=== PATIENT | male | born 1970 | race Caucasian/White ===

== ENCOUNTER 2021-12-13 00:32 | Emergency (ER) | payer OTHER, SELFPAY ==
--- NOTE | ~2021-12-13 | CT_ITS ---
EXAMINATION: CT ANGIOGRAM LEFT LOWER EXTREMITY CLINICAL INFORMATION: Fall extremity COMPARISON: None TECHNIQUE: CT angiography of the left lower extremity was performed after the administration of 100 mL Omnipaque 350 intravenous contrast. Coronal and sagittal reformats are reviewed. Maximal intensity projection images were created on an independent workstation, and reviewed. This CT examination was performed using dose optimization techniques as appropriate, variously including the following: *Automated exposure control *Adjustment of mA and/or kV according to patient size (this includes techniques or standardized protocols for targeted exams where dose is matched to indication/reason for exam; i.e. extremities or head) *Use of iterative reconstruction technique DLP: 410 mGy-cm FINDINGS: VASCULAR: Bilateral external and internal iliac arteries widely patent. Minimal calcific atherosclerotic disease of the left common femoral artery without stenosis. Superficial and profunda femoral arteries are patent without stenosis. Popliteal artery and tibioperoneal trunk are widely patent. Anterior tibial artery is patent proximally, however distally shows a relatively abrupt cut off in opacification. Posterior vertebral artery is patent proximally showing normal opacification to the level of the tibial metaphysis. There is no contrast opacification beyond the ankle. Peroneal artery is patent to the level of the distal third of the calf. IMAGED VISCERA: Diverticulosis. Bladder unremarkable. Prostate and seminal vesicles unremarkable. No lymphadenopathy. No pelvic free fluid. MUSCULOSKELETAL: Unremarkable. CT/CT angio LE LT IMPRESSION: Normal arterial blood flow through the level of the left knee. At most, single vessel runoff to the left foot. The anterior tibial artery is unopacified past the distal third of the tibia. Posterior tibial artery is unopacified past the distal tibial metaphysis. Peroneal artery is only seen as far as the distal third of the calf, however lack of visualization distally may reflect its diminutive nature.
[2021-12-13 00:43] VITALS: BP 169/103; PULSE 81; RESP 18; TEMP 37; O2SAT 99; BMI 28.7
--- NOTE | 2021-12-13 00:57 | ED_ITS ---
HPI - Extremity Problem General Chief complaint: Extremity Problem Stated complaint: L foot red&no circulation after shower for months Time Seen by Provider: 12/13/21 00:42 Source: patient Mode of arrival: ambulatory Limitations: no limitations History of Present Illness HPI Narrative: Patient comes to the emergency room complaining of pain and numbness in his left foot and distal left lower extremity. Patient states that he was in the shower approximately 22:00, when he walked out of the shower he noticed that his left lower extremity was read. However, patient states that since approximately 19:00 he noticed that his toes and foot on the left lower extremity were getting numb and tingly and painful. Patient states that this is the 2nd time it happens. Patient was seen at [facility] in September of 2021. Patient states that there was no diagnosis made. Tonight, patient called his PCP, he was instructed to come to the emergency room. Related Data Home Medications Medication Instructions Recorded Confirmed lisinopril 10 mg tablet 1 tab PO DAILY 12/13/21 12/13/21 lorazepam 1 mg tablet 1 tab PO DAILY PRN 12/13/21 12/13/21 metoprolol tartrate 25 mg tablet 1 tab PO BID 12/13/21 12/13/21 Previous Rx's Medication Instructions Recorded tramadol 50 mg tablet 50 mg PO BID PRN #7 tab 12/13/21 Allergies Allergy/AdvReac Type Severity Reaction Status Date / Time No Known Allergies Allergy Verified 12/13/21 00:51 Review of Systems Review of Systems: Constitutional : No Weight loss, No Fever, No Chills, No Night Sweats, No Fatigue, No Malaise ENT/Mouth : No Hearing loss, No Ear Pain, No Nasal Congestion, No Sinus Pain, No Hoarseness, No sore throat, No Rhinorrhea, No Swallowing Difficulty Eyes: No Eye Pain, No Swelling, No Redness, No Foreign Body, No Discharge, No Vision Changes Cardiovascular : No Chest Pain, No SOB, No Dyspnea on Exertion, No Orthopnea, No Edema, No Palpitations Respiratory : No Cough, No Sputum, No Wheezing, No Smoke Exposure, No Dyspnea Gastrointestinal : No Nausea, No Vomiting, No Diarrhea, No Constipation, No abdominal Pain, No Hematochezia, No Melena Genitourinary : no irregular bleeding, No Dysuria, No Urinary Frequency, No Hematuria, No Urinary Incontinence, No Urgency, No Flank Pain, No Urinary Flow Changes, No Hesitancy Musculoskeletal : Complaining of cold foot, pain, numbness and tingling. Complaining of back spasms and pain radiating from his lower back down his left leg (chronic) Skin : No Skin Lesions, No rash Neuro : No Weakness, No Numbness, No Paresthesias, No Loss of Consciousness, No Dizziness, No Headache Psych : No Anxiety/Panic, No Depression, No SI/HI/AH/VH, No Social Issues, Heme/Lymph: No Bruising, No Bleeding,No Lymphadenopathy Endocrine : No Polyuria, No Polydipsia, No Temperature Intolerance [facility] Past Medical History Medical History (Updated 12/13/21 @ 03:26 by Thalia Kilgore MD) Hypertension Surgical History (Updated 12/13/21 @ 01:02 by Thalia Kilgore MD) History of lumbar laminectomy Social History Social History Alcohol intake: unknown Patient Tobacco Use Status: Never used Tobacco Use of substances other than those prescribed or required for medical reasons: No Advance Directives: No Physical Exam Vital Signs: Vital Signs: Last Vital Signs Temp 98.5 F 12/13/21 03:04 Pulse 89 12/13/21 03:04 Resp 20 12/13/21 03:04 BP 115/70 12/13/21 03:04 Pulse Ox 97 12/13/21 03:04 BMI result Body Mass Index 28.7 Const: Other: Appearance: Alert. Oriented X3. No acute distress. Eyes: Pupils equal, round and reactive to light. ENT: Pharynx normal. Neck: Normal inspection. Neck supple. No lymph nodes noted. No crepitus CVS: Normal heart rate and rhythm. Pulses normal. Normal S1 and S2 Respiratory: No respiratory distress. Breath sounds normal. No Wheezing. No rales Abdomen: Soft and nontender. No rigidity. No distention. good BS x4 Skin: Skin warm and dry. See extremity below Extremities: Chronic left footdrop, Mild bilateral chronic venous stasis, 1 pitting edema bilaterally. No pain to touch on the left calf, left foot is colder than the right foot, difficult to palpate pulses. Patient states he has no sensation in his left foot Neuro: Oriented X 3. No motor deficit. No sensory deficit. Moving all extermities. No slurred speech. Course Course Course Narrative: Discussed with our radiology technicians with an ultrasound or a CTA/run of would be faster at this time of night. We agree that we will proceed with a CTA/runoff. At this time, it is unlikely that patient may have an arterial thrombus. Examination, patient is not significantly tender, the erythema is not any different than the redness on his right extremity. Labs and imaging pending at this time. Medical records from [facility] have been requested. 01:33 we received records from [facility]. Patient was actually seen/discharged from [facility] on 08/21/2021: Patient presented to the hospital complaining of acute on chronic left foot drop, bilateral lower extremity paresthesias and bilateral hand paresthesias. Patient was admitted for observation. Patient had a MRI of the lumbar spine and from [facility]. C- spine MRI was normal, lumbar spine MRI showed degenerative and postsurgical changes of the lower lumbar spine, no high-grade central stenosis, neural foraminal narrowing is greatest at L4-L5. Patient was seen by Neurology on the day of discharge and did not recommend any further workup and patient was discharged with home physical therapy I discussed the CT scan with the patient, it seems that he does not have an acute arterial thrombus. Patient instructed to follow-up with his primary care physician. Patient complaining of pain, but patient describes is that the worst pain that he is feeling if his chronic pain that radiates from his back all the way down to his leg, shock-like sensations. I discussed with the patient he would benefit also from a consult with vascular surgery. MDM - Extremity (Nontraumatic) Lab Data Result diagrams: 12/13/21 01:09 12/13/21 01:09 Labs: Lab Results 12/13/21 12/13/21 12/13/21 Range/Units 01:09 01:09 01:09 WBC 10.9 H (4.8-10.8) X10*3/uL RBC 5.55 (4.60-5.80) X10*6/uL Hgb 16.3 (14.0-18.0) g/dl Hct 49.5 (42.0-52.0) % MCV 89.2 (80.0-98.0) fL MCH 29.4 (27.0-33.0) pg MCHC 32.9 (31.0-36.0) g/dl RDW 12.7 (11.0-16.0) % Plt Count 177 (160-400) X10*3/uL MPV 9.4 (9.4-12.4) fL Immature Gran % (Auto) 0.3 (0.0-0.4) % Neut % (Auto) 49.2 (45-73) % Lymph % (Auto) 41.4 H (20-40) % Park % (Auto) 7.0 (2-11) % Eos % (Auto) 1.2 (0-4) % Baso % (Auto) 0.9 (0-2) % Lymph # (Auto) 4.5 (1.2-4.9) X10*3/uL [place] # (Auto) 0.8 (0.1-1.2) X10*3/uL Eos # (Auto) 0.1 (0.0-0.4) X10*3/uL Baso # (Auto) 0.1 (0.0-0.2) X10*3/uL Abs Immat Gran (auto) 0.03 (0.00-0.03) X10*3/uL Absolute Neuts (auto) 5.4 (2.0-8.3) x10*3/uL Absolute Nucleated RBC 0.000 (0.0-0.012) X10*3/uL Nucleated RBC % (auto) 0.0 (0.0-0.2) /100WBC ESR (0-15) MM/HR PT 11.8 (9.9-13.0) SEC INR 1.0 (0.9-1.1) Sodium 135 (135-145) mmol/L Potassium 4.7 (3.3-5.1) mmol/L Chloride 99 (96-108) mmol/L Carbon Dioxide 23 (22-29) mmol/L Anion Gap 18 (12-20) BUN 10 (9-16) mg/dL Creatinine 0.76 (0.5-1.4) mg/dL Estim Creat Clear Calc 150.3 Estimated GFR > 60 Random Glucose 97 (60-115) mg/dL Lactic Acid (0.5-2.0) mmol/L Uric Acid 7.9 H (3.4-7.0) mg/dL Calcium 9.0 (8.4-10.2) mg/dL Total Bilirubin 0.4 (0.0-1.0) mg/dL Direct Bilirubin 0.2 (0.0-0.5) mg/dL AST 49 H (5-37) U/L ALT 73 H (0-40) U/L Alkaline Phosphatase 68 (39-117) U/L Total Protein 8.2 H (6.5-8.0) g/dL Albumin 4.6 (3.5-5.0) g/dL 12/13/21 12/13/21 Range/Units 01:09 01:09 WBC (4.8-10.8) X10*3/uL RBC (4.60-5.80) X10*6/uL Hgb (14.0-18.0) g/dl Hct (42.0-52.0) % MCV (80.0-98.0) fL MCH (27.0-33.0) pg MCHC (31.0-36.0) g/dl RDW (11.0-16.0) % Plt Count (160-400) X10*3/uL MPV (9.4-12.4) fL Immature Gran % (Auto) (0.0-0.4) % Neut % (Auto) (45-73) % Lymph % (Auto) (20-40) % Park % (Auto) (2-11) % Eos % (Auto) (0-4) % Baso % (Auto) (0-2) % Lymph # (Auto) (1.2-4.9) X10*3/uL [place] # (Auto) (0.1-1.2) X10*3/uL Eos # (Auto) (0.0-0.4) X10*3/uL Baso # (Auto) (0.0-0.2) X10*3/uL Abs Immat Gran (auto) (0.00-0.03) X10*3/uL Absolute Neuts (auto) (2.0-8.3) x10*3/uL Absolute Nucleated RBC (0.0-0.012) X10*3/uL Nucleated RBC % (auto) (0.0-0.2) /100WBC ESR 2 (0-15) MM/HR PT (9.9-13.0) SEC INR (0.9-1.1) Sodium (135-145) mmol/L Potassium (3.3-5.1) mmol/L Chloride (96-108) mmol/L Carbon Dioxide (22-29) mmol/L Anion Gap (12-20) BUN (9-16) mg/dL Creatinine (0.5-1.4) mg/dL Estim Creat Clear Calc Estimated GFR Random Glucose (60-115) mg/dL Lactic Acid 2.3 H* (0.5-2.0) mmol/L Uric Acid (3.4-7.0) mg/dL Calcium (8.4-10.2) mg/dL Total Bilirubin (0.0-1.0) mg/dL Direct Bilirubin (0.0-0.5) mg/dL AST (5-37) U/L ALT (0-40) U/L Alkaline Phosphatase (39-117) U/L Total Protein (6.5-8.0) g/dL Albumin (3.5-5.0) g/dL Imaging Data Lower extremity CTA: Radiologist's impression: FINDINGS: VASCULAR: Bilateral external and internal iliac arteries widely patent. Minimal calcific atherosclerotic disease of the left common femoral artery without stenosis. Superficial and profunda femoral arteries are patent without stenosis. Popliteal artery and tibioperoneal trunk are widely patent. Anterior tibial artery is patent proximally, however distally shows a relatively abrupt cut off in opacification. Posterior vertebral artery is patent proximally showing normal opacification to the level of the tibial metaphysis. There is no contrast opacification beyond the ankle. Peroneal artery is patent to the level of the distal third of the calf. IMAGED VISCERA: Diverticulosis. Bladder unremarkable. Prostate and seminal vesicles unremarkable. No lymphadenopathy. No pelvic free fluid. MUSCULOSKELETAL: Unremarkable. CT/CT angio LE LT IMPRESSION: Normal arterial blood flow through the level of the left knee. At most, single vessel runoff to the left foot. The anterior tibial artery is unopacified past the distal third of the tibia. Posterior tibial artery is unopacified past the distal tibial metaphysis. Peroneal artery is only seen as far as the distal third of the calf, however lack of visualization distally may reflect its diminutive nature. Discharge Plan Discharge Clinical Impression: Chronic leg pain Patient Disposition: Home, Self-Care Instructions: Lumbar Radiculopathy (ED), Chronic Back Pain (DC) Additional Instructions: Please follow-up with your primary care physician tomorrow. If you have any worsening or new symptoms, please return to the emergency room or call 911 Prescriptions: New tramadol 50 mg tablet 50 mg PO BID PRN (Reason: pain) Qty: 7 0RF No Action lisinopril 10 mg tablet 1 tab PO DAILY 0RF lorazepam 1 mg tablet 1 tab PO DAILY PRN (Reason: Anxiety) 0RF metoprolol tartrate 25 mg tablet 1 tab PO BID 0RF Referrals: Eusebio Wilkes MD [Physician] - 2 days
[2021-12-13 01:14] LABS: Basophils Absolute Auto 0.1 X10*3/uL (0.0-0.2); Basophils Percent Auto 0.9 % (0-2); Eosinophils Absolute Auto 0.1 X10*3/uL (0.0-0.4); Eosinophils Percent Auto 1.2 % (0-4); Hematocrit 49.5 % (42.0-52.0); Hemoglobin 16.3 g/dl (14.0-18.0); Imm Gran Abs Auto 0.03 X10*3/uL (0.00-0.03); Imm Gran Pct Auto 0.3 % (0.0-0.4); Lymphocytes Absolute Auto 4.5 X10*3/uL (1.2-4.9); Lymphocytes Percent Auto 41.4 % (20-40); MANUAL DIFF FLAG NO; Mean Corpuscular HGB Conc 32.9 g/dl (31.0-36.0); Mean Corpuscular Hemoglobin 29.4 pg (27.0-33.0); Mean Corpuscular Volume 89.2 fL (80.0-98.0); Mean Platelet Volume 9.4 fL (9.4-12.4); Monocytes Absolute Auto 0.8 X10*3/uL (0.1-1.2); Neutrophils Absolute Auto 5.4 x10*3/uL (2.0-8.3); Neutrophils Percent Auto 49.2 % (45-73); Platelet Count 177 X10*3/uL (160-400); Red Blood Count 5.55 X10*6/uL (4.60-5.80); Red Cell Distribution Width 12.7 % (11.0-16.0); White Blood Count 10.9 X10*3/uL (4.8-10.8)
[2021-12-13] MEDS: LORazepam 1 MG TABLET PO (01:16)
[2021-12-13 01:19] LABS: Prothrombin Time 11.8 SEC (9.9-13.0)
[2021-12-13 01:30] LABS: Lactic Acid 2.3 mmol/L (0.5-2.0)
[2021-12-13 01:38] LABS: Alanine Aminotransferase 73 U/L (0-40); Albumin Level 4.6 g/dL (3.5-5.0); Alkaline Phosphatase 68 U/L (39-117); Anion Gap 18 (12-20); Aspartate Amino Transferase 49 U/L (5-37); Bilirubin Direct 0.2 mg/dL (0.0-0.5); Bilirubin Total 0.4 mg/dL (0.0-1.0); Blood Urea Nitrogen 10 mg/dL (9-16); Carbon Dioxide 23 mmol/L (22-29); Chloride 99 mmol/L (96-108); Creatinine Clr Calc Pharmacy 150.3; Estimated Glomerular Filt Rate > 60; Glucose Random 97 mg/dL (60-115); Potassium 4.7 mmol/L (3.3-5.1); Sodium 135 mmol/L (135-145); Total Protein 8.2 g/dL (6.5-8.0); Uric Acid 7.9 mg/dL (3.4-7.0)
[2021-12-13 02:40] LABS: Erythrocyte Sedimentation Rate 2 MM/HR (0-15)
[2021-12-13] MEDS: iohexoL 350 MG/ML 100 ML INFUS..BTL IV (02:47)
[2021-12-13 03:04] VITALS: BP 115/70; PULSE 89; RESP 20; TEMP 36.9; O2SAT 97
[2021-12-13 03:12] LABS: Reflex Lactate? Lactic Acid Added
[2021-12-13] MEDS: Morphine Sulfate 2 MG/ML CARTRIDGE 1 MG IVPUSH (03:32)
== END 2021-12-13 03:43 | disposition home or self-care (01) ==
PROVIDERS: Emergency Provider Emergency Medicine; PCP Internal Medicine
DX: G89.29 Other chronic pain (principal); M79.605 Pain in left leg; R60.0 Localized edema; I10 Essential (primary) hypertension; M21.372 Foot drop, left foot; I87.8 Other specified disorders of veins
CPT/HCPCS: 36415; 73706; 80048; 80076; 83605; 84550; 85025; 85610; 85652; 96374; 99284; J2270; Q9967

== ENCOUNTER 2022-07-01 13:09 | Emergency (ER) | payer OTHER, SELFPAY ==
--- NOTE | ~2022-07-01 | XR_ITS ---
EXAMINATION: XR ANKLE, RIGHT CLINICAL INFORMATION: Right ankle pain status post fall. COMPARISON: None TECHNIQUE: AP, lateral, and mortise views of the right ankle. FINDINGS: The ankle joint and mortise are intact. There is no acute fracture or dislocation. The tarsal bones are normally aligned. Mild soft tissue swelling. XR/XR ankle RT 2V IMPRESSION: Mild soft tissue swelling without definitive acute underlying osseous abnormality.
--- NOTE | ~2022-07-01 | XR_ITS ---
EXAMINATION: XR KNEE, RIGHT CLINICAL INFORMATION: Fall. Pain. COMPARISON: None TECHNIQUE: Four views of the right knee. FINDINGS: Bone alignment is normal. No fracture or dislocation is seen. Joint spaces are normal. There is a small effusion. XR/XR knee RT 2V IMPRESSION: Unremarkable exam.
--- NOTE | ~2022-07-01 | CT_ITS ---
EXAMINATION: CT SCAN OF THE RIGHT LEG WITHOUT CONTRAST CLINICAL INFORMATION: Pain to right tibia-fibula COMPARISON: X-rays of the right ankle and right knee TECHNIQUE: CT scan of the right lower leg is performed with reconstruction imaging performed at the acquisition workstation. FINDINGS: Subcutaneous soft tissues: Minimal scattered stranding in the subcutaneous soft tissues compatible edema. Muscles and tendons: Normal. Bone and visualized joints: There are small well-corticated areas of ossification adjacent anterolateral talus. I do not see a fracture line. CT/CT lower leg RT wo IV con IMPRESSION: Normal CT scan of the right tibia-fibula. I do not see an acute fracture. Small areas of ossification adjacent to the talus in the region of the expected insertion of the anterior talofibular ligament. This may reflect areas of old ununited fracture fragments or represent ossicles or reflect heterotopic/dystrophic ossification related to prior ligamentous injury.
--- NOTE | ~2022-07-01 | US_ITS ---
EXAMINATION: US VENOUS ULTRASOUND WITH DOPPLER LOWER EXTREMITY, RIGHT CLINICAL INFORMATION: Pain in the right calf. COMPARISON: None TECHNIQUE: Ultrasound of the deep veins is performed from the hip to the calf with compression sonography and color and pulse Doppler assessment. Spectral analysis with color-flow imaging is performed. FINDINGS: There is normal venous compression and respiratory variation and augmented flow. The visualized common femoral vein, superficial femoral vein, profunda femoral vein, popliteal vein, and the trifurcation region shows no evidence of deep venous thrombosis. There is no significant popliteal fossa cyst. If the patient's symptoms persist, followup ultrasound in 5 days 7 days might be of value to exclude proximal propagation from a non-visualized calf vein. US/US venous duplex LE RT IMPRESSION: No DVT demonstrated in the right lower extremity.
[2022-07-01 15:09] VITALS: BP 141/83; PULSE 74; RESP 20; TEMP 36.4; O2SAT 98; BMI 28.1
--- NOTE | 2022-07-01 18:39 | ED_ITS ---
HPI - Extremity Injury (Lower) General Chief Complaint: Extremity Injury, Lower Stated Complaint: R leg broken? Time Seen by Provider: 07/01/22 17:42 Source: patient Mode of arrival: ambulatory Limitations: no limitations History of Present Illness HPI Narrative: 51-year-old male presenting with right lower extremity pain x2 days, patient tells me that yesterday he was in a trailer, he stepped on the forced hot air event, and it fell through, therefore he rolled his ankle falling back, since then he has not been able to bear weight has pain starting below the right knee and ending right above the right ankle, he tells me the pain is excruciating, he is unable to bear weight he rates that a 10/06, he tells me he has had to get carried throughout the day and has not been able to ambulate. He tells me he is entire right foot is numb. When he fell he did not hit his head, no loss of consciousness. Patient is not on blood thinners. Related Data Home Medications Medication Instructions Recorded Confirmed lisinopril 10 mg tablet 1 tab PO DAILY 12/13/21 12/13/21 lorazepam 1 mg tablet 1 tab PO DAILY PRN Anxiety 12/13/21 12/13/21 metoprolol tartrate 25 mg tablet 1 tab PO BID 12/13/21 12/13/21 Previous Rx's Medication Instructions Recorded tramadol 50 mg tablet 50 mg PO BID PRN pain #7 tabs 12/13/21 ketorolac 10 mg tablet 10 mg PO TID PRN pain 5 days #15 07/01/22 tabs Allergies Allergy/AdvReac Type Severity Reaction Status Date / Time No Known Allergies Allergy Verified 12/13/21 00:51 Review of Systems Review of Systems: Constitutional : No Weight loss, No Fever, No Chills, No Fatigue, No Malaise ENT/Mouth : No sore throat, No Rhinorrhea Eyes: No Eye Pain, No Swelling, No Redness Cardiovascular : No Chest Pain, No SOB, No Dyspnea on Exertion, No Orthopnea, No Edema, No Palpitations Respiratory : No Cough, No Sputum, No Wheezing Gastrointestinal : No Nausea, No Vomiting, No Diarrhea, No Constipation, No abdominal Pain, No Hematochezia, No Melena Genitourinary : No Dysuria, No Urinary Frequency, No Hematuria, Musculoskeletal : + joint pain, No Myalgias, + Joint Swelling Skin : No Skin Lesions, No rash Neuro : No Weakness, No Numbness, No Dizziness, No Headache Psych : No Anxiety/Panic, No Depression All other systems reviewed and are negative Yes all other systems are reviewed and are negative [facility] Past Medical History Attestation statement: The following information was validated with the patient. Source: old records reviewed and nursing notes reviewed Medical History Hypertension Surgical History History of lumbar laminectomy Social History Social History Alcohol intake: unknown Patient Tobacco Use Status: Never used Tobacco Advance Directives: No Advance Directives Information Provided: No Physical Exam Vital Signs: Vital Signs: Last Vital Signs Temp 98.4 F 07/01/22 18:51 Pulse 79 07/01/22 18:51 Resp 18 07/01/22 18:51 BP 158/89 H 07/01/22 18:51 Pulse Ox 98 07/01/22 18:51 O2 Del Method 07/01/22 18:51 BMI result Body Mass Index 28.1 vss Appearance: Alert.? Oriented X3.? No acute distress.? Head: Normocephalic, atraumatic, no step-offs or deformities Eyes: Pupils equal, round and reactive to light.? ENT: Pharynx normal.? Neck: Normal inspection.? Neck supple.? CVS: Normal heart rate and rhythm.? Pulses normal.? Respiratory: No respiratory distress.? Breath sounds normal.? Abdomen: Soft and nontender.? Skin: Skin warm and dry.? Normal skin color.? Normal skin turgor.? Extremities: No lower extremity edema.? No calf ttp. 5/5 strength to bilateral upper and Left lower extremity. 4/5 strength right lower extremity, exam limited due to pain. 2+ dorsalis pedis, posterior tibialis and anterior tibialis pulses equal bilateral. Normal capillary refill to bilateral lower extremities. Patient with pain to palpation throughout entire right lower extremity particularly lateral aspect from the knee down just above the ankle. No distracting injuries. Patient unable to ambulate. Normal straight leg raise b/l. Normal soft compartments b/l. Back: No midline tenderness, no C-spine tenderness, full range of motion, no CVA tenderness bilaterally Neuro: Oriented X 3.? No motor deficit.? Decreased sensation from the knee down the right lower extremity. Normal sensation on the left. Proprioception intact to bilateral lower extremity digits.CN 2-12 intact Course Reevaluation(s) Reevaluation #1: Ankle x-ray of right ankle with mild soft tissue swelling without acute underlying process, normal x-ray of the right knee. At this time is CT of the right lower extremity will be obtained to rule out fractures, dislocations, t here is concern for tibial plateau fracture. Time: 19:12 Reevaluation #2: CT of the right lower extremity with no acute findings, no acute fracture, there are small areas of ossification adjacent to the talus in the region of the expected insertion of the anterior talofibular ligament, which could reflect an old ununited fracture or represent ossicles or reflect hypertrophic / dystrophic ossification related to prior ligamentous injury. Patient continues to report pain despite p.o. morphine, unable to bear weight, [place] texted Hardik-subhash from Ortho. Time: 20:47 Reevaluation #3: Ortho unsure of what is causing numbness, no fx noted. Tajaci notes patient has had back issues in past, however patient w/o back pain, no saddle paresthesias, no weakness, no urinary/bowel incontinence/ retention, History and physical examination not consistent with cauda equina or epidural abscess. Will obtain US to ro dvt. Time: 20:54 Additional Reevaluation(s): Patient will be discharged with crutches, advised to rest, ice, compress and elevate extremity. Patient could have a hematoma to area. I do not suspect compartment syndrome. Will give patient crutches and an Arjun wrap. Will give him a short supply of toradol, advised to return with new or worsening symptoms. Will give him follow-up with ortho. Advised him to be nonweightbearing to right lower extremity until patient is followed by orthopedics and/or PCP. MDM - Extremity Injury (Lower) MDM Narrative Medical decision making narrative: 1900 51-year-old male presents w/ RLE pain from right knee down to above right ankle /, severe and constant, unable to bare weight. PE patient's significant pain, particularly of palpation of right lower extremity from the knee down just above the ankle, no overlying skin changes, no step-offs or deformities or distracting injuries, no footdrop bilaterally, nor mal pulses to bilateral lower extremities, full range of motion to ankle the knees. Capillary refill intact. Patient unable to ambulate secondary to pain. Will rule out fx/ dislocation. Concerns for ligament or tendon injury. Unlikely compartment syndrome. Unlikely quad tear. Likely hematoma . History and physical examination not consistent with DVT or arterial occlusion. Plan at this time x-ray right ankle knee. Medical Records Attestation: I reviewed the patient's medical records. Lab Data Attestation: I reviewed the patient's lab results. Result diagrams: 07/01/22 21:27 07/01/22 21:27 Labs: Lab Results 07/01/22 07/01/22 Range/Units 21:27 21:27 WBC 9.3 (4.8-10.8) X10*3/uL RBC 5.51 (4.60-5.80) X10*6/uL Hgb 16.1 (14.0-18.0) g/dl Hct 50.1 (42.0-52.0) % MCV 90.9 (80.0-98.0) fL MCH 29.2 (27.0-33.0) pg MCHC 32.1 (31.0-36.0) g/dl RDW 14.2 (11.0-16.0) % Plt Count 161 (160-400) X10*3/uL MPV 9.5 (9.4-12.4) fL Immature Gran % (Auto) 0.5 H (0.0-0.4) % Neut % (Auto) 60.6 (45-73) % Lymph % (Auto) 27.4 (20-40) % [place] % (Auto) 9.4 (2-11) % Eos % (Auto) 1.3 (0-4) % Baso % (Auto) 0.8 (0-2) % Lymph # (Auto) 2.5 (1.2-4.9) X10*3/uL [place] # (Auto) 0.9 (0.1-1.2) X10*3/uL Eos # (Auto) 0.1 (0.0-0.4) X10*3/uL Baso # (Auto) 0.1 (0.0-0.2) X10*3/uL Abs Immat Gran (auto) 0.05 H (0.00-0.03) X10*3/uL Absolute Neuts (auto) 5.6 (2.0-8.3) x10*3/uL Absolute Nucleated RBC 0.000 (0.0-0.012) X10*3/uL Nucleated RBC % (auto) 0.0 (0.0-0.2) /100WBC Sodium 139 (135-145) mmol/L Potassium 4.1 (3.3-5.1) mmol/L Chloride 101 (96-108) mmol/L Carbon Dioxide 23 (22-29) mmol/L Anion Gap 19 (12-20) BUN 11 (9-16) mg/dL Creatinine 0.82 (0.5-1.4) mg/dL Estim Creat Clear Calc 137.9 Estimated GFR > 60 Random Glucose 96 (60-115) mg/dL Calcium 8.6 (8.4-10.2) mg/dL Total Bilirubin 0.9 (0.0-1.0) mg/dL AST 52 H (5-37) U/L ALT 78 H (0-40) U/L Alkaline Phosphatase 80 (39-117) U/L Total Creatine Kinase 139 (38-174) U/L Total Protein 7.6 (6.5-8.0) g/dL Albumin 4.3 (3.5-5.0) g/dL Critical Care Time Critical Care Time Critical Care Time: Yes Total Critical Care Time: 35 Attestation: I attest to this time spent taking care of the patient, obtaining history, physical, reviewing labs, imaging, speaking to my attending, speaking to specialist. Discharge Plan Discharge Clinical Impression: Acute right ankle pain, Acute pain of right lower extremity, Hematoma Patient Disposition: Home, Self-Care Additional Instructions: Take your medications as prescribed. If you were prescribed antibiotics today, it is important that you take your medication to their entirety, do not skip any doses, do not finish them early. Follow-up with your primary care provider this week. follow-up with orthopedics in a week or 2 if symptoms persist. Return to the emergency department with new or worsening symptoms. Such as fevers, chills, chest pain, shortness of breath, nausea, vomiting, dizziness, headache, vision changes, lethargy In case of emergency call 911 Use crutches as instructed Toradol has been sent to your pharmacy, please to not take any ibuprofen with this. Please do not bear weight to right lower extremity. CT/CT lower leg RT wo IV con IMPRESSION: Normal CT scan of the right tibia-fibula. I do not see an acute fracture. ? Small areas of ossification adjacent to the talus in the region of the expected insertion of the anterior talofibular ligament. ? This may reflect areas of old ununited fracture fragments or represent ossicles or reflect heterotopic/dystrophic ossification related to prior ligamentous injury. Prescriptions: New ketorolac 10 mg tablet 10 mg PO TID PRN (Reason: pain) 5 Days Qty: 15 0RF Rx Instructions: Patient tolerated IM Toradol in the emergency department. No Action lisinopril 10 mg tablet 1 tab PO DAILY lorazepam 1 mg tablet 1 tab PO DAILY PRN (Reason: Anxiety) metoprolol tartrate 25 mg tablet 1 tab PO BID tramadol 50 mg tablet 50 mg PO BID PRN (Reason: pain) Qty: 7 0RF Referrals: [facility] [Provider Group] - 2 weeks Rigoberto Vieyra MD [Primary Care Provider] - 2 days Stand Alone Forms: Work/School Release
[2022-07-01 18:51] VITALS: BP 158/89; PULSE 79; RESP 18; TEMP 36.9; O2SAT 98
[2022-07-01] MEDS: Morphine Sulfate Immed Release 15 MG TABLET PO (19:25)
[2022-07-01 21:31] LABS: MANUAL DIFF FLAG NO
[2022-07-01 21:32] LABS: Basophils Absolute Auto 0.1 X10*3/uL (0.0-0.2); Basophils Percent Auto 0.8 % (0-2); Eosinophils Absolute Auto 0.1 X10*3/uL (0.0-0.4); Eosinophils Percent Auto 1.3 % (0-4); Hematocrit 50.1 % (42.0-52.0); Hemoglobin 16.1 g/dl (14.0-18.0); Imm Gran Abs Auto 0.05 X10*3/uL (0.00-0.03); Imm Gran Pct Auto 0.5 % (0.0-0.4); Lymphocytes Absolute Auto 2.5 X10*3/uL (1.2-4.9); Lymphocytes Percent Auto 27.4 % (20-40); Mean Corpuscular HGB Conc 32.1 g/dl (31.0-36.0); Mean Corpuscular Hemoglobin 29.2 pg (27.0-33.0); Mean Corpuscular Volume 90.9 fL (80.0-98.0); Mean Platelet Volume 9.5 fL (9.4-12.4); Monocytes Absolute Auto 0.9 X10*3/uL (0.1-1.2); Monocytes Percent Auto 9.4 % (2-11); Neutrophils Absolute Auto 5.6 x10*3/uL (2.0-8.3); Neutrophils Percent Auto 60.6 % (45-73); Platelet Count 161 X10*3/uL (160-400); Red Blood Count 5.51 X10*6/uL (4.60-5.80); Red Cell Distribution Width 14.2 % (11.0-16.0); White Blood Count 9.3 X10*3/uL (4.8-10.8)
[2022-07-01 21:48] LABS: Alanine Aminotransferase 78 U/L (0-40); Albumin Level 4.3 g/dL (3.5-5.0); Alkaline Phosphatase 80 U/L (39-117); Anion Gap 19 (12-20); Aspartate Amino Transferase 52 U/L (5-37); Bilirubin Total 0.9 mg/dL (0.0-1.0); Blood Urea Nitrogen 11 mg/dL (9-16); Calcium 8.6 mg/dL (8.4-10.2); Carbon Dioxide 23 mmol/L (22-29); Chloride 101 mmol/L (96-108); Creatinine Clr Calc Pharmacy 137.9; Estimated Glomerular Filt Rate > 60; Glucose Random 96 mg/dL (60-115); Potassium 4.1 mmol/L (3.3-5.1); Sodium 139 mmol/L (135-145); Total Protein 7.6 g/dL (6.5-8.0)
[2022-07-01] MEDS: Ketorolac Tromethamine 30 MG/ML VIAL IM (22:28)
--- NOTE | 2022-07-01 22:46 | PC.NURSE ---
Pt refusing d/c secondary to inadequate pain management. Per pt: I want to reiterate to you, The only thing that works for me is 4mg Dilaudid for pain. I learned with my rib fx. Provider to bedside. to educate regarding pain management. Pt continues to request to be sent out for Dilaudid. This is ridiculous, I don't want to go home without pain management. Provider to provide d/c education. No questions.
== END 2022-07-01 23:02 | disposition home or self-care (01) ==
PROVIDERS: Physician Assistant; Emergency Provider Internal Medicine; PCP Internal Medicine
DX: S90.01XA Contusion of right ankle, initial encounter (principal); M25.571 Pain in right ankle and joints of right foot; R60.0 Localized edema; M25.561 Pain in right knee; X50.1XXA Overexertion from prolonged static or awkward postures, initial encounter; Y93.9 Activity, unspecified; Y92.9 Unspecified place or not applicable; Y99.9 Unspecified external cause status; Z79.899 Other long term (current) drug therapy
CPT/HCPCS: 36415; 73560; 73600; 73700; 80053; 82550; 85025; 93971; 96372; 96374; 99284; J1885

== ENCOUNTER 2022-09-05 09:11 | Day surgery (SDC) | payer OTHER, SELFPAY ==
[2022-09-04 09:30] VITALS: BMI 27.3
--- NOTE | 2022-09-04 10:54 | P.CONAN_ITS ---
Documented by User: Brandy Bal NP 09/04/22 10:54 HPI - Anesthesia Eval Consult details Narrative: 51yo M for Colonoscopy [facility] Past Medical History Medical History Ankle pain, right Anxiety Back pain Hypertension Surgical History Surgical History History of ankle surgery History of excision of pilonidal cyst History of lumbar laminectomy Hx of tympanostomy tubes Social History Social History Alcohol intake: unknown Patient Tobacco Use Status: Current everyday Tobacco user Tobacco use type: Cigarette Cigarettes Per Day: 8 Use of substances other than those prescribed or required for medical reasons: No Are you DNR?: No Advance Directives: No Advance Directives Information Provided: Yes Meds Allergies Allergy/AdvReac Type Severity Reaction Status Date / Time No Known Allergies Allergy Verified 09/05/22 10:05 Home Medications Medication Instructions Recorded Confirmed Last Taken Type lisinopril 10 mg tablet 1 tab PO DAILY 12/13/21 09/05/22 Unknown History lorazepam 1 mg tablet 1 tab PO DAILY PRN Anxiety 12/13/21 09/05/22 Unknown History hydrocodone 5 mg-acetaminophen 325 1 tab PO TID PRN Pain 09/05/22 09/05/22 Unknown History mg tablet Exam Exam Date and Time: September 04, 2022 1054 Height,Weight and Vital Signs: Height 6 ft 3 in Weight 99.337 kg Pertinent Lab Results Pertinent Lab Results: Laboratory Tests 07/01/22 07/01/22 21:27 21:27 WBC 9.3 Hgb 16.1 Hct 50.1 Plt Count 161 Sodium 139 Potassium 4.1 Chloride 101 Carbon Dioxide 23 BUN 11 Creatinine 0.82 Assessment and Plan Assessment Anesthesia Assessment: Chart Reviewed Documented by User: Deejay Beard MD 09/05/22 10:50 [facility] Past Medical History Medical History Ankle pain, right Anxiety Back pain Hypertension Family History Family history of problems with anesthesia: No Surgical History Surgical History History of ankle surgery History of excision of pilonidal cyst History of lumbar laminectomy Hx of tympanostomy tubes History of Problems with Anesthesia: No Social History Social History Alcohol intake: unknown Patient Tobacco Use Status: Current everyday Tobacco user Tobacco use type: Cigarette Cigarettes Per Day: 8 Use of substances other than those prescribed or required for medical reasons: No Are you DNR?: No Advance Directives: No Advance Directives Information Provided: Yes Meds Allergies Allergy/AdvReac Type Severity Reaction Status Date / Time No Known Allergies Allergy Verified 09/05/22 10:05 Home Medications Medication Instructions Recorded Confirmed Last Taken Type lisinopril 10 mg tablet 1 tab PO DAILY 12/13/21 09/05/22 Unknown History lorazepam 1 mg tablet 1 tab PO DAILY PRN Anxiety 12/13/21 09/05/22 Unknown History hydrocodone 5 mg-acetaminophen 325 1 tab PO TID PRN Pain 09/05/22 09/05/22 Unknown History mg tablet Exam Airway Mallampati Class: II TM Dist: >3cm Neck ROM: Full Loose/Missing/Broken Teeth: No Heart: rrr +s1s2 Lungs: cta b/l Assessment and Plan Assessment Anesthesia Assessment: Anesthesia Plan Discussed Final Anesthetic Review Family History of Problems with Anesthesia: No History of Problems with Anesthesia: No NPO: Yes ASA Class: II Final Preanesthetic Review: No Changes in Pt Med Stat, Meds/Allgs Chart Reviewed, Consent Obtained/Reviewed and Anes Risks/Benef Reviewed Patient Risk: Intermediate Procedure Risk: Intermediate Assessment/Block/Sedation in SS: Assess/Block/Sedation-SS Anesthetic Plan Anesthetic Plan: MAC: and Agree w/ Assess. and Plan Disposition: Standard PACU
[2022-09-05 09:48] VITALS: BP 157/103; PULSE 72; RESP 16; TEMP 37.1; O2SAT 97
[2022-09-05] MEDS: Lactated Ringers 1,000 ML 100 ML IVCONT (10:02)
[2022-09-05 11:55] VITALS: BP 122/83; PULSE 93; RESP 18; TEMP 37.2; O2SAT 98
--- NOTE | 2022-09-05 11:59 | PM.OP ---
Brief Operative Note Date of Service: 09/05/22 Pre-op diagnosis: Screening Post-op diagnosis: other (Polyps) Procedure: Colonoscopy to the cecum and TI with bx/removal of polyps, and hot snare polypectomy x 2 Surgeon: Josue Phan Anesthesia: MAC Was an Financial Services Professional used for this Procedure?: No Estimated blood loss (mL): 2.0 Pathology: other (A. Ascending colon polyps B. Transverse colon polyp C. Polyp at 40cm) Condition: stable Disposition: PACU
[2022-09-05 12:10] VITALS: BP 150/95; PULSE 73; RESP 16; TEMP 36.6; O2SAT 98
--- NOTE | 2022-09-06 00:04 | OP_ITS ---
SURGEON: Josue Phan MD INDICATIONS: The patient presents for evaluation of colorectal cancer screening. Full consent has been obtained from him for this, including risks of bleeding and perforation. PREOPERATIVE DIAGNOSIS: Colorectal cancer screening. POSTOPERATIVE DIAGNOSIS: Colorectal cancer screening, colon polyps, diverticulosis, and internal hemorrhoids. PROCEDURE PERFORMED: Colonoscopy to the cecum and terminal ileum with biopsy and removal of polyps, and hot snare polypectomy x2. ESTIMATED BLOOD LOSS: COMPLICATIONS: ANESTHESIA: Monitored anesthesia care. ASSISTANTS: SPECIMENS: DESCRIPTION OF PROCEDURE: The patient was placed in the left lateral decubitus position. The digital rectal exam revealed no abnormalities. The Olympus video pediatric colonoscope was entered into the rectum and advanced easily to the cecum. Once in the cecum I did identify a normal-appearing cecal pouch with appendiceal orifice and a normal-appearing ileocecal valve. The terminal ileum was cannulated and appeared normal. The scope was withdrawn back in the colon. The entire cecum and ileocecal valve appeared normal. The scope was then slowly withdrawn assessing all mucosal surfaces carefully. Preparation was excellent. In the very proximal ascending colon were 2 less than 5 mm polyps, which were each biopsied and completely removed with a cold biopsy forceps. In the transverse colon was an approximately 10 mm grossly adenomatous polyp, which was removed by hot snare polypectomy and recovered by suction. The polypectomy site appeared clean, without any sign of residual polyp nor bleeding. At 40 cm was an approximately 6 to 8 mm grossly adenomatous polyp, which was removed by hot snare polypectomy and recovered by suction. The polypectomy site appeared clean, without any sign of residual polyp nor bleeding. I did not visualize any other polyps, colitis, or angiodysplasia. There was a mild amount of sigmoid diverticulosis. In the rectum, scope was retroflexed visualizing internal hemorrhoids but no other pathology. The rectal mucosa appeared normal. The scope was straightened and withdrawn from the patient. He tolerated the procedure well and was returned to the recovery area in stable condition. IMPRESSION: 1. Colon polyps. 2. Diverticulosis. 3. Internal hemorrhoids. PLAN: The results of the pathology will be checked. I would recommend a repeat colonoscopy in 5 years for further surveillance. He was advised not to use any aspirin and NSAIDs for 1 week. MD RICHMOND Keith/KENL / [id number]
== END 2022-09-05 13:19 | disposition home or self-care (01) ==
PROVIDERS: PCP Internal Medicine; Visit Provider Internal Medicine
PROC: 0DJD8ZZ Inspection of Lower Intestinal Tract, Via Natural or Artificial Opening Endoscopic (ICD-10-PCS; CPT 45378; principal; 2022-09-05 10:40)
DX: Z12.11 Encounter for screening for malignant neoplasm of colon (principal); D12.2 Benign neoplasm of ascending colon; D12.3 Benign neoplasm of transverse colon; D12.5 Benign neoplasm of sigmoid colon; K57.30 Diverticulosis of large intestine without perforation or abscess without bleeding; K64.8 Other hemorrhoids; I10 Essential (primary) hypertension; Z79.899 Other long term (current) drug therapy; F17.210 Nicotine dependence, cigarettes, uncomplicated
CPT/HCPCS: 45385; 45380; 88305

== ENCOUNTER → 2023-04-24 13:06 | Outpatient (BNVA) | payer OTHER, SELFPAY | PROVIDERS: PCP Internal Medicine; Referring Provider Internal Medicine; Visit Provider Surgery ==

== ENCOUNTER 2023-05-14 07:54 | Day surgery (SDC) | payer OTHER, SELFPAY ==
[2023-05-10 13:19] VITALS: BMI 26.5
--- NOTE | 2023-05-13 09:00 | MHC.SHP ---
Pre-Procedural Eval Section A Date of Service: 05/13/23 The patient is an INPATIENT: No Changes since office visit: No Cold of Flu in the past 2 weeks, No New Medical Problems, No Changes in Medication and No Patient answered all questions The History & Physical has been completed within 30 days and I have reviewed it.: Yes Section B Chief Complaint: Umbilical hernia without obstruction or gangrene Allergies: Allergies Allergy/AdvReac Type Severity Reaction Status Date / Time No Known Allergies Allergy Verified 04/24/23 13:14 Plan I have reviewed the history and physical and performed a pertinent physical examination on my patient. No changes have occurred unless specified. Time Spent With Patient Time: Total time managing care of this patient today ____ minutes.
--- NOTE | 2023-05-13 11:05 | P.CONAN_ITS ---
Documented by User: Brandy Bal NP 05/13/23 11:10 HPI - Anesthesia Eval Consult details Narrative: 52yo M for Hernia Repair Umbilical w/mesh, Left Hernia Repair Inguinal w/mesh Multiple rib fractures a few weeks ago d/t fall per surgical H&P PMFSH Active Problems Active Problems: All Active Problems (Updated 05/10/23 @ 12:59 by Rocio Chu RN) Umbilical hernia (Acute) Inguinal hernia (Acute) Past Medical History Medical History Ankle pain, right Anxiety Back pain Hypertension Family History Family history of problems with anesthesia: No Surgical History Surgical History H/O colonoscopy History of ankle surgery History of excision of pilonidal cyst History of lumbar laminectomy Hx of tympanostomy tubes History of Problems with Anesthesia: No Social History Social History (Updated 05/14/23 @ 09:52 by Olga Curry MD) Alcohol intake: unknown Patient Tobacco Use Status: Current everyday Tobacco user Tobacco use type: Cigarette Cigarettes Per Day: 5.0 Smoked in Last 30 Days: Yes Use of substances other than those prescribed or required for medical reasons: No Are you DNR?: No Advance Directives: No Advance Directives Information Provided: Yes Advance Directives on File: No Meds Allergies Allergy/AdvReac Type Severity Reaction Status Date / Time No Known Allergies Allergy Verified 04/24/23 13:14 Home Medications Medication Instructions Recorded Confirmed Last Taken Type lorazepam 1 mg tablet 1 tab PO DAILY PRN Anxiety 12/13/21 05/10/23 Unknown History hydrocodone 5 mg-acetaminophen 325 1 tab PO TID PRN Pain 09/05/22 05/10/23 Unknown History mg tablet lisinopril 20 mg tablet 20 mg PO DAILY 04/24/23 05/10/23 05/14/23 History Exam Exam Date and Time: May 13, 2023 1105 Height,Weight and Vital Signs: Height 6 ft 3 in Weight 96.162 kg Assessment and Plan Assessment Anesthesia Assessment: Chart Reviewed Final Anesthetic Review Family History of Problems with Anesthesia: No History of Problems with Anesthesia: No Documented by User: Olga Curry MD 05/14/23 11:33 HPI - Anesthesia Eval Consult details Narrative: 52yo M for Umbilical and Left Inguinal Hernia Repair with mesh Multiple rib fractures a few weeks ago d/t fall per surgical H&P PMFSH Active Problems Active Problems: All Active Problems (Updated 05/14/23 @ 09:35 by Olga Curry MD) Umbilical hernia (Acute) Inguinal hernia (Acute) Rib fractures secondary to fall a few weeks ago. Still with some pain. Pr escribed inhaler which he has used about 3 times. Able to deep breathe. Sats ((% in room air Smoker. Last cigarette this am Past Medical History Medical History Ankle pain, right Anxiety Back pain Hypertension Surgical History Surgical History H/O colonoscopy History of ankle surgery History of excision of pilonidal cyst History of lumbar laminectomy Hx of tympanostomy tubes Social History Social History (Updated 05/14/23 @ 09:52 by Olga Curry MD) Alcohol intake: unknown Patient Tobacco Use Status: Current everyday Tobacco user Tobacco use type: Cigarette Cigarettes Per Day: 5.0 Smoked in Last 30 Days: Yes Use of substances other than those prescribed or required for medical reasons: No Are you DNR?: No Advance Directives: No Advance Directives Information Provided: Yes Advance Directives on File: No Meds Allergies Allergy/AdvReac Type Severity Reaction Status Date / Time No Known Allergies Allergy Verified 04/24/23 13:14 Home Medications Medication Instructions Recorded Confirmed Last Taken Type lorazepam 1 mg tablet 1 tab PO DAILY PRN Anxiety 12/13/21 05/10/23 Unknown History hydrocodone 5 mg-acetaminophen 325 1 tab PO TID PRN Pain 09/05/22 05/10/23 Unknown History mg tablet lisinopril 20 mg tablet 20 mg PO DAILY 04/24/23 05/10/23 05/14/23 History Exam Height,Weight and Vital Signs: Height 6 ft 3 in Weight 96.162 kg Vital Signs Temp Pulse Resp BP Pulse Ox O2 Del Method 05/14/23 10:02 98.0 F 63 16 127/89 99 Room Air Airway Mallampati Class: II TM Dist: >3cm Neck ROM: Full Loose/Missing/Broken Teeth: Yes (Missing tooth bottom right back) Heart: RRR Lungs: CTAB Assessment and Plan Assessment Anesthesia Assessment: Anesthesia Plan Discussed Final Anesthetic Review NPO: Yes ASA Class: II Final Preanesthetic Review: No Changes in Pt Med Stat, Meds/Allgs Chart Reviewed, Consent Obtained/Reviewed and Anes Risks/Benef Reviewed Patient Risk: Intermediate Procedure Risk: Low Assessment/Block/Sedation in SS: Assess/Block/Sedation-SS Anesthetic Plan Anesthetic Plan: GA Disposition: Standard PACU
[2023-05-14] VITALS (12 sets, daily range): BP systolic 127–166; BP diastolic 89–107; PULSE 63–85; RESP 16; TEMP 36.4–36.7; O2SAT 97–99
[2023-05-14] MEDS: Lactated Ringers 1,000 ML 100 ML IVCONT (10:04)
[2023-05-14] MEDS: oxyCODONE HCl Immed Release 5 MG TABLET PO ×2 (12:46→13:14)
[2023-05-14] MEDS: Acetaminophen 325 MG TABLET 650 MG PO (12:46)
[2023-05-14] MEDS: fentaNYL citrate/PF 100 MCG/2 ML VIAL 25 MCG IVPUSH ×5 (12:46→13:39)
--- NOTE | 2023-05-14 12:47 | P.OP_ITS ---
Operative Note Operative Note Date of Service: 05/14/23 Narrative: Preoperative diagnosis: [] 1. Left inguinal hernia 2. A incarcerated umbilical hernia Postop diagnosis: [] Same Procedure [] repair left inguinal hernia, repair incarcerated umbilical hernia Surgeon: [] Kalyan Hospitality Director: [] STEVE Caro Type of Anesthesia: [] General Indication for surgery: [] Approximately 2 cm incarcerated umbilical hernia with omental contents. Direct left inguinal hernia of moderate size. Findings: [] Patient brought to the operating room, placed on the operating table in the supine position, after adequate level of general anesthesia was induced, the left groin and abdomen were prepped and draped in usual sterile fashion. Commencing with the left groin, a small left quinn inguinal incision was made and carried down through skin, subcutaneous tissue, Froylan's fascia. External oblique fibers were opened direction with care to isolate and preserve the ilioinguinal nerve throughout the procedure. Spermatic cord was identified and retracted from the field. Exploration of the cord demonstrated no indirect hernia. Aim moderately sized direct hernia was identified, circumferentially dissected out, and reduced. A Bard plug was placed in this effect, and sutured inferiorly to the inguinal ligament, and superiorly to the transversalis fascia using interrupted 0 Ethibond suture. A completion the procedure, mesh was in good position with no gaps and internal ring and middle 1 fingertip. Wound was irrigated, secured hemostasis, and closed in the following manner; external oblique fascia was closed using running 2-0 Vicryl suture. Froylan's fascia was reapproximated using interrupted 3-0 Vicryl sutures. Interrupted inverted deep dermal 3-0 Vicryl sutures followed by running subcuticular 4-0 Vicryl sutures were placed. Steri-Strips and sterile dressings were applied. Wound was infiltrated with 0.5% Marcaine at completion. EBL minimum. Next umbilical hernia was approached using a supraumbilical curvilinear incision carried down through skin, subcutaneous tissue were hernia sac was identified and dissected from the posterior aspect of the umbilicus. Dissection was carried down to the fascia where the sac was opened and incarcerated omental contents and sac were amputated using Bovie. Specimen sent to pathology. Defect size was as noted above. Fascia margins were circumferentially cleared. A Bard mesh was placed in this defect and the superiorly of the mesh was circumferentially sutured to the surrounding fascia using interrupted 0 Ethibond suture. A completion the procedure, mesh was very good position with no tension, no gaps. Wound was irrigated, secured hemostasis, and closed in the following manner; posterior aspect of the umbilicus was tacked to the wound floor using interrupted did 3-0 Vicryl suture. Skin was closed using interrupted inverted dermal 3-0 Vicryl sutures followed by Steri-Strips and sterile dressings. Wound was infiltrated 0.5% Marcaine at completion. Sponge, needle, and instrument counts reported correct. Patient tolerated the procedure well and emerged from anesthesia stable condition. Ipsilateral testicle was intrascrotal at completion of the procedure. EBL minimal
== END 2023-05-14 14:30 | disposition home or self-care (01) ==
PROVIDERS: PCP Internal Medicine; Visit Provider Surgery
PROC: (CPT 49592; principal; 2023-05-14 10:20)
PROC: (CPT 49592; 2023-05-14 10:20)
DX: K42.0 Umbilical hernia with obstruction, without gangrene (principal); K40.90 Unilateral inguinal hernia, without obstruction or gangrene, not specified as recurrent; I10 Essential (primary) hypertension
CPT/HCPCS: 49592; 49505; 88304; C1781; J0690; J2250; J2795; J3010

== ENCOUNTER → 2023-05-14 07:54 | Outpatient (BNV) | payer OTHER, SELFPAY | PROVIDERS: PCP Internal Medicine; Visit Provider Surgery | DX: K40.20 Bilateral inguinal hernia, without obstruction or gangrene, not specified as recurrent (principal); K42.9 Umbilical hernia without obstruction or gangrene | CPT/HCPCS: 49505; 49592 ==

== ENCOUNTER 2023-05-24 10:57 | Outpatient (AMB) | payer OTHER, SELFPAY ==
[2023-05-24 11:04] VITALS: BP 127/66; PULSE 61
--- NOTE | 2023-05-24 11:04 | MHC.OFFVIS ---
Intake Vital Signs 05/24/23 11:04 Weight 211 lb BP 127/66 Blood Pressure Location Rt brachial Position Sitting Pulse 61 Intake Visit Reasons: S/P LIH & umbilical hernia w/mesh Intake Note: Patient here s/p LIH and umbilical hernia w/mesh. Patient reports tenderness. Denies bleeding or oozing. Still taking rx pain meds as needed. Foiling Machine Adjuster Required: No Accompanied by: Self / Same As Patient Allergies No Known Allergies Allergy (Verified 05/24/23 11:05) HPI HPI Comments History of Present Illness Details Patient presents postop status post umbilical and left inguinal hernia repair. Aside from mild incisional discomfort is doing well. He has time diet base having normal bowel habits. He is increasing his activity level. PFSH Medical History Ankle pain, right Anxiety Back pain Hypertension Surgical History H/O colonoscopy History of ankle surgery History of excision of pilonidal cyst History of lumbar laminectomy Hx of tympanostomy tubes Social History Alcohol intake: unknown Patient Tobacco Use Status: Current everyday Tobacco user Tobacco use type: Cigarette Cigarettes Per Day: 5.0 Physical Exam Vital Signs: Last Vital Signs Pulse 61 05/24/23 11:04 BP 127/66 05/24/23 11:04 GI Other: Abdomen soft. Both wounds clean dry and intact healing uneventfully. Assessment & Plan Assessment & Plan (1) Umbilical hernia: Code(s): K42.9 - Umbilical hernia without obstruction or gangrene (2) Inguinal hernia: Code(s): K40.90 - Unilateral inguinal hernia, without obstruction or gangrene, not specified as recurrent Plan Patient has been given local instructions, and will follow-up p.r.n. Coding Level of Care Code Global (35453) Diagnoses Umbilical hernia K42.9 Inguinal hernia K40.90
== END 2023-05-24 11:20 | disposition home or self-care (01) ==
PROVIDERS: PCP Internal Medicine; Visit Provider Surgery
DX: K42.9 Umbilical hernia without obstruction or gangrene (principal); K40.90 Unilateral inguinal hernia, without obstruction or gangrene, not specified as recurrent
CPT/HCPCS: 99024

== ENCOUNTER → 2023-05-24 10:57 | Outpatient (BNVA) | payer OTHER, SELFPAY | PROVIDERS: PCP Internal Medicine; Visit Provider Surgery ==

== ENCOUNTER 2025-05-20 19:14 | Inpatient (IN) | payer OTHER, SELFPAY ==
--- NOTE | ~2025-05-20 | CT_ITS ---
CLINICAL HISTORY: fall CT head without contrast Comparison: None provided Findings: No intra-axial mass, midline shift, hydrocephalus, or acute hemorrhage. Volume loss is mild. The visualized paranasal sinuses and mastoid air cells are normal. The orbits are within normal limits. There is no acute fracture. IMPRESSION: 1. No acute intracranial findings. This document has been electronically signed by: Sanjiv Beltran MD, PHD on 05/21/2025 00:29:07
--- NOTE | ~2025-05-20 | US_ITS ---
CLINICAL HISTORY: CIRRHOSIS, ? METS, EVALUATE LIVER ONLY --- Additional Notes or Special Instructions: lIVER LESION SEEN ON US FOR ? US LIVER BX. LET PATRICIA KNOW US abdomen limited Comparison: US/SR - US GUIDED PARACENTESIS - 05/21/25 14:[address] - CT ABDOMEN PELVIS W IV CON - 05/20/25 22:57 EDT Findings: Targeted images of the liver submitted for review. Suboptimal visualization of the liver. There is subtle hepatic nodular contours which can be seen with cirrhosis. Liver measures 14.5 cm. No obvious mass lesions identified. Surrounding small perihepatic ascites. Main portal vein is not well visualized. IMPRESSION: Cirrhosis with ascites. If concern persists for hepatic lesions recommend follow-up dynamic liver MRI protocol. This document has been electronically signed by: Elia Kennedy MD on 05/25/2025 18:32:50
--- NOTE | ~2025-05-20 | CT_ITS ---
CLINICAL HISTORY: fall CT cervical spine without contrast Comparison: None provided Findings: There is straightening of the normal cervical lordosis. Degenerative changes are mild. No acute fractures or dislocations. Visualized intracranial contents are unremarkable. Soft tissues of the neck are normal. Lung apices are out of the field of view. IMPRESSION: No acute findings. This document has been electronically signed by: Sanjiv Beltran MD, PHD on 05/21/2025 00:36:59
--- NOTE | ~2025-05-20 | XR_ITS ---
CLINICAL HISTORY: dyspnea 1 view chest x-ray Comparison: None provided Findings: Portions of the exam are obscured by overlying material. There are bilateral pleural effusions with underlying consolidation. Differential considerations would include atelectasis or pneumonia. Normal size heart. No acute fracture. IMPRESSION: 1. Bilateral pleural effusions with underlying consolidation, differential considerations noted This document has been electronically signed by: Nelson Bell MD on 05/20/2025 20:40:58
--- NOTE | ~2025-05-20 | MR_ITS ---
CLINICAL HISTORY: abnormal ct, and us. Dynamic study. See US report MR ABDOMEN WITH AND WITHOUT GADOLINIUM Comparison: CT/SR - CT ABDOMEN PELVIS W IV CON - 05/20/25 22:51 EDT Findings: Motion artifact limits evaluation. Surface nodularity in the liver suggests cirrhotic morphology. There is diffusely heterogeneous signal alteration in the liver. No evidence for arterial lesion. No enhancing lesion on venous phase imaging. A 9 mm T2 hyperintense nonenhancing lesion in the right hepatic lobe suggests a cyst or hemangioma. The spleen is enlarged measuring 13.9 cm. Amorphous signal in the gallbladder lumen with no discrete filling defect. Pancreas, adrenal glands and kidneys are unremarkable. No AAA. Large volume ascites particularly in the right side of the abdomen. Probable intraosseous hemangioma in T8. IMPRESSION: 1. Image degradation secondary to significant motion artifact. 2. Diffusely heterogeneous signal in the liver with no arterial or venous phase lesion identified. An infiltrative process is not excluded. 3. Cirrhotic liver morphology, splenomegaly and large volume abdominal ascites. 4. Probable gallbladder sludge. This document has been electronically signed by: Jessika Gore DO on 05/26/2025 18:27:13
--- NOTE | ~2025-05-20 | CT_ITS ---
CLINICAL HISTORY: Abdominal distention portal htn CT abdomen and pelvis with contrast Comparison: None provided Findings: Small pleural effusions are present with dependent subsegmental atelectasis or infiltrate, [id number]-left. Liver is heterogeneous with multiple hypodense masslike regions and lobulated liver contour. Radiodense stones or sludge layer dependently in the fundus of the gallbladder. Pancreas and spleen are within normal limits. Adrenal glands are unremarkable. Kidneys enhance symmetrically and are non hydronephrotic. No bowel obstruction, pneumoperitoneum, or pneumatosis. Sigmoid diverticula are present without definite evidence of diverticulitis. Visualized appendix is normal. Moderate intra-abdominal free fluid or ascites is present. Urinary bladder and pelvic structures are grossly within normal limits. The bones are intact. IMPRESSION: 1. Lobulated liver with large hypodense ill-defined hypodensities or masses concerning for possible hepatic metastatic disease. 2. Moderate ascites. 3. Small pleural effusions with basilar subsegmental atelectasis or infiltrates. This document has been electronically signed by: Sanjiv Beltran MD, PHD on 05/21/2025 00:50:19
--- NOTE | ~2025-05-20 | CT_ITS ---
CLINICAL HISTORY: dyspnea ?liver mets --- Additional Notes or Special Instructions: pt was injected 05 20 25 @ 2300. spoke to dr cole told him our 24 injection policy and he said ok CT chest with contrast Comparison: 05/21/2025 10:39 PM EDT: CT: CT CHEST W IV CON (09:39 PM CDT) CT/SR - CT CERVICAL SPINE WO IV CON - 05/20/25 22:51 EDT Findings: Respiratory motion artifact degrades the images limiting interpretation. The heart size is normal. The visualized thyroid and mediastinum are unremarkable. Small pleural effusions are present bilaterally. Basilar areas of consolidation or infiltrate with air bronchograms are present, [id number]-left. Patchy ground-glass infiltrates are present within both lungs. There is asymmetric elevation of the right hemidiaphragm. Limited evaluation of the abdominal contents demonstrates hepatomegaly with extremely heterogeneous liver with ill-defined masslike hypodensities and mild ascites. The bones are intact. IMPRESSION: 1. Patchy bilateral nonspecific ground-glass opacities, possibly infectious in etiology. Bilateral lower lobe consolidations with air bronchograms are present, subsegmental atelectasis versus infiltrates. 2. Small bilateral pleural effusions. 3. Hepatomegaly with extremely heterogeneous liver and ill-defined hepatic hypodensities. This document has been electronically signed by: Sanjiv Beltran MD, PHD on 05/22/2025 00:02:05
--- NOTE | ~2025-05-20 | US_ITS ---
EXAMINATION: US GUIDED PARACENTESIS CLINICAL INFORMATION: Ascites. COMPARISON: Ultrasound abdomen 05/25/2025. TECHNIQUE: Following explaining ultrasound-guided paracentesis procedure, benefits and risk, a written consent was obtained. Patient was placed supine on fluoroscopy table and preliminary ultrasound imaging was obtained . An optimal site was selected in right lower quadrant and the site was marked on the skin. The marked site was cleaned and draped in usual sterile manner. 1% lidocaine was administered puncture site. Through a small skin incision a 4 [place] Yueh catheter was advanced into the peritoneal space. After observing fluid return, stylet was withdrawn and catheter connected to vacuum bottle via connecting cannula. After all fluid and observing no more fluid return, catheter was withdrawn and complete hemostasis achieved at puncture site. Simple Band-Aid applied postprocedure. Patient tolerated procedure extremely well. FINDINGS: On preliminary ultrasound imaging there is moderate fluid. Approximately 3 L of margaret color fluid was removed. Then of this fluid was sent to lab. US/US paracentesis abd w/image IMPRESSION: Successful ultrasound-guided therapeutic paracentesis performed. Electronically signed by: Federico Matt MD 05/31/2025 03:58 PM EDT
--- NOTE | ~2025-05-20 | US_ITS ---
EXAMINATION: US GUIDED PARACENTESIS CLINICAL INFORMATION: Ascites, liver failure. COMPARISON: None available. TECHNIQUE: Following explaining ultrasound-guided paracentesis procedure, benefits and risk, a written consent was obtained. Patient was placed supine on ultrasound stretcher and preliminary ultrasound imaging was obtained through 4 quadrants of the abdomen. An optimal site was selected along the right lower quadrant and marked. The marked site was cleaned and draped in usual sterile manner. 1% lidocaine was injected puncture site. Through a small skin incision a 5 [place] 7 cm short Yueh catheter was inserted through the skin incision into the peritoneum. After observing fluid return, stylet was withdrawn and catheter connected to vacuum bottle. After obtaining all fluid and observing no more fluid return, catheter was withdrawn and complete hemostasis achieved at puncture site. Simple dressing applied at puncture site. Patient tolerated procedure extremely well FINDINGS: On preliminary ultrasound imaging there is moderate fluid seen. Approximately 3.8 L of fluid was drained from right lower quadrant. This fluid was sent to lab as per referring physician's orders. US/US paracentesis abd w/image IMPRESSION: Successful diagnostic and therapeutic paracentesis performed. Electronically signed by: Federico Matt MD 05/21/2025 04:43 PM EDT
[2025-05-20 19:12] VITALS: BP 108/40; PULSE 90; O2SAT 91
[2025-05-20 19:21] VITALS: BP 107/68; RESP 17; O2SAT 91; BMI 31.3
[2025-05-20 19:30] VITALS: BP 107/68; PULSE 91; RESP 18; TEMP 37.2; O2SAT 93
--- NOTE | 2025-05-20 19:49 | ECG_ITS ---
Test Reason : FALL Blood Pressure : */* mmHG Vent. Rate : 91 BPM Atrial Rate : 91 BPM P-R Int : 126 ms QRS Dur : 98 ms QT Int : 430 ms P-R-T Axes : 8 11 38 degrees QTcB Int : 528 ms Sinus rhythm with Premature atrial complexes with Aberrant conduction Otherwise normal ECG When compared with ECG of 06-Apr-2013 01:25, No significant changes seen Referred By: Generic ED Physician Electronically Signed By: Wally Urbano
--- NOTE | 2025-05-20 20:23 | ED.WEAKNESS ---
HPI - Weakness General Chief complaint: Weakness Stated complaint: weakness Time Seen by Provider: 05/20/25 20:04 Source: patient Mode of arrival: ambulatory Limitations: no limitations History of Present Illness ED Provider: HPI Narrative: Patient's history of chronic low back pain in the left foot drop apparently had a good day today was going to his house [place] ,fell backward because of left foot drop unable to keep balance and fell backwards dazed for few sec comes here with headache neck pain and small puncture wound on the lower lip , patient alcoholic denies any significant liver problems but patient obviously jaundiced with a ascites Related Data Home Medications ?Medication ?Instructions ?Recorded ?Confirmed hydrocodone 5 mg-acetaminophen 325 1 tab PO TID PRN Pain 09/05/22 05/10/23 mg tablet Previous Rx's ?Medication ?Instructions ?Recorded hydrocodone 5 mg-acetaminophen 325 1 tab PO Q4-6H PRN pain #30 tabs 05/14/23 mg tablet oxycodone 10 mg tablet 10 mg PO Q6H PRN pain #30 tabs 05/21/23 lisinopril 20 mg tablet 20 mg PO DAILY #90 tabs 01/27/25 lorazepam 1 mg tablet See Rx Instructions .Route 04/23/25 .COMPLEX PRN Anxiety #60 tabs Allergies Allergy/AdvReac Type Severity Reaction Status Date / Time No Known Allergies Allergy Verified 05/20/25 19:22 Review of Systems Review of Systems: Yes all other systems are reviewed and are negative PMFSH Past Medical History Medical History Anxiety Ankle pain, right Back pain Hypertension Surgical History H/O colonoscopy Hx of tympanostomy tubes History of ankle surgery History of excision of pilonidal cyst History of lumbar laminectomy Social History Social History Alcohol intake: current Alcohol intake frequency: 3 or more drinks per day Alcohol type: beer and other Patient Tobacco Use Status: Current everyday Tobacco user Tobacco use type: Cigarette Cigarettes Per Day: 5.0 Smoked in Last 30 Days: Yes Use of substances other than those prescribed or required for medical reasons: No Advance Directives: Yes Advance Directives Information Provided: No Advance Directives on File: No Physical Exam Vital Signs: Vital Signs: Last Vital Signs Temp 99.0 F 05/20/25 19:30 Pulse 84 05/20/25 22:20 Resp 17 05/20/25 22:21 BP 147/74 H 05/20/25 22:20 Pulse Ox 95 05/20/25 22:20 O2 Del Method Nasal Cannula 05/20/25 22:20 O2 Flow Rate 2 05/20/25 22:20 BMI result Body Mass Index 31.3 Appearance: Alert. Oriented X3. No acute distress. Eyes: PERRLA, No Nystagmus icteric++ ENT: Pharynx normal. Oral Mucosa moist small puncture wound in the lower lip teeth are intact Neck: Normal inspection. Neck supple. Diffuse midline neck tenderness CVS: Normal heart rate and rhythm. Pulses normal. Respiratory: No respiratory distress. Equal air entry bilateral, no wheezing/rales/rhonchi Abdomen: Soft and nontender. Bowel sounds are present, no mass palpable, no CVA tenderness ascites++ Skin: Skin warm and dry. Normal skin color. Normal skin turgor. Extremities: 4+ lower extremity edema. No calf tenderness Neuro: Oriented X 3. No motor deficit. No sensory deficit.No cerebellar signs , cranial nerves II-XII intact Medications Administered Discontinued Medications Generic Name Dose Route Start Last Admin Trade Name Osmanyq PRN Reason Stop Dose Admin Iohexol 100 ml 05/20/25 23:36 05/20/25 23:36 Iohexol 350 Mg/Ml 100 Ml Infus..Btl IV 05/20/25 23:37 85 ml ONCE ONE Administration Morphine Sulfate 4 mg 05/20/25 22:02 05/20/25 22:21 Morphine Sulfate 4 Mg/Ml Cartridge IVPUSH 05/20/25 22:03 4 mg ONCE ONE Administration Protocol Ondansetron HCl 4 mg 05/20/25 22:02 05/20/25 22:21 Ondansetron Hcl 4 Mg/2 Ml Vial IVPUSH 05/20/25 22:03 4 mg ONCE ONE Administration Medical Decision Making Medical Decision Making [facility] Narrative: On further evaluation was noticed that patient has been alcoholic workup showed hepatic cirrhosis with ascites with possible metastatic lesions in the liver will admit patient for impending hepatic failure second-degree use alcohol cirrhosis Differential Diagnosis Differential Diagnoses: The differential diagnosis associated with the presentation includes Admission/Observation Consideration of admission/observation: Escalation of care including admission/observation considered Consult Healthcare Provider Management of the patient was discussed with: Hospitalist Lab Data MDM Lab Attestation statement: I reviewed the patient's lab results. 05/20/25 20:14 05/20/25 20:14 Labs: Lab Results 05/20/25 05/20/25 Range/Units 20:14 22:19 WBC 15.5 H (4.8-10.8) X10*3/uL RBC 3.05 L D (4.60-5.80) X10*6/uL Hgb 10.7 L D (14.0-18.0) g/dl Hct 31.9 L D (42.0-52.0) % MCV 104.6 H (80.0-98.0) fL MCH 35.1 H (27.0-33.0) pg MCHC 33.5 (31.0-36.0) g/dl RDW 15.9 (11.0-16.0) % Plt Count 116 L D (160-400) X10*3/uL MPV 9.2 L (9.4-12.4) fL Immature Gran % (Auto) 1.1 H (0.0-0.4) % Neut % (Auto) 77.3 H (45-73) % Lymph % (Auto) 10.3 L (20-40) % [place] % (Auto) 10.7 (2-11) % Eos % (Auto) 0.1 (0-4) % Baso % (Auto) 0.5 (0-2) % Lymph # (Auto) 1.6 (1.2-4.9) X10*3/uL [place] # (Auto) 1.7 H (0.1-1.2) X10*3/uL Eos # (Auto) 0.0 (0.0-0.4) X10*3/uL Baso # (Auto) 0.1 (0.0-0.2) X10*3/uL Abs Immat Gran (auto) 0.17 H (0.00-0.03) X10*3/uL Absolute Neuts (auto) 12.0 H (2.0-8.3) x10*3/uL Absolute Nucleated RBC 0.000 (0.0-0.012) X10*3/uL Nucleated RBC % (auto) 0.0 (0.0-0.2) /100WBC Smear Tech's Comments VERIFIED PT 32.2 H (10.9-12.4) SEC INR 2.8 H (0.9-1.1) Sodium 132 L (135-145) mmol/L Potassium 3.3 (3.3-5.1) mmol/L Chloride 94 L (96-108) mmol/L Carbon Dioxide 32 H (22-29) mmol/L Anion Gap 9 L (12-20) BUN 7 L (9-16) mg/dL Creatinine 0.73 (0.5-1.4) mg/dL Estim Creat Clear Calc 161.5 Estimated GFR > 60 Random Glucose 131 H (60-115) mg/dL Calcium 7.8 L D (8.4-10.2) mg/dL Total Bilirubin 16.2 H (0.0-1.0) mg/dL AST 73 H (5-37) U/L ALT 23 (0-40) U/L Alkaline Phosphatase 92 (39-117) U/L Ammonia 56 H (13-55) umol/L Troponin I High Sens 3.4 (<3.5-35.0) ng/L B-Natriuretic Peptide 92 (<100) pg/mL Total Protein 7.1 (6.5-8.0) g/dL Albumin 2.2 L (3.5-5.0) g/dL Lipase 99 H (8-78) U/L Ethyl Alcohol < 10 mg/dL Independent Interpretation I performed an independent interpretation of an: EKG and CT Scan Interpretation: Sinus rhythm ventricular rate 91 beats per minute PACs no acute ST-T changes no acute ischemia Radiology Impression Discussion of test interpretation with radiology: I have reviewed the radiologist's reading. Radiologist Impression: MPRESSION: 1. Lobulated liver with large hypodense ill-defined hypodensities or masses concerning for possible hepatic metastatic disease. 2. Moderate ascites. 3. Small pleural effusions with basilar subsegmental atelectasis or infiltrates. This document has been electronically signed by: Sanjiv Beltran MD, PHD on 05/21/2025 00:50:1 Critical Care Time Critical Care Time Critical Care Time: Yes Total Critical Care Time: 40 Attestation: Time is exclusive of separately billable procedures. Time includes: direct patient care, patient reassessment, coordination of patient care, interpretation of data (laboratory data, pulse oximetry, arterial blood gases and chest xrays), review of patient's medical records, medical consultation and documentation of patient care. Procedures excluded from critical care time: central intravenous line placement and electrocardiography. Discharge Plan Discharge Clinical Impression: Fall, Alcoholic cirrhosis of liver with ascites Patient Disposition: Admitted As Inpatient Print Language: Guatemalan
[2025-05-20 20:24] LABS: Hematocrit 31.9 % (42.0-52.0); Hemoglobin 10.7 g/dl (14.0-18.0); Imm Gran Abs Auto 0.17 X10*3/uL (0.00-0.03); Imm Gran Pct Auto 1.1 % (0.0-0.4); Lymphocytes Absolute Auto 1.6 X10*3/uL (1.2-4.9); MANUAL DIFF FLAG SCAN; Mean Corpuscular HGB Conc 33.5 g/dl (31.0-36.0); Mean Corpuscular Hemoglobin 35.1 pg (27.0-33.0); Mean Corpuscular Volume 104.6 fL (80.0-98.0); NRBC Abs Auto 0.000 X10*3/uL (0.0-0.012); NRBC Pct Auto 0.0 /100WBC (0.0-0.2); Platelet Count 116 X10*3/uL (160-400); Red Blood Count 3.05 X10*6/uL (4.60-5.80); SCAN SMEAR FLAG 1; White Blood Count 15.5 X10*3/uL (4.8-10.8)
[2025-05-20 20:26] LABS: INTERNATIONAL NORM RATIO 2.8 (0.9-1.1); Prothrombin Time 32.2 SEC (10.9-12.4)
[2025-05-20 20:38] LABS: Alanine Aminotransferase 23 U/L (0-40); Albumin Level 2.2 g/dL (3.5-5.0); Alkaline Phosphatase 92 U/L (39-117); Anion Gap 9 (12-20); Aspartate Amino Transferase 73 U/L (5-37); Blood Urea Nitrogen 7 mg/dL (9-16); Calcium 7.8 mg/dL (8.4-10.2); Carbon Dioxide 32 mmol/L (22-29); Chloride 94 mmol/L (96-108); Creatinine Clr Calc Pharmacy 161.5; Estimated Glomerular Filt Rate > 60; Lipase 99 U/L (8-78); Potassium 3.3 mmol/L (3.3-5.1); Sodium 132 mmol/L (135-145); Total Protein 7.1 g/dL (6.5-8.0)
[2025-05-20 20:41] LABS: B Type Natriuretic Peptide 92 pg/mL (<100)
[2025-05-20 20:42] LABS: Troponin-I High Sensitivity 3.4 ng/L (<3.5-35.0)
[2025-05-20 22:20] VITALS: BP 147/74; PULSE 84; RESP 19; O2SAT 95
[2025-05-20 22:21] VITALS: RESP 17
[2025-05-20 22:28] LABS: Ammonia 56 umol/L (13-55)
[2025-05-20] MEDS: iohexoL 350 MG/ML 100 ML INFUS..BTL IV (23:36)
[2025-05-21] VITALS (8 sets, daily range): BP systolic 96–122; BP diastolic 59–87; PULSE 81–84; RESP 12–18; TEMP 36.4–37.2; O2SAT 93–97; BMI 31.1
[2025-05-21 01:40] LABS: PLT CLUMP 1
[2025-05-21 01:42] LABS: Reticulocytes Absolute 0.188 X10*6/uL (0.026-0.095)
[2025-05-21 01:47] LABS: B Type Natriuretic Peptide 76 pg/mL (<100)
[2025-05-21 04:32] LABS: Appearance Urine Cloudy; Glucose Urine UA Negative (Negative); PH 5.5 (5.0-9.0); Specific Gravity - Urine >= 1.030 (1.005-1.025); UMIC TRIGGER UACC YES
--- NOTE | 2025-05-21 04:41 | P.HPHOSP_ITS ---
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 Patient stated he has had increased weakness over the last 7-10 days with a loss of appetite and a noted increase in distention of his belly with edema in the lower extremities. Patient states when he fell he fell backwards and may have had a loss of consciousness. In addition patient injured both elbows and both have contusions bilaterally. Patient is not currently on blood thinners. In the emergency department patient noted to be jaundiced from head to toe with 4+ pitting bilateral lower extremity edema. Patient had significant ascites. Abdominal CT noted a lobulated liver with large hypodense ill-defined hypodensities concerning for possible hepatic metastatic disease. Moderate ascites also appreciated. AST 73, TBILI 16.2, DBili 7.9, no evidence of hemolysis as LDH and Haptoglobin arei WNL Pt does not require emeergent transfer. Patient also has small pleural effusions with some segmental atelectasis or infiltrates. Patient does have a leukocytosis, is afebrile blood pressure has been borderline. Patient's ammonia level 56 and patient's cognition notes poor recall. Patient has been using a cane more often for ambulation. CT of the head and CTA of the neck was negative for any acute findings s/p fall. Neuro exam reassurring. Patient states he has been drinking alcohol since he got out of the [place] in his 20s. Patient states his last drink was on Saturday and he had to twisted teas. Patient also smokes cigarettes 4-5 cigarettes a day but due to feeling unwell patient has not smoked in 2-3 days. Patient has received inpatient care for his alcoholism and the last inpatient visit was 7 years prior. Patient is has 1 grown child and list his healthcare proxy as is with [place]. Review of Systems 2 Review of Systems: Patient reports back pain related to his history of surgery, abdominal distention but no nausea or vomiting or constipation or diarrhea. Patient denies any chest pain, shortness of breath at rest or with exertion. Patient states he does not use oxygen at home. Patient states his last drink was this past Saturday where he drank 2 twisted teas.. Patient denies seizures with withdrawal Yes all other systems are reviewed and are negative [facility] Medical History (Updated 05/21/25 @ 05:38 by NIKKI Brownlee) Cirrhosis of transplanted liver Alcohol use disorder Anxiety Ankle pain, right Back pain Hypertension Cognitive capacity: Alert and orientated x3, poor recall Functional capacity: uses cane/walker Pertinent family history: Mother age 69 from breast cancer Father age 70s from [place] Surgical History (Updated 05/21/25 @ 05:38 by NIKKI Brownlee) H/O inguinal hernia repair H/O colonoscopy Hx of tympanostomy tubes History of ankle surgery History of excision of pilonidal cyst History of lumbar laminectomy Social History Alcohol intake: current Alcohol intake frequency: 3 or more drinks per day Alcohol type: beer and other Patient Tobacco Use Status: Current everyday Tobacco user Tobacco use type: Cigarette Cigarettes Per Day: 5.0 Smoked in Last 30 Days: Yes Use of substances other than those prescribed or required for medical reasons: No Advance Directives: Yes Advance Directives Information Provided: No Advance Directives on File: No Nutrition Risks: No Nutritional Risk Ebola Risk: Travel/Contact With Anyone From Affected Area/s: No Has Patient Experienced Ebola Symptoms: No Meds Allergies Allergy/AdvReac Type Severity Reaction Status Date / Time No Known Allergies Allergy Verified 05/20/25 19:22 Active Medications: Current Medications Acetaminophen (Acetaminophen 325 Mg Tablet) 650 mg PO Q6H PRN PRN Reason: Pain, Mild 1-3,fever,headache Albuterol/Ipratropium (Albuterol/Iprat 2.5/0.5mg 3 Ml Ampul.Neb) 3 ml INHALE Q4H PRN PRN Reason: Shortness of Breath/Wheezing Calcium Carbonate (Calcium Carbonate 750 Mg Tab.Chew) 750 mg PO Q4H PRN PRN Reason: Heartburn Lactulose (Lactulose 20 Gm/30 Ml Solution) 30 gm PO BID PRN PRN Reason: Constipation Lorazepam (Lorazepam 1 Mg Tablet) 1 mg PO Q4H PRN PRN Reason: Breakthrough alcohol withdrawa Stop: 05/25/25 04:32 Lorazepam (Lorazepam 1 Mg Tablet) 0 mg PO Q4H CASANDRA; Taper Stop: 05/25/25 06:44 Magnesium Hydroxide (Milk Of Magnesia 30 Ml Oral.Susp) 30 ml PO DAILY PRN PRN Reason: Constipation Melatonin (Melatonin 3 Mg Tablet) 6 mg PO BEDTIME PRN PRN Reason: Insomnia Ondansetron HCl (Ondansetron Hcl 4 Mg/2 Ml Vial) 4 mg IVPUSH Q8H PRN PRN Reason: Nausea and Vomiting Senna (Sennosides 8.6 Mg Tablet) 17.2 mg PO BEDTIME CASANDRA Sodium Chloride (0.9 % Sodium Chloride Flush 3 Ml Syringe) 3 ml IVFLUSH QSHIFT CASANDRA Home Medications ?Medication ?Instructions ?Recorded ?Confirmed ?Last Taken ?Type hydrocodone 5 mg-acetaminophen 325 1 tab PO TID PRN Pa in 09/05/22 05/10/23 Unknown History mg tablet Physical Exam 2 Vital Signs and Narrative: Vital Signs: Last Vital Signs Temp 99.0 F 05/20/25 19:30 Pulse 84 05/21/25 02:18 Resp 16 05/21/25 02:18 BP 102/63 05/21/25 02:18 Pulse Ox 95 05/21/25 02:18 O2 Del Method Nasal Cannula 05/21/25 02:18 O2 Flow Rate 2 05/21/25 02:18 BMI result Body Mass Index 31.3 Alert and orientated X3, recall is poor Neuro: CN II-X11 intact, no deficits, visual acuity intact, no asterixis on exam EYES: PERRLA, EOM int, sclerae icteric ENT: hearing intact, no issues with swallowing, uvula midline, lips moist, nares patent no epistaxis Cardiac: S1 S2 RRR, no murmur, moderate JVD, +3 pitting edema in Lower ext Pulmonary: lungs diminished bilaterally Abdominal: BS hypoactive, abdomen grossly distended, firm, tender with palpation, hepatomegaly MSK: strength 3/5 upper and lower extremities : no CVA tenderness no bladder distension Extremities: +3 pitting edema in lower extremities, PT and DP pulses palpable +2 Psych: mood mildly anxious, judgement and insight poor Skin: Jaundiced upper body mostly, no obvious open wounds, scar left inguinal area, scar lumbar back area Results Labs 05/20/25 20:14 05/20/25 20:14 Labs: Laboratory Results - last 24 hr 05/20/25 05/20/25 05/21/25 20:14 22:19 01:17 MCV 104.6 H MCH 35.1 H MCHC 33.5 RDW 15.9 Plt Count 116 L D MPV 9.2 L Immature Gran % (Auto) 1.1 H Neut % (Auto) 77.3 H Lymph % (Auto) 10.3 L [place] % (Auto) 10.7 Eos % (Auto) 0.1 Baso % (Auto) 0.5 Lymph # (Auto) 1.6 [place] # (Auto) 1.7 H Eos # (Auto) 0.0 Baso # (Auto) 0.1 Abs Immat Gran (auto) 0.17 H Absolute Neuts (auto) 12.0 H Absolute Nucleated RBC 0.000 Nucleated RBC % (auto) 0.0 Smear Tech's Comments VERIFIED Absolute Retic 0.188 H Percent Retic 6.3 H Immature Retic Fraction 27.9 H Retic Hgb Equivalent 36.3 H PT 32.2 H INR 2.8 H Anion Gap 9 L Estim Creat Clear Calc 161.5 Estimated GFR > 60 Random Glucose 131 H Haptoglobin 45 Calcium 7.8 L D Total Bilirubin 16.2 H Direct Bilirubin 7.9 H AST 73 H ALT 23 Alkaline Phosphatase 92 Ammonia 56 H Lactate Dehydrogenase 169 B-Natriuretic Peptide 92 76 Total Protein 7.1 Albumin 2.2 L Lipase 99 H Urine Color Urine Appearance Urine pH Ur Specific [place] Urine Protein Urine Glucose (UA) Urine Ketones Urine Blood Urine Nitrite Ur Leukocyte Esterase Ethyl Alcohol < 10 05/21/25 04:15 MCV MCH MCHC RDW Plt Count MPV Immature Gran % (Auto) Neut % (Auto) Lymph % (Auto) [place] % (Auto) Eos % (Auto) Baso % (Auto) Lymph # (Auto) [place] # (Auto) Eos # (Auto) Baso # (Auto) Abs Immat Gran (auto) Absolute Neuts (auto) Absolute Nucleated RBC Nucleated RBC % (auto) Smear Tech's Comments Absolute Retic Percent Retic Immature Retic Fraction Retic Hgb Equivalent PT INR Anion Gap Estim Creat Clear Calc Estimated GFR Random Glucose Haptoglobin Calcium Total Bilirubin Direct Bilirubin AST ALT Alkaline Phosphatase Ammonia Lactate Dehydrogenase B-Natriuretic Peptide Total Protein Albumin Lipase Urine Color Dark Yellow Urine Appearance Cloudy Urine pH 5.5 Ur Specific [place] >= 1.030 H Urine Protein Trace Urine Glucose (UA) Negative Urine Ketones Negative Urine Blood Moderate (2+) H Urine Nitrite Positive H Ur Leukocyte Esterase Small (1+) H Ethyl Alcohol ECG Attestation: I personally reviewed and interpreted this ECG as follows: (Sinus rhythm with Premature atrial complexes with Aberrant conduction) Prior ECG tracings: available for review Imaging Radiologist's Impressions: CT ABD IMPRESSION: 1. Lobulated liver with large hypodense ill-defined hypodensities or masses concerning for possible hepatic metastatic disease. 2. Moderate ascites. 3. Small pleural effusions with basilar subsegmental atelectasis or infiltrates. CT of the head CTA of the head/neck Both negative for acute findings Assessment and Plan (1) Alcoholic cirrhosis of liver with ascites: Status: Acute Plan t is a 54 yo male with PMH alcohol use disorder (does not have seizure hx with withdrawal), tobacco dependence, left inguinal hernia repair 2023, umbilical hernia repair 2023, L4-L5 back surgery with chronic left footdrop, chronic pain syndrome, hypertension, anxiety was brought in by ambulance to the emergency department status post a fall. Patient presented with head-to-toe jaundice and icteric sclera with grossly distended abdomen/ascites. Patient is being admitted for the following medical problems: Possible hepatic metastatic disease of liver with ascites (no indication for cirrhosis on CT scan) GI consulted Hepatitis B and C panel pending Ultrasound for paracentesis ordered along with labs and pathology NPO except for meds Insight poor regarding diagnosis and prognosis Case management consulted Alcohol use disorder CIWA scale in place Ativan p.o. p.r.n. No indication phenobarbital as patient denies seizure history Last drink was this past Saturday Thiamine and folic acid ordered Addictions consulted Hyponatremia Sodium 132 Urine studies ordered Trend sodium Hyperammonemia Lactulose 30 gms BID Repeat ammonia level 05/22/2025 UTI UA positive for nitrites, leukocyte esterase but no bacteria Patient does have a leukocytosis but no fever or chills Leukocytosis may be reactive noting acute liver disease Reviewed with the attending, Dr. Do, no indication for empiric treatment at this time with antibiotics Thrombocytopenia Currently 116K No spontaneous bleeding or bruising noted Trend CBC Chronic low back pain/ chronic Left foot drop Dilaudid 0.5 IV Q3PRN PT eval as needed DVT prophylaxis: Lovenox held in preperation for Paracentesis Med rec pending Full code status Quality Stroke Does the patient have a stroke diagnosis?: No Reason for No Anti-thrombotic by Day Two: N/A - Med Ordered VTE Prior VTE?: No VTE Risk Level:: Medical - moderate - high VTE Device Contraindication: N/A - Device Ordered VTE Drug Contraindication: Treatment Not Indicated
[2025-05-21 04:42] LABS: Cannabinoid Screen Urine Not Detected (Not Detect)
[2025-05-21 04:57] LABS: UACC Culture Trigger YES
[2025-05-21 05:04] LABS: Magnesium 1.7 mg/dL (1.6-2.6)
[2025-05-21 05:47] LABS: Venous Blood Gas Refer to POC result
[2025-05-21 05:49] LABS: VBG HCO3 36 mmol/L (22-26); VBG O2 % Saturation 63.0 %
[2025-05-21 05:57] LABS: Hematocrit 30.6 % (42.0-52.0); Hemoglobin 10.4 g/dl (14.0-18.0); Imm Gran Abs Auto 0.17 X10*3/uL (0.00-0.03); Imm Gran Pct Auto 1.1 % (0.0-0.4); Lymphocytes Absolute Auto 2.7 X10*3/uL (1.2-4.9); MANUAL DIFF FLAG SCAN; Mean Corpuscular HGB Conc 34.0 g/dl (31.0-36.0); Mean Corpuscular Hemoglobin 35.4 pg (27.0-33.0); Mean Corpuscular Volume 104.1 fL (80.0-98.0); NRBC Abs Auto 0.000 X10*3/uL (0.0-0.012); NRBC Pct Auto 0.0 /100WBC (0.0-0.2); Platelet Count 121 X10*3/uL (160-400); Red Blood Count 2.94 X10*6/uL (4.60-5.80); SCAN SMEAR FLAG 1; White Blood Count 15.1 X10*3/uL (4.8-10.8)
[2025-05-21 06:16] LABS: Alanine Aminotransferase 20 U/L (0-40); Albumin Level 2.2 g/dL (3.5-5.0); Alkaline Phosphatase 90 U/L (39-117); Anion Gap 11 (12-20); Aspartate Amino Transferase 71 U/L (5-37); Blood Urea Nitrogen 7 mg/dL (9-16); Calcium 8.0 mg/dL (8.4-10.2); Carbon Dioxide 30 mmol/L (22-29); Chloride 94 mmol/L (96-108); Creatinine Clr Calc Pharmacy 187.1; Estimated Glomerular Filt Rate > 60; Potassium 3.0 mmol/L (3.3-5.1); Sodium 132 mmol/L (135-145); Total Protein 7.1 g/dL (6.5-8.0)
[2025-05-21 06:33] LABS: HBS Num1 31.10 mIU/mL (0-7.99); HBc Num1 0.15 S/CO (0.00-0.79); HBsAGNum1 0.39 S/CO (0.00-0.99); Hepatitis A Antibody IgM 0.15 Index (0-0.79); Hepatitis B Surface Antigen Negative (Negative); ~HepC Num1 0.19 S/CO (0.00-0.79); ~Hepatitis A Antibody IgM Nonreactive (Nonreactive); ~Hepatitis B Surface Antibody REACTIVE (Nonreactive); ~Hepatitis C Antibody Nonreactive (Nonreactive)
[2025-05-21] MEDS: 0.9 % Sodium Chloride Flush 3 ML SYRINGE IVFLUSH ×3 (07:25→20:43)
--- NOTE | 2025-05-21 09:01 | P.PNIM_ITS ---
Subjective Subjective Date of Service: 05/21/25 Interval History: f/u on liver disease, ascietes and concern for liver met Physical Exam 2 Vital Signs: Vital Signs: Last Vital Signs Temp 98.8 F 05/21/25 07:29 Pulse 84 05/21/25 07:29 Resp 18 05/21/25 07:29 BP 100/59 L 05/21/25 07:29 Pulse Ox 97 05/21/25 07:29 O2 Del Method Room Air 05/21/25 07:29 O2 Flow Rate 2 05/21/25 02:18 BMI result Body Mass Index 31.3 Const: Other: General: AO X 3, no acute distress Resp: CTA bilateral CVS: S1,S2,RRR GI: +BS, +T, + distention Skin: No rash Neuro: motor grossly intact Psych: appropriate affect Objective Data Active Medications Acetaminophen (Acetaminophen 325 Mg Tablet) 650 mg PO Q6H PRN PRN Reason: Pain, Mild 1-3,fever,headache Albuterol/Ipratropium (Albuterol/Iprat 2.5/0.5mg 3 Ml Ampul.Neb) 3 ml INHALE Q4H PRN PRN Reason: Shortness of Breath/Wheezing Calcium Carbonate (Calcium Carbonate 750 Mg Tab.Chew) 750 mg PO Q4H PRN PRN Reason: Heartburn Folic Acid (Folic Acid 1 Mg Tablet) 1 mg PO DAILY [facility] Last Admin: 05/21/25 07:27 Dose: 1 mg Documented By: SAMMY Hydromorphone HCl (Hydromorphone Hcl 0.5 Mg/0.5 Ml Syringe) 0.5 mg IVPUSH Q3H PRN; Protocol PRN Reason: Pain, Severe (Pain Scale 7-10) Last Admin: 05/21/25 05:39 Dose: 0.5 mg Documented By: MATTHEW Lactulose (Lactulose 20 Gm/30 Ml Solution) 30 gm PO BID CASANDRA Last Admin: 05/21/25 05:30 Dose: Not Given Documented By: MATTHEW Non-Admin Reason: Previously Administered Lorazepam (Lorazepam 1 Mg Tablet) 1 mg PO Q4H PRN PRN Reason: Breakthrough alcohol withdrawa Stop: 05/25/25 04:32 Lorazepam (Lorazepam 1 Mg Tablet) 1 mg PO Q4H CASANDRA; Taper Stop: 05/25/25 06:59 Last Admin: 05/21/25 07:27 Dose: 1 mg Documented By: SAMMY Magnesium Hydroxide (Milk Of Magnesia 30 Ml Oral.Susp) 30 ml PO DAILY PRN PRN Reason: Constipation Melatonin (Melatonin 3 Mg Tablet) 6 mg PO BEDTIME PRN PRN Reason: Insomnia Ondansetron HCl (Ondansetron Hcl 4 Mg/2 Ml Vial) 4 mg IVPUSH Q8H PRN PRN Reason: Nausea and Vomiting Senna (Sennosides 8.6 Mg Tablet) 17.2 mg PO BEDTIME [facility] Sodium Chloride (0.9 % Sodium Chloride Flush 3 Ml Syringe) 3 ml IVFLUSH QSHIFT [facility] Last Admin: 05/21/25 07:25 Dose: 3 ml Documented By: SAMMY Thiamine HCl (Thiamine Hcl 100 Mg Tablet) 100 mg PO DAILY [facility] Last Admin: 05/21/25 07:27 Dose: 100 mg Documented By: SAMMY Labs 05/21/25 05:42 05/21/25 05:42 Labs: Laboratory Results - last 24 hr 05/20/25 05/20/25 05/21/25 20:14 22:19 01:17 MCV 104.6 H MCH 35.1 H MCHC 33.5 RDW 15.9 Plt Count 116 L D MPV 9.2 L Immature Gran % (Auto) 1.1 H Neut % (Auto) 77.3 H Lymph % (Auto) 10.3 L [place] % (Auto) 10.7 Eos % (Auto) 0.1 Baso % (Auto) 0.5 Lymph # (Auto) 1.6 [place] # (Auto) 1.7 H Eos # (Auto) 0.0 Baso # (Auto) 0.1 Abs Immat Gran (auto) 0.17 H Absolute Neuts (auto) 12.0 H Absolute Nucleated RBC 0.000 Nucleated RBC % (auto) 0.0 Smear Tech's Comments VERIFIED Absolute Retic 0.188 H Percent Retic 6.3 H Immature Retic Fraction 27.9 H Retic Hgb Equivalent 36.3 H PT 32.2 H INR 2.8 H VBG pH VBG pCO2 VBG pO2 VBG HCO3 VBG O2 Saturation VBG Base Excess Anion Gap 9 L Estim Creat Clear Calc 161.5 Estimated GFR > 60 Random Glucose 131 H Haptoglobin 45 Calcium 7.8 L D Magnesium 1.7 Total Bilirubin 16.2 H Direct Bilirubin 7.9 H AST 73 H ALT 23 Alkaline Phosphatase 92 Ammonia 56 H Lactate Dehydrogenase 169 B-Natriuretic Peptide 92 76 Total Protein 7.1 Albumin 2.2 L Lipase 99 H Urine Color Urine Appearance Urine pH Ur Specific [place] Urine Protein Urine Glucose (UA) Urine Ketones Urine Blood Urine Nitrite Ur Leukocyte Esterase Urine RBC Urine WBC Ur Squamous Epith Cells Urine Bacteria Hyaline Casts Urine Opiates Screen Ur Buprenorphine Scrn Ur Oxycodone Screen Urine Methadone Screen Urine Fentanyl Screen Ur Barbiturates Screen Ur Phencyclidine Scrn Ur Amphetamines Screen U Benzodiazepines Scrn Urine Cocaine Screen U Marijuana (THC) Screen Ethyl Alcohol < 10 Hepatitis A IgM Ab Hep Bs Antigen Hep Bs Antibody Hep B Core Total Ab Hepatitis C Ab (EIA) 05/21/25 05/21/25 05/21/25 04:15 05:41 05:42 MCV 104.1 H MCH 35.4 H MCHC 34.0 RDW 15.9 Plt Count 121 L MPV 9.5 Immature Gran % (Auto) 1.1 H Neut % (Auto) 69.3 Lymph % (Auto) 17.5 L [place] % (Auto) 10.8 Eos % (Auto) 0.7 Baso % (Auto) 0.6 Lymph # (Auto) 2.7 [place] # (Auto) 1.6 H Eos # (Auto) 0.1 Baso # (Auto) 0.1 Abs Immat Gran (auto) 0.17 H Absolute Neuts (auto) 10.5 H Absolute Nucleated RBC 0.000 Nucleated RBC % (auto) 0.0 Smear Tech's Comments VERIFIED Absolute Retic Percent Retic Immature Retic Fraction Retic Hgb Equivalent PT INR VBG pH VBG pCO2 VBG pO2 VBG HCO3 VBG O2 Saturation VBG Base Excess Anion Gap 11 L Estim Creat Clear Calc 187.1 Estimated GFR > 60 Random Glucose 113 Haptoglobin Calcium 8.0 L Magnesium Total Bilirubin 15.1 H Direct Bilirubin AST 71 H ALT 20 Alkaline Phosphatase 90 Ammonia Lactate Dehydrogenase B-Natriuretic Peptide Total Protein 7.1 Albumin 2.2 L Lipase Urine Color Dark Yellow Urine Appearance Cloudy Urine pH 5.5 Ur Specific [place] >= 1.030 H Urine Protein Trace Urine Glucose (UA) Negative Urine Ketones Negative Urine Blood Moderate (2+) H Urine Nitrite Positive H Ur Leukocyte Esterase Small (1+) H Urine RBC 6-10 H Urine WBC 0-5 Ur Squamous Epith Cells >20 Urine Bacteria None Seen Hyaline Casts >20 Urine Opiates Screen POSITIVE H Ur Buprenorphine Scrn Not Detected Ur Oxycodone Screen Positive H Urine Methadone Screen Not Detected Urine Fentanyl Screen Not Detected Ur Barbiturates Screen Not Detected Ur Phencyclidine Scrn Not Detected Ur Amphetamines Screen Not Detected U Benzodiazepines Scrn Not Detected Urine Cocaine Screen Not Detected U Marijuana (THC) Screen Not Detected Ethyl Alcohol Hepatitis A IgM Ab Nonreactive Hep Bs Antigen Negative Hep Bs Antibody REACTIVE Hep B Core Total Ab Nonreactive Hepatitis C Ab (EIA) Nonreactive 05/21/25 05:46 MCV MCH MCHC RDW Plt Count MPV Immature Gran % (Auto) Neut % (Auto) Lymph % (Auto) [place] % (Auto) Eos % (Auto) Baso % (Auto) Lymph # (Auto) [place] # (Auto) Eos # (Auto) Baso # (Auto) Abs Immat Gran (auto) Absolute Neuts (auto) Absolute Nucleated RBC Nucleated RBC % (auto) Smear Tech's Comments Absolute Retic Percent Retic Immature Retic Fraction Retic Hgb Equivalent PT INR VBG pH 7.47 H VBG pCO2 49 VBG pO2 37 VBG HCO3 36 H VBG O2 Saturation 63.0 VBG Base Excess 11.6 Anion Gap Estim Creat Clear Calc Estimated GFR Random Glucose Haptoglobin Calcium Magnesium Total Bilirubin Direct Bilirubin AST ALT Alkaline Phosphatase Ammonia Lactate Dehydrogenase B-Natriuretic Peptide Total Protein Albumin Lipase Urine Color Urine Appearance Urine pH Ur Specific [place] Urine Protein Urine Glucose (UA) Urine Ketones Urine Blood Urine Nitrite Ur Leukocyte Esterase Urine RBC Urine WBC Ur Squamous Epith Cells Urine Bacteria Hyaline Casts Urine Opiates Screen Ur Buprenorphine Scrn Ur Oxycodone Screen Urine Methadone Screen Urine Fentanyl Screen Ur Barbiturates Screen Ur Phencyclidine Scrn Ur Amphetamines Screen U Benzodiazepines Scrn Urine Cocaine Screen U Marijuana (THC) Screen Ethyl Alcohol Hepatitis A IgM Ab Hep Bs Antigen Hep Bs Antibody Hep B Core Total Ab Hepatitis C Ab (EIA) Assessment and Plan (1) Alcoholic cirrhosis of liver with ascites: Status: Acute Plan 54 yo male with PMH alcohol use disorder (does not have seizure hx with withdrawal), tobacco dependence, left inguinal hernia repair 2023, umbilical hernia repair 2023, L4-L5 back surgery with chronic left footdrop, chronic pain syndrome, hypertension, anxiety was brought in by ambulance to the emergency department status post a fall. Patient presented with head-to-toe jaundice and icteric sclera with grossly distended abdomen/ascites. Patient is being admitted for the following medical problems: Possible hepatic metastatic disease of liver with ascites Paracentesis today, sent for cytology GI consult Hepatitis B and C panel pending NPO except for meds Alcohol use disorder, no active withdrawa CIWA, PRN ativan FA and thiamine Hyponatremia d/t hypervolemia from liver diseae, 132 monitor Hyperammonemia Lactulose 30 gms BID +UA, ? UTI, leukocytosis Ceftriaxone. 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
--- NOTE | 2025-05-21 09:14 | MHC.CM.ED ---
Attempted to meet with patient in regards to discharge planning. Patient currently sleeping. No family present. Will attempt to meet again.
--- NOTE | 2025-05-21 09:36 | PHA.MEDREC ---
Addendum entered by Juliet Pack RPh 05/21/25 10:07: reviewed Original Note: Pharmacy Consult ? Medication Reconciliation Pharmacy has completed the medication reconciliation. Utilized list from [place] to confirm med list.
--- NOTE | 2025-05-21 12:24 | PC.NURSE ---
patient reports being incontinent of stool, ambulated to the bathroom with walker and one assist. cleaned and repositioned in the room. oxygen to 87% on room air after ambulation, denies shortness of breath. placed on 2L nasal cannula, 97% at this time. continues w/ NPO. awaiting procedure
--- NOTE | 2025-05-21 13:09 | MHC.RECOVRN ---
TW attempted to meet with pt in room 384-1 per consult to [facility] for alcohol use disorder w/ liver failure. Intention was to discuss alcohol use and provide recovery options and support. On approach pt was sleeping in bed and not easily woken when name is called. Pt did not appear to be in any acute distress, respirations are even and unlabored. TW will attempt to reassess pt later this afternoon and available for any questions or concerns if needed.
[2025-05-21] MEDS: Lidocaine HCl 1 % MPF 5 ML VIAL SUBCUT (16:21)
[2025-05-21] MEDS: Albumin Human 25 % 100 ML IV (16:44)
[2025-05-21 16:48] LABS: MN% 63.7 %; PMN% 36.3 %; WBC Peritoneal Fluid 0.407 X10*3/uL
[2025-05-21 18:24] LABS: Lymphocyte Peritoneal Fl 20 %; Neutrophils Peritoneal Fluid 6 %
[2025-05-21 18:25] LABS: BF Shift QC OK YES; Monocytes Peritoneal Fl 32 %; Other Peritioneal Fl 42 %
[2025-05-21] MEDS: iohexoL 350 MG/ML 100 ML INFUS..BTL 75 ML IV (22:58)
[2025-05-22] VITALS (12 sets, daily range): BP systolic 101–113; BP diastolic 56–73; PULSE 61–88; RESP 16–20; TEMP 36.6–36.9; O2SAT 86–95
--- NOTE | 2025-05-22 00:10 | CONS_ITS ---
DATE OF SERVICE: 05/21/2025 REFERRING PHYSICIAN: Lola Garcia NP REASON FOR CONSULTATION: Cirrhosis with ascites. HISTORY OF PRESENT ILLNESS: The patient is a pleasant 54-year-old man seen today in consultation. He has been previously followed by Dr. Phan and underwent screening colonoscopy on September 05, 2002, which showed colon polyps, diverticulosis, and hemorrhoids. Pathology on the polyps showed multiple tubular adenomas. He was admitted to the hospital after presenting to the emergency department yesterday with complaints of weakness for 7 to 10 days prior to admission with anorexia and abdominal distention as well as lower edema. He was evaluated with laboratory studies and CT scanning with findings consistent with a lobulated liver with multiple hypodense mass-like lesions concerning for possible metastatic disease. He has been admitted to the hospital and is scheduled to have a paracentesis with cytology. The patient denies prior history of cirrhosis. He does use alcohol on a regular basis and had elevated liver function tests on admission with a total bilirubin of 16.2, AST of 73, and ALT of 23. PAST MEDICAL HISTORY: 1. Colonoscopy with colon polyps as above. 2. Repair of umbilical and left inguinal hernias. 3. Back surgery. 4. Back pain. 5. Hypertension. 6. Anxiety. CURRENT MEDICATIONS: List is reviewed in the chart. ALLERGIES: THERE ARE NONE REPORTED. FAMILY HISTORY: This is reviewed with the patient and is noncontributory. SOCIAL HISTORY: There is no current narcotic abuse. He does use alcohol on a regular basis and does smoke. REVIEW OF SYSTEMS: SKIN: No pruritus. HEENT: Negative. CARDIOPULMONARY: No shortness of breath or chest pain. GASTROINTESTINAL: As above. GENITOURINARY: Negative. NEUROPSYCHIATRIC: Negative. PHYSICAL EXAMINATION: GENERAL: Shows a pleasant male, lying on a stretcher, complaining of having to urinate. VITAL SIGNS: Reviewed in electronic medical record and are stable. SKIN: Icteric. HEENT: Shows scleral icterus. NECK: Without lymphadenopathy or thyromegaly. LUNGS: Clear. HEART: Shows a regular rate and rhythm. S1, S2. No murmur. ABDOMEN: Soft without focal masses. There is abdominal distention consistent with ascites. Bowel sounds are present. No organomegaly is noted. EXTREMITIES: Show edema. LABORATORY DATA AND IMAGING STUDIES: Reviewed as above. IMPRESSION: Ascites with abnormal CT scan suggestive of metastatic liver disease. I agree with treating him with paracentesis and await cytology results. If these are nondiagnostic, he may ultimately require interventional radiology and liver biopsy. Thanks for asking me to see him. I will follow him in the hospital with you. MD LEDY Barbosa/XENA / [phone]
[2025-05-22 06:41] LABS: Ammonia 48 umol/L (13-55)
[2025-05-22] MEDS: Phytonadione (Vit K1) Oral 10 MG/ML AMPUL 5 MG PO (08:46)
[2025-05-22] MEDS: 0.9 % Sodium Chloride Flush 3 ML SYRINGE IVFLUSH ×3 (08:50→19:54)
--- NOTE | 2025-05-22 09:42 | MHC.CM.PN ---
CM ATTEMPTED TO MEET WITH PT WHO WAS SLEEPING CM WILL REVISIT
--- NOTE | 2025-05-22 10:01 | P.PNIM_ITS ---
Subjective Subjective Date of Service: 05/22/25 Interval History: Paracentesis done yesterday, no sings of alcohol withdrawa' Physical Exam 2 Vital Signs: Vital Signs: Last Vital Signs Temp 98.1 F 05/22/25 08:00 Pulse 78 05/22/25 08:00 Resp 20 05/22/25 08:48 BP 112/73 05/22/25 08:00 Pulse Ox 92 05/22/25 08:00 O2 Del Method Nasal Cannula 05/22/25 08:00 O2 Flow Rate 3 05/22/25 08:00 BMI result Body Mass Index 31.1 Const: Other: General: AO X 3, no acute distress HEENT: sclear icteris Resp: CTA bilateral CVS: S1,S2,RRR, 2+ leg edema GI: +BS, +mild T, + distention Skin: No rash Neuro: motor grossly intact Psych: appropriate affect Objective Data Active Medications Acetaminophen (Acetaminophen 325 Mg Tablet) 650 mg PO Q6H PRN PRN Reason: Pain, Mild 1-3,fever,headache Albuterol/Ipratropium (Albuterol/Iprat 2.5/0.5mg 3 Ml Ampul.Neb) 3 ml INHALE Q4H PRN PRN Reason: Shortness of Breath/Wheezing Calcium Carbonate (Calcium Carbonate 750 Mg Tab.Chew) 750 mg PO Q4H PRN PRN Reason: Heartburn Folic Acid (Folic Acid 1 Mg Tablet) 1 mg PO DAILY [facility] Last Admin: 05/22/25 08:40 Dose: 1 mg Documented By: ZAYRA Hydromorphone HCl (Hydromorphone Hcl 0.5 Mg/0.5 Ml Syringe) 0.5 mg IVPUSH Q4H PRN; Protocol PRN Reason: Pain, Severe (Pain Scale 7-10) Last Admin: 05/22/25 08:48 Dose: 0.5 mg Documented By: ZAYRA Lactulose (Lactulose 20 Gm/30 Ml Solution) 30 gm PO BID [facility] Last Admin: 05/22/25 08:43 Dose: 30 gm Documented By: ZAYRA Lorazepam (Lorazepam 1 Mg Tablet) 1 mg PO Q4H PRN PRN Reason: CIWA > 8 Stop: 05/25/25 04:32 Lorazepam (Lorazepam 1 Mg Tablet) 1 mg PO Q6H [facility]; Taper Stop: 05/25/25 06:59 Last Admin: 05/22/25 08:40 Dose: 1 mg Documented By: ZAYRA Magnesium Hydroxide (Milk Of Magnesia 30 Ml Oral.Susp) 30 ml PO DAILY PRN PRN Reason: Constipation Melatonin (Melatonin 3 Mg Tablet) 6 mg PO BEDTIME PRN PRN Reason: Insomnia Ondansetron HCl (Ondansetron Hcl 4 Mg/2 Ml Vial) 4 mg IVPUSH Q8H PRN PRN Reason: Nausea and Vomiting Phytonadione (Phytonadione (Vit K1) Oral 10 Mg/Ml Ampul) 5 mg PO DAILY [facility] Stop: 05/24/25 09:01 Last Admin: 05/22/25 08:46 Dose: 5 mg Documented By: ZAYRA Senna (Sennosides 8.6 Mg Tablet) 17.2 mg PO BEDTIME [facility] Last Admin: 05/21/25 20:42 Dose: 17.2 mg Documented By: CASTILLeyla Sodium Chloride (0.9 % Sodium Chloride Flush 3 Ml Syringe) 3 ml IVFLUSH QSHIFT [facility] Last Admin: 05/22/25 08:50 Dose: 3 ml Documented By: ZAYRA Thiamine HCl (Thiamine Hcl 100 Mg Tablet) 100 mg PO DAILY [facility] Last Admin: 05/22/25 08:40 Dose: 100 mg Documented By: ZAYRA Labs 05/21/25 05:42 05/21/25 05:42 Labs: Laboratory Results - last 24 hr 05/21/25 05/22/25 15:50 06:03 Ammonia 48 Peritoneal WBC 0.407 Peritoneal RBC 0.004 Periton Neutrophils 6 Periton Lymphocytes 20 Peritoneal Monocytes 32 Peritoneal Other Cells 42 Microbiology Microbiology Results: Microbiology 05/21/25 15:50 Gram Stain - Final Ascites Fluid Anaerobic Culture - Preliminary No growth to date. Body Fluid Culture - Preliminary No growth to date. Assessment and Plan (1) Alcoholic cirrhosis of liver with ascites: Status: Acute Plan 54 yo male with PMH alcohol use disorder (does not have seizure hx with withdrawal), tobacco dependence, left inguinal hernia repair 2023, umbilical hernia repair 2023, L4-L5 back surgery with chronic left footdrop, chronic pain syndrome, hypertension, anxiety was brought in by ambulance to the emergency department status post a fall. Patient presented with head-to-toe jaundice and icteric sclera with grossly distended abdomen/ascites. Patient is being admitted for the following medical problems: Possible hepatic metastatic disease of liver with ascites Paracentesis today, sent for cytology GI consult noted, await cytlogy if not diagnostic then Bx Hepatitis B and C panel pending Alcohol use disorder, no active withdrawal CIWA, PRN ativan FA and thiamine Hyponatremia d/t hypervolemia from liver diseae, 132 monitor Hyperammonemia Lactulose 30 gms BID +UA, ? UTI, leukocytosis Ceftriaxone. 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
[2025-05-22] MEDS: oxyCODONE HCl Immed Release 5 MG TABLET PO ×2 (11:32→19:51)
--- NOTE | 2025-05-22 12:01 | P.PNGI_ITS ---
Subjective Subjective Date of Service: 05/22/25 Interval History: wants to eat Critical Care Time (minutes): 0 Physical Exam 2 Vital Signs: Vital Signs: Last Vital Signs Temp 97.8 F 05/22/25 11:22 Pulse 74 05/22/25 11:22 Resp 16 05/22/25 11:22 BP 102/59 L 05/22/25 11:22 Pulse Ox 92 05/22/25 11:22 O2 Del Method Nasal Cannula 05/22/25 11:22 O2 Flow Rate 3 05/22/25 11:22 BMI result Body Mass Index 31.1 GI: Other: abdomen is protuberant some rlq tenderness Objective Data Labs 05/21/25 05:42 05/21/25 05:42 Labs: Laboratory Results - last 24 hr 05/21/25 05/22/25 15:50 06:03 Ammonia 48 Peritoneal WBC 0.407 Peritoneal RBC 0.004 Periton Neutrophils 6 Periton Lymphocytes 20 Peritoneal Monocytes 32 Peritoneal Other Cells 42 Microbiology Microbiology Results: Microbiology 05/21/25 05:41 Urine clean catch - Clean Catch Midstream Urine Culture - Final No growth. 05/21/25 15:50 Ascites Fluid Gram Stain - Final 05/21/25 15:50 Ascites Fluid Anaerobic Culture - Preliminary No growth to date. 05/21/25 15:50 Ascites Fluid Body Fluid Culture - Preliminary No growth to date. Procedures Date of Service Date of Service: 05/22/25 Progress Note: A&P Assessment and plan (1) Alcoholic cirrhosis of liver with ascites: Status: Acute Assessment and Plan: see below Plan labs and xrays reviewed ascites fluid results still pending continue present rx start diuretics Time Spent With Patient Time: Total time managing care of this patient today ____ minutes. Quality Stroke Does the patient have a stroke diagnosis?: No Reason for No Anti-thrombotic by Day Two: N/A - Med Ordered VTE Prior VTE?: No VTE Risk Level:: Medical - moderate - high VTE Device Contraindication: N/A - Device Ordered VTE Drug Contraindication: Treatment Not Indicated
[2025-05-22 12:05] LABS: Hematocrit 30.6 % (42.0-52.0); Hemoglobin 10.1 g/dl (14.0-18.0); Mean Corpuscular HGB Conc 33.0 g/dl (31.0-36.0); Mean Corpuscular Hemoglobin 35.3 pg (27.0-33.0); Mean Corpuscular Volume 107.0 fL (80.0-98.0); NRBC Abs Auto 0.000 X10*3/uL (0.0-0.012); NRBC Pct Auto 0.0 /100WBC (0.0-0.2); Platelet Count 106 X10*3/uL (160-400); Red Blood Count 2.86 X10*6/uL (4.60-5.80); White Blood Count 15.5 X10*3/uL (4.8-10.8)
[2025-05-22 12:26] LABS: Anion Gap 10 (12-20); Blood Urea Nitrogen 9 mg/dL (9-16); Calcium 7.8 mg/dL (8.4-10.2); Carbon Dioxide 29 mmol/L (22-29); Chloride 98 mmol/L (96-108); Creatinine Clr Calc Pharmacy 221.9; Estimated Glomerular Filt Rate > 60; Potassium 3.0 mmol/L (3.3-5.1); Sodium 134 mmol/L (135-145)
[2025-05-22] MEDS: Potassium Chloride Packet 20 MEQ PACKET 40 MEQ PO (14:47)
[2025-05-23] VITALS (10 sets, daily range): BP systolic 89–110; BP diastolic 53–64; PULSE 75–85; RESP 16–20; TEMP 36.5–37.3; O2SAT 93–97
[2025-05-23] MEDS: Phytonadione (Vit K1) Oral 10 MG/ML AMPUL 5 MG PO (07:47)
[2025-05-23] MEDS: 0.9 % Sodium Chloride Flush 3 ML SYRINGE IVFLUSH ×2 (07:53→15:17)
[2025-05-23 09:20] LABS: Hematocrit 29.9 % (42.0-52.0); Hemoglobin 10.1 g/dl (14.0-18.0); Mean Corpuscular HGB Conc 33.8 g/dl (31.0-36.0); Mean Corpuscular Hemoglobin 35.9 pg (27.0-33.0); Mean Corpuscular Volume 106.4 fL (80.0-98.0); NRBC Abs Auto 0.000 X10*3/uL (0.0-0.012); NRBC Pct Auto 0.0 /100WBC (0.0-0.2); Red Blood Count 2.81 X10*6/uL (4.60-5.80); White Blood Count 13.8 X10*3/uL (4.8-10.8)
[2025-05-23 09:31] LABS: Anion Gap 10 (12-20); Blood Urea Nitrogen 9 mg/dL (9-16); Calcium 7.7 mg/dL (8.4-10.2); Carbon Dioxide 31 mmol/L (22-29); Chloride 97 mmol/L (96-108); Creatinine Clr Calc Pharmacy 213.8; Estimated Glomerular Filt Rate > 60; Magnesium 2.0 mg/dL (1.6-2.6); Potassium 3.1 mmol/L (3.3-5.1); Sodium 135 mmol/L (135-145)
[2025-05-23 09:34] LABS: Platelet Count 96 X10*3/uL (160-400)
--- NOTE | 2025-05-23 09:39 | HO.PM.IMPN ---
Subjective Subjective Date of Service: 05/23/25 Interval History: Paracentesis done yesterday, no sings of alcohol withdrawal has some abdominal pain Physical Exam Vital Signs: Vital Signs: Last Vital Signs Temp 98.4 F 05/23/25 08:00 Pulse 84 05/23/25 08:00 Resp 18 05/23/25 08:00 BP 109/60 05/23/25 08:00 Pulse Ox 94 05/23/25 08:00 O2 Del Method Nasal Cannula 05/23/25 08:00 O2 Flow Rate 3 05/23/25 08:00 BMI result Body Mass Index 31.1 Const: Other: General: AO X 3, no acute distress HEENT: sclear icteris Resp: CTA bilateral CVS: S1,S2,RRR, 2+ leg edema GI: +BS, +mild T, + distention Skin: No rash Neuro: motor grossly intact Psych: appropriate affect Objective Data Active Medications Acetaminophen (Acetaminophen 325 Mg Tablet) 650 mg PO Q6H PRN PRN Reason: Pain, Mild 1-3,fever,headache Albuterol/Ipratropium (Albuterol/Iprat 2.5/0.5mg 3 Ml Ampul.Neb) 3 ml INHALE Q4H PRN PRN Reason: Shortness of Breath/Wheezing Calcium Carbonate (Calcium Carbonate 750 Mg Tab.Chew) 750 mg PO Q4H PRN PRN Reason: Heartburn Ceftriaxone Sodium (Ceftriaxone Sodium 1 Gm Vial) 1 gm IVPUSH Q24H [facility] Last Admin: 05/22/25 11:34 Dose: 1 gm Documented By: ZAYRA Fenofibrate (Fenofibrate 54 Mg Tablet) 54 mg PO DAILY [facility] Last Admin: 05/23/25 07:45 Dose: 54 mg Documented By: ZAYRA Folic Acid (Folic Acid 1 Mg Tablet) 1 mg PO DAILY [facility] Last Admin: 05/23/25 07:44 Dose: 1 mg Documented By: ZAYRA Furosemide (Furosemide 40 Mg Tablet) 40 mg PO DAILY [facility]; Protocol Last Admin: 05/23/25 07:45 Dose: 40 mg Documented By: ZARYA Hydromorphone HCl (Hydromorphone Hcl 0.5 Mg/0.5 Ml Syringe) 0.5 mg IVPUSH Q4H PRN; Protocol PRN Reason: Pain, Severe (Pain Scale 7-10) Last Admin: 05/23/25 07:50 Dose: 0.5 mg Documented By: ZAYRA Lactulose (Lactulose 20 Gm/30 Ml Solution) 30 gm PO BID [facility] Last Admin: 05/23/25 08:29 Dose: Not Given Documented By: ZAYRA Non-Admin Reason: multiple diarrhea Lisinopril (Lisinopril 10 Mg Tablet) 10 mg PO DAILY [facility]; Protocol Last Admin: 05/23/25 07:44 Dose: 10 mg Documented By: ZAYRA Lorazepam (Lorazepam 1 Mg Tablet) 1 mg PO Q6H PRN PRN Reason: Anxiety Magnesium Hydroxide (Milk Of Magnesia 30 Ml Oral.Susp) 30 ml PO DAILY PRN PRN Reason: Constipation Melatonin (Melatonin 3 Mg Tablet) 6 mg PO BEDTIME PRN PRN Reason: Insomnia Ondansetron HCl (Ondansetron Hcl 4 Mg/2 Ml Vial) 4 mg IVPUSH Q8H PRN PRN Reason: Nausea and Vomiting Oxycodone HCl (Oxycodone Hcl Immed Release 5 Mg Tablet) 5 mg PO Q6H PRN PRN Reason: Pain, Moderate(Pain Scale 4-6) Last Admin: 05/22/25 19:51 Dose: 5 mg Documented By: SYMONE Phytonadione (Phytonadione (Vit K1) Oral 10 Mg/Ml Ampul) 5 mg PO DAILY [facility] Stop: 05/24/25 09:01 Last Admin: 05/23/25 07:47 Dose: 5 mg Documented By: ZAYRA Prazosin HCl (Prazosin Hcl 1 Mg Capsule) 2 mg PO BEDTIME [facility]; Protocol Last Admin: 05/22/25 19:54 Dose: 2 mg Documented By: SYMONE Senna (Sennosides 8.6 Mg Tablet) 17.2 mg PO BEDTIME [facility] Last Admin: 05/22/25 19:52 Dose: 17.2 mg Documented By: SYMONE Sodium Chloride (0.9 % Sodium Chloride Flush 3 Ml Syringe) [facility] Last Admin: 05/23/25 07:53 Dose: 3 ml Documented By: ZAYRA Spironolactone (Spironolactone 25 Mg Tablet) 100 mg PO DAILY [facility]; Protocol Last Admin: 05/23/25 07:44 Dose: 100 mg Documented By: ZAYRA Thiamine HCl (Thiamine Hcl 100 Mg Tablet) 100 mg PO DAILY [facility] Last Admin: 05/23/25 07:45 Dose: 100 mg Documented By: ZAYRA Labs 05/23/25 08:51 05/23/25 08:51 Labs: Laboratory Results - last 24 hr 05/22/25 05/22/25 05/23/25 11:43 17:50 08:51 MCV 107.0 H 106.4 H MCH 35.3 H 35.9 H MCHC 33.0 33.8 RDW 16.4 H 16.3 H Plt Count 106 L 96 L MPV 9.1 L 9.2 L Absolute Nucleated RBC 0.000 0.000 Nucleated RBC % (auto) 0.0 0.0 Anion Gap 10 L 10 L Estim Creat Clear Calc 221.9 213.8 Estimated GFR > 60 > 60 Random Glucose 89 124 H Calcium 7.8 L 7.7 L Magnesium 2.0 Urine Osmolality 480 Ur Random Sodium < 20.0 Microbiology Microbiology Results: Microbiology 05/21/25 15:50 Gram Stain - Final Ascites Fluid Anaerobic Culture - Preliminary No growth to date. Body Fluid Culture - Preliminary No growth to date. 05/21/25 05:41 Urine Culture - Final Urine clean catch - Clean Catch Midstream No growth. Assessment and Plan (1) Alcoholic cirrhosis of liver with ascites: Status: Acute Plan 54 yo male with PMH alcohol use disorder (does not have seizure hx with withdrawal), tobacco dependence, left inguinal hernia repair 2023, umbilical hernia repair 2023, L4-L5 back surgery with chronic left footdrop, chronic pain syndrome, hypertension, anxiety was brought in by ambulance to the emergency department status post a fall. Patient presented with head-to-toe jaundice and icteric sclera with grossly distended abdomen/ascites. Patient is being admitted for the following medical problems: Possible hepatic metastatic disease of liver with ascites Paracentesis 05/21, sent for cytology GI consult noted, await cytlogy if not diagnostic then Bx Hepatitis B and C panel pending Dilaudid and oxy for pain Lasix and Aldactone for ascietes Alcohol use disorder, no active withdrawal CIWA, PRN ativan FA and thiamine Hyponatremia d/t hypervolemia from liver diseae, 135 monitor Hypokalemia, oral replacement and recheck, mag 2 Hyperammonemia Lactulose 30 gms BID +UA, ? UTI, leukocytosis Ceftriaxone. 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
[2025-05-23] MEDS: Potassium Chloride ER 20 MEQ TAB.ER.PRT 40 MEQ PO ×2 (10:24→20:37)
--- NOTE | 2025-05-23 10:49 | P.PNGI_ITS ---
Subjective Subjective Date of Service: 05/23/25 Interval History: pain somewhat better out of bed to chair Critical Care Time (minutes): 0 Physical Exam 2 Vital Signs: Vital Signs: Last Vital Signs Temp 98.4 F 05/23/25 08:00 Pulse 84 05/23/25 08:00 Resp 18 05/23/25 08:00 BP 109/60 05/23/25 08:00 Pulse Ox 94 05/23/25 08:00 O2 Del Method Nasal Cannula 05/23/25 08:00 O2 Flow Rate 3 05/23/25 08:00 BMI result Body Mass Index 31.1 GI: Other: abdomen without focal tenderness extremities show edema Objective Data Labs 05/23/25 08:51 05/23/25 08:51 Labs: Laboratory Results - last 24 hr 05/22/25 05/22/25 05/23/25 11:43 17:50 08:51 WBC 15.5 H 13.8 H RBC 2.86 L 2.81 L Hgb 10.1 L 10.1 L Hct 30.6 L 29.9 L MCV 107.0 H 106.4 H MCH 35.3 H 35.9 H MCHC 33.0 33.8 RDW 16.4 H 16.3 H Plt Count 106 L 96 L MPV 9.1 L 9.2 L Absolute Nucleated RBC 0.000 0.000 Nucleated RBC % (auto) 0.0 0.0 Sodium 134 L 135 Potassium 3.0 L 3.1 L Chloride 98 97 Carbon Dioxide 29 31 H Anion Gap 10 L 10 L BUN 9 9 Creatinine 0.53 0.55 Estim Creat Clear Calc 221.9 213.8 Estimated GFR > 60 > 60 Random Glucose 89 124 H Calcium 7.8 L 7.7 L Magnesium 2.0 Urine Osmolality 480 Ur Random Sodium < 20.0 Microbiology Microbiology Results: Microbiology 05/21/25 15:50 Ascites Fluid Gram Stain - Final 05/21/25 15:50 Ascites Fluid Anaerobic Culture - Preliminary No growth to date. 05/21/25 15:50 Ascites Fluid Body Fluid Culture - Preliminary No growth to date. 05/21/25 05:41 Urine clean catch - Clean Catch Midstream Urine Culture - Final No growth. Procedures Date of Service Date of Service: 05/23/25 Progress Note: A&P Assessment and plan (1) Alcoholic cirrhosis of liver with ascites: Status: Acute Assessment and Plan: continue diuretics await cytology may need liver bx. Time Spent With Patient Time: Total time managing care of this patient today ____ minutes. Quality Stroke Does the patient have a stroke diagnosis?: No Reason for No Anti-thrombotic by Day Two: N/A - Med Ordered VTE Prior VTE?: No VTE Risk Level:: Medical - moderate - high VTE Device Contraindication: N/A - Device Ordered VTE Drug Contraindication: Treatment Not Indicated
[2025-05-23] MEDS: oxyCODONE HCl Immed Release 5 MG TABLET PO ×2 (12:25→20:29)
--- NOTE | 2025-05-23 15:17 | MHC.CM.PN ---
PT REPORTS HE LIVES ALONE AND IS INDEPENDENT WITH CARE HE HAS NO DME AND NO SERVICES COPY OF HCP REQUESTED PCP: OBED AYERS DCP: HOME ? [facility] PT WILL ARRANGE TRANSPORT
--- NOTE | 2025-05-23 20:30 | PC.NURSE ---
Pt's BP 93/64, 10/10 pain to neck & back. Pt's previous BPs were on the soft side 94/53 & 90/54, see VS workist. MD Zhang was notified of the pt's BP and 10/10 pain. Per MD to hold off on CASANDRA prazosin for the low BP and to administered oxycodone for pain instead of IV Dilaudid d/t low BP. Will continue to monitor pt's BP & pain.
[2025-05-24] VITALS (9 sets, daily range): BP systolic 99–112; BP diastolic 54–66; PULSE 77–84; RESP 15–19; TEMP 36.2–37.4; O2SAT 95–98
[2025-05-24] MEDS: guaiFENesin 200 MG/10 ML 10 ML LIQUID PO (00:08)
[2025-05-24] MEDS: 0.9 % Sodium Chloride Flush 3 ML SYRINGE IVFLUSH ×3 (00:11→15:54)
[2025-05-24 07:27] LABS: pH Peritoneal Fluid 7.59
[2025-05-24 07:28] LABS: Albumin Peritoneal Fluid 0.8
[2025-05-24] MEDS: oxyCODONE HCl Immed Release 5 MG TABLET PO ×3 (07:44→20:17)
[2025-05-24] MEDS: Phytonadione (Vit K1) Oral 10 MG/ML AMPUL 5 MG PO (09:32)
--- NOTE | 2025-05-24 10:28 | HO.PM.IMPN ---
Subjective Subjective Date of Service: 05/24/25 Interval History: Has some abd pain, waiting on paracentessis result, BP on low side Physical Exam Vital Signs: Vital Signs: Last Vital Signs Temp 98 F 05/24/25 06:58 Pulse 79 05/24/25 09:08 Resp 17 05/24/25 06:58 BP 108/57 L 05/24/25 09:33 Pulse Ox 97 05/24/25 06:58 O2 Del Method Nasal Cannula 05/24/25 06:58 O2 Flow Rate 3 05/24/25 06:58 BMI result Body Mass Index 31.1 Const: Other: General: AO X 3, no acute distress HEENT: sclear icteris Resp: CTA bilateral CVS: S1,S2,RRR, 2+ leg edema GI: +BS, +mild T, + distention Skin: No rash Neuro: motor grossly intact Psych: appropriate affect Objective Data Active Medications Acetaminophen (Acetaminophen 325 Mg Tablet) 650 mg PO Q6H PRN PRN Reason: Pain, Mild 1-3,fever,headache Albuterol/Ipratropium (Albuterol/Iprat 2.5/0.5mg 3 Ml Ampul.Neb) 3 ml INHALE Q4H PRN PRN Reason: Shortness of Breath/Wheezing Calcium Carbonate (Calcium Carbonate 750 Mg Tab.Chew) 750 mg PO Q4H PRN PRN Reason: Heartburn Ceftriaxone Sodium (Ceftriaxone Sodium 1 Gm Vial) 1 gm IVPUSH Q24H [facility] Last Admin: 05/23/25 10:25 Dose: 1 gm Documented By: ZAYRA Fenofibrate (Fenofibrate 54 Mg Tablet) 54 mg PO DAILY [facility] Last Admin: 05/24/25 07:44 Dose: 54 mg Documented By: RODRIGUEZ Folic Acid (Folic Acid 1 Mg Tablet) 1 mg PO DAILY [facility] Last Admin: 05/24/25 07:43 Dose: 1 mg Documented By: RODRIGUEZ Furosemide (Furosemide 40 Mg Tablet) 40 mg PO DAILY [facility]; Protocol Last Admin: 05/24/25 09:33 Dose: 40 mg Documented By: AMAURI Guaifenesin (Guaifenesin 200 Mg/10 Ml 10 Ml Liquid) 10 ml PO Q6H PRN PRN Reason: Cough Last Admin: 05/24/25 00:08 Dose: 10 ml Documented By: AURA Hydromorphone HCl (Hydromorphone Hcl 0.5 Mg/0.5 Ml Syringe) 0.5 mg IVPUSH Q4H PRN; Protocol PRN Reason: Pain, Severe (Pain Scale 7-10) Last Admin: 05/24/25 04:54 Dose: 0.5 mg Documented By: AURA Lactulose (Lactulose 20 Gm/30 Ml Solution) 30 gm PO BID [facility] Last Admin: 05/24/25 07:44 Dose: Not Given Documented By: RODRIGUEZ Non-Admin Reason: Patient Refused Lisinopril (Lisinopril 10 Mg Tablet) 10 mg PO DAILY [facility]; Protocol Last Admin: 05/24/25 09:31 Dose: Not Given Documented By: AMAURI Non-Admin Reason: held for low BP Lorazepam (Lorazepam 1 Mg Tablet) 1 mg PO Q6H PRN PRN Reason: Anxiety Last Admin: 05/23/25 10:24 Dose: 1 mg Documented By: ZAYRA Magnesium Hydroxide (Milk Of Magnesia 30 Ml Oral.Susp) 30 ml PO DAILY PRN PRN Reason: Constipation Melatonin (Melatonin 3 Mg Tablet) 6 mg PO BEDTIME PRN PRN Reason: Insomnia Ondansetron HCl (Ondansetron Hcl 4 Mg/2 Ml Vial) 4 mg IVPUSH Q8H PRN PRN Reason: Nausea and Vomiting Oxycodone HCl (Oxycodone Hcl Immed Release 5 Mg Tablet) 5 mg PO Q6H PRN PRN Reason: Pain, Moderate(Pain Scale 4-6) Last Admin: 05/24/25 07:44 Dose: 5 mg Documented By: RODRIGUEZ Prazosin HCl (Prazosin Hcl 1 Mg Capsule) 2 mg PO BEDTIME [facility]; Protocol Last Admin: 05/23/25 20:38 Dose: Not Given Documented By: AURA Non-Admin Reason: Decreased Blood Pressure Comments: MD Zhang made aware, hold medication Senna (Sennosides 8.6 Mg Tablet) 17.2 mg PO BEDTIME [facility] Last Admin: 05/23/25 20:29 Dose: 17.2 mg Documented By: AURA Sodium Chloride (0.9 % Sodium Chloride Flush 3 Ml Syringe) 3 ml IVFLUSH [facility] Last Admin: 05/24/25 07:43 Dose: 3 ml Documented By: RODRIGUEZ Spironolactone (Spironolactone 25 Mg Tablet) 100 mg PO DAILY [facility]; Protocol Last Admin: 05/24/25 09:33 Dose: 100 mg Documented By: AMAURI Thiamine HCl (Thiamine Hcl 100 Mg Tablet) 100 mg PO DAILY [facility] Last Admin: 05/24/25 07:44 Dose: 100 mg Documented By: RODRIGUEZ Labs 05/23/25 08:51 05/23/25 08:51 Labs: Laboratory Results - last 24 hr 05/21/25 15:50 Peritoneal pH 7.59 Peritoneal Tot Protein 1.9 Peritoneal Albumin 0.8 Peritoneal LDH 67 Peritoneal Glucose 110 Peritoneal Amylase 17 Microbiology Microbiology Results: Microbiology 05/21/25 15:50 Gram Stain - Final Ascites Fluid Anaerobic Culture - Preliminary No growth to date. Body Fluid Culture - Final No growth after 2 days Assessment and Plan (1) Alcoholic cirrhosis of liver with ascites: Status: Acute Plan 54 yo male with PMH alcohol use disorder (does not have seizure hx with withdrawal), tobacco dependence, left inguinal hernia repair 2023, umbilical hernia repair 2023, L4-L5 back surgery with chronic left footdrop, chronic pain syndrome, hypertension, anxiety was brought in by ambulance to the emergency department status post a fall. Patient presented with head-to-toe jaundice and icteric sclera with grossly distended abdomen/ascites. Patient is being admitted for the following medical problems: Possible hepatic metastatic disease of liver with ascites Paracentesis 05/21, sent for cytology GI consult noted, await cytlogy if not diagnostic then Bx Hepatitis B and C panel pending Dilaudid and oxy for pain Lasix and Aldactone for ascietes, hold lisinopril d/t low BP Alcohol use disorder, no active withdrawal CIWA, PRN ativan FA and thiamine Hyponatremia d/t hypervolemia from liver diseae, 135 monitor Hypokalemia, oral replacement and recheck, mag 2 Hyperammonemia Lactulose 30 gms BID +UA, ? UTI, leukocytosis Ceftriaxone. 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
[2025-05-24 11:48] LABS: Hematocrit 29.2 % (42.0-52.0); Hemoglobin 9.9 g/dl (14.0-18.0); Mean Corpuscular HGB Conc 33.9 g/dl (31.0-36.0); Mean Corpuscular Hemoglobin 36.8 pg (27.0-33.0); Mean Corpuscular Volume 108.6 fL (80.0-98.0); NRBC Abs Auto 0.000 X10*3/uL (0.0-0.012); NRBC Pct Auto 0.0 /100WBC (0.0-0.2); Platelet Count 96 X10*3/uL (160-400); Red Blood Count 2.69 X10*6/uL (4.60-5.80); White Blood Count 13.0 X10*3/uL (4.8-10.8)
--- NOTE | 2025-05-24 11:50 | MHC.CM.PN ---
Patient not medically cleared for dc. CM will continue to follow.
[2025-05-24 12:37] LABS: Anion Gap 10 (12-20); Blood Urea Nitrogen 9 mg/dL (9-16); Calcium 7.5 mg/dL (8.4-10.2); Carbon Dioxide 30 mmol/L (22-29); Chloride 99 mmol/L (96-108); Creatinine Clr Calc Pharmacy 186.7; Estimated Glomerular Filt Rate > 60; Potassium 3.6 mmol/L (3.3-5.1); Sodium 135 mmol/L (135-145)
[2025-05-25] VITALS (9 sets, daily range): BP systolic 101–117; BP diastolic 55–69; PULSE 69–78; RESP 12–18; TEMP 36.6–37; O2SAT 93–95
[2025-05-25 06:14] LABS: Hematocrit 29.9 % (42.0-52.0); Hemoglobin 10.1 g/dl (14.0-18.0); Mean Corpuscular HGB Conc 33.8 g/dl (31.0-36.0); Mean Corpuscular Hemoglobin 35.7 pg (27.0-33.0); Mean Corpuscular Volume 105.7 fL (80.0-98.0); NRBC Abs Auto 0.000 X10*3/uL (0.0-0.012); NRBC Pct Auto 0.0 /100WBC (0.0-0.2); Platelet Count 102 X10*3/uL (160-400); Red Blood Count 2.83 X10*6/uL (4.60-5.80); White Blood Count 11.7 X10*3/uL (4.8-10.8)
[2025-05-25 06:32] LABS: Anion Gap 11 (12-20); Blood Urea Nitrogen 8 mg/dL (9-16); Calcium 7.7 mg/dL (8.4-10.2); Carbon Dioxide 29 mmol/L (22-29); Chloride 98 mmol/L (96-108); Creatinine Clr Calc Pharmacy 175.5; Estimated Glomerular Filt Rate > 60; Potassium 3.6 mmol/L (3.3-5.1); Sodium 134 mmol/L (135-145)
--- NOTE | 2025-05-25 09:09 | P.PNIM_ITS ---
Subjective Subjective Date of Service: 05/25/25 Interval History: Reports more abdominal pain and wants med adjustment Cytology report not available. Physical Exam 2 Vital Signs: Vital Signs: Last Vital Signs Temp 98 F 05/25/25 06:45 Pulse 77 05/25/25 09:06 Resp 16 05/25/25 06:45 BP 113/58 L 05/25/25 09:06 Pulse Ox 95 05/25/25 06:45 O2 Del Method Nasal Cannula 05/25/25 06:45 O2 Flow Rate 3 05/25/25 06:45 BMI result Body Mass Index 31.1 Const: Other: General: AO X 3, no acute distress HEENT: sclear icteris Resp: CTA bilateral CVS: S1,S2,RRR, 2+ leg edema GI: +BS, +mild T, + distention Skin: No rash Neuro: motor grossly intact Psych: appropriate affect Objective Data Active Medications Acetaminophen (Acetaminophen 325 Mg Tablet) 650 mg PO Q6H PRN PRN Reason: Pain, Mild 1-3,fever,headache Albuterol/Ipratropium (Albuterol/Iprat 2.5/0.5mg 3 Ml Ampul.Neb) 3 ml INHALE Q4H PRN PRN Reason: Shortness of Breath/Wheezing Calcium Carbonate (Calcium Carbonate 750 Mg Tab.Chew) 750 mg PO Q4H PRN PRN Reason: Heartburn Ceftriaxone Sodium (Ceftriaxone Sodium 1 Gm Vial) 1 gm IVPUSH Q24H [facility] Last Admin: 05/24/25 10:38 Dose: 1 gm Documented By: AMAURI Fenofibrate (Fenofibrate 54 Mg Tablet) 54 mg PO DAILY [facility] Last Admin: 05/24/25 07:44 Dose: 54 mg Documented By: RODRIGUEZ Folic Acid (Folic Acid 1 Mg Tablet) 1 mg PO DAILY [facility] Last Admin: 05/24/25 07:43 Dose: 1 mg Documented By: RODRIGUEZ Furosemide (Furosemide 40 Mg Tablet) 40 mg PO DAILY [facility]; Protocol Last Admin: 05/24/25 09:33 Dose: 40 mg Documented By: AMAURI Guaifenesin (Guaifenesin 200 Mg/10 Ml 10 Ml Liquid) 10 ml PO Q6H PRN PRN Reason: Cough Last Admin: 05/24/25 00:08 Dose: 10 ml Documented By: AURA Hydromorphone HCl (Hydromorphone Hcl 0.5 Mg/0.5 Ml Syringe) 0.5 mg IVPUSH Q4H PRN; Protocol PRN Reason: Pain, Severe (Pain Scale 7-10) Last Admin: 05/25/25 05:01 Dose: 0.5 mg Documented By: AURA Lactulose (Lactulose 20 Gm/30 Ml Solution) 30 gm PO BID [facility] Last Admin: 05/24/25 20:20 Dose: 30 gm Documented By: AURA Lisinopril (Lisinopril 10 Mg Tablet) 10 mg PO DAILY [facility]; Protocol Last Admin: 05/24/25 09:31 Dose: Not Given Documented By: AMAURI Non-Admin Reason: MD held for low BP Lorazepam (Lorazepam 1 Mg Tablet) 1 mg PO Q6H PRN PRN Reason: Anxiety Last Admin: 05/23/25 10:24 Dose: 1 mg Documented By: ZAYRA Magnesium Hydroxide (Milk Of Magnesia 30 Ml Oral.Susp) 30 ml PO DAILY PRN PRN Reason: Constipation Melatonin (Melatonin 3 Mg Tablet) 6 mg PO BEDTIME PRN PRN Reason: Insomnia Ondansetron HCl (Ondansetron Hcl 4 Mg/2 Ml Vial) 4 mg IVPUSH Q8H PRN PRN Reason: Nausea and Vomiting Oxycodone HCl (Oxycodone Hcl Immed Release 5 Mg Tablet) 5 mg PO Q6H PRN PRN Reason: Pain, Moderate(Pain Scale 4-6) Last Admin: 05/24/25 20:17 Dose: 5 mg Documented By: AURA Comments: per pt request Prazosin HCl (Prazosin Hcl 1 Mg Capsule) 2 mg PO BEDTIME [facility]; Protocol Last Admin: 05/24/25 20:19 Dose: Not Given Documented By: AURA Non-Admin Reason: Decreased Blood Pressure Senna (Sennosides 8.6 Mg Tablet) 17.2 mg PO BEDTIME [facility] Last Admin: 05/24/25 20:18 Dose: 17.2 mg Documented By: AURA Sodium Chloride (0.9 % Sodium Chloride Flush 3 Ml Syringe) 3 ml IVFLUSH QSHIFT [facility] Last Admin: 05/25/25 00:25 Dose: Not Given Documented By: HO.NATALSA Non-Admin Reason: Previously Administered Spironolactone (Spironolactone 25 Mg Tablet) 100 mg PO DAILY [facility]; Protocol Last Admin: 05/24/25 09:33 Dose: 100 mg Documented By: AMAURI Thiamine HCl (Thiamine Hcl 100 Mg Tablet) 100 mg PO DAILY [facility] Last Admin: 05/24/25 07:44 Dose: 100 mg Documented By: RODRIGUEZ Labs 05/25/25 05:40 05/25/25 05:40 Labs: Laboratory Results - last 24 hr 05/24/25 05/25/25 10:49 05:40 MCV 108.6 H 105.7 H MCH 36.8 H 35.7 H MCHC 33.9 33.8 RDW 16.4 H 16.1 H Plt Count 96 L 102 L MPV 9.4 9.1 L Absolute Nucleated RBC 0.000 0.000 Nucleated RBC % (auto) 0.0 0.0 Anion Gap 10 L 11 L Estim Creat Clear Calc 186.7 175.5 Estimated GFR > 60 > 60 Random Glucose 102 95 Calcium 7.5 L 7.7 L Microbiology Microbiology Results: Microbiology 05/21/25 15:50 Gram Stain - Final Ascites Fluid Anaerobic Culture - Preliminary No growth to date. Body Fluid Culture - Final No growth after 2 days 05/21/25 15:50 Fungal Identification - Preliminary Ascites Fluid No growth to date. Assessment and Plan (1) Alcoholic cirrhosis of liver with ascites: Status: Acute Plan 54 yo male with PMH alcohol use disorder (does not have seizure hx with withdrawal), tobacco dependence, left inguinal hernia repair 2023, umbilical hernia repair 2023, L4-L5 back surgery with chronic left footdrop, chronic pain syndrome, hypertension, anxiety was brought in by ambulance to the emergency department status post a fall. Patient presented with head-to-toe jaundice and icteric sclera with grossly distended abdomen/ascites. Patient is being admitted for the following medical problems: Possible hepatic metastatic disease of liver with ascites Paracentesis 05/21, sent for cytology GI consult noted, await cytlogy if not diagnostic then Bx Hepatitis B and C panel pending Dilaudid and oxy for pain Lasix and Aldactone for ascietes, hold lisinopril d/t low BP Alcohol use disorder, no active withdrawal CIWA, PRN ativan FA and thiamine Hyponatremia d/t hypervolemia from liver diseae, 135 monitor Hypokalemia, oral replacement, K is normal Hyperammonemia, no HE Lactulose 30 gms BID +UA, ? 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
[2025-05-25] MEDS: 0.9 % Sodium Chloride Flush 3 ML SYRINGE IVFLUSH ×3 (09:23→20:58)
[2025-05-25 09:36] LABS: INTERNATIONAL NORM RATIO 2.8 (0.9-1.1); Prothrombin Time 31.7 SEC (10.9-12.4)
--- NOTE | 2025-05-25 17:05 | PM.EVENT ---
Event Note Date of Service: 05/25/25 Event Note: GI Cytology results negative for malignancy on ascites fluid. IR consulted for liver biopsy as discussed with patient previously. Time Spent With Patient Time: Total time managing care of this patient today ____ minutes.
[2025-05-26] VITALS (11 sets, daily range): BP systolic 100–118; BP diastolic 52–76; PULSE 69–82; RESP 14–20; TEMP 36.6–37.1; O2SAT 93–96
[2025-05-26] MEDS: oxyCODONE HCl Immed Release 5 MG TABLET PO (04:53)
[2025-05-26 06:42] LABS: INTERNATIONAL NORM RATIO 2.6 (0.9-1.1); Prothrombin Time 30.2 SEC (10.9-12.4)
[2025-05-26 06:43] LABS: Anion Gap 13 (12-20); Blood Urea Nitrogen 9 mg/dL (9-16); Calcium 7.8 mg/dL (8.4-10.2); Carbon Dioxide 28 mmol/L (22-29); Chloride 95 mmol/L (96-108); Creatinine Clr Calc Pharmacy 183.7; Estimated Glomerular Filt Rate > 60; Potassium 3.4 mmol/L (3.3-5.1); Sodium 133 mmol/L (135-145)
[2025-05-26] MEDS: 0.9 % Sodium Chloride Flush 3 ML SYRINGE IVFLUSH ×2 (07:51→21:54)
--- NOTE | 2025-05-26 09:25 | P.PNIM_ITS ---
Subjective Subjective Date of Service: 05/26/25 Interval History: pain is controlled US yesterday show no clear evidence of mass Physical Exam 2 Vital Signs: Vital Signs: Last Vital Signs Temp 98 F 05/26/25 06:56 Pulse 81 05/26/25 07:40 Resp 16 05/26/25 06:56 BP 117/60 05/26/25 07:40 Pulse Ox 94 05/26/25 07:40 O2 Del Method Room Air 05/26/25 07:40 O2 Flow Rate 3 05/25/25 19:39 BMI result Body Mass Index 31.1 Const: Other: General: AO X 3, no acute distress HEENT: sclear icteris Resp: CTA bilateral CVS: S1,S2,RRR, 2+ leg edema GI: +BS, +mild T, + distention Skin: No rash Neuro: motor grossly intact Psych: appropriate affect Objective Data Active Medications Acetaminophen (Acetaminophen 325 Mg Tablet) 650 mg PO Q6H PRN PRN Reason: Pain, Mild 1-3,fever,headache Albuterol/Ipratropium (Albuterol/Iprat 2.5/0.5mg 3 Ml Ampul.Neb) 3 ml INHALE Q4H PRN PRN Reason: Shortness of Breath/Wheezing Calcium Carbonate (Calcium Carbonate 750 Mg Tab.Chew) 750 mg PO Q4H PRN PRN Reason: Heartburn Ceftriaxone Sodium (Ceftriaxone Sodium 1 Gm Vial) 1 gm IVPUSH Q24H [facility] 234 BEDS AT [facility] Last Admin: 05/25/25 10:49 Dose: 1 gm Documented By: AMAURI Fenofibrate (Fenofibrate 54 Mg Tablet) 54 mg PO DAILY [facility] 234 BEDS AT [facility] Last Admin: 05/26/25 07:51 Dose: 54 mg Documented By: OBED Folic Acid (Folic Acid 1 Mg Tablet) 1 mg PO DAILY [facility] 234 BEDS AT [facility] Last Admin: 05/26/25 07:51 Dose: 1 mg Documented By: OBED Furosemide (Furosemide 40 Mg Tablet) 40 mg PO DAILY [facility] 234 BEDS AT [facility]; Protocol Last Admin: 05/26/25 07:50 Dose: 40 mg Documented By: OBED Guaifenesin (Guaifenesin 200 Mg/10 Ml 10 Ml Liquid) 10 ml PO Q6H PRN PRN Reason: Cough Last Admin: 05/24/25 00:08 Dose: 10 ml Documented By: AURA Hydromorphone HCl (Hydromorphone Hcl 0.5 Mg/0.5 Ml Syringe) 1 mg IVPUSH Q4H PRN; Protocol PRN Reason: Pain, Severe (Pain Scale 7-10) Last Admin: 05/26/25 07:45 Dose: 1 mg Documented By: OBED Lactulose (Lactulose 20 Gm/30 Ml Solution) 30 gm PO BID [facility] Last Admin: 05/26/25 07:51 Dose: 30 gm Documented By: OBED Lisinopril (Lisinopril 10 Mg Tablet) 10 mg PO DAILY [facility]; Protocol Last Admin: 05/26/25 07:51 Dose: 10 mg Documented By: OBED Lorazepam (Lorazepam 1 Mg Tablet) 1 mg PO Q6H PRN PRN Reason: Anxiety Last Admin: 05/23/25 10:24 Dose: 1 mg Documented By: ZAYRA Magnesium Hydroxide (Milk Of Magnesia 30 Ml Oral.Susp) 30 ml PO DAILY PRN PRN Reason: Constipation Melatonin (Melatonin 3 Mg Tablet) 6 mg PO BEDTIME PRN PRN Reason: Insomnia Ondansetron HCl (Ondansetron Hcl 4 Mg/2 Ml Vial) 4 mg IVPUSH Q8H PRN PRN Reason: Nausea and Vomiting Oxycodone HCl (Oxycodone Hcl Immed Release 5 Mg Tablet) 5 mg PO Q6H PRN PRN Reason: Pain, Moderate(Pain Scale 4-6) Last Admin: 05/26/25 04:53 Dose: 5 mg Documented By: VANESSA Prazosin HCl (Prazosin Hcl 1 Mg Capsule) 2 mg PO BEDTIME [facility]; Protocol Last Admin: 05/25/25 20:56 Dose: Not Given Documented By: HAROON Non-Admin Reason: SBP 102 Senna (Sennosides 8.6 Mg Tablet) 17.2 mg PO BEDTIME [facility] Last Admin: 05/25/25 20:56 Dose: 17.2 mg Documented By: HAROON Sodium Chloride (0.9 % Sodium Chloride Flush 3 Ml Syringe) 3 ml IVFLUSH QSHIFT [facility]S INCLUDE 234 BEDS AT THE [facility] Last Admin: 05/26/25 07:51 Dose: 3 ml Documented By: OBED Spironolactone (Spironolactone 25 Mg Tablet) 100 mg PO DAILY [facility]; Protocol Last Admin: 05/26/25 07:50 Dose: 100 mg Documented By: OBED Thiamine HCl (Thiamine Hcl 100 Mg Tablet) 100 mg PO DAILY [facility] 234 BEDS AT [facility] Last Admin: 05/26/25 07:51 Dose: 100 mg Documented By: OBED Labs 05/25/25 05:40 05/26/25 05:57 Labs: Laboratory Results - last 24 hr 05/25/25 05/26/25 09:20 05:57 PT 31.7 H 30.2 H INR 2.8 H 2.6 H Anion Gap 13 Estim Creat Clear Calc 183.7 Estimated GFR > 60 Random Glucose 99 Calcium 7.8 L Microbiology Microbiology Results: Microbiology 05/21/25 15:50 Gram Stain - Final Ascites Fluid Anaerobic Culture - Final NO GROWTH AFTER 5 DAYS Body Fluid Culture - Final No growth after 2 days 05/21/25 15:50 Direct Acid Fast Bacilli Smear - Final Ascites Fluid Assessment and Plan (1) Alcoholic cirrhosis of liver with ascites: Status: Acute Plan 54 yo male with PMH alcohol use disorder (does not have seizure hx with withdrawal), tobacco dependence, left inguinal hernia repair 2023, umbilical hernia repair 2023, L4-L5 back surgery with chronic left footdrop, chronic pain syndrome, hypertension, anxiety was brought in by ambulance to the emergency department status post a fall. Patient presented with head-to-toe jaundice and icteric sclera with grossly distended abdomen/ascites. Patient is being admitted for the following medical problems: Possible hepatic metastatic disease of liver with ascites Paracentesis 05/21, sent for cytology no malignancy GI consult noted, await cytlogy if not diagnostic then Bx US 05/25 no evidence of massl, will discuss with GI about possible MRI Hepatitis B and C negative Dilaudid and oxy for pain Lasix and Aldactone for ascietes, hold lisinopril d/t low BP Paracentesiis, therapeutic today Alcohol use disorder, no active withdrawal CIWA, PRN ativan FA and thiamine Hyponatremia d/t hypervolemia from liver diseae, 135 monitor Hypokalemia, oral replacement, K is normal Hyperammonemia, no HE Lactulose 30 gms BID +UA, ? 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
--- NOTE | 2025-05-26 11:15 | P.PNGI_ITS ---
Subjective Subjective Date of Service: 05/26/25 Interval History: pain is stable Critical Care Time (minutes): 0 Physical Exam 2 Vital Signs: Vital Signs: Last Vital Signs Temp 98 F 05/26/25 06:56 Pulse 81 05/26/25 10:52 Resp 16 05/26/25 06:56 BP 117/60 05/26/25 10:52 Pulse Ox 94 05/26/25 10:52 O2 Del Method Room Air 05/26/25 07:40 O2 Flow Rate 3 05/25/25 19:39 BMI result Body Mass Index 31.1 GI: Other: abdomen is distended Objective Data Labs 05/25/25 05:40 05/26/25 05:57 Labs: Laboratory Results - last 24 hr 05/26/25 05:57 PT 30.2 H INR 2.6 H Sodium 133 L Potassium 3.4 Chloride 95 L Carbon Dioxide 28 Anion Gap 13 BUN 9 Creatinine 0.64 Estim Creat Clear Calc 183.7 Estimated GFR > 60 Random Glucose 99 Calcium 7.8 L Microbiology Microbiology Results: Microbiology 05/21/25 15:50 Ascites Fluid Gram Stain - Final 05/21/25 15:50 Ascites Fluid Anaerobic Culture - Final NO GROWTH AFTER 5 DAYS 05/21/25 15:50 Ascites Fluid Body Fluid Culture - Final No growth after 2 days 05/21/25 15:50 Ascites Fluid Direct Acid Fast Bacilli Smear - Final 05/21/25 15:50 Ascites Fluid Fungal Identification - Preliminary No growth to date. 05/21/25 05:41 Urine clean catch - Clean Catch Midstream Urine Culture - Final No growth. Procedures Date of Service Date of Service: 05/26/25 Progress Note: A&P Assessment and plan (1) Alcoholic cirrhosis of liver with ascites: Status: Acute Assessment and Plan: us results reviewed mri odered agree with paracentesis Time Spent With Patient Time: Total time managing care of this patient today ____ minutes. Quality Stroke Does the patient have a stroke diagnosis?: No Reason for No Anti-thrombotic by Day Two: N/A - Med Ordered VTE Prior VTE?: No VTE Risk Level:: Medical - moderate - high VTE Device Contraindication: N/A - Device Ordered VTE Drug Contraindication: Treatment Not Indicated
--- NOTE | 2025-05-26 12:06 | MHC.CM.PN ---
PT REC HOME W/ SERVICES. [facility] ALREADY FOLLOWING. NOT MEDICALLY CLEARED FOR DC. CM WILL CONTINUE TO FOLLOW.
[2025-05-26] MEDS: guaiFENesin 200 MG/10 ML 10 ML LIQUID PO (21:54)
--- NOTE | 2025-05-26 22:15 | PC.NURSE ---
Assumed care of patient at 1915. Patient A&Ox4. VSS stable- BP soft. Dr. Moore notified. Patient complained of loose stools. Scheduled nighttime medications held with MD approval. Patient NPO after midnight for procedure in morning. Diet education reinforced and patient given pre-op teaching, verbalized understanding. No signs or symptoms of distress observed. Patient resting in bed. Call bravo within reach. Bed in low position with alarm on. Care transferred to oncoming RN Angelique Alvarez, see safe-start shift assessment for details.
--- NOTE | 2025-05-26 23:30 | PC.NURSE ---
pt took off tele monitor, previous nurse informed this RN that it was supposedly discontinued, but there is still and order in place, Dr. Moore made aware, no new orders placed.
[2025-05-27 03:24] VITALS: BP 117/71; PULSE 78; RESP 16; TEMP 37.2; O2SAT 95
[2025-05-27 06:35] LABS: INTERNATIONAL NORM RATIO 2.7 (0.9-1.1); Prothrombin Time 30.8 SEC (10.9-12.4)
[2025-05-27 06:36] LABS: Alanine Aminotransferase 22 U/L (0-40); Albumin Level 2.0 g/dL (3.5-5.0); Alkaline Phosphatase 82 U/L (39-117); Anion Gap 11 (12-20); Aspartate Amino Transferase 67 U/L (5-37); Blood Urea Nitrogen 10 mg/dL (9-16); Calcium 7.8 mg/dL (8.4-10.2); Carbon Dioxide 31 mmol/L (22-29); Chloride 97 mmol/L (96-108); Creatinine Clr Calc Pharmacy 189.7; Estimated Glomerular Filt Rate > 60; Potassium 3.8 mmol/L (3.3-5.1); Sodium 135 mmol/L (135-145); Total Protein 6.6 g/dL (6.5-8.0)
[2025-05-27 07:31] VITALS: BP 108/59; PULSE 74; RESP 16; TEMP 36; O2SAT 93
[2025-05-27] MEDS: 0.9 % Sodium Chloride Flush 3 ML SYRINGE IVFLUSH ×3 (09:12→21:04)
--- NOTE | 2025-05-27 09:52 | P.PNIM_ITS ---
Subjective Subjective Date of Service: 05/27/25 Interval History: Increase abd pain after PT today, planned for Bx today Physical Exam 2 Vital Signs: Vital Signs: Last Vital Signs Temp 96.8 F 05/27/25 07:31 Pulse 74 05/27/25 07:31 Resp 16 05/27/25 07:31 BP 108/59 L 05/27/25 07:31 Pulse Ox 93 05/27/25 07:31 O2 Del Method Room Air 05/27/25 07:31 O2 Flow Rate 3 05/25/25 19:39 BMI result Body Mass Index 31.1 Const: Other: General: AO X 3, no acute distress HEENT: sclear icteris Resp: CTA bilateral CVS: S1,S2,RRR, 2+ leg edema GI: +BS, +mild T, + distention Skin: No rash Neuro: motor grossly intact Psych: appropriate affect Objective Data Active Medications Acetaminophen (Acetaminophen 325 Mg Tablet) 650 mg PO Q6H PRN PRN Reason: Pain, Mild 1-3,fever,headache Albuterol/Ipratropium (Albuterol/Iprat 2.5/0.5mg 3 Ml Ampul.Neb) 3 ml INHALE Q4H PRN PRN Reason: Shortness of Breath/Wheezing Calcium Carbonate (Calcium Carbonate 750 Mg Tab.Chew) 750 mg PO Q4H PRN PRN Reason: Heartburn Ceftriaxone Sodium (Ceftriaxone Sodium 1 Gm Vial) 1 gm IVPUSH Q24H [facility] Last Admin: 05/26/25 11:15 Dose: 1 gm Documented By: OBED Fenofibrate (Fenofibrate 54 Mg Tablet) 54 mg PO DAILY [facility] Last Admin: 05/26/25 07:51 Dose: 54 mg Documented By: OBED Folic Acid (Folic Acid 1 Mg Tablet) 1 mg PO DAILY [facility] Last Admin: 05/26/25 07:51 Dose: 1 mg Documented By: OBED Furosemide (Furosemide 40 Mg Tablet) 40 mg PO DAILY [facility]; Protocol Last Admin: 05/26/25 07:50 Dose: 40 mg Documented By: OBED Guaifenesin (Guaifenesin 200 Mg/10 Ml 10 Ml Liquid) 10 ml PO Q6H PRN PRN Reason: Cough Last Admin: 05/26/25 21:54 Dose: 10 ml Documented By: ACE Hydromorphone HCl (Hydromorphone Hcl 0.5 Mg/0.5 Ml Syringe) 1 mg IVPUSH Q4H PRN; Protocol PRN Reason: Pain, Severe (Pain Scale 7-10) Last Admin: 05/27/25 06:25 Dose: 1 mg Documented By: SUMMER Lactulose (Lactulose 20 Gm/30 Ml Solution) 30 gm PO BID [facility] Last Admin: 05/26/25 21:25 Dose: Not Given Documented By: SINA Non-Admin Reason: Loose Stools. approved. Lisinopril (Lisinopril 10 Mg Tablet) 10 mg PO DAILY [facility]; Protocol Last Admin: 05/26/25 07:51 Dose: 10 mg Documented By: COLANTWAN Lorazepam (Lorazepam 1 Mg Tablet) 1 mg PO Q6H PRN PRN Reason: Anxiety Last Admin: 05/23/25 10:24 Dose: 1 mg Documented By: ZAYRA Magnesium Hydroxide (Milk Of Magnesia 30 Ml Oral.Susp) 30 ml PO DAILY PRN PRN Reason: Constipation Melatonin (Melatonin 3 Mg Tablet) 6 mg PO BEDTIME PRN PRN Reason: Insomnia Ondansetron HCl (Ondansetron Hcl 4 Mg/2 Ml Vial) 4 mg IVPUSH Q8H PRN PRN Reason: Nausea and Vomiting Oxycodone HCl (Oxycodone Hcl Immed Release 5 Mg Tablet) 5 mg PO Q6H PRN PRN Reason: Pain, Moderate(Pain Scale 4-6) Last Admin: 05/26/25 04:53 Dose: 5 mg Documented By: VANESSA Prazosin HCl (Prazosin Hcl 1 Mg Capsule) 2 mg PO BEDTIME [facility]; Protocol Last Admin: 05/26/25 21:26 Dose: Not Given Documented By: SINA Non-Admin Reason: Soft BP- approved. Senna (Sennosides 8.6 Mg Tablet) 17.2 mg PO BEDTIME [facility] Last Admin: 05/26/25 21:26 Dose: Not Given Documented By: SINA Non-Admin Reason: Loose stools. approved. Sodium Chloride (0.9 % Sodium Chloride Flush 3 Ml Syringe) [facility] Last Admin: 05/27/25 09:12 Dose: 3 ml Documented By: VIJAY Spironolactone (Spironolactone 25 Mg Tablet) 100 mg PO DAILY [facility]; Protocol Last Admin: 05/26/25 07:50 Dose: 100 mg Documented By: OBED Thiamine HCl (Thiamine Hcl 100 Mg Tablet) 100 mg PO DAILY [facility] Last Admin: 05/26/25 07:51 Dose: 100 mg Documented By: OBED Labs 05/25/25 05:40 05/27/25 05:56 Labs: Laboratory Results - last 24 hr 05/27/25 05:56 Hold Purple Top SEE NOTE PT 30.8 H INR 2.7 H Anion Gap 11 L Estim Creat Clear Calc 189.7 Estimated GFR > 60 Random Glucose 90 Calcium 7.8 L Total Bilirubin 12.6 H Direct Bilirubin 6.9 H AST 67 H ALT 22 Alkaline Phosphatase 82 Total Protein 6.6 Albumin 2.0 L Microbiology Microbiology Results: Microbiology 05/21/25 15:50 Gram Stain - Final Ascites Fluid Anaerobic Culture - Final NO GROWTH AFTER 5 DAYS Body Fluid Culture - Final No growth after 2 days Assessment and Plan (1) Alcoholic cirrhosis of liver with ascites: Status: Acute Plan 54 yo male with PMH alcohol use disorder (does not have seizure hx with withdrawal), tobacco dependence, left inguinal hernia repair 2023, umbilical hernia repair 2023, L4-L5 back surgery with chronic left footdrop, chronic pain syndrome, hypertension, anxiety was brought in by ambulance to the emergency department status post a fall. Patient presented with head-to-toe jaundice and icteric sclera with grossly distended abdomen/ascites. Patient is being admitted for the following medical problems: Possible hepatic metastatic disease of liver with ascites Paracentesis 05/21, sent for cytology no malignancy GI consult noted, await cytlogy if not diagnostic then Bx US 05/25 no evidence of massl, will discuss with GI about possible MRI Hepatitis B and C negative Dilaudid and oxy for pain Lasix and Aldactone for ascietes, hold lisinopril d/t low BP Paracentesis, therapeutic today IR will attempt biopsy INR is 2.7, FFP and Vit K before procedure Alcohol use disorder, no active withdrawal CIWA, PRN ativan FA and thiamine Hyponatremia d/t hypervolemia from liver diseae, 135 monitor Hypokalemia, oral replacement, K is normal Hyperammonemia, no HE Lactulose 30 gms BID +UA, ? 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
[2025-05-27] MEDS: Phytonadione (Vit K1) Oral 10 MG/ML AMPUL 5 MG PO (10:50)
[2025-05-27 11:24] VITALS: BP 107/56; PULSE 78; RESP 14; TEMP 37.3; O2SAT 92
--- NOTE | 2025-05-27 13:28 | P.PNGI_ITS ---
Subjective Subjective Date of Service: 05/27/25 Interval History: c/o abd distension Critical Care Time (minutes): 0 Physical Exam 2 Vital Signs: Vital Signs: Last Vital Signs Temp 99.1 F 05/27/25 11:24 Pulse 78 05/27/25 11:24 Resp 14 05/27/25 11:24 BP 107/56 L 05/27/25 11:24 Pulse Ox 92 05/27/25 11:24 O2 Del Method Room Air 05/27/25 11:24 O2 Flow Rate 3 05/25/25 19:39 BMI result Body Mass Index 31.1 GI: Other: abd shows ascites Objective Data Labs 05/25/25 05:40 05/27/25 05:56 Labs: Laboratory Results - last 24 hr 05/27/25 05/27/25 05:56 09:00 Hold Purple Top SEE NOTE PT 30.8 H INR 2.7 H Sodium 135 Potassium 3.8 Chloride 97 Carbon Dioxide 31 H Anion Gap 11 L BUN 10 Creatinine 0.62 Estim Creat Clear Calc 189.7 Estimated GFR > 60 Random Glucose 90 Calcium 7.8 L Total Bilirubin 12.6 H Direct Bilirubin 6.9 H AST 67 H ALT 22 Alkaline Phosphatase 82 Total Protein 6.6 Albumin 2.0 L Blood Type B Positive Antibody Screen NEGATIVE Microbiology Microbiology Results: Microbiology 05/21/25 15:50 Ascites Fluid Gram Stain - Final 05/21/25 15:50 Ascites Fluid Anaerobic Culture - Final NO GROWTH AFTER 5 DAYS 05/21/25 15:50 Ascites Fluid Body Fluid Culture - Final No growth after 2 days 05/21/25 15:50 Ascites Fluid Direct Acid Fast Bacilli Smear - Final 05/21/25 15:50 Ascites Fluid Fungal Identification - Preliminary No growth to date. 05/21/25 05:41 Urine clean catch - Clean Catch Midstream Urine Culture - Final No growth. Procedures Date of Service Date of Service: 05/27/25 Progress Note: A&P Assessment and plan (1) Alcoholic cirrhosis of liver with ascites: Status: Acute Assessment and Plan: liver biopsy on hold today due to elevated INR discussed with IR and Dr Parnell Hematology/oncology consult requested re: elevated inr and abnl ct of liver, Time Spent With Patient Time: Total time managing care of this patient today ____ minutes. Quality Stroke Does the patient have a stroke diagnosis?: No Reason for No Anti-thrombotic by Day Two: N/A - Med Ordered VTE Prior VTE?: No VTE Risk Level:: Medical - moderate - high VTE Device Contraindication: N/A - Device Ordered VTE Drug Contraindication: Treatment Not Indicated
[2025-05-27 15:44] VITALS: BP 102/52; PULSE 76; RESP 14; TEMP 36.9; O2SAT 93
--- NOTE | 2025-05-27 17:54 | PM.HEMONCCN ---
Subjective - Subjective Chief complaint: Consult for: Pancytopenia. Elevated INR. Patient: new to practice Consult date: 05/27/25 Requesting Physician: Albert. Primary Care Provider: Isabel Singleton MD Family Provider: Isabel Singleton MD Medical Summary: DIAGNOSIS: 1. PANCYTOPENIA. 2. ELEVATED INR. 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 Elevated INR. 2. Pancytopenia. Narrative: Yash Cortse is a 54 year old gentleman, with H alcohol use disorder, tobacco dependence, left inguinal hernia repair 2023, umbilical hernia repair 2023, L4-L5 back surgery with chronic left footdrop, chronic pain syndrome, hypertension and anxiety. 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 He stated he has had increased weakness over the last 7-10 days with a loss of appetite and a noted increase in distention of his belly with edema in the lower extremities. When he fell, he fell backwards and may have had a loss of consciousness. In addition he injured both elbows and both have contusions bilaterally. He is not currently on blood thinners. In the ED, he was noted to be jaundiced, with 4+ pitting bilateral lower extremity edema. He was afebrile, blood pressure was borderline. He had significant ascites. Neuro exam reassuring. Abdominal CT: A lobulated liver with large hypodense ill-defined hypodensities concerning for possible hepatic metastatic disease. Moderate ascites also appreciated. AST 73, TBILI 16.2, DBili 7.9. Patient does have a leukocytosis. No evidence of hemolysis as LDH and Haptoglobin are:WNL Pt also has small pleural effusions with some segmental atelectasis or infiltrates. Patient's ammonia level 56 and patient's cognition notes poor recall. Pt has been using a cane more often for ambulation. CT of the head and CTA of the neck was negative for any acute findings s/p fall. Patient has received inpatient care for his alcoholism. The last inpatient visit was 7 years prior. Medical History:) Cirrhosis of transplanted liver Alcohol use disorder Anxiety Ankle pain, right Back pain Hypertension Cognitive capacity: Alert and orientated x3, poor recall Functional capacity: uses cane/walker Pertinent family history: Mother age 69 from breast cancer Father age 70s from [place]. Social history: Patient is has 1 grown child and list his healthcare proxy is [place]. Patient states he has been drinking alcohol since he got out of the [place] in his 20s. Patient states his last drink was on Saturday and he had to twisted teas. Patient also smokes cigarettes 4-5 cigarettes a day but due to feeling unwell patient has not smoked in 2-3 days. Review of Systems: Review of Systems: He does admit to feeling fatigued. No fever nor chills. Appetite is not that great. He has lost weight. Patient denies any chest pain, shortness of breath at rest or with exertion. Patient states he does not use oxygen at home. Patient reports back pain related to his history of surgery, Abdominal distention but no nausea or vomiting or constipation or diarrhea. Patient denies seizures with withdrawal Patient states his last drink was this past Saturday where he drank 2 twisted teas.. Yes all other systems are reviewed and are negative Review of Systems - Constitutional Reports system reviewed and no additional complaints, except as documented, Reports fatigue, Reports frequent falls, Reports lack of energy, Reports malaise, Reports poor appetite, Reports weight loss - Eyes Reports system reviewed and no additional complaints, except as documented - ENT Reports system reviewed and no additional complaints, except as documented - Cardiovascular Reports system reviewed and no additional complaints, except as documented - Respiratory Reports no additional respiratory complaints - Gastrointestinal Reports system reviewed and no additional complaints, except as documented - Genitourinary Genitourinary: Reports no additional male genitourinary complaints - Musculoskeletal Reports system reviewed and no additional complaints, except as documented - Integumentary/Breasts Skin/Breast: Reports no additional skin complaints - Neurologic Reports system reviewed and no additional complaints, except as documented - Psychiatric Reports system reviewed and no additional complaints, except as documented - Endocrine Reports no additional endocrine complaints - Hematologic/Lymphatic Reports system reviewed and no additional complaints, except as documented - Allergic/Immunologic Reports system reviewed and no additional complaints, except as documented Oncology Screenings - ECOG Performance Status ECOG Performance Status: 2 [facility] Medical History: Medical History (Last Updated 05/21/25 @ 05:38 by CORAZON Brownlee) Alcohol use disorder Ankle pain, right Anxiety Back pain Cirrhosis of transplanted liver Hypertension Functional capacity: uses cane/walker Surgical History: Surgical History (Last Updated 05/21/25 @ 05:38 by NIKKI Brownlee) H/O colonoscopy H/O inguinal hernia repair History of ankle surgery History of excision of pilonidal cyst History of lumbar laminectomy Hx of tympanostomy tubes Social History: Social History (Last Reviewed 05/21/25 @ 05:37 by NIKKI Brownlee) Living Situation History: Household Members: None Housing: Apartment Do you presently have visiting nurse or other home services: No Tobacco History: Patient Tobacco Use Status: Former Tobacco user Tobacco use type: Cigarette Cigarette Packs Per Day: 0.25 Years Smoked: 25 Second Hand Smoke Exposure: No 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 - Travel History Ebola Risk: Travel/Contact With Anyone From Affected Area/s: No Has Patient Experienced Ebola Symptoms: No Home Medications and Allergies Current Medications: Current Medications Acetaminophen (Acetaminophen 325 Mg Tablet) 650 mg PO Q6H PRN PRN Reason: Pain, Mild 1-3,fever,headache Albuterol/Ipratropium (Albuterol/Iprat 2.5/0.5mg 3 Ml Ampul.Neb) 3 ml INHALE Q4H PRN PRN Reason: Shortness of Breath/Wheezing Calcium Carbonate (Calcium Carbonate 750 Mg Tab.Chew) 750 mg PO Q4H PRN PRN Reason: Heartburn Ceftriaxone Sodium (Ceftriaxone Sodium 1 Gm Vial) 1 gm IVPUSH Q24H [facility] Last Admin: 05/27/25 10:48 Dose: 1 gm Fenofibrate (Fenofibrate 54 Mg Tablet) 54 mg PO DAILY [facility] Last Admin: 05/27/25 10:51 Dose: 54 mg Folic Acid (Folic Acid 1 Mg Tablet) 1 mg PO DAILY [facility] Last Admin: 05/27/25 10:51 Dose: 1 mg Furosemide (Furosemide 40 Mg Tablet) 40 mg PO DAILY [facility]; Protocol Last Admin: 05/27/25 10:51 Dose: 40 mg Guaifenesin (Guaifenesin 200 Mg/10 Ml 10 Ml Liquid) 10 ml PO Q6H PRN PRN Reason: Cough Last Admin: 05/26/25 21:54 Dose: 10 ml Hydromorphone HCl (Hydromorphone Hcl 0.5 Mg/0.5 Ml Syringe) 1 mg IVPUSH Q4H PRN; Protocol PRN Reason: Pain, Severe (Pain Scale 7-10) Last Admin: 05/27/25 16:00 Dose: 1 mg Lactulose (Lactulose 20 Gm/30 Ml Solution) 30 gm PO BID [facility] Last Admin: 05/27/25 10:50 Dose: 30 gm Lisinopril (Lisinopril 10 Mg Tablet) 10 mg PO DAILY [facility]; Protocol Last Admin: 05/27/25 10:52 Dose: Not Given Magnesium Hydroxide (Milk Of Magnesia 30 Ml Oral.Susp) 30 ml PO DAILY PRN PRN Reason: Constipation Melatonin (Melatonin 3 Mg Tablet) 6 mg PO BEDTIME PRN PRN Reason: Insomnia Ondansetron HCl (Ondansetron Hcl 4 Mg/2 Ml Vial) 4 mg IVPUSH Q8H PRN PRN Reason: Nausea and Vomiting Prazosin HCl (Prazosin Hcl 1 Mg Capsule) 2 mg PO BEDTIME [facility]; Protocol Last Admin: 05/26/25 21:26 Dose: Not Given Senna (Sennosides 8.6 Mg Tablet) 17.2 mg PO BEDTIME [facility] Last Admin: 05/26/25 21:26 Dose: Not Given Sodium Chloride (0.9 % Sodium Chloride Flush 3 Ml Syringe) [facility] Last Admin: 05/27/25 16:01 Dose: 3 ml Spironolactone (Spironolactone 25 Mg Tablet) 100 mg PO DAILY [facility]; Protocol Last Admin: 05/27/25 10:51 Dose: 100 mg Thiamine HCl (Thiamine Hcl 100 Mg Tablet) 100 mg PO DAILY [facility] Last Admin: 05/27/25 10:51 Dose: 100 mg Home Medications ?Medication ?Instructions ?Recorded ?Confirmed ?Type fenofibrate nanocrystallized 48 mg 48 mg PO DAILY 05/21/25 05/21/25 History tablet lorazepam 0.5 mg tablet 0.5 mg PO TID PRN Anxiety 05/21/25 05/21/25 History oxycodone 5 mg tablet 5 mg PO TID PRN Pain 05/21/25 05/21/25 History prazosin 1 mg capsule 2 mg PO BEDTIME 05/21/25 05/21/25 History Allergies Allergy/AdvReac Type Severity Reaction Status Date / Time No Known Allergies Allergy Verified 05/20/25 19:22 Physical Exam Vital signs: Vital Signs Temp 98.5 F 05/27/25 15:44 Pulse 76 05/27/25 15:44 Resp 14 05/27/25 15:44 BP 102/52 L 05/27/25 15:44 Pulse Ox 93 05/27/25 15:44 O2 Del Method Room Air 05/27/25 15:44 O2 Flow Rate 3 05/25/25 19:39 Intake & Output 05/26/25 05/27/25 05/27/25 18:59 06:59 18:59 Intake Total 380 / 620 240 / 620 480 / 480 Balance 380 / 620 240 / 620 480 / 480 Intake: Intake, Oral Amount 380 / 620 240 / 620 480 / 480 Other: NPO Yes Breakfast % Eaten 0% 75% Lunch % Eaten 25% 100% Number of Unmeasured Voids 1 3 Urine Bathroom Bathroom Bathroom Urine Color Tea Yellow [place] Last Bowel Movement 05/24/25 05/26/25 05/27/25 Stool Bathroom Bathroom Bathroom Stool Amount Moderate Moderate Stool Color Moody Brown Brown Stool Consistency Soft Loose Loose Weight 116 kg - Constitutional Present: moderate distress - Routine HEENT Exam Head: Present: normal inspection, normocephalic ENT: Present: mucous membranes moist - Routine Neck Exam Present: supple - Routine Respiratory Exam Present: CTAB - Routine Cardiovascular Exam Cardiovascular: Present: S1, S2 - Routine Abdominal Exam Present: soft, tenderness - Routine Extremities Exam Present: nontender - Routine Skin Exam Present: intact, normal turgor - Routine Neurological Exam Present: alert, oriented X3 Hem/Onc Consult Result - Labs CBC & Chem 7: 05/30/25 10:07 05/30/25 10:07 Labs: BMP 05/27/25 05:56 Sodium 135 Potassium 3.8 Chloride 97 Carbon Dioxide 31 H BUN 10 Creatinine 0.62 Calcium 7.8 L Liver Function 05/27/25 Range/Units 05:56 Total Bilirubin 12.6 H (0.0-1.0) mg/dL Direct Bilirubin 6.9 H (0.0-0.5) mg/dL AST 67 H (5-37) U/L ALT 22 (0-40) U/L Alkaline Phosphatase 82 (39-117) U/L Albumin 2.0 L (3.5-5.0) g/dL Assessment and Plan Patient Active problem list reviewed?: Yes (1) Pancytopenia Status: Acute Assessment and plan: This is a 54 yo male with PMH alcohol use disorder, tobacco dependence, left inguinal hernia repair 2023, umbilical hernia repair 2023, L4-L5 back surgery with chronic left footdrop, chronic pain syndrome, hypertension, anxiety was brought in by ambulance to the emergency department status post a fall. Patient presented with jaundice and icteric sclera with grossly distended abdomen/ascites. CAT scan of the abdomen pelvis from 05/21 revealed: 1. Lobulated liver with large hypodense ill-defined hypodensities or masses concerning for possible hepatic metastatic disease. 2. Moderate ascites. 3. Small pleural effusions with basilar subsegmental atelectasis or infiltrates. Abdominal ultrasound from 05/25 revealed; Cirrhosis with ascites. If concern persists for hepatic lesions recommend follow-up dynamic liver MRI protocol. MRI of the abdomen from 05/26/2025: 1. Image degradation secondary to significant motion artifact. 2. Diffusely heterogeneous signal in the liver with no arterial or venous phase lesion identified. An infiltrative process is not excluded. 3. Cirrhotic liver morphology, splenomegaly and large volume abdominal ascites. 4. Probable gallbladder sludge. IMPRESSION: Possible hepatic metastatic disease of liver with ascites (no indication for cirrhosis on CT scan) Hepatitis B and C panel: Negative. PT 30. INR 2.7. Unfortunately patient has Insight poor regarding diagnosis and prognosis. PLAN: Ultrasound for paracentesis ordered along with labs. Can give trial of vitamin K. Arrange for 2 units of FFP prior to the paracentesis. NPO except for meds. Will wait for cytology results. If negative, he will need IR guided liver biopsy. Check AFP and see CEA levels: 18.8. Consult case management. Thank you for the consult, Will follow along with you, CC: Dr. Isabel javed. - Time Spent With Patient Time Spent with Patient (in minutes): 30
[2025-05-27] MEDS: oxyCODONE HCl Immed Release 5 MG TABLET PO (18:24)
[2025-05-27] MEDS: guaiFENesin 200 MG/10 ML 10 ML LIQUID PO (18:24)
[2025-05-27 19:02] LABS: Carcinoembryonic Antigen 18.80 ng/mL
[2025-05-27 20:00] VITALS: BP 103/59; PULSE 79; RESP 18; TEMP 37; O2SAT 95
[2025-05-27 23:46] VITALS: BP 103/59; PULSE 91; RESP 18; TEMP 36.4; O2SAT 91
[2025-05-28] VITALS (11 sets, daily range): BP systolic 96–123; BP diastolic 51–68; PULSE 79–87; RESP 14–18; TEMP 36–36.7; O2SAT 92–94
--- NOTE | 2025-05-28 01:36 | PC.NURSE ---
iv site out dated rom 05/21/25.... new iv insertion attempted with pt refusing new iv at this time. pt educated multiple times on risk of infection, with pt cont to refuse new iv insertion. dr meehan notified. will cont to monitor
[2025-05-28 06:35] LABS: INTERNATIONAL NORM RATIO 2.5 (0.9-1.1); Prothrombin Time 28.8 SEC (10.9-12.4)
[2025-05-28] MEDS: 0.9 % Sodium Chloride Flush 3 ML SYRINGE IVFLUSH ×3 (08:18→23:58)
[2025-05-28] MEDS: oxyCODONE HCl Immed Release 5 MG TABLET PO ×3 (08:24→22:30)
--- NOTE | 2025-05-28 11:48 | HO.PM.IMPN ---
Subjective Subjective Date of Service: 05/28/25 Interval History: Increase abd pain after PT today, planned for Bx today, the biopsy was postponed yesterday because of high INR of 2.8. Today it is 2.5 and a plan on doing it. Physical Exam Vital Signs: Vital Signs: Last Vital Signs Temp 97.0 F 05/28/25 11:24 Pulse 83 05/28/25 11:24 Resp 17 05/28/25 11:24 BP 96/51 L 05/28/25 11:24 Pulse Ox 94 05/28/25 11:24 O2 Del Method Room Air 05/28/25 11:24 O2 Flow Rate 3 05/25/25 19:39 BMI result Body Mass Index 31.1 Const: Other: General: AO X 3, no acute distress HEENT: sclear icteris Resp: CTA bilateral CVS: S1,S2,RRR, 2+ leg edema GI: +BS, +mild T, + distention Skin: No rash Neuro: motor grossly intact Psych: appropriate affect Objective Data Active Medications Acetaminophen (Acetaminophen 325 Mg Tablet) 650 mg PO Q6H PRN PRN Reason: Pain, Mild 1-3,fever,headache Calcium Carbonate (Calcium Carbonate 750 Mg Tab.Chew) 750 mg PO Q4H PRN PRN Reason: Heartburn Ceftriaxone Sodium (Ceftriaxone Sodium 1 Gm Vial) 1 gm IVPUSH Q24H [facility] Last Admin: 05/28/25 11:02 Dose: 1 gm Documented By: OBED Fenofibrate (Fenofibrate 54 Mg Tablet) 54 mg PO DAILY [facility] Last Admin: 05/28/25 08:18 Dose: 54 mg Documented By: OBED Folic Acid (Folic Acid 1 Mg Tablet) 1 mg PO DAILY [facility] Last Admin: 05/28/25 08:18 Dose: 1 mg Documented By: OBED Furosemide (Furosemide 40 Mg Tablet) 40 mg PO DAILY [facility]; Protocol Last Admin: 05/28/25 08:17 Dose: 40 mg Documented By: OBED Hydromorphone HCl (Hydromorphone Hcl 0.5 Mg/0.5 Ml Syringe) 1 mg IVPUSH Q4H PRN; Protocol PRN Reason: Pain, Severe (Pain Scale 7-10) Last Admin: 05/28/25 11:05 Dose: 1 mg Documented By: OBED Lactulose (Lactulose 20 Gm/30 Ml Solution) 30 gm PO BID [facility] Last Admin: 05/28/25 08:18 Dose: 30 gm Documented By: OBED Lisinopril (Lisinopril 10 Mg Tablet) 10 mg PO DAILY [facility]; Protocol Last Admin: 05/28/25 08:18 Dose: 10 mg Documented By: OBED Magnesium Hydroxide (Milk Of Magnesia 30 Ml Oral.Susp) 30 ml PO DAILY PRN PRN Reason: Constipation Melatonin (Melatonin 3 Mg Tablet) 6 mg PO BEDTIME PRN PRN Reason: Insomnia Ondansetron HCl (Ondansetron Hcl 4 Mg/2 Ml Vial) 4 mg IVPUSH Q8H PRN PRN Reason: Nausea and Vomiting Oxycodone HCl (Oxycodone Hcl Immed Release 5 Mg Tablet) 5 mg PO Q6H PRN PRN Reason: Pain, Moderate(Pain Scale 4-6) Last Admin: 05/28/25 08:24 Dose: 5 mg Documented By: OBED Prazosin HCl (Prazosin Hcl 1 Mg Capsule) 2 mg PO BEDTIME [facility]; Protocol Last Admin: 05/27/25 21:02 Dose: 2 mg Documented By: DAVIS Senna (Sennosides 8.6 Mg Tablet) 17.2 mg PO BEDTIME [facility] Last Admin: 05/27/25 21:02 Dose: 17.2 mg Documented By: DAVIS Sodium Chloride (0.9 % Sodium Chloride Flush 3 Ml Syringe) 3 ml [facility] [place] Last Admin: 05/28/25 08:18 Dose: 3 ml Documented By: OBED Spironolactone (Spironolactone 25 Mg Tablet) 100 mg PO DAILY [facility]; Protocol Last Admin: 05/28/25 08:17 Dose: 100 mg Documented By: OBED Thiamine HCl (Thiamine Hcl 100 Mg Tablet) 100 mg PO DAILY [facility] Last Admin: 05/28/25 08:18 Dose: 100 mg Documented By: OBED Labs 05/25/25 05:40 05/27/25 05:56 Labs: Laboratory Results - last 24 hr 05/27/25 05/28/25 05:56 06:07 PT 28.8 H INR 2.5 H Carcinoembryonic Ag 18.80 Assessment and Plan (1) Alcoholic cirrhosis of liver with ascites: Status: Acute Plan 54 yo male with PMH alcohol use disorder (does not have seizure hx with withdrawal), tobacco dependence, left inguinal hernia repair 2023, umbilical hernia repair 2023, L4-L5 back surgery with chronic left footdrop, chronic pain syndrome, hypertension, anxiety was brought in by ambulance to the emergency department status post a fall. Patient presented with head-to-toe jaundice and icteric sclera with grossly distended abdomen/ascites. Patient is being admitted for the following medical problems: Possible hepatic metastatic disease of liver with ascites Paracentesis 05/21, sent for cytology no malignancy GI consult noted, await cytlogy if not diagnostic then Bx US 05/25 no evidence of massl, will discuss with GI about possible MRI Hepatitis B and C negative Dilaudid and oxy for pain Lasix and Aldactone for ascietes, hold lisinopril d/t low BP Paracentesis as needed for increase ascietes IR will attempt biopsy today INR is 2.5, FFP and Vit K before procedure Alcohol use disorder, no active withdrawal CIWA, PRN ativan FA and thiamine Hyponatremia d/t hypervolemia from liver diseae, 135 monitor Hypokalemia, oral replacement, K is normal Hyperammonemia, no HE Lactulose 30 gms BID +UA, ? 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
--- NOTE | 2025-05-28 15:15 | MHC.CM.PN ---
Patient is scheduled for a biopsy today. DP Home with new [facility]. Patient will arrange for private transportation home.
[2025-05-29 03:50] VITALS: BP 108/57; PULSE 80; RESP 17; O2SAT 94
[2025-05-29 03:52] VITALS: RESP 17
[2025-05-29] MEDS: oxyCODONE HCl Immed Release 5 MG TABLET PO ×3 (05:03→19:31)
[2025-05-29 07:40] VITALS: BP 103/55; PULSE 83; RESP 16; TEMP 36.2; O2SAT 95
[2025-05-29] MEDS: 0.9 % Sodium Chloride Flush 3 ML SYRINGE IVFLUSH ×3 (08:07→20:40)
--- NOTE | 2025-05-29 10:46 | HO.PM.IMPN ---
Subjective Subjective Date of Service: 05/29/25 Interval History: c/o 7 to 8 with current pain meds Physical Exam Vital Signs: Vital Signs: Last Vital Signs Temp 97.2 F 05/29/25 07:40 Pulse 83 05/29/25 07:40 Resp 16 05/29/25 07:40 BP 103/55 L 05/29/25 07:40 Pulse Ox 95 05/29/25 07:40 O2 Del Method Room Air 05/29/25 07:40 O2 Flow Rate 3 05/25/25 19:39 BMI result Body Mass Index 31.1 Const: Other: General: AO X 3, no acute distress HEENT: sclear icteris Resp: CTA bilateral CVS: S1,S2,RRR, 2+ leg edema GI: +BS, +mild T, + distention Skin: No rash Neuro: motor grossly intact Psych: appropriate affect Objective Data Active Medications Acetaminophen (Acetaminophen 325 Mg Tablet) 650 mg PO Q6H PRN PRN Reason: Pain, Mild 1-3,fever,headache Calcium Carbonate (Calcium Carbonate 750 Mg Tab.Chew) 750 mg PO Q4H PRN PRN Reason: Heartburn Ceftriaxone Sodium (Ceftriaxone Sodium 1 Gm Vial) 1 gm IVPUSH Q24H [facility] Last Admin: 05/28/25 11:02 Dose: 1 gm Documented By: OBED Fenofibrate (Fenofibrate 54 Mg Tablet) 54 mg PO DAILY [facility] Last Admin: 05/29/25 08:06 Dose: 54 mg Documented By: RONNIE Folic Acid (Folic Acid 1 Mg Tablet) 1 mg PO DAILY [facility] Last Admin: 05/29/25 08:06 Dose: 1 mg Documented By: RONNIE Furosemide (Furosemide 40 Mg Tablet) 40 mg PO DAILY [facility]; Protocol Last Admin: 05/29/25 08:06 Dose: 40 mg Documented By: RONNIE Hydromorphone HCl (Hydromorphone Hcl 0.5 Mg/0.5 Ml Syringe) 1 mg IVPUSH Q4H PRN; Protocol PRN Reason: Pain, Severe (Pain Scale 7-10) Last Admin: 05/29/25 08:10 Dose: 1 mg Documented By: RONNIE Lactulose (Lactulose 20 Gm/30 Ml Solution) 30 gm PO BID [facility] Last Admin: 05/29/25 08:07 Dose: 30 gm Documented By: RONNIE Lisinopril (Lisinopril 10 Mg Tablet) 10 mg PO DAILY [facility]; Protocol Last Admin: 05/29/25 08:05 Dose: 10 mg Documented By: RONNIE Magnesium Hydroxide (Milk Of Magnesia 30 Ml Oral.Susp) 30 ml PO DAILY PRN PRN Reason: Constipation Melatonin (Melatonin 3 Mg Tablet) 6 mg PO BEDTIME PRN PRN Reason: Insomnia Ondansetron HCl (Ondansetron Hcl 4 Mg/2 Ml Vial) 4 mg IVPUSH Q8H PRN PRN Reason: Nausea and Vomiting Oxycodone HCl (Oxycodone Hcl Immed Release 5 Mg Tablet) 5 mg PO Q6H PRN PRN Reason: Pain, Moderate(Pain Scale 4-6) Last Admin: 05/29/25 05:03 Dose: 5 mg Documented By: VANESSA Prazosin HCl (Prazosin Hcl 1 Mg Capsule) 2 mg PO BEDTIME [facility]; Protocol Last Admin: 05/28/25 21:06 Dose: 2 mg Documented By: VANESSA Senna (Sennosides 8.6 Mg Tablet) 17.2 mg PO BEDTIME [facility] Last Admin: 05/28/25 21:06 Dose: 17.2 mg Documented By: VANESSA Sodium Chloride (0.9 % Sodium Chloride Flush 3 Ml Syringe) [facility] Last Admin: 05/29/25 08:07 Dose: 3 ml Documented By: RONNIE Spironolactone (Spironolactone 25 Mg Tablet) 100 mg PO DAILY [facility]; Protocol Last Admin: 05/29/25 08:06 Dose: 100 mg Documented By: RONNIE Thiamine HCl (Thiamine Hcl 100 Mg Tablet) 100 mg PO DAILY [facility] Last Admin: 05/29/25 08:06 Dose: 100 mg Documented By: RONNIE Labs 05/25/25 05:40 05/27/25 05:56 Labs: Laboratory Results - last 24 hr 05/27/25 05/28/25 05:56 06:07 PT 28.8 H INR 2.5 H Carcinoembryonic Ag 18.80 Assessment and Plan (1) Alcoholic cirrhosis of liver with ascites: Status: Acute Plan 54 yo male with PMH alcohol use disorder (does not have seizure hx with withdrawal), tobacco dependence, left inguinal hernia repair 2023, umbilical hernia repair 2023, L4-L5 back surgery with chronic left footdrop, chronic pain syndrome, hypertension, anxiety was brought in by ambulance to the emergency department status post a fall. Patient presented with head-to-toe jaundice and icteric sclera with grossly distended abdomen/ascites. Patient is being admitted for the following medical problems: Possible hepatic metastatic disease of liver with ascites Paracentesis 05/21, sent for cytology no malignancy GI consult noted, await cytlogy if not diagnostic then Bx US 05/25 no evidence of massl, will discuss with GI about possible MRI Hepatitis B and C negative Dilaudid and oxy for pain Lasix and Aldactone for ascietes, hold lisinopril d/t low BP Paracentesis as needed for increase ascietes Biopsy could not be done on inpatient basis so will be done on outpatient basis Paracentesis saturday Alcohol use disorder, no active withdrawal CIWA, PRN ativan FA and thiamine Hyponatremia d/t hypervolemia from liver diseae, 135 monitor Hypokalemia, oral replacement, K is normal Hyperammonemia, no HE Lactulose 30 gms BID +UA, ? 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
[2025-05-29 15:13] VITALS: BP 99/52; PULSE 81; RESP 17; TEMP 36.2; O2SAT 94
[2025-05-29 20:27] VITALS: BP 107/56; PULSE 79; RESP 16; TEMP 36.6; O2SAT 96
[2025-05-29 23:46] VITALS: BP 96/55; PULSE 87; RESP 16; TEMP 36.1; O2SAT 95
[2025-05-30 07:50] VITALS: BP 97/53; PULSE 101; RESP 19; TEMP 36.9; O2SAT 92
[2025-05-30] MEDS: 0.9 % Sodium Chloride Flush 3 ML SYRINGE IVFLUSH ×3 (07:58→21:03)
[2025-05-30 08:02] VITALS: BP 90/50
[2025-05-30 09:01] VITALS: BP 99/56; PULSE 86
--- NOTE | 2025-05-30 09:36 | HO.PM.IMPN ---
Subjective Subjective Date of Service: 05/30/25 Interval History: Still with some abd pain, BP on low side this morning, LFTs have been trending up Physical Exam Vital Signs: Vital Signs: Last Vital Signs Temp 98.5 F 05/30/25 07:50 Pulse 86 05/30/25 09:01 Resp 19 05/30/25 07:50 BP 99/56 L 05/30/25 09:01 Pulse Ox 92 05/30/25 07:50 O2 Del Method Room Air 05/30/25 07:50 O2 Flow Rate 3 05/25/25 19:39 BMI result Body Mass Index 31.1 Const: Other: General: AO X 3, no acute distress HEENT: sclear icteris Resp: CTA bilateral CVS: S1,S2,RRR, 2+ leg edema GI: +BS, +mild T, + distention Skin: No rash Neuro: motor grossly intact Psych: appropriate affect Objective Data Active Medications Acetaminophen (Acetaminophen 325 Mg Tablet) 650 mg PO Q6H PRN PRN Reason: Pain, Mild 1-3,fever,headache Calcium Carbonate (Calcium Carbonate 750 Mg Tab.Chew) 750 mg PO Q4H PRN PRN Reason: Heartburn Ceftriaxone Sodium (Ceftriaxone Sodium 1 Gm Vial) 1 gm IVPUSH Q24H [facility] Last Admin: 05/29/25 11:05 Dose: 1 gm Documented By: RONNIE Fenofibrate (Fenofibrate 54 Mg Tablet) 54 mg PO DAILY [facility] Last Admin: 05/30/25 07:57 Dose: 54 mg Documented By: RONNIE Folic Acid (Folic Acid 1 Mg Tablet) 1 mg PO DAILY [facility] Last Admin: 05/30/25 07:57 Dose: 1 mg Documented By: RONNIE Furosemide (Furosemide 40 Mg Tablet) 40 mg PO DAILY [facility]; Protocol Last Admin: 05/30/25 08:02 Dose: Not Given Documented By: RONNIE Non-Admin Reason: Physician Held Med Hydromorphone HCl (Hydromorphone Hcl 1 Mg/Ml Syringe) 1 mg IVPUSH Q3H PRN; Protocol PRN Reason: Pain, Severe (Pain Scale 7-10) Last Admin: 05/30/25 07:56 Dose: 1 mg Documented By: RONNIE Lactulose (Lactulose 20 Gm/30 Ml Solution) 30 gm PO BID [facility] Last Admin: 05/30/25 08:02 Dose: Not Given Documented By: RONNIE Non-Admin Reason: Patient Refused Lisinopril (Lisinopril 10 Mg Tablet) 10 mg PO DAILY [facility]; Protocol Last Admin: 05/30/25 06:52 Dose: Not Given Documented By: RONNIE Non-Admin Reason: Physician Held Med Magnesium Hydroxide (Milk Of Magnesia 30 Ml Oral.Susp) 30 ml PO DAILY PRN PRN Reason: Constipation Melatonin (Melatonin 3 Mg Tablet) 6 mg PO BEDTIME PRN PRN Reason: Insomnia Ondansetron HCl (Ondansetron Hcl 4 Mg/2 Ml Vial) 4 mg IVPUSH Q8H PRN PRN Reason: Nausea and Vomiting Oxycodone HCl (Oxycodone Hcl Immed Release 5 Mg Tablet) 5 mg PO Q6H PRN PRN Reason: Pain, Moderate(Pain Scale 4-6) Last Admin: 05/29/25 19:31 Dose: 5 mg Documented By: SHAHIDA Prazosin HCl (Prazosin Hcl 1 Mg Capsule) 2 mg PO BEDTIME [facility]; Protocol Last Admin: 05/29/25 20:39 Dose: 2 mg Documented By: SHAHIDA Senna (Sennosides 8.6 Mg Tablet) 17.2 mg PO BEDTIME [facility] Last Admin: 05/29/25 20:39 Dose: 17.2 mg Documented By: SHAHIDA Sodium Chloride (0.9 % Sodium Chloride Flush 3 Ml Syringe) 3 ml [facility] Last Admin: 05/30/25 07:58 Dose: 3 ml Documented By: RONNIE Spironolactone (Spironolactone 25 Mg Tablet) 100 mg PO DAILY [facility]; Protocol Last Admin: 05/30/25 08:02 Dose: Not Given Documented By: RONNIE Non-Admin Reason: Physician Held Med Thiamine HCl (Thiamine Hcl 100 Mg Tablet) 100 mg PO DAILY [facility] Last Admin: 05/30/25 07:57 Dose: 100 mg Documented By: RONNIE Labs 05/25/25 05:40 05/27/25 05:56 Labs: Laboratory Results - last 24 hr 05/27/25 05/28/25 05:56 06:07 PT 28.8 H INR 2.5 H Carcinoembryonic Ag 18.80 Assessment and Plan (1) Alcoholic cirrhosis of liver with ascites: Status: Acute Plan 54 yo male with PMH alcohol use disorder (does not have seizure hx with withdrawal), tobacco dependence, left inguinal hernia repair 2023, umbilical hernia repair 2023, L4-L5 back surgery with chronic left footdrop, chronic pain syndrome, hypertension, anxiety was brought in by ambulance to the emergency department status post a fall. Patient presented with head-to-toe jaundice and icteric sclera with grossly distended abdomen/ascites. Patient is being admitted for the following medical problems: Possible hepatic metastatic disease of liver with ascites Paracentesis 05/21, sent for cytology no malignancy GI consult noted, await cytlogy if not diagnostic then Bx US 05/25 no evidence of massl, will discuss with GI about possible MRI Hepatitis B and C negative Dilaudid and oxy for pain Lasix and Aldactone for ascietes, hold lisinopril d/t low BP Paracentesis as needed for increase ascietes Biopsy could not be done on inpatient basis so will be done on outpatient basis Paracentesis saturday Alcohol use disorder, no active withdrawal CIWA, PRN ativan FA and thiamine HypOnatremia d/t hypervolemia from liver diseae, 135 monitor Hypokalemia, oral replacement, K is normal Hyperammonemia, no HE Lactulose 30 gms BID +UA, ? 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
[2025-05-30 10:47] LABS: Hematocrit 28.9 % (42.0-52.0); Hemoglobin 9.9 g/dl (14.0-18.0); Mean Corpuscular HGB Conc 34.3 g/dl (31.0-36.0); Mean Corpuscular Hemoglobin 35.4 pg (27.0-33.0); Mean Corpuscular Volume 103.2 fL (80.0-98.0); NRBC Abs Auto 0.000 X10*3/uL (0.0-0.012); NRBC Pct Auto 0.0 /100WBC (0.0-0.2); Platelet Count 116 X10*3/uL (160-400); Red Blood Count 2.80 X10*6/uL (4.60-5.80); White Blood Count 15.7 X10*3/uL (4.8-10.8)
[2025-05-30 10:52] LABS: INTERNATIONAL NORM RATIO 2.4 (0.9-1.1); Prothrombin Time 27.2 SEC (10.9-12.4)
[2025-05-30 11:05] LABS: Anion Gap 13 (12-20); Blood Urea Nitrogen 16 mg/dL (9-16); Calcium 8.3 mg/dL (8.4-10.2); Carbon Dioxide 27 mmol/L (22-29); Chloride 92 mmol/L (96-108); Creatinine Clr Calc Pharmacy 90.4; Estimated Glomerular Filt Rate 58; Potassium 3.7 mmol/L (3.3-5.1); Sodium 128 mmol/L (135-145)
[2025-05-30 15:36] VITALS: BP 122/58; PULSE 84; RESP 18; TEMP 36.9; O2SAT 94
[2025-05-30] MEDS: oxyCODONE HCl Immed Release 5 MG TABLET PO (19:00)
[2025-05-30 23:14] VITALS: BP 116/57; PULSE 82; RESP 18; TEMP 36.9; O2SAT 94
[2025-05-31] VITALS (8 sets, daily range): BP systolic 106–117; BP diastolic 54–59; PULSE 83–92; RESP 14–18; TEMP 36.1–37.1; O2SAT 92–96
[2025-05-31] MEDS: oxyCODONE HCl Immed Release 5 MG TABLET PO ×4 (00:54→18:36)
[2025-05-31 07:34] LABS: Anion Gap 9 (12-20); Blood Urea Nitrogen 13 mg/dL (9-16); Calcium 8.2 mg/dL (8.4-10.2); Carbon Dioxide 29 mmol/L (22-29); Chloride 94 mmol/L (96-108); Creatinine Clr Calc Pharmacy 150.8; Estimated Glomerular Filt Rate > 60; Potassium 3.6 mmol/L (3.3-5.1); Sodium 128 mmol/L (135-145)
[2025-05-31] MEDS: 0.9 % Sodium Chloride Flush 3 ML SYRINGE IVFLUSH ×3 (07:34→20:06)
[2025-05-31 08:17] LABS: Alanine Aminotransferase 23 U/L (0-40); Albumin Level 2.1 g/dL (3.5-5.0); Alkaline Phosphatase 75 U/L (39-117); Aspartate Amino Transferase 71 U/L (5-37); Total Protein 7.1 g/dL (6.5-8.0)
--- NOTE | 2025-05-31 09:01 | P.PNIM_ITS ---
Subjective Subjective Date of Service: 05/31/25 Interval History: Essentially no new issues, again no Bx planned WBC slightly high no fever LFTs stable, Bili has trended down to 11 Physical Exam 2 Vital Signs: Vital Signs: Last Vital Signs Temp 98.8 F 05/31/25 07:49 Pulse 86 05/31/25 07:49 Resp 17 05/31/25 07:49 BP 109/57 L 05/31/25 07:49 Pulse Ox 92 05/31/25 07:49 O2 Del Method Room Air 05/31/25 07:49 O2 Flow Rate 3 05/25/25 19:39 BMI result Body Mass Index 31.1 Const: Other: General: AO X 3, no acute distress HEENT: sclear icteris Resp: CTA bilateral CVS: S1,S2,RRR, 2+ leg edema GI: +BS, +mild T, + distention Skin: No rash Neuro: motor grossly intact Psych: appropriate affect Objective Data Active Medications Acetaminophen (Acetaminophen 325 Mg Tablet) 650 mg PO Q6H PRN PRN Reason: Pain, Mild 1-3,fever,headache Calcium Carbonate (Calcium Carbonate 750 Mg Tab.Chew) 750 mg PO Q4H PRN PRN Reason: Heartburn Ceftriaxone Sodium (Ceftriaxone Sodium 1 Gm Vial) 1 gm IVPUSH Q24H [facility] Last Admin: 05/30/25 10:53 Dose: 1 gm Documented By: RONNIE Fenofibrate (Fenofibrate 54 Mg Tablet) 54 mg PO DAILY [facility] Last Admin: 05/31/25 07:33 Dose: 54 mg Documented By: OBED Folic Acid (Folic Acid 1 Mg Tablet) 1 mg PO DAILY [facility] Last Admin: 05/31/25 07:33 Dose: 1 mg Documented By: OBED Furosemide (Furosemide 40 Mg Tablet) 40 mg PO DAILY [facility]; Protocol Last Admin: 05/31/25 07:33 Dose: 40 mg Documented By: OBED Hydromorphone HCl (Hydromorphone Hcl 1 Mg/Ml Syringe) 1 mg IVPUSH Q3H PRN; Protocol PRN Reason: Pain, Severe (Pain Scale 7-10) Last Admin: 05/31/25 07:34 Dose: 1 mg Documented By: OBED Lactulose (Lactulose 20 Gm/30 Ml Solution) 30 gm PO BID [facility] Last Admin: 05/31/25 07:35 Dose: Not Given Documented By: OBED Non-Admin Reason: Patient Refused Magnesium Hydroxide (Milk Of Magnesia 30 Ml Oral.Susp) 30 ml PO DAILY PRN PRN Reason: Constipation Melatonin (Melatonin 3 Mg Tablet) 6 mg PO BEDTIME PRN PRN Reason: Insomnia Ondansetron HCl (Ondansetron Hcl 4 Mg/2 Ml Vial) 4 mg IVPUSH Q8H PRN PRN Reason: Nausea and Vomiting Oxycodone HCl (Oxycodone Hcl Immed Release 5 Mg Tablet) 5 mg PO Q6H PRN PRN Reason: Pain, Moderate(Pain Scale 4-6) Last Admin: 05/31/25 06:36 Dose: 5 mg Documented By: RODRIGUEZ Prazosin HCl (Prazosin Hcl 1 Mg Capsule) 2 mg PO BEDTIME [facility]; Protocol Last Admin: 05/30/25 19:01 Dose: 2 mg Documented By: RODRIGUEZ Senna (Sennosides 8.6 Mg Tablet) 17.2 mg PO BEDTIME [facility] Last Admin: 05/30/25 19:01 Dose: Not Given Documented By: RODRIGUEZ Non-Admin Reason: Patient Refused Sodium Chloride (0.9 % Sodium Chloride Flush 3 Ml Syringe) 3 ml IVFLUSH QSHIFT [facility] Last Admin: 05/31/25 07:34 Dose: 3 ml Documented By: OBED Spironolactone (Spironolactone 25 Mg Tablet) 50 mg PO DAILY [facility]; Protocol Last Admin: 05/31/25 07:33 Dose: 50 mg Documented By: OBED Thiamine HCl (Thiamine Hcl 100 Mg Tablet) 100 mg PO DAILY [facility] Last Admin: 05/31/25 07:33 Dose: 100 mg Documented By: OBED Labs 05/30/25 10:07 05/31/25 06:36 Labs: Laboratory Results - last 24 hr 05/30/25 05/31/25 10:07 06:36 MCV 103.2 H MCH 35.4 H MCHC 34.3 RDW 15.1 Plt Count 116 L MPV 9.2 L Absolute Nucleated RBC 0.000 Nucleated RBC % (auto) 0.0 PT 27.2 H INR 2.4 H Anion Gap 13 9 L Estim Creat Clear Calc 90.4 150.8 Estimated GFR 58 > 60 Random Glucose 105 97 Calcium 8.3 L D 8.2 L Total Bilirubin 11.2 H Direct Bilirubin 6.1 H AST 71 H ALT 23 Alkaline Phosphatase 75 Total Protein 7.1 Albumin 2.1 L Microbiology Microbiology Results: Microbiology 05/21/25 15:50 Fungal Identification - Preliminary Ascites Fluid No growth after 1 week. Assessment and Plan (1) Alcoholic cirrhosis of liver with ascites: Status: Acute Plan 54 yo male with PMH alcohol use disorder (does not have seizure hx with withdrawal), tobacco dependence, left inguinal hernia repair 2023, umbilical hernia repair 2023, L4-L5 back surgery with chronic left footdrop, chronic pain syndrome, hypertension, anxiety was brought in by ambulance to the emergency department status post a fall. Patient presented with head-to-toe jaundice and icteric sclera with grossly distended abdomen/ascites. Patient is being admitted for the following medical problems: Possible hepatic metastatic disease of liver with ascites Paracentesis 05/21, sent for cytology no malignancy GI following US 05/25 no evidence of massl, will discuss Hepatitis B and C negative Dilaudid and oxy for pain Lasix and Aldactone for ascietes, hold lisinopril for low BP Paracentesis as needed for increase ascietes, planned for today Biopsy could not be done on inpatient basis so will be done on outpatient basis Paracentesis Alcohol use disorder, no active withdrawal CIWA, PRN ativan FA and thiamine HypOnatremia d/t hypervolemia from liver diseae, 135 monitor Hypokalemia, oral replacement, K is normal Hyperammonemia, no HE Lactulose 30 gms BID +UA, ? 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
--- NOTE | 2025-05-31 10:47 | PC.NURSE ---
10:00 - Patient called for nurse, reported he felt like his blood sugar was elevated and asked nursing to check it. Patient did not receive insulin this morning. Blood sugar checked, MD Price notified of blood sugar level. Insulin order placed, refer to MAR.
--- NOTE | 2025-05-31 12:40 | MHC.CM.PN ---
PER MD ROUNDS, PT WILL HAVE A THORACENTESIS TODAY POSSIBLE DC TOMORROW WITH OUTPATIENT FOLLOW UP PT WILL ARRANGE TRANSPORT
[2025-05-31] MEDS: Lidocaine HCl 1 % MPF 5 ML VIAL SUBCUT (15:10)
--- NOTE | 2025-05-31 18:30 | HO.SKINPHOTO ---
Location: Right Foot Cleaned with iodine swab, non-adherent gauze, gauze wrap.
[2025-06-01] MEDS: oxyCODONE HCl Immed Release 5 MG TABLET PO ×3 (05:13→20:03)
[2025-06-01 07:21] VITALS: BP 104/55; PULSE 84; RESP 16; TEMP 36.7; O2SAT 96
[2025-06-01 07:43] VITALS: BP 107/56; PULSE 54; RESP 16; TEMP 36.3; O2SAT 98
[2025-06-01] MEDS: 0.9 % Sodium Chloride Flush 3 ML SYRINGE IVFLUSH ×3 (07:46→20:06)
--- NOTE | 2025-06-01 08:38 | P.PNIM_ITS ---
Subjective Subjective Date of Service: 06/01/25 Interval History: Essentially no new issues, again no Bx planned WBC slightly high no fever LFTs stable, Bili has trended down to 11 Physical Exam 2 Vital Signs: Vital Signs: Last Vital Signs Temp 97.3 F 06/01/25 07:43 Pulse 54 06/01/25 07:43 Resp 16 06/01/25 07:43 BP 107/56 L 06/01/25 07:43 Pulse Ox 98 06/01/25 07:43 O2 Del Method Room Air 06/01/25 07:43 O2 Flow Rate 3 05/25/25 19:39 BMI result Body Mass Index 31.1 Const: Other: General: AO X 3, no acute distress HEENT: sclear icteris Resp: CTA bilateral CVS: S1,S2,RRR, 2+ leg edema GI: +BS, +mild T, + distention Skin: No rash Neuro: motor grossly intact Psych: appropriate affect Objective Data Active Medications Acetaminophen (Acetaminophen 325 Mg Tablet) 650 mg PO Q6H PRN PRN Reason: Pain, Mild 1-3,fever,headache Calcium Carbonate (Calcium Carbonate 750 Mg Tab.Chew) 750 mg PO Q4H PRN PRN Reason: Heartburn Ceftriaxone Sodium (Ceftriaxone Sodium 1 Gm Vial) 1 gm IVPUSH Q24H [facility] Last Admin: 05/31/25 10:35 Dose: 1 gm Documented By: OBED Fenofibrate (Fenofibrate 54 Mg Tablet) 54 mg PO DAILY [facility] Last Admin: 06/01/25 07:52 Dose: 54 mg Documented By: RUTHY Folic Acid (Folic Acid 1 Mg Tablet) 1 mg PO DAILY [facility] Last Admin: 06/01/25 07:51 Dose: 1 mg Documented By: RUTHY Furosemide (Furosemide 40 Mg Tablet) 40 mg PO DAILY [facility]; Protocol Last Admin: 06/01/25 07:47 Dose: 40 mg Documented By: RUTHY Hydromorphone HCl (Hydromorphone Hcl 1 Mg/Ml Syringe) 1 mg IVPUSH Q3H PRN; Protocol PRN Reason: Pain, Severe (Pain Scale 7-10) Last Admin: 06/01/25 07:45 Dose: 1 mg Documented By: RUTHY Lactulose (Lactulose 20 Gm/30 Ml Solution) 30 gm PO BID [facility] Last Admin: 06/01/25 07:52 Dose: 30 gm Documented By: RUTHY Magnesium Hydroxide (Milk Of Magnesia 30 Ml Oral.Susp) 30 ml PO DAILY PRN PRN Reason: Constipation Melatonin (Melatonin 3 Mg Tablet) 6 mg PO BEDTIME PRN PRN Reason: Insomnia Ondansetron HCl (Ondansetron Hcl 4 Mg/2 Ml Vial) 4 mg IVPUSH Q8H PRN PRN Reason: Nausea and Vomiting Oxycodone HCl (Oxycodone Hcl Immed Release 5 Mg Tablet) 5 mg PO Q6H PRN PRN Reason: Pain, Moderate(Pain Scale 4-6) Last Admin: 06/01/25 05:13 Dose: 5 mg Documented By: WANDA Prazosin HCl (Prazosin Hcl 1 Mg Capsule) 2 mg PO BEDTIME [facility]; Protocol Last Admin: 05/31/25 20:05 Dose: 2 mg Documented By: WANDA Senna (Sennosides 8.6 Mg Tablet) 17.2 mg PO BEDTIME [facility] Last Admin: 05/31/25 20:05 Dose: 17.2 mg Documented By: WANDA Sodium Chloride (0.9 % Sodium Chloride Flush 3 Ml Syringe) 3 ml IVFLUSH QSHIFT [facility] Last Admin: 06/01/25 07:46 Dose: 3 ml Documented By: RUTHY Spironolactone (Spironolactone 25 Mg Tablet) 50 mg PO DAILY [facility]; Protocol Last Admin: 06/01/25 07:47 Dose: 50 mg Documented By: RUTHY Thiamine HCl (Thiamine Hcl 100 Mg Tablet) 100 mg PO DAILY [facility] Last Admin: 06/01/25 07:51 Dose: 100 mg Documented By: RUTHY Labs 05/30/25 10:07 05/31/25 06:36 Labs: Laboratory Results - last 24 hr 05/30/25 05/31/25 10:07 06:36 MCV 103.2 H MCH 35.4 H MCHC 34.3 RDW 15.1 Plt Count 116 L MPV 9.2 L Absolute Nucleated RBC 0.000 Nucleated RBC % (auto) 0.0 PT 27.2 H INR 2.4 H Anion Gap 13 9 L Estim Creat Clear Calc 90.4 150.8 Estimated GFR 58 > 60 Random Glucose 105 97 Calcium 8.3 L D 8.2 L Total Bilirubin 11.2 H Direct Bilirubin 6.1 H AST 71 H ALT 23 Alkaline Phosphatase 75 Total Protein 7.1 Albumin 2.1 L Microbiology Microbiology Results: Microbiology 05/21/25 15:50 Fungal Identification - Preliminary Ascites Fluid No growth after 1 week. Assessment and Plan (1) Alcoholic cirrhosis of liver with ascites: Status: Acute Plan 54 yo male with PMH alcohol use disorder (does not have seizure hx with withdrawal), tobacco dependence, left inguinal hernia repair 2023, umbilical hernia repair 2023, L4-L5 back surgery with chronic left footdrop, chronic pain syndrome, hypertension, anxiety was brought in by ambulance to the emergency department status post a fall. Patient presented with head-to-toe jaundice and icteric sclera with grossly distended abdomen/ascites. Patient is being admitted for the following medical problems: Possible hepatic metastatic disease of liver with ascites Paracentesis 05/21, sent for cytology no malignancy GI following US 05/25 no evidence of massl Hepatitis B and C negative Dilaudid and oxy for pain Lasix and Aldactone for ascietes, hold lisinopril for low BP Paracentesis as needed for increase ascietes, last one 05/31 with 3 L removed Biopsy could not be done on inpatient basis so will be done on outpatient basis Alcohol use disorder, no active withdrawal CIWA, PRN ativan FA and thiamine HypOnatremia d/t hypervolemia from liver diseae, 135 monitor Hypokalemia, oral replacement, K is normal Hyperammonemia, no HE Lactulose 30 gms BID +UA, ? 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
[2025-06-01 10:11] LABS: Alanine Aminotransferase 27 U/L (0-40); Albumin Level 2.2 g/dL (3.5-5.0); Alkaline Phosphatase 80 U/L (39-117); Anion Gap 10 (12-20); Aspartate Amino Transferase 77 U/L (5-37); Blood Urea Nitrogen 8 mg/dL (9-16); Calcium 7.8 mg/dL (8.4-10.2); Carbon Dioxide 30 mmol/L (22-29); Chloride 95 mmol/L (96-108); Creatinine Clr Calc Pharmacy 172.9; Estimated Glomerular Filt Rate > 60; Potassium 3.5 mmol/L (3.3-5.1); Sodium 131 mmol/L (135-145); Total Protein 7.4 g/dL (6.5-8.0)
[2025-06-01 10:43] VITALS: BP 115/56; PULSE 88
--- NOTE | 2025-06-01 12:58 | MHC.CM.PN ---
Per MD rounds, patient not medically cleared for dc, likely tomorrow. CM discussed dc plan with patient. Will receive SN/PT through [facility]. His son lives in [place], but will come to [place] tomorrow to transport home and assist in getting patient settled at home- will grocery shop and get patient a walker. Patient reports he also has a friend that lives nearby that can assist PRN. Patient feels comfortable w/ plan. Has questions re pain management and the need for paracentesis after dc, would like to discuss w/ MD АЛЕКСАНДР aware.
[2025-06-01 15:37] VITALS: BP 121/58; PULSE 89; RESP 18; TEMP 36.8; O2SAT 97
[2025-06-01 20:03] VITALS: BP 107/57
[2025-06-01 23:25] VITALS: BP 112/62; PULSE 88; RESP 16; TEMP 36; O2SAT 95
[2025-06-02] MEDS: oxyCODONE HCl Immed Release 5 MG TABLET PO ×4 (03:16→21:31)
[2025-06-02 07:34] VITALS: BP 108/62; PULSE 81; RESP 16; TEMP 36.9; O2SAT 96
[2025-06-02] MEDS: 0.9 % Sodium Chloride Flush 3 ML SYRINGE IVFLUSH ×3 (08:20→20:51)
--- NOTE | 2025-06-02 13:17 | MHC.CM.PN ---
Patient not medically cleared for dc. CM will continue to follow. [facility] updated.
[2025-06-02 16:00] VITALS: BP 114/58; PULSE 84; RESP 18; TEMP 36.2; O2SAT 95
--- NOTE | 2025-06-02 16:56 | HO.PM.IMPN ---
Subjective Subjective Date of Service: 06/02/25 Interval History: Patient is very pleasant today. Reporting some right sided flank pain - precipitated by light touch. No deeper pain, negative ROS otherwise. No other complaints. Eating and drinking well. Stooling appropriately and urinating well. Review of Systems Review of Systems: Yes all other systems are reviewed and are negative Physical Exam Exam: Exam: General: A&O x3, oriented to time place person and siutaion, comfortable, no pain Cardiac: S1, S2 auscultated with no S3/4, no MRG. Well perfused. Respiratory: Normal breath sounds auscultated throughout all lung zones, without wheezing, rales. Normal rate. GI/ : No abdominal pain on palpation, no masses or distentions. MSK: Normal ambulation without pain at bony prominences or musculature Neurological: Normal neurological examination on overview, without obvious CN II-XII abnormalities. - Some asterixis noted bilaterally without nystagmus. Vital Signs: Vital Signs: Last Vital Signs Temp 97.2 F 06/02/25 16:00 Pulse 84 06/02/25 16:00 Resp 18 06/02/25 16:00 BP 114/58 L 06/02/25 16:00 Pulse Ox 95 06/02/25 16:00 O2 Del Method Room Air 06/02/25 16:00 O2 Flow Rate 3 05/25/25 19:39 BMI result Body Mass Index 31.1 Objective Data Active Medications Acetaminophen (Acetaminophen 325 Mg Tablet) 650 mg PO Q6H PRN PRN Reason: Pain, Mild 1-3,fever,headache Calcium Carbonate (Calcium Carbonate 750 Mg Tab.Chew) 750 mg PO Q4H PRN PRN Reason: Heartburn Fenofibrate (Fenofibrate 54 Mg Tablet) 54 mg PO DAILY [facility] Last Admin: 06/02/25 08:19 Dose: 54 mg Documented By: RUTHY Folic Acid (Folic Acid 1 Mg Tablet) 1 mg PO DAILY [facility] Last Admin: 06/02/25 08:19 Dose: 1 mg Documented By: RUTHY Furosemide (Furosemide 40 Mg Tablet) 40 mg PO DAILY [facility]; Protocol Last Admin: 06/02/25 08:19 Dose: 40 mg Documented By: RUTHY Hydromorphone HCl (Hydromorphone Hcl 1 Mg/Ml Syringe) 1 mg IVPUSH Q3H PRN; Protocol PRN Reason: Pain, Severe (Pain Scale 7-10) Last Admin: 06/02/25 14:36 Dose: 1 mg Documented By: RODRIGUEZ Lactulose (Lactulose 20 Gm/30 Ml Solution) 30 gm PO BID [facility] Last Admin: 06/02/25 08:21 Dose: 30 gm Documented By: RUTHY Magnesium Hydroxide (Milk Of Magnesia 30 Ml Oral.Susp) 30 ml PO DAILY PRN PRN Reason: Constipation Melatonin (Melatonin 3 Mg Tablet) 6 mg PO BEDTIME PRN PRN Reason: Insomnia Ondansetron HCl (Ondansetron Hcl 4 Mg/2 Ml Vial) 4 mg IVPUSH Q8H PRN PRN Reason: Nausea and Vomiting Oxycodone HCl (Oxycodone Hcl Immed Release 5 Mg Tablet) 5 mg PO Q6H PRN PRN Reason: Pain, Severe (Pain Scale 7-10) Last Admin: 06/02/25 15:26 Dose: 5 mg Documented By: RUTHY Prazosin HCl (Prazosin Hcl 1 Mg Capsule) 2 mg PO BEDTIME [facility]; Protocol Last Admin: 06/01/25 20:03 Dose: 2 mg Documented By: WANDA Senna (Sennosides 8.6 Mg Tablet) 17.2 mg PO BEDTIME [facility] Last Admin: 06/01/25 20:03 Dose: 17.2 mg Documented By: WANDA Sodium Chloride (0.9 % Sodium Chloride Flush 3 Ml Syringe) [facility] Last Admin: 06/02/25 15:26 Dose: 3 ml Documented By: RUTHY Spironolactone (Spironolactone 25 Mg Tablet) 50 mg PO DAILY [facility]; Protocol Last Admin: 06/02/25 08:20 Dose: 50 mg Documented By: RUTHY Thiamine HCl (Thiamine Hcl 100 Mg Tablet) 100 mg PO DAILY [facility] Last Admin: 06/02/25 08:19 Dose: 100 mg Documented By: RUTHY Labs 05/30/25 10:07 06/01/25 09:07 Assessment and Plan (1) Decompensated hepatic cirrhosis: Status: Acute Assessment and Plan: Presents with hyperammonemia, transamnits, jaundice, scleral icterus and hepatic endephalopathy - resolved. Possible hepatic metastatic disease of liver with ascites noted on imaging Paracentesis 05/21, sent for cytology no malignancy GI following US 05/25 no evidence of mass Hepatitis B and C negative Dilaudid and oxy for pain Lasix and Aldactone for ascietes, hold lisinopril for low BP Paracentesis as needed for increase ascietes, last one 05/31 with 3 L removed Biopsy could not be done on inpatient basis so will be done on outpatient basis PLAN - Continue follow up hepatology outpatient - Outpatient biopsy of lesion - Continue lactulose - Continue furosemide and spironolactone (2) Liver lesion: Status: Acute Assessment and Plan: Presents with hyperammonemia, transamnits, jaundice, scleral icterus and hepatic endephalopathy - resolved. Possible hepatic metastatic disease of liver with ascites noted on imaging Paracentesis 05/21, sent for cytology no malignancy GI following US 05/25 no evidence of mass Hepatitis B and C negative Dilaudid and oxy for pain Lasix and Aldactone for ascietes, hold lisinopril for low BP Paracentesis as needed for increase ascietes, last one 05/31 with 3 L removed Biopsy could not be done on inpatient basis so will be done on outpatient basis PLAN - Continue follow up hepatology outpatient - Outpatient biopsy of lesion - Continue lactulose - Continue furosemide and spironolactone (3) Alcoholic cirrhosis of liver with ascites: Status: Acute Assessment and Plan: Presents with hyperammonemia, transamnits, jaundice, scleral icterus and hepatic endephalopathy - resolved. Paracentesis 05/21, sent for cytology no malignancy GI following Lasix and Aldactone for ascietes, hold lisinopril for low BP Paracentesis as needed for increase ascietes, last one 05/31 with 3 L removed PLAN - Continue follow up hepatology outpatient - Outpatient biopsy of lesion - Continue lactulose - Continue furosemide and spironolactone (4) Alcohol use disorder: Status: Acute Assessment and Plan: Alcohol use disorder, no active withdrawal CIWA, PRN ativan FA and thiamine (5) Hyponatremia: Status: Acute Assessment and Plan: Hyponatremia d/t hypervolemia from hepatic decompensation/ cirrhosis Stable now. Monitor (6) Hypervolemia: Status: Acute Assessment and Plan: Hyponatremia d/t hypervolemia from hepatic decompensation/ cirrhosis Stable now. Monitor (7) Hepatic encephalopathy: Status: Acute Assessment and Plan: Hyperammonemia, grade I HE Lactulose 30 gms BID (8) Hypersplenia: Status: Acute Assessment and Plan: Thrombocytopenia d/t hypesplenism from liver disease, plt 102 Monitor (9) Thrombocytopenia: Status: Acute Assessment and Plan: Thrombocytopenia d/t hypesplenism from liver disease, plt 102 Monitor (10) Chronic low back pain: Status: Acute Assessment and Plan: Chronic low back pain/ chronic Left foot drop Dilaudid 01 IV Q3PRN PT eval as needed Plan 54 yo male with PMH alcohol use disorder (does not have seizure hx with withdrawal), tobacco dependence, left inguinal hernia repair 2023, umbilical hernia repair 2023, L4-L5 back surgery with chronic left footdrop, chronic pain syndrome, hypertension, anxiety was brought in by ambulance to the emergency department status post a fall. Patient presented with jaundice and scleral icterus with grossly distended abdomen/ascites. Total time managing care of this patient today: 45 minutes. Quality Stroke Does the patient have a stroke diagnosis?: No Reason for No Anti-thrombotic by Day Two: N/A - Med Ordered VTE Prior VTE?: No VTE Risk Level:: Medical - moderate - high VTE Device Contraindication: N/A - Device Ordered VTE Drug Contraindication: Treatment Not Indicated
[2025-06-02 20:46] VITALS: BP 123/66
[2025-06-02 23:42] VITALS: BP 97/54; PULSE 97; RESP 16; TEMP 36.1; O2SAT 94
[2025-06-03] MEDS: oxyCODONE HCl Immed Release 5 MG TABLET PO ×3 (07:01→19:10)
[2025-06-03 07:11] LABS: MANUAL DIFF FLAG NO
[2025-06-03 07:18] LABS: Hematocrit 27.9 % (42.0-52.0); Hemoglobin 9.4 g/dl (14.0-18.0); Imm Gran Abs Auto 0.11 X10*3/uL (0.00-0.03); Imm Gran Pct Auto 1.0 % (0.0-0.4); Lymphocytes Absolute Auto 1.9 X10*3/uL (1.2-4.9); Mean Corpuscular HGB Conc 33.7 g/dl (31.0-36.0); Mean Corpuscular Hemoglobin 35.2 pg (27.0-33.0); Mean Corpuscular Volume 104.5 fL (80.0-98.0); NRBC Abs Auto 0.000 X10*3/uL (0.0-0.012); NRBC Pct Auto 0.0 /100WBC (0.0-0.2); Platelet Count 107 X10*3/uL (160-400); Red Blood Count 2.67 X10*6/uL (4.60-5.80); White Blood Count 10.5 X10*3/uL (4.8-10.8)
[2025-06-03 07:27] VITALS: BP 104/55; PULSE 82; RESP 15; TEMP 36.8; O2SAT 96
[2025-06-03 07:37] LABS: B Type Natriuretic Peptide 68 pg/mL (<100)
[2025-06-03 07:38] LABS: Alanine Aminotransferase 35 U/L (0-40); Albumin Level 2.2 g/dL (3.5-5.0); Alkaline Phosphatase 78 U/L (39-117); Anion Gap 14 (12-20); Aspartate Amino Transferase 83 U/L (5-37); Blood Urea Nitrogen 5 mg/dL (9-16); Calcium 8.1 mg/dL (8.4-10.2); Carbon Dioxide 28 mmol/L (22-29); Chloride 94 mmol/L (96-108); Creatinine Clr Calc Pharmacy 192.8; Estimated Glomerular Filt Rate > 60; Magnesium 1.9 mg/dL (1.6-2.6); Potassium 3.5 mmol/L (3.3-5.1); Sodium 132 mmol/L (135-145); Total Protein 7.5 g/dL (6.5-8.0)
[2025-06-03 08:33] VITALS: BP 116/60; PULSE 80; RESP 16; O2SAT 96
[2025-06-03] MEDS: 0.9 % Sodium Chloride Flush 3 ML SYRINGE IVFLUSH ×2 (15:29→20:32)
--- NOTE | 2025-06-03 15:31 | HO.PM.IMPN ---
Subjective Subjective Date of Service: 06/03/25 Interval History: Patient is very pleasant today. Reporting some right sided flank pain - precipitated by light touch. No deeper pain, negative ROS otherwise. No other complaints. Eating and drinking well. Stooling appropriately and urinating well. Patient's analgesia is working well. Planning discharge on Saturday - patient agreeable. Discussed transition to PO medications soon. Physical Exam Vital Signs: Vital Signs: Last Vital Signs Temp 98.2 F 06/03/25 07:27 Pulse 80 06/03/25 08:33 Resp 16 06/03/25 08:33 BP 116/60 06/03/25 08:33 Pulse Ox 96 06/03/25 08:33 O2 Del Method Room Air 06/03/25 08:33 O2 Flow Rate 3 05/25/25 19:39 BMI result Body Mass Index 31.1 Const: Other: General: AO X 3, no acute distress HEENT: sclear icteris Resp: CTA bilateral CVS: S1,S2,RRR, 2+ leg edema GI: +BS, +mild T, + distention Skin: No rash Neuro: motor grossly intact Psych: appropriate affect Objective Data Active Medications Acetaminophen (Acetaminophen 325 Mg Tablet) 650 mg PO Q6H PRN PRN Reason: Pain, Mild 1-3,fever,headache Calcium Carbonate (Calcium Carbonate 750 Mg Tab.Chew) 750 mg PO Q4H PRN PRN Reason: Heartburn Fenofibrate (Fenofibrate 54 Mg Tablet) 54 mg PO DAILY [facility] Last Admin: 06/03/25 08:36 Dose: 54 mg Documented By: SINA Folic Acid (Folic Acid 1 Mg Tablet) 1 mg PO DAILY [facility] Last Admin: 06/03/25 08:36 Dose: 1 mg Documented By: SINA Furosemide (Furosemide 40 Mg Tablet) 40 mg PO DAILY [facility]; Protocol Last Admin: 06/03/25 08:36 Dose: 40 mg Documented By: SINA Hydromorphone HCl (Hydromorphone Hcl 1 Mg/Ml Syringe) 1 mg IVPUSH Q3H PRN; Protocol PRN Reason: Pain, Severe (Pain Scale 7-10) Last Admin: 06/03/25 15:24 Dose: 1 mg Documented By: SINA Lactulose (Lactulose 20 Gm/30 Ml Solution) 30 gm PO BID [facility] Last Admin: 06/03/25 08:35 Dose: 30 gm Documented By: SINA Magnesium Hydroxide (Milk Of Magnesia 30 Ml Oral.Susp) 30 ml PO DAILY PRN PRN Reason: Constipation Melatonin (Melatonin 3 Mg Tablet) 6 mg PO BEDTIME PRN PRN Reason: Insomnia Ondansetron HCl (Ondansetron Hcl 4 Mg/2 Ml Vial) 4 mg IVPUSH Q8H PRN PRN Reason: Nausea and Vomiting Oxycodone HCl (Oxycodone Hcl Immed Release 5 Mg Tablet) 5 mg PO Q6H PRN PRN Reason: Pain, Severe (Pain Scale 7-10) Last Admin: 06/03/25 13:01 Dose: 5 mg Documented By: SINA Prazosin HCl (Prazosin Hcl 1 Mg Capsule) 2 mg PO BEDTIME [facility]; Protocol Last Admin: 06/02/25 20:46 Dose: 2 mg Documented By: SHAHIDA Senna (Sennosides 8.6 Mg Tablet) 17.2 mg PO BEDTIME [facility] Last Admin: 06/02/25 20:48 Dose: 17.2 mg Documented By: SHAHIDA Sodium Chloride (0.9 % Sodium Chloride Flush 3 Ml Syringe) [facility] Last Admin: 06/03/25 15:29 Dose: 3 ml Documented By: SINA Spironolactone (Spironolactone 25 Mg Tablet) 50 mg PO DAILY [facility]; Protocol Last Admin: 06/03/25 08:36 Dose: 50 mg Documented By: SINA Thiamine HCl (Thiamine Hcl 100 Mg Tablet) 100 mg PO DAILY [facility] Last Admin: 06/03/25 08:36 Dose: 100 mg Documented By: SINA Labs 06/03/25 06:53 06/03/25 06:53 Labs: Laboratory Results - last 24 hr 06/03/25 06:53 MCV 104.5 H MCH 35.2 H MCHC 33.7 RDW 14.5 Plt Count 107 L MPV 9.1 L Immature Gran % (Auto) 1.0 H Neut % (Auto) 69.4 Lymph % (Auto) 17.6 L [place] % (Auto) 10.0 Eos % (Auto) 1.4 Baso % (Auto) 0.6 Lymph # (Auto) 1.9 [place] # (Auto) 1.1 Eos # (Auto) 0.2 Baso # (Auto) 0.1 Abs Immat Gran (auto) 0.11 H Absolute Neuts (auto) 7.3 Absolute Nucleated RBC 0.000 Nucleated RBC % (auto) 0.0 Anion Gap 14 Estim Creat Clear Calc 192.8 Estimated GFR > 60 Random Glucose 120 H Calcium 8.1 L Magnesium 1.9 Total Bilirubin 8.9 H AST 83 H ALT 35 Alkaline Phosphatase 78 B-Natriuretic Peptide 68 Total Protein 7.5 Albumin 2.2 L Assessment and Plan (1) Decompensated hepatic cirrhosis: Status: Acute Assessment and Plan: Presents with hyperammonemia, transamnits, jaundice, scleral icterus and hepatic endephalopathy - resolved. Possible hepatic metastatic disease of liver with ascites noted on imaging Paracentesis 05/21, sent for cytology no malignancy GI following US 05/25 no evidence of mass Hepatitis B and C negative Dilaudid and oxy for pain Lasix and Aldactone for ascietes, hold lisinopril for low BP Paracentesis as needed for increase ascietes, last one 05/31 with 3 L removed Biopsy could not be done on inpatient basis so will be done on outpatient basis PLAN - Continue follow up hepatology outpatient - Outpatient biopsy of lesion - Continue lactulose - Continue furosemide and spironolactone (2) Liver lesion: Status: Acute Assessment and Plan: Presents with hyperammonemia, transamnits, jaundice, scleral icterus and hepatic endephalopathy - resolved. Possible hepatic metastatic disease of liver with ascites noted on imaging Paracentesis 05/21, sent for cytology no malignancy GI following US 05/25 no evidence of mass Hepatitis B and C negative Dilaudid and oxy for pain Lasix and Aldactone for ascietes, hold lisinopril for low BP Paracentesis as needed for increase ascietes, last one 05/31 with 3 L removed Biopsy could not be done on inpatient basis so will be done on outpatient basis PLAN - Continue follow up hepatology outpatient - Outpatient biopsy of lesion - Continue lactulose - Continue furosemide and spironolactone (3) Alcoholic cirrhosis of liver with ascites: Status: Acute Assessment and Plan: Presents with hyperammonemia, transamnits, jaundice, scleral icterus and hepatic endephalopathy - resolved. Paracentesis 05/21, sent for cytology no malignancy GI following Lasix and Aldactone for ascietes, hold lisinopril for low BP Paracentesis as needed for increase ascietes, last one 05/31 with 3 L removed PLAN - Continue follow up hepatology outpatient - Outpatient biopsy of lesion - Continue lactulose - Continue furosemide and spironolactone (4) Alcohol use disorder: Status: Acute Assessment and Plan: Alcohol use disorder, no active withdrawal CIWA, PRN ativan FA and thiamine (5) Hyponatremia: Status: Acute Assessment and Plan: Hyponatremia d/t hypervolemia from hepatic decompensation/ cirrhosis Stable now. Monitor (6) Hypervolemia: Status: Acute Assessment and Plan: Hyponatremia d/t hypervolemia from hepatic decompensation/ cirrhosis Stable now. Monitor (7) Hepatic encephalopathy: Status: Acute Assessment and Plan: Hyperammonemia, grade I HE Lactulose 30 gms BID (8) Hypersplenia: Status: Acute Assessment and Plan: Thrombocytopenia d/t hypesplenism from liver disease, plt 102 Monitor (9) Thrombocytopenia: Status: Acute Assessment and Plan: Thrombocytopenia d/t hypesplenism from liver disease, plt 102 Monitor (10) Chronic low back pain: Status: Acute Assessment and Plan: Chronic low back pain/ chronic Left foot drop Dilaudid 01 IV Q3PRN PT eval as needed Plan 54 yo male with PMH alcohol use disorder (does not have seizure hx with withdrawal), tobacco dependence, left inguinal hernia repair 2023, umbilical hernia repair 2023, L4-L5 back surgery with chronic left footdrop, chronic pain syndrome, hypertension, anxiety was brought in by ambulance to the emergency department status post a fall. Patient presented with jaundice and scleral icterus with grossly distended abdomen/ascites. Quality Stroke Does the patient have a stroke diagnosis?: No Reason for No Anti-thrombotic by Day Two: N/A - Med Ordered VTE Prior VTE?: No VTE Risk Level:: Medical - moderate - high VTE Device Contraindication: N/A - Device Ordered VTE Drug Contraindication: Treatment Not Indicated
[2025-06-03 15:48] VITALS: BP 110/61; PULSE 79; RESP 18; TEMP 36.6; O2SAT 97
[2025-06-03 20:29] VITALS: BP 118/63
[2025-06-03 23:30] VITALS: BP 111/70; PULSE 67; RESP 18; TEMP 36.3; O2SAT 93
[2025-06-04] MEDS: oxyCODONE HCl Immed Release 5 MG TABLET PO ×5 (04:50→23:06)
[2025-06-04 07:48] VITALS: BP 113/58; PULSE 80; RESP 16; TEMP 36.5; O2SAT 99
--- NOTE | 2025-06-04 11:19 | MHC.CM.PN ---
Per MD rounds patient not medically cleared for dc. Transition to PO pain meds. Anticipate dc home tomorrow w/ [facility]. [facility] updated.
--- NOTE | 2025-06-04 12:50 | HO.PM.IMPN ---
Subjective Subjective Date of Service: 06/04/25 Interval History: Expresses frustration with analgesia regimen. The patient requests IV medications; however currently approaching discharge. Discussed transition to PO analgesics with optimization of dose & frequency. The patient is in agreement. Transition to PO oxycodone with increased frequency to be trialed first (oxy 5mg from q6hrly to q4hrly for abdominal pain and discomfort). The patient has no other issues to discuss or report. Review of Systems Review of Systems: Yes all other systems are reviewed and are negative Physical Exam Vital Signs: Vital Signs: Last Vital Signs Temp 97.7 F 06/04/25 07:48 Pulse 80 06/04/25 07:48 Resp 16 06/04/25 07:48 BP 113/58 L 06/04/25 07:48 Pulse Ox 99 06/04/25 07:48 O2 Del Method Room Air 06/04/25 07:48 O2 Flow Rate 3 05/25/25 19:39 BMI result Body Mass Index 31.1 Const: Other: General: AO X 3, no acute distress HEENT: sclear icteris Resp: CTA bilateral CVS: S1,S2,RRR, 2+ leg edema GI: +BS, +mild T, + distention Skin: No rash Neuro: motor grossly intact Psych: appropriate affect Objective Data Active Medications Acetaminophen (Acetaminophen 325 Mg Tablet) 650 mg PO Q6H PRN PRN Reason: Pain, Mild 1-3,fever,headache Calcium Carbonate (Calcium Carbonate 750 Mg Tab.Chew) 750 mg PO Q4H PRN PRN Reason: Heartburn Fenofibrate (Fenofibrate 54 Mg Tablet) 54 mg PO DAILY [facility] [place] Last Admin: 06/04/25 08:26 Dose: 54 mg Documented By: SINA Folic Acid (Folic Acid 1 Mg Tablet) 1 mg PO DAILY [facility] [place] Last Admin: 06/04/25 08:26 Dose: 1 mg Documented By: SINA Furosemide (Furosemide 40 Mg Tablet) 40 mg PO DAILY [facility] [place]; Protocol Last Admin: 06/04/25 08:26 Dose: 40 mg Documented By: SINA Hydromorphone HCl (Hydromorphone Hcl 1 Mg/Ml Syringe) 1 mg IVPUSH Q3H PRN; Protocol PRN Reason: Pain, Severe (Pain Scale 7-10) Last Admin: 06/04/25 12:15 Dose: 1 mg Documented By: SINA Lactulose (Lactulose 20 Gm/30 Ml Solution) 30 gm PO BID [facility] [place] Last Admin: 06/04/25 08:26 Dose: 30 gm Documented By: SINA Magnesium Hydroxide (Milk Of Magnesia 30 Ml Oral.Susp) 30 ml PO DAILY PRN PRN Reason: Constipation Melatonin (Melatonin 3 Mg Tablet) 6 mg PO BEDTIME PRN PRN Reason: Insomnia Ondansetron HCl (Ondansetron Hcl 4 Mg/2 Ml Vial) 4 mg IVPUSH Q8H PRN PRN Reason: Nausea and Vomiting Oxycodone HCl (Oxycodone Hcl Immed Release 5 Mg Tablet) 5 mg PO Q4H PRN PRN Reason: Pain, Severe (Pain Scale 7-10) Prazosin HCl (Prazosin Hcl 1 Mg Capsule) 2 mg PO BEDTIME [facility] [place]; Protocol Last Admin: 06/03/25 20:29 Dose: 2 mg Documented By: SHAHIDA Senna (Sennosides 8.6 Mg Tablet) 17.2 mg PO BEDTIME [facility] [place] Last Admin: 06/03/25 20:29 Dose: 17.2 mg Documented By: SHAHIDA Simethicone (Simethicone 80 Mg Tab.Chew) 80 mg PO TID PRN PRN Reason: Gas Last Admin: 06/04/25 11:05 Dose: 80 mg Documented By: SINA Sodium Chloride (0.9 % Sodium Chloride Flush 3 Ml Syringe) 3 ml IVFLUSH QSHIFT [facility] [place] Last Admin: 06/04/25 08:19 Dose: Not Given Documented By: SINA Non-Admin Reason: Previously Administered Spironolactone (Spironolactone 25 Mg Tablet) 50 mg PO DAILY [facility] [place]; Protocol Last Admin: 06/04/25 08:26 Dose: 50 mg Documented By: SINA Thiamine HCl (Thiamine Hcl 100 Mg Tablet) 100 mg PO DAILY [facility] [place] Last Admin: 06/04/25 08:26 Dose: 100 mg Documented By: SINA Labs 06/03/25 06:53 06/03/25 06:53 Assessment and Plan (1) Decompensated hepatic cirrhosis: Status: Acute Assessment and Plan: Presents with hyperammonemia, transamnits, jaundice, scleral icterus and hepatic endephalopathy - resolved. Possible hepatic metastatic disease of liver with ascites noted on imaging Paracentesis 05/21, sent for cytology no malignancy GI following US 05/25 no evidence of mass Hepatitis B and C negative Dilaudid and oxy for pain Lasix and Aldactone for ascietes, hold lisinopril for low BP Paracentesis as needed for increase ascietes, last one 8 with 3 L removed Biopsy could not be done on inpatient basis so will be done on outpatient basis PLAN - Continue follow up hepatology outpatient - Outpatient biopsy of lesion - Continue lactulose - Continue furosemide and spironolactone (2) Liver lesion: Status: Acute Assessment and Plan: Presents with hyperammonemia, transamnits, jaundice, scleral icterus and hepatic endephalopathy - resolved. Possible hepatic metastatic disease of liver with ascites noted on imaging Paracentesis 05/21, sent for cytology no malignancy GI following US 05/25 no evidence of mass Hepatitis B and C negative Dilaudid and oxy for pain Lasix and Aldactone for ascietes, hold lisinopril for low BP Paracentesis as needed for increase ascietes, last one 05/31 with 3 L removed Biopsy could not be done on inpatient basis so will be done on outpatient basis PLAN - Continue follow up hepatology outpatient - Outpatient biopsy of lesion - Continue lactulose - Continue furosemide and spironolactone (3) Alcoholic cirrhosis of liver with ascites: Status: Acute Assessment and Plan: Presents with hyperammonemia, transamnits, jaundice, scleral icterus and hepatic endephalopathy - resolved. Paracentesis 05/21, sent for cytology no malignancy GI following Lasix and Aldactone for ascietes, hold lisinopril for low BP Paracentesis as needed for increase ascietes, last one 05/31 with 3 L removed PLAN - Continue follow up hepatology outpatient - Outpatient biopsy of lesion - Continue lactulose - Continue furosemide and spironolactone (4) Alcohol use disorder: Status: Acute Assessment and Plan: Alcohol use disorder, no active withdrawal CIWA, PRN ativan FA and thiamine (5) Hyponatremia: Status: Acute Assessment and Plan: Hyponatremia d/t hypervolemia from hepatic decompensation/ cirrhosis Stable now. Monitor (6) Hypervolemia: Status: Acute Assessment and Plan: Hyponatremia d/t hypervolemia from hepatic decompensation/ cirrhosis Stable now. Monitor (7) Hepatic encephalopathy: Status: Acute Assessment and Plan: Hyperammonemia, grade I HE Lactulose 30 gms BID (8) Hypersplenia: Status: Acute Assessment and Plan: Thrombocytopenia d/t hypesplenism from liver disease, plt 102 Monitor (9) Thrombocytopenia: Status: Acute Assessment and Plan: Thrombocytopenia d/t hypesplenism from liver disease, plt 102 Monitor (10) Chronic low back pain: Status: Acute Assessment and Plan: Chronic low back pain/ chronic Left foot drop Transitioning from oxycodone PO 5mg q6hrly to q4hrly. Dilaudid 01 IV Q3PRN currently available, and will be discotninuing on optimization of PO regimen. PT eval as needed Plan 54 yo male with PMH alcohol use disorder (does not have seizure hx with withdrawal), tobacco dependence, left inguinal hernia repair 2023, umbilical hernia repair 2023, L4-L5 back surgery with chronic left footdrop, chronic pain syndrome, hypertension, anxiety was brought in by ambulance to the emergency department status post a fall. Patient presented with jaundice and scleral icterus with grossly distended abdomen/ascites. Total time managing care of this patient today: 45 minutes. Quality Stroke Does the patient have a stroke diagnosis?: No Reason for No Anti-thrombotic by Day Two: N/A - Med Ordered VTE Prior VTE?: No VTE Risk Level:: Medical - moderate - high VTE Device Contraindication: N/A - Device Ordered VTE Drug Contraindication: Treatment Not Indicated
[2025-06-04 16:00] VITALS: BP 108/59; PULSE 85; RESP 16; TEMP 36.9; O2SAT 97
[2025-06-04] MEDS: 0.9 % Sodium Chloride Flush 3 ML SYRINGE IVFLUSH (21:45)
[2025-06-04 23:03] VITALS: BP 110/56; PULSE 88; RESP 18; TEMP 36.6; O2SAT 94
[2025-06-05] MEDS: oxyCODONE HCl Immed Release 5 MG TABLET PO ×2 (03:29→07:48)
[2025-06-05 07:30] VITALS: BP 124/66; PULSE 88; RESP 14; TEMP 36.7; O2SAT 95
[2025-06-05] MEDS: 0.9 % Sodium Chloride Flush 3 ML SYRINGE IVFLUSH (07:49)
[2025-06-05 11:18] VITALS: BP 117/62; PULSE 85; RESP 16; TEMP 37.1; O2SAT 95
--- NOTE | 2025-06-05 12:58 | W.MHC.F2F ---
Service Date Service Date: 06/05/25 Encounter Date of encounter: 06/05/25 Reasons for Services Signs and symptoms assessed: 54 yo male with PMH alcohol use disorder (does not have seizure hx with withdrawal), tobacco dependence, left inguinal hernia repair 2023, umbilical hernia repair 2023, L4-L5 back surgery with chronic left footdrop, chronic pain syndrome, hypertension, anxiety was brought in by ambulance to the emergency department status post a fall. Patient presented with jaundice and scleral icterus with grossly distended abdomen/ascites. - Significant abdominal distention due to hepatomegaly and splenomegaly leading to abdominal distention and limited movement. - Chronic back pain - LE edema - Generalized abdominal pain due to hepatosplenomegaly Reason for intermediate: medication management, medication treatment and teach disease management Reason for physical therapy: home safety and mobility, therapeutic exercises, gait/transfer training and energy conservation Reason for occupational therapy: home safety and mobility, therapeutic exercises, gait/transfer training, assess need for DME and energy conservation MD Overseeing Care: Sukumar Mart Homebound: Leaving the home is medically contraindicated at this time without the asist of a device and/or another person due th the listed conditions above and below. Reason homebound: unsteady gait / fall risk, fall risk related to blood pressure changes, leg weakness and pain with ambulation Certification: Based on the above findings, I certify that this patient is confined to the home and needs intermittent intermediate care, physical therapy and/or speech therapy, or continues to need occupational therapy. The patient is under my care, and I have initiated the establishment of the plan of care. The patient will be followed by a physician who will periodically review the plan of care. Time Spent With Patient Time: Total time managing care of this patient today 15 minutes.
--- NOTE | 2025-06-05 13:24 | P.DS_ITS ---
DS: Providers Provider Date of Service: 05/21/25 Date of admission: 05/21/25 01:04 Date of discharge: 06/05/25 Primary care physician: Isabel Singleton MD Consults: 05/21/25 04:32 Consult to Gastroenterology Routine Consulting Provider: Adalberto Fofana Reason for consultation: alcoholic cirrhosis with ascites, ? metastatic liver disease Has provider been notified: No 05/21/25 05:41 Addiction Medicine Provider Routine Consulting Provider: Addiction Covering Reason for consultation: Alcohol use disorder with liver failure possible metastatic disease 05/21/25 05:45 Consult to Case Management Routine Comment: End-stage liver, poor insight, alcoholism, possibl 05/27/25 12:17 Consult to Hematology / Oncology Routine Consulting Provider: [facility]cology/Hematology Reason for consultation: cirrhosis, abnormal ct liver, elevated INR, needs liver biopsy Attending physician on discharge: Sukumar Mart DS: Diagnosis Discharge Diagnosis (1) Decompensated hepatic cirrhosis: Status: Acute (2) Liver lesion: Status: Acute (3) Alcoholic cirrhosis of liver with ascites: Status: Acute (4) Alcohol use disorder: Status: Acute (5) Hyponatremia: Status: Acute (6) Hypervolemia: Status: Acute (7) Hepatic encephalopathy: Status: Acute (8) Hypersplenia: Status: Acute (9) Thrombocytopenia: Status: Acute (10) Chronic low back pain: Status: Acute DS: Summary Hospital Course Hospital Course: 54 yo male with PMH alcohol use disorder (does not have seizure hx with withdrawal), tobacco dependence, left inguinal hernia repair 2023, umbilical hernia repair 2023, L4-L5 back surgery with chronic left footdrop, chronic pain syndrome, hypertension, anxiety was brought in by ambulance to the emergency department status post a fall. Patient presented with jaundice and scleral icterus with grossly distended abdomen/ascites. Presents with hyperammonemia, transamnits, jaundice, scleral icterus and hepatic endephalopathy - resolved. Hyponatremia d/t hypervolemia from hepatic decompensation/ cirrhosis - since resolved. Thrombocytopenia d/t hypesplenism from liver disease, plt 102 - stable Possible hepatic metastatic disease of liver with ascites noted on imaging during admission. Paracentesis 05/21, sent for cytology no malignancy Hepatitis B and C negative Dilaudid and oxy was used for pain; related to abdominal distention precipitated by progressive hepatosplenomegaly. Lasix and Aldactone for ascietes, held lisinopril for low BP - can resume in outpatient setting Paracentesis as needed for increase ascietes, last one 05/31 with 5L removed Biopsy could not be done on inpatient basis by IR so will be done on outpatient basis Status at Discharge Functional status at discharge: uses cane/walker Overall status at discharge: patient is back to baseline Time Attestation Total time managing care of this patient today: 45 mintues. Discharge Coordination Time (in mins): 20 Quality: Safe Use of Opioids Does Pt have an Active Cancer Diagnosis on the Problem List?: No Quality: Stroke Does the patient have a stroke diagnosis?: No Physical Exam Exam: Exam: General: AO X 3, no acute distress HEENT: sclear icteris Resp: CTA bilateral CVS: S1,S2,RRR, 2+ leg edema GI: +BS, +mild T, + distention Skin: No rash Neuro: motor grossly intact Psych: appropriate affect Vital Signs: Vital Signs: Last Vital Signs Temp 98.8 F 06/05/25 11:18 Pulse 85 06/05/25 11:18 Resp 16 06/05/25 11:18 BP 117/62 06/05/25 11:18 Pulse Ox 95 06/05/25 11:18 O2 Del Method Room Air 06/05/25 11:18 O2 Flow Rate 3 05/25/25 19:39 BMI result Body Mass Index 31.1 DS: Data Data Completed and Pending Labs on day of discharge: Preliminary micro results at discharge 05/21/25 15:50 Fungal Identification - Preliminary Ascites Fluid No growth after 1 week. Discharge Plan Discharge Anticipated Discharge Date/Time: 06/05/25 10:52 Patient Disposition: Home Health Service Discharge Diagnosis: 54 yo male with PMH alcohol use disorder (does not have seizure hx with withdrawal), tobacco dependence, left inguinal hernia repair 2023, umbilical hernia repair 2023, L4-L5 back surgery with chronic left footdrop, chronic pain syndrome, hypertension, anxiety was brought in by ambulance to the emergency department status post a fall. Patient presented with jaundice and scleral icterus with grossly distended abdomen/ascites. He was admitted with acute decompensated hepatic cirrhosis with grade 1-2 hepatic encephalopathy, large volume ascites s/p 5L paracentesis, hypervolemia and hyponatremia. Referrals: eligio nobles [Other] - 1 Week Isabel Singleton MD [Primary Care Provider, Endocrinology] - 1 Week Discharge Medications: New furosemide 40 mg Tablet 40 mg PO DAILY 30 Days Qty: 30 0RF Protocol: Hold for SBP< HOLD for SBP < : 90 spironolactone 25 mg Tablet 50 mg PO DAILY Qty: 30 0RF Protocol: Hold for SBP< HOLD for SBP < : 90 folic acid 1 mg Tablet 1 mg PO DAILY 30 Days Qty: 30 0RF lactulose 10 gram/15 mL Solution 30 g PO BID 30 Days Qty: 2700 0RF oxycodone 5 mg Tablet 5 mg PO DAILY PRN (Reason: Pain, Severe (Pain Scale 7-10)) 5 Days Qty: 15 0RF Rx Instructions: Partial Fill upon patient request. thiamine HCl (vitamin B1) 100 mg capsule 100 mg PO DAILY 30 Days Qty: 30 0RF Continued lisinopril 20 mg tablet 20 mg PO DAILY Qty: 90 3RF prazosin 1 mg capsule 2 mg PO BEDTIME lorazepam 0.5 mg Tablet 0.5 mg PO TID PRN (Reason: Anxiety) oxycodone 5 mg Tablet 5 mg PO TID PRN (Reason: Pain) fenofibrate nanocrystallized 48 mg tablet 48 mg PO DAILY Discharge Orders: Discharge Order (Routine); Ordered 06/05/25 Ordered By: Sukumar Mart Diet: Low salt diet Activity on Discharge: As tolerated Stand Alone Forms: Patient Portal Discharge page Print Language: Macedonian Care Plan Goals: - Encourage dietary and fluid restrictions / diet; low sodium diet - Medication compliance encouraged - Follow up with outpatient Hepatology - Follow up with outpatient Interventional Radiology for biopsy of liver lesion - Follow up with PCP within 1 week of discharge Health Concerns: 1. Hepatic lesion pending outpatient biopsy 2. Hyponatremia 3. Hypervolemia 4. Large volume ascites requiring paracentesis (consider establishing outpatient appts for therapeutic paracentesis) Plan of Treatment: - Encourage dietary and fluid restrictions / diet; low sodium diet - Medication compliance encouraged - Follow up with outpatient Hepatology - Follow up with outpatient Interventional Radiology for biopsy of liver lesion - Follow up with PCP within 1 week of discharge Assessment: Overall, patient is back to his clinical baseline. No new concerning features of notel; other than requiring outpatient follow up with Intervcentional Radiolopgy for evaluation of hepatic lesion Discharge Date/Time: 06/05/25 11:51
== END 2025-06-05 11:51 | disposition home health service (06) | DRG 280 ==
LOC: HO.ED 05-21 01:28 → HO.EDOVER 05-21 01:48 → HO.S3 05-21 11:56
PROVIDERS: Internal Medicine; Internal Medicine Gastroenterology; Internal Medicine Medical Oncology; Nurse Practitioner Family; Admitting Provider Student in an Organized Health Care Education/Training Program; Emergency Provider Internal Medicine; PCP Internal Medicine; Visit Provider Hospitalist
DX: K70.31 Alcoholic cirrhosis of liver with ascites (principal); C78.7 Secondary malignant neoplasm of liver and intrahepatic bile duct; E72.20 Disorder of urea cycle metabolism, unspecified; D68.4 Acquired coagulation factor deficiency; D61.818 Other pancytopenia; F10.90 Alcohol use, unspecified, uncomplicated; E87.6 Hypokalemia; N39.0 Urinary tract infection, site not specified; M54.59 Other low back pain; K76.82 Hepatic encephalopathy; D73.1 Hypersplenism; G89.4 Chronic pain syndrome; D69.59 Other secondary thrombocytopenia; M21.372 Foot drop, left foot; E87.1 Hypo-osmolality and hyponatremia; W19.XXXA Unspecified fall, initial encounter; Z87.891 Personal history of nicotine dependence; Z79.899 Other long term (current) drug therapy
CPT/HCPCS: 36415; 49083; 70450; 71045; 71260; 72125; 74177; 74183; 76705; 80048; 80053; 80076; 80307; 81001; 82042; 82140; 82150; 82248; 82378; 82803; 82945; 83010; 83615; 83690; 83735; 83880; 83935; 83986; 84157; 84300; 84484; 85025; 85027; 85045; 85610; 86704; 86706; 86709; 86803; 86850; 86900; 86901; 87070; 87073; 87086; 87102; 87116; 87205; 87206; 87340; 88112; 88305; 89051; 93005; 97116; 97161; 97530; 99285; A9585; J0696; J1171; J2003; J2270; J2405; J3430; P9047; Q9967; S9485

== ENCOUNTER → 2025-05-20 19:15 | Outpatient (BNV) | payer OTHER, SELFPAY | PROVIDERS: Emergency Provider Internal Medicine; PCP Internal Medicine; Visit Provider Specialist | DX: R06.00 Dyspnea, unspecified (principal) | CPT/HCPCS: 71045 ==

== ENCOUNTER → 2025-05-20 19:49 | Outpatient (BNV) | payer OTHER, SELFPAY | PROVIDERS: Admitting Provider Student in an Organized Health Care Education/Training Program; Emergency Provider Internal Medicine; PCP Internal Medicine; Visit Provider Internal Medicine Cardiovascular Disease | DX: I48.91 Unspecified atrial fibrillation (principal) | CPT/HCPCS: 93010 ==

== ENCOUNTER 2025-05-21 01:04 | Outpatient (BNV) | payer OTHER, SELFPAY | END 2025-05-31 14:50 | PROVIDERS: Admitting Provider Student in an Organized Health Care Education/Training Program; Emergency Provider Internal Medicine; PCP Internal Medicine; Visit Provider Radiology Diagnostic Radiology | DX: R18.8 Other ascites (principal) | CPT/HCPCS: 49083 ==

== ENCOUNTER 2025-05-21 01:04 | Outpatient (BNV) | payer OTHER, SELFPAY | END 2025-05-25 16:26 | PROVIDERS: Admitting Provider Student in an Organized Health Care Education/Training Program; Emergency Provider Internal Medicine; PCP Internal Medicine; Visit Provider Radiology Diagnostic Radiology | DX: R53.1 Weakness (principal) | CPT/HCPCS: 76705 ==

== ENCOUNTER 2025-05-21 01:04 | Outpatient (BNV) | payer OTHER, SELFPAY | END 2025-05-21 14:30 | PROVIDERS: Admitting Provider Student in an Organized Health Care Education/Training Program; Emergency Provider Internal Medicine; PCP Internal Medicine; Visit Provider Radiology Diagnostic Radiology | DX: R53.1 Weakness (principal) | CPT/HCPCS: 71260 ==

== ENCOUNTER 2025-05-21 01:04 | Outpatient (BNV) | payer OTHER, SELFPAY | END 2025-05-26 16:28 | PROVIDERS: Admitting Provider Student in an Organized Health Care Education/Training Program; Emergency Provider Internal Medicine; PCP Internal Medicine; Visit Provider Radiology Diagnostic Radiology | DX: K70.31 Alcoholic cirrhosis of liver with ascites (principal) | CPT/HCPCS: 74183 ==

== ENCOUNTER → 2025-05-21 01:04 | Outpatient (BNV) | payer OTHER, SELFPAY | PROVIDERS: Admitting Provider Student in an Organized Health Care Education/Training Program; Emergency Provider Internal Medicine; PCP Internal Medicine; Visit Provider Internal Medicine Medical Oncology | DX: D61.818 Other pancytopenia (principal); R17 Unspecified jaundice | CPT/HCPCS: 99222 ==

== ENCOUNTER → 2025-05-21 01:04 | Outpatient (BNV) | payer OTHER, SELFPAY | PROVIDERS: Admitting Provider Student in an Organized Health Care Education/Training Program; Emergency Provider Internal Medicine; PCP Internal Medicine; Visit Provider Nurse Practitioner Family | DX: K70.31 Alcoholic cirrhosis of liver with ascites (principal) | CPT/HCPCS: 99223; 99232; 99499 ==

== ENCOUNTER 2025-06-29 09:08 | Outpatient (AMB) | payer OTHER, SELFPAY ==
--- OUTSIDE RECORDS SUMMARY | 2024-06-29 18:08 | XMS_ITS | Encounter Summary ---
Author Name [facility] [place] [facility] [place] Address [address] [place] [address] Care Team Providers Care Garnett Fixer Name Role Phone GABRIELA SHANKAR Primary Care Provider Unav ailable Insurance Providers: All historical and current Section Date Range: From patient's date of to the date document was created. This section includes the names of all active insurance providers for the patient. Insurance Provider Type of Coverage Plan Name Start of Policy Coverage End of Policy Coverage Group Number Member ID Insurance Provider's Telephone Number Policy Proctor's Name Patient's Relationship to Policy Proctor CAREMARK PRESCRIPT ION [facility] Apr 27, 2023 [id number] [place] GINO PATIENT [employer] ([id number]) PRESCRIPT ION [facility] February 25, 2023 [id number] [facility] ORGANIZAT ION [facility] Apr 27, 2023 [id number] [facility] February 25, 2023 [id number] [facility] February 25, 2023 [id number] YENY MOSCOSO PATIENT Selected Encounter This section includes the information on record at [place] for the Encounter. Date/Time Encounter Type Encounter Description Reason Pro vider Source Jun 29, 2024 10:08 PM Outpatient Encounter ADMIN PAT ACTIVTIES (MASNONCT) IHE Encounter Template Text not used by [place] Plan of Treatment: Future Appointments (+ 6 months) and Future Tests (+/- 45 days) The Plan of Treatment section includes future care activities for the patient from all [place] treatmentfacilities. This section includes future appointments and future orders which are active, pending or scheduled. Future Appointments This section includes appointments that were scheduled to occur 6 months from the date of the Encounter, up to a maximum of 20 appointments. The data comes from all [place] treatment facilities. Appointment Date/Time Appointment Type Appointme nt Facility Name Jul 16, 2024 10:30 AM [place] [facility] [place] [facility] Jul 16, 2024 11:00 AM [place] [facility] [place] [facility] Aug 28, 2024 08:30 AM [place] [facility] [place] [facility] Nov 10, 2024 02:30 PM AMBULATORY - MEDICINE [facility] [place] [facility] Nov 11, 2024 01:30 PM [place] [facility] [place] [facility] Dec 03, 2024 08:45 AM [place] [facility] [place] [facility] Dec 03, 2024 02:00 PM [place] [facility] [place] [facility] Dec 07, 2024 09:00 AM [place] [facility] [place] [facility] Social History: Smoking Status (Most current) and Tobacco Use (All prior to encounter date) This section includes the most current, and the historical, smoking and tobacco- related health factors from the [place] facility where the Encounter took place. Current Smoking Status This section includes the most current smoking, or tobacco-related health factor, from the [place] facility where the Encounter took place. Date/Time Current Smoking Status Comment Nilesh clark Aug 27, 2023 03:00 PM VA-TOBACCO USER EVERY DAY [facility] Tobacco Use History This section includes a history of the smoking, or tobacco-related health factors, that were collected on or before the date of the Encounter. The data comes from the [facility] where the Encounter took place. Date/Time Smoking Status/Tobac co Use Comment Facility Aug 27, 2023 03:00 PM VA-TOBACCO USE ADVICE [facility] [place] [facility] Aug 27, 2023 03:00 PM VA-TOBACCO USE PATIENT SERVICES REPRESENTATIVE NO [facility] [place] [facility] Aug 27, 2023 03:00 PM VA-TOBACCO USE MED NO [facility] [place] [facility] Aug 27, 2023 03:00 PM VA-TOBACCO USE [place] 30 MIN OF WAKEUP [facility] [place] [facility] Aug 27, 2023 03:00 PM VA-TOBACCO USER EVERY DAY [facility] [place] [facility] Dec 09, 2020 03:30 PM VA-TOBACCO DOESNT USE [place] 30 MIN WAKEUP [facility] [place] [facility] Dec 09, 2020 03:30 PM VA-TOBACCO USE > 15 LESS THAN 30 YEARS [facility] [place] [facility] Dec 09, 2020 03:30 PM VA-TOBACCO USE ADVICE [facility] [place] [facility] Dec 09, 2020 03:30 PM VA-TOBACCO USE PATIENT SERVICES REPRESENTATIVE NO [facility] [place] [facility] Dec 09, 2020 03:30 PM VA-TOBACCO USE MED NOTIFY PROVIDER vet requests lucero: does not like gum not helpful [facility] [place] [facility] Dec 09, 2020 03:30 PM VA-TOBACCO USER SOME DAYS [facility] [place] [facility] Jul 08, 2019 12:33 PM VA-TOBACCO DOESNT USE [place] 30 MIN WAKEUP [facility] [place] [facility] Jul 08, 2019 12:33 PM VA-TOBACCO USE > 15 LESS THAN 30 YEARS [facility] [place] [facility] Jul 08, 2019 12:33 PM VA-TOBACCO USE ADVICE [facility] [place] [facility] Jul 08, 2019 12:33 PM VA-TOBACCO USE PATIENT SERVICES REPRESENTATIVE YES [facility] [place] [facility] Jul 08, 2019 12:33 PM VA-TOBACCO USE MED NOTIFY PROVIDER Gum [facility] Jul 08, 2019 12:33 PM VA-TOBACCO USER SOME DAYS [facility] May 15, 2018 03:13 PM CURRENT SMOKER 4-6 cigarettes daily [facility] Nov 22, 2016 08:55 AM CURRENT SMOKER [facility] Nov 22, 2016 08:55 AM V1-PT DECLINES REF TO TOBACCO CESS PRGM [facility] Nov 22, 2016 08:55 AM V1-PT DECLINES TOBACCO CESSATION MEDS [facility] Nov 22, 2016 08:55 AM V1-PT THINKING ABOUT QUIT TOBACCO USE [facility] Nov 15, 2016 09:05 AM CURRENT SMOKER 8 TO 10 CIGARETTES PER DAY [facility] Nov 08, 2016 09:20 AM CURRENT SMOKER Smokes 1/2 pack of cigarettes per day [facility] Oct 31, 2016 06:35 PM TOBACCO INPATIENT DECLINES MEDS [facility] Oct 31, 2016 03:08 PM CURRENT SMOKER [facility] March 07, 2016 09:18 PM V1-PT NOT INTERESTED IN QUIT TOBACCO USE [facility] Jun 11, 2015 10:28 AM CURRENT SMOKER 6-8 cigs per day [facility] Jan 21, 2014 10:56 AM CURRENT SMOKER 4-6 cigarettes per day [facility] Jan 21, 2014 10:56 AM V1-PT NOT INTERESTED IN QUIT TOBACCO USE [facility] Encounter Notes: All associated encounter notes This section contains the clinical notes associated to the Encounter. Date/Time Encounter Note(s) Provider Source Jun 29, 2024 10:08 PM PHARMACY NOTE: LOCAL TITLE: V1 PHARMACY CUSTOMER CARE MEDICATION RENEWAL STANDARD TITLE: PHARMACY NOTE DATE OF NOTE: JUN 29, 2024@22:08 ENTRY DATE: JUN 29, 2024@22:08:56 AUTHOR: BJORN MOULTON COSIGNER: URGENCY: STATUS: COMPLETED V1 PHARMACY CUSTOMER CARE MEDICATION RENEWAL Has ADDENDA Date: Jun Division: [facility] referred by Pharmacy Call Center for medication renewal: Controlled substance Medications requested: [id number] OXYCODONE HCL 5MG TAB NOT SA Defer to primary care provider To be picked up. Please review and renew if appropriate. *This note was generated by [facility] Pharmacy Customer Care. If you have any questions or need assistance, do not contact this author. Please refer all questions to your local, on-site pharmacy departments. /norberto/ BJORN MOULTON CPhT Principal Mechanical Engineer, [place]/Pharmacy Customer Care Signed: 06/29/2024 22:09 Receipt Acknowledged By: 06/30/2024 10:07 /norberto/ GABRIELA SHANKAR MD PHYSICIAN 06/30/2024 10:21 /norberto/ URIAH NKOX, MSN, RN, CNL PRIMARY CARE TEAM NURSE 06/30/2024 ADDENDUM STATUS: COMPLETED PDMP and opioid note done /norberto/ URIAH KNOX, MSN, RN, CNL PRIMARY CARE TEAM NURSE Signed: 06/30/2024 10:21 BJORN MOULTON [place] [facility]
--- OUTSIDE RECORDS SUMMARY | 2024-07-16 07:00 | XMS_ITS ---
Author Name [facility] [place] Address [address] [place] [address] Care Team Providers Care Driver/Guide Name Role Phone GABRIELA SHANKAR Primary Care [...] Relationship to Policy Proctor [facility] Apr 27, 2023 [id number] YENY MOSCOSO PATIENT [employer] ([id number]) [facility] February 25, 2023 [id number] YENY MOSCOSO [facility] [place]GAN[facility] Apr 27, 2023 [id number] YENY MOSCOSO [facility] [place] [facility]GANIZ [facility] February 25, 2023 [id number] [facility] February 25, 2023 [id number] YENY MOSCOSO [facility] PATIENT Selected Encounter This section includes the information on record at [place] for the Encounter. Date/Time Encounter Type Encounter Description Reason Provider Source Jul 16, 2024 11:00 AM ELECTROCARDIOGRAM TRACING PRIMARY CARE/MEDICINE PARVEEN RICHARDSON Encounter Template Text not used by AR Plan of Treatment: Future Appointments (+ 6 months) and Future Tests (+/- 45 days) The Plan of Treatment section includes future care activities for the patient from all [place] treatmentfacritical access hospitalities. This section includes future appointments and future orders which are active, pending or scheduled. Future Appointments This section includes appointments that were scheduled to occur 6 months from the date of the Encounter, up to a maximum of 20 appointments. The data comes from all [place] treatment facilities. Appointment Date/Time Appointment Type Appointme nt Facility Name Aug 28, 2024 08:30 AM AMBULATORY - MEDICINE [facility] [place] [facility] Nov 10, 2024 02:30 PM AMBULATORY - MEDICINE [facility] [place] [facility] Nov 11, 2024 01:30 PM AMBULATORY - MEDICINE [facility] [place] [facility] Dec 03, 2024 08:45 AM AMBULATORY - PSYCHIATRY [facility] [place] [facility] Dec 03, 2024 02:00 PM AMBULATORY - PSYCHIATRY [facility] [place] [facility] Dec 07, 2024 09:00 AM AMBULATORY - PSYCHIATRY [facility] [place] [facility] Dec 28, 2024 08:30 AM AMBULATORY - PSYCHIATRY [facility] [place] [facility] Jan 12, 2025 08:30 AM AMBULATORY - PSYCHIATRY [facility] [place] [facility] Vital Signs: All taken on the encounter date This section contains inpatient and outpatient Vital Signs collected on the date of the Encounter. Date/Time Temperature Pulse Blood Pressure Respiratory Rate SP02 Pain Height Weight Body Mass Index Source Jul 16, 2024 11:02 AM 147/96 [facility] [place] [facility] Jul 16, 2024 10:43 AM 90 160/98 19 97 [facility] [place] [facility] Social History: Smoking Status (Most current) and Tobacco Use (All prior to encounter date) This section includes the most current, and the historical, smoking and tobacco- related health factors from the AR facility where the Encounter took place. Current Smoking Status This section includes the most current smoking, or tobacco-related health factor, from the [place] facility where the Encounter took place. Date/Time Current Smoking Status Comment [facility] Aug 27, 2023 03:00 PM VA-TOBACCO USER EVERY DAY [facility] [place] [facility] Tobacco Use History This section includes a history of the smoking, or tobacco-related health factors, that were collected on or before the date of the Encounter. The data comes from the AR facility where the Encounter took place. Date/Time Smoking Status/Tobac co Use Comment Facility Aug 27, 2023 03:00 PM VA-TOBACCO USE ADVICE [facility] [place] [facility] Aug 27, 2023 03:00 PM VA-TOBACCO USE GARMENT PARTS CUTTER HAND NO [facility] [place] [facility] Aug 27, 2023 03:00 PM VA-TOBACCO USE MED NO [facility] [place] [facility] Aug 27, 2023 03:00 PM VA-TOBACCO USE WI 30 MIN OF WAKEUP [facility] [place] [facility] Aug 27, 2023 03:00 PM VA-TOBACCO USER EVERY DAY [facility] [place] [facility] Dec 09, 2020 03:30 PM VA-TOBACCO DOESNT USE WI 30 MIN WAKEUP [facility] [place] [facility] Dec 09, 2020 03:30 PM VA-TOBACCO USE > 15 LESS THAN 30 YEARS [facility] [place] [facility] Dec 09, 2020 03:30 PM VA-TOBACCO USE ADVICE [facility] [place] [facility] Dec 09, 2020 03:30 PM VA-TOBACCO USE GARMENT PARTS CUTTER HAND NO [facility] [place] [facility] Dec 09, 2020 03:30 PM VA-TOBACCO USE MED NOTIFY PROVIDER vet requests lucero: does not like gum not helpful [facility] [place] [facility] Dec 09, 2020 03:30 PM VA-TOBACCO USER SOME DAYS [facility] [place] [facility] Jul 08, 2019 12:33 PM VA-TOBACCO DOESNT USE WI 30 MIN WAKEUP [facility] [place] [facility] Jul 08, 2019 12:33 PM VA-TOBACCO USE > 15 LESS THAN 30 YEARS [facility] [place] [facility] Jul 08, 2019 12:33 PM VA-TOBACCO USE ADVICE [facility] Jul 08, 2019 12:33 PM VA-TOBACCO USE GARMENT PARTS CUTTER HAND YES [facility] [place] [facility] Jul 08, 2019 12:33 PM VA-TOBACCO USE MED NOTIFY PROVIDER G[facility] Jul 08, 2019 12:33 PM VA-TOBACCO USER SOME DAYS [facility] May 15, 2018 03:13 PM CURRENT SMOKER 4-[address] [facility] [place] [facility] Nov 22, 2016 08:55 AM [facility] Nov 22, 2016 08:55 AM V1-PT DECLINES REF TO TOBACCO CESS [facility] Nov 22, 2016 08:55 AM V1-PT DECLINES TOBACCO CESSATION MEDS [facility] Nov 22, 2016 08:55 AM V1-PT THINKING ABOUT QUIT TOBACCO USE [facility] [place] [facility] Nov 15, 2016 09:05 AM CURRENT SMOKER 8 TO 10 CIGARETTES PER DAY [facility] Nov 08, 2016 09:20 AM CURRENT SMOKER Smokes 1/2 pack of cigarettes per day [facility] Oct 31, 2016 06:35 PM TOBACCO INPATIENT DECLINES MEDS [facility] Oct 31, 2016 03:08 PM CURRENT SMOKER [facility] [place] [facility] March 07, 2016 09:18 PM V1-PT NOT INTERESTED IN QUIT TOBACCO USE [facility] [place] [facility] Jun 11, 2015 10:28 AM CURRENT SMOKER 6-8 cigs per day [facility] [place] [facility] Jan 21, 2014 10:56 AM CURRENT SMOKER 4-6 cigarettes per day [facility] [place] [facility] Jan 21, 2014 10:56 AM V1-PT NOT INTERESTED IN QUIT TOBACCO USE [facility] Encounter Notes: All associated encounter notes This section contains the clinical notes associated to the Encounter. Date/Time Encounter Note(s) Provider Source Jul 16, 2024 10:02 AM PHYSICIAN NOTE: LOCAL TITLE: MD NOTE STANDARD TITLE: PHYSICIAN NOTE DATE OF NOTE: JUL 16, 2024@10:02 ENTRY DATE: JUL 16, 2024@10:03:06 AUTHOR: TI SHANKAR EXP COSIGNER: URGENCY: STATUS: COMPLETED HISTORY OF PRESENT ILLNESS: = GABRIELA Farmer BLANKA, is a 53 yo WHITE MALE who presents at the [facility] CC. chronic pain HPI. 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 he notes stiffness and hx of episodes of spasm in lower back. 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 He has hx of normal renal fxn and uses OTC meds/nsaids prn for pain relief. NO heartburn/no hx of GI bleeding. SH smokes few cigs daily Active problems - Computerized Problem List is the source for the followin. 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 Chronic pain 3. Serum AST (aspartate aminotransferase) level outside reference range 4. Exposure to potentially hazardous substance 5. Tobacco abuse 6. Ankle pain 7. Alcohol dependence 8. Anxiety disorder 9. Obesity 10. Impaired fasting glucose 11. Hyperlipidemia 12. Back pain 13. Benign essential hypertension 14. Sciatica (SNOMED CT 26665518) 15. Generalized anxiety disorder (SNOMED CT 91339804) 16. Depressive episode (SNOMED CT 92917571) HISTORY: PERIOD OF SERVICE - [facility] FROM Aug TO May COMBAT SERVICE INDICATED: No SERVICE CONNECTED % - 10 VITAL SIGNS: Temperature 98.5 F [36.9 C] (08/27/2023 15:04) Blood Pressure 140/78 (04/09/2024 11:16) Pulse 80 (04/09/2024 11:02) Respiration 20 (04/09/2024 11:02) Pain 0 (08/27/2023 15:04) BMI BMI: 28.8 Weight 230 lb [104.33 kg] (04/09/2024 11:02) Pulse Oximetry 94% (04/09/2024 11:02) Review of Systems: CONSTITUTIONAL: No fever, no loss of appetite ENT: No sore throat, no cough CARDIOVASCULAR: No chest pain, no palpitations RESPIRATORY: No SOB, no wheezing GASTROINTESTINAL: No abd pain, no N/V/D, no change in stool EXAMINATION General: this is 53 yo gentleman in no obvious distress. Mental Status: Alert and oriented x 3 Head: Normocephalic. Eyes: Anicteric sclerae. Conjunctivae noninjected. CV: RRR. No murmur Neuro: Normal speech & vet has antalgic gait due to back pain/stiffness DATA REVIEW >> MEDICATIONS Reviewed Today (VA & Non VA) ALLERGIES: Patient has answered NKA Active Outpatient Medications (including Supplies): Issue Date Status Last Fill Active Outpatient Medications Refills Expiration 1) FENOFIBRATE 48MG TAB Qty: 90 for 90 ACTIVE Issu:04-06-24 days Sig: TAKE ONE TABLET BY MOUTH Refills: 3 Last:04-06-24 ONCE DAILY Expr:04-07-25 2) LIDOCAINE 5% OINT Qty: 35 for 90 days ACTIVE Issu:05-05-24 Sig: APPLY SMALL AMOUNT TOPICALLY Refills: 2 Last:05-06-24 TWICE DAILY FOR MINOR SKIN WOUND PAIN Expr:05-06-25 3) NALOXONE HCL 4MG/SPRAY SOLN NASAL SPRAY ACTIVE Issu:06-02-24 Qty: 2 for 90 days Sig: INSTILL 1 Refills: 0 Last:06-10-24 SPRAY ONE NOSTRIL ONE TIME NEEDED Expr:08-31-24 FOR OPIOID OVERDOSE CALL 911 WITH ADMINISTRATION. REPEAT WITH SECOND DEVICE IF SYMPTOMS RETURN 4) OXYCODONE HCL 5MG TAB NOT SA Qty: ACTIVE Issu:06-30-24 112 for 28 days Sig: TAKE ONE TABLET Refills: 0 Last:07-02-24 BY MOUTH EVERY 6 HOURS NEXT FILL 07/31 Expr:07-30-24 5) UREA 40% CREAM Qty: 60 for 90 days ACTIVE Issu:05-14-24 Sig: APPLY A SMALL AMOUNT TOPICALLY Refills: 2 Last:05-14-24 ONCE DAILY APPLY TO CALLOUSED SKIN Expr:05-15-25 Start Date Active Non-VA Medications Refills Expiration 1) Non-VA LISINOPRIL 20MG TAB SiMG BY ACTIVE MOUTH EVERY MORNING 2) Non-VA LORAZEPAM 0.5MG TAB Si.5MG ACTIVE BY MOUTH THREE TIMES A DAY 7 Total Medications >> LABS REVIEWED TODAY: CHEM 7 TREND LAB CUMULATIVE SELECTED Collection DT Spec GLUCOSE BUN CREATIN Sodium K+/Pot CL CO2 04/09/2024 11:37 SERUM 130 H 7 0.85 141 4.1 106 23 08/27/2023 14:00 SERUM 109 H 6 L 0.81 138 4.5 102 25 03/31/2021 13:13 SERUM 134 H 10 0.86 136 4.5 101 23 08/17/2019 15:25 SERUM 111 H 10 0.90 141 4.5 104 26 08/22/2018 14:49 SERUM 167 H 12 0.86 137 4.1 102 25 LAB CUMULATIVE SELECTED 2 No selection items chosen for this component. CHEM 7 Results Collection DT Spec Sodium K+/Pot CL CO2 GLUCOSE BUN 04/09/2024 11:37 SERUM 141 4.1 106 23 130 H 7 08/27/2023 14:00 SERUM 138 4.5 102 25 109 H 6 L 03/31/2021 13:13 SERUM 136 4.5 101 23 134 H 10 08/17/2019 15:25 SERUM 141 4.5 104 26 111 H 10 08/22/2018 14:49 SERUM 137 4.1 102 25 167 H 12 11/01/2016 07:00 SERUM 143 5.2 H 106 29 85 11 10/31/2016 15:44 SERUM 135 4.5 101 22 106 H 6 L 09/21/2016 10:27 SERUM 140 4.6 104 26 94 14 03/28/2016 10:27 SERUM 139 4.6 105 25 114 H 10 02/29/2016 10:41 SERUM 140 4.1 104 25 116 H 14 06/03/2015 12:11 SERUM 139 4.8 104 25 116 H 10 11/26/2014 11:33 SERUM 140 4.7 104 27 132 H 12 12/21/2013 12:10 SERUM 141 4.6 105 24 106 H 11 === CBC TREND Collection DT Spec WBC RBC HGB HCT MCV MCH PLT 08/27/2023 14:00 BLOOD 7.14 5.75 H 16.9 52.0 H 90.4 29.4 154 12/08/2021 13:20 BLOOD 8.86 5.51 16.5 51.0 H 92.6 29.9 173 03/31/2021 13:13 BLOOD 7.92 5.37 16.0 49.3 91.8 29.8 168 08/17/2019 15:25 BLOOD 11.03 H 5.59 16.2 50.9 H 91.1 29.0 200 08/22/2018 14:49 BLOOD 8.47 5.31 16.1 48.7 91.7 30.3 166 === HEMOGLOBIN A1C TREND Collection DT Spec HGBA1c 04/09/2024 11:37 BLOOD 5.3 03/31/2021 13:13 BLOOD 5.2 08/17/2019 15:25 BLOOD 5.7 H 09/21/2016 10:27 BLOOD 5.5 === LIPID PANEL TREND Collection DT Spec CHOL HDL CHO/HDL LDL-d LDL-c TRIG 04/09/2024 11:37 SERUM 228 H 46 5.0 155 H 137 08/27/2023 14:00 SERUM 247 H 47 5.3 97 Reflex to dLDL 698 H 03/31/2021 13:13 SERUM 238 H 58 4.1 154 H 132 08/17/2019 15:25 SERUM 240 H 65 H 3.7 146 H 144 08/22/2018 14:49 SERUM 212 H 63 H 3.4 127 110 === UREA NITROGEN 04/09/24 11:37 7 08/27/23 14:00 6 L CREATININE-EGFR 04/09/24 11:37 0.85 08/27/23 14:00 0.81 === LIVER PANEL TREND Collection DT Spec AST ALT T BILI ALK MATT T. PROT ALBUMIN 04/09/2024 11:37 SERUM 4.1 08/27/2023 14:00 SERUM 51 H 57 H 0.4 87 7.5 4.1 12/08/2021 13:20 SERUM 34 63 H 0.6 62 4.4 03/31/2021 13:13 SERUM 41 H 72 H 1.6 H 71 7.9 4.5 08/17/2019 15:25 SERUM 43 H 84 H 0.8 61 7.4 4.3 === PSA TREND Collection DT Spec PSA SR- 08/27/2023 14:00 SERUM 0.38 = Collection DT Spec TSH 08/27/2023 14:00 SERUM 2.10 == ANEMIA PANEL TREND Collection DT Spec B12 SR- HCT Ferrit IRON TIBC 04/09/2024 11:37 SERUM 883 H 139 412 08/27/2023 14:00 BLOOD 52.0 H 12/08/2021 13:20 BLOOD 51.0 H 03/31/2021 13:13 BLOOD 49.3 08/17/2019 15:25 BLOOD 50.9 H === PT INR TREND No data available === >> HEALTH MAINTENANCE PREVENTIVE MEDICINE GOALS Advance Directive Screen MH AD Sep 18 BMI>30/>24.99 High Risk Aug 18 Hepatitis B Serology/Immunization DUE NOW Home Telehealth (CCHT) Referral DUE NOW Pneumococcal Conjugate Vaccine (PCV15/PCDUE NOW Influenza Immunization DUE NOW Medication Reconciliation DUE NOW COVID-19 Immunization DUE NOW HTN Assess for Elevated BP>=140/90 DUE NOW Sexual Orientation DUE NOW RHS Screen DUE NOW (Optional) Whole Health Documentation DUE NOW ASSESSMENT/PLAN: 1. chronic low back pain Plan 1. vet will continue oxycodone 4 times daily 2. f/u w/ PCP in 3 mos 3. plan for pain clinic eval in 2024 LAB ORDERS FOR NEXT APPT. spent in patient care and education No barriers; Patient understands and agrees to current treatment plan. If pt has any questions, concerns, or changes in current health status he/she will call or come in to the VA. Medication Reconciliation: Outpatient: Has the patient been taking medications as documented in the EMLR? YES: The patient has been taking medications as documented in the EMLR. Essential Medication List for Review used to complete this medication reconciliation. INCLUDED IN THIS LIST: Alphabetical list of active outpatient prescriptions dispensed from this VA (local) and dispensed from another VA or DoD facility (remote) as well as inpatient orders (local, pending and active), local clinic medications, locally documented non-VA medications, and local prescriptions that have or been discontinued in the past 90 days. - All changes in medications, including all non-VA/Herbal/OTC medications were entered into CPRS. - If there were any medications the patient should no longer take, they were discontinued. - The patient/caregiver was instructed to update this list, discard old lists, and take this list to the next appointment, whether with a VA or non-VA provider. /norberto/ GABRIELA SHANKAR MD PHYSICIAN Signed: 07/16/2024 11:22 [facility]
--- OUTSIDE RECORDS SUMMARY | 2024-07-24 19:22 | XMS_ITS | Encounter Summary ---
Author Name [facility] [place] Address [address] [place] [address] Care Team Providers Care Director Financial Analysis Name Role Phone GABRIELA SHANKAR Primary Care [...] Relationship to Policy Proctor CAREMARK PRESCRIPT ION [facility] Apr 27, 2023 [id number] BLANKAOK GINO PATIENT EXPRESS SCRIPTS ([id number]) PRESCRIPT ION [facility] February 25, 2023 [id number] [facility] Apr 27, 2023 [id number] [facility] February 25, 2023 [id number] [facility] February 25, 2023 [id number] YENY MOSCOSO PATIENT Selected Encounter This section includes the information on record at [place] for the Encounter. Date/Time Encounter Type Encounter Description Reason Pro vider Source Jul 24, 2024 11:22 PM Outpatient Encounter ADMIN PAT ACTIVTIES (MASNONCT) IHE Encounter Template Text not used by [place] Plan of Treatment: Future Appointments (+ 6 months) and Future Tests (+/- 45 days) The Plan of Treatment section includes future care activities for the patient from all [place] treatmentfacilities. This section includes future appointments and future orders which are active, pending or scheduled. Future Appointments This section includes appointments that were scheduled to occur 6 months from the date of the Encounter, up to a maximum of 20 appointments. The data comes from all [place] treatment facilities. Appointment Date/Time Appointment Type Appointme nt Facility Name Aug 28, 2024 08:30 AM AMBULATORY - MEDICINE [place] [facility] Nov 10, 2024 02:30 PM AMBULATORY - MEDICINE [facility] [place] [facility] Nov 11, 2024 01:30 PM AMBULATORY - MEDICINE [facility] [place] [facility] Dec 03, 2024 08:45 AM AMBULATORY - PSYCHIATRY [place] [facility] [place] [facility] Dec 03, 2024 02:00 PM AMBULATORY - PSYCHIATRY [place] [facility] [facility] Dec 07, 2024 09:00 AM AMBULATORY - PSYCHIATRY [place] [facility] Dec 28, 2024 08:30 AM AMBULATORY - PSYCHIATRY [place] [facility] [place] [facility] Jan 12, 2025 08:30 AM [facility] [place] [facility] Social History: Smoking Status (Most current) and Tobacco Use (All prior to encounter date) This section includes the most current, and the historical, smoking and tobacco- related health factors from the [place] facility where the Encounter took place. Current Smoking Status This section includes the most current smoking, or tobacco-related health factor, from the [place] facility where the Encounter took place. Date/Time Current Smoking Status Comment Nilesh clark Aug 27, 2023 03:00 PM VA-TOBACCO USER EVERY DAY [facility] Tobacco Use History This section includes a history of the smoking, or tobacco-related health factors, that were collected on or before the date of the Encounter. The data comes from the [facility] where the Encounter took place. 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 [facility] [place] [facility] Aug 27, 2023 03:00 PM VA-TOBACCO USE MED NO [facility] [place] [facility] Aug 27, 2023 03:00 PM VA-TOBACCO USE WI 30 MIN OF WAKEUP [facility] [place] [facility] Aug 27, 2023 03:00 PM VA-TOBACCO USER EVERY DAY [facility] [place] [facility] Dec 09, 2020 03:30 PM VA-TOBACCO DOESNT USE WI 30 MIN WAKEUP [facility] [place] [facility] Dec 09, 2020 03:30 PM VA-TOBACCO USE > 15 LESS THAN 30 YEARS [facility] [place] [facility] Dec 09, 2020 03:30 PM VA-TOBACCO USE ADVICE [facility] [place] [facility] Dec 09, 2020 03:30 PM VA-TOBACCO USE 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 NO [facility] [place] [facility] Dec 09, 2020 03:30 PM VA-TOBACCO USE MED NOTIFY PROVIDER vet requests lucero: does not like gum not helpful [facility] [place] [facility] Dec 09, 2020 03:30 PM VA-TOBACCO USER SOME DAYS [facility] [place] [facility] Jul 08, 2019 12:33 PM VA-TOBACCO DOESNT USE WI 30 MIN WAKEUP [facility] [place] [facility] Jul 08, 2019 12:33 PM VA-TOBACCO USE > 15 LESS THAN 30 YEARS [facility] [place] [facility] Jul 08, 2019 12:33 PM VA-TOBACCO USE ADVICE [facility] [place] [facility] Jul 08, 2019 12:33 PM VA-TOBACCO USE 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 YES [facility] [place] [facility] Jul 08, 2019 12:33 PM VA-TOBACCO USE MED NOTIFY PROVIDER Gum [facility] Jul 08, 2019 12:33 PM VA-TOBACCO USER SOME DAYS [facility] May 15, 2018 03:13 PM CURRENT SMOKER 4-6 cigarettes daily [facility] Nov 22, 2016 08:55 AM CURRENT SMOKER [facility] Nov 22, 2016 08:55 AM V1-PT DECLINES REF TO TOBACCO CESS PRGM [facility] Nov 22, 2016 08:55 AM V1-PT DECLINES TOBACCO CESSATION MEDS [facility] Nov 22, 2016 08:55 AM V1-PT THINKING ABOUT QUIT TOBACCO USE [facility] Nov 15, 2016 09:05 AM CURRENT SMOKER 8 TO 10 CIGARETTES PER DAY [facility] Nov 08, 2016 09:20 AM CURRENT SMOKER Smokes 1/2 pack of cigarettes per day [facility] Oct 31, 2016 06:35 PM TOBACCO INPATIENT DECLINES MEDS [facility] Oct 31, 2016 03:08 PM CURRENT SMOKER [facility] March 07, 2016 09:18 PM V1-PT NOT INTERESTED IN QUIT TOBACCO USE [facility] Jun 11, 2015 10:28 AM CURRENT SMOKER 6-8 cigs per day [facility] Jan 21, 2014 10:56 AM CURRENT SMOKER 4-6 cigarettes per day [facility] Jan 21, 2014 10:56 AM V1-PT NOT INTERESTED IN QUIT TOBACCO USE [facility] Encounter Notes: All associated encounter notes This section contains the clinical notes associated to the Encounter. Date/Time Encounter Note(s) Provider Source Jul 24, 2024 11:22 PM PHARMACY NOTE: LOCAL TITLE: V1 PHARMACY CUSTOMER CARE MEDICATION RENEWAL STANDARD TITLE: PHARMACY NOTE DATE OF NOTE: JUL 24, 2024@23:22 ENTRY DATE: JUL 24, 2024@23:22:41 AUTHOR: REJI QUINTERO COSIGNER: URGENCY: STATUS: COMPLETED V1 PHARMACY CUSTOMER CARE MEDICATION RENEWAL Has ADDENDA Date: Jun Division: [facility] referred by Pharmacy Call Center for medication renewal: Controlled substance Medications requested: [id number] OXYCODONE HCL 5MG TAB NOT SA Defer to specialty clinic To be mailed . Please review and renew if appropriate. *This note was generated by [facility]/[place] Pharmacy Customer Care. If you have any questions or need assistance, do not contact this author. Please refer all questions to your local, on-site pharmacy departments. /norberto/ REJI QUINTERO CPhT Chemical Preparer, [place]/Pharmacy Customer Care Signed: 07/24/2024 23:22 Receipt Acknowledged By: 07/25/2024 09:52 /norberto/ GABRIELA SHANKAR MD PHYSICIAN 07/27/2024 07:59 /norberto/ URIAH KNOX, MSN, RN, CNL PRIMARY CARE TEAM NURSE 07/27/2024 ADDENDUM STATUS: COMPLETED PDMP and Opioid note done /norberto/ URIAH KNOX, MSN, RN, CNL PRIMARY CARE TEAM NURSE Signed: 07/27/2024 07:59 REJI QUINTERO [place] [facility]
--- OUTSIDE RECORDS SUMMARY | 2024-08-23 21:36 | XMS_ITS | Encounter Summary ---
Author Name [facility] [place] Address [address] [place] [address] Care Team Providers Care Brick Picker Name Role Phone GABRIELA SHANKAR Primary Care [...] Relationship to Policy Proctor CAREMARK PRESCRIPT ION [facility] Apr 27, 2023 [id number] BLANKAIL GINO PATIENT EXPRESS SCRIPTS ([id number]) PRESCRIPT ION [facility] February 25, 2023 [id number] [facility] Apr 27, 2023 [id number] [facility] February 25, 2023 [id number] [facility] February 25, 2023 [id number] YENY MOSCOSO PATIENT Selected Encounter This section includes the information on record at [place] for the Encounter. Date/Time Encounter Type Encounter Description Reason Pro vider Source Aug 24, 2024 01:36 AM Outpatient Encounter ADMIN PAT ACTIVTIES (MASNONCT) IHE Encounter Template Text not used by [place] Plan of Treatment: Future Appointments (+ 6 months) and Future Tests (+/- 45 days) The Plan of Treatment section includes future care activities for the patient from all [place] treatmentfacilities. This section includes future appointments and future orders which are active, pending or scheduled. Future Appointments This section includes appointments that were scheduled to occur 6 months from the date of the Encounter, up to a maximum of 20 appointments. The data comes from all [place] treatment facilities. Appointment Date/Time Appointment Type Appointme nt Facility Name Aug 28, 2024 08:30 AM AMBULATORY - [place]ICINE [place] [facility] Nov 10, 2024 02:30 PM AMBULATORY - MEDICINE [place] [facility] Nov 11, 2024 01:30 PM AMBULATORY - MEDICINE [place] [facility] Dec 03, 2024 08:45 AM AMBULATORY - PSYCHIATRY [place] [facility] Dec 03, 2024 02:00 PM AMBULATORY - PSYCHIATRY [place] [facility] Dec 07, 2024 09:00 AM AMBULATORY - PSYCHIATRY [place] [facility] Dec 28, 2024 08:30 AM AMBULATORY - PSYCHIATRY [place] [facility] Jan 12, 2025 08:30 AM AMBULATORY - PSYCHIATRY [place] [facility] Feb 02, 2025 08:00 AM AMBULATORY - PSYCHIATRY [place] [facility] Social History: Smoking Status (Most current) and Tobacco Use (All prior to encounter date) This section includes the most current, and the historical, smoking and tobacco- related health factors from the [place] facility where the Encounter took place. Current Smoking Status This section includes the most current smoking, or tobacco-related health factor, from the [place] facility where the Encounter took place. Date/Time Current Smoking Status Carlo clark Aug 27, 2023 03:00 PM VA-TOBACCO USER EVERY DAY [facility] [place] [facility] Tobacco Use History This section includes a history of the smoking, or tobacco-related health factors, that were collected on or before the date of the Encounter. The data comes from the [place] facility where the Encounter took place. 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 [facility] [place] [facility] Aug 27, 2023 03:00 PM VA-TOBACCO USE MED NO [facility] [place] [facility] Aug 27, 2023 03:00 PM VA-TOBACCO USE WI 30 MIN OF WAKEUP [facility] [place] [facility] Aug 27, 2023 03:00 PM VA-TOBACCO USER EVERY DAY [facility] [place] [facility] Dec 09, 2020 03:30 PM VA-TOBACCO DOESNT USE WI 30 MIN WAKEUP [facility] [place] [facility] Dec 09, 2020 03:30 PM VA-TOBACCO USE > 15 LESS THAN 30 YEARS [facility] [place] [facility] Dec 09, 2020 03:30 PM VA-TOBACCO USE ADVICE [facility] [place] [facility] Dec 09, 2020 03:30 PM VA-TOBACCO USE 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 [facility] [place] [facility] Dec 09, 2020 03:30 PM VA-TOBACCO USE MED NOTIFY PROVIDER vet requests lucero: does not like gum not helpful [place] [facility] Dec 09, 2020 03:30 PM VA-TOBACCO USER SOME DAYS [facility] [place] [facility] Jul 08, 2019 12:33 PM VA-TOBACCO DOESNT USE WI 30 MIN WAKEUP [facility] [place] [facility] Jul 08, 2019 12:33 PM VA-TOBACCO USE > 15 LESS THAN 30 YEARS [facility] [place] [facility] Jul 08, 2019 12:33 PM VA-TOBACCO USE ADVICE [facility] [place] [facility] Jul 08, 2019 12:33 PM VA-TOBACCO USE 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 [facility] [place] [facility] Jul 08, 2019 12:33 PM VA-TOBACCO USE MED NOTIFY PROVIDER Gum [facility]TR[facility] Jul 08, 2019 12:33 PM VA-TOBACCO USER SOME DAYS [facility] RAM[facility]NTR[facility] May 15, 2018 03:13 PM CURRENT SMOKER 4-6 cigarettes daily [facility] Nov 22, 2016 08:[address] [facility] RAM[facility]NN [facility] Nov 22, 2016 08:55 AM V1-PT DECLINES REF TO TOBACCO CESS PRGM [facility] Nov 22, 2016 08:55 AM V1-PT DECLINES TOBACCO CESSATION MEDS [facility] Nov 22, 2016 08:55 AM V1-PT THINKING ABOUT QUIT TOBACCO USE [facility] RAMÓNTRN [facility] Nov 15, 2016 09:05 AM CURRENT SMOKER 8 TO 10 CIGARETTES PER DAY [facility] Nov 08, 2016 09:20 AM CURRENT SMOKER Smokes 1/2 pack of cigarettes per day [facility] Oct 31, 2016 06:35 PM TOBACCO INPATIENT DECLINES MEDS [facility] Oct 31, 2016 03:08 PM CURRENT SMOKER [facility] RAMÓNTRN DEE [place]ETS [facility] March 07, 2016 09:18 PM V1-PT NOT INTERESTED IN QUIT TOBACCO USE [facility] Jun 11, 2015 10:28 AM CURRENT SMOKER 6-8 cigs per day [facility] [place] [facility] Jan 21, 2014 10:56 AM CURRENT SMOKER 4-6 cigarettes per day [facility] [facility] Jan 21, 2014 10:56 AM V1-PT NOT INTERESTED IN QUIT TOBACCO USE [facility] Encounter Notes: All associated encounter notes This section contains the clinical notes associated to the Encounter. Date/Time Encounter Note(s) Provider Source Aug 24, 2024 01:36 AM PHARMACY NOTE: LOCAL TITLE: V1 PHARMACY CUSTOMER CARE MEDICATION RENEWAL STANDARD TITLE: PHARMACY NOTE DATE OF NOTE: AUG 24, 2024@01:36 ENTRY DATE: AUG 24, 2024@01:36:11 AUTHOR: WENDI MILLER EXP COSIGNER: URGENCY: STATUS: COMPLETED V1 PHARMACY CUSTOMER CARE MEDICATION RENEWAL Has ADDENDA Date: Jul Division: [facility] referred by Pharmacy Call Center for medication renewal: Controlled substance Medications requested: [id number] OXYCODONE HCL 5MG TAB NO SA Defer to primary care provider To be picked up. Please review and renew if appropriate. *This note was generated by [facility]/[place] Pharmacy Customer Care. If you have any questions or need assistance, do not contact this author. Please refer all questions to your local, on-site pharmacy departments. /norberto/ WENDI MILLER [facility] Reeling Machine Operator, [place]/Pharmacy Customer Care Signed: 08/24/2024 01:36 Receipt Acknowledged By: 08/24/2024 08:32 /norberto/ GABRIELA SHANKAR MD PHYSICIAN 08/24/2024 08:42 /norberto/ URIAH KNOX, MSN, RN, CNL PRIMARY CARE TEAM NURSE 08/24/2024 ADDENDUM STATUS: COMPLETED PDMP done and Opioid note /norberto/ URIAH KNOX, MSN, RN, CNL PRIMARY CARE TEAM NURSE Signed: 08/24/2024 08:42 WENDI MILLER [place] [facility]
--- OUTSIDE RECORDS SUMMARY | 2024-10-20 20:11 | XMS_ITS | Encounter Summary ---
Author Name [facility] [place] Organization [place] Address [address] [place] [address] Care Team Providers Care Production Controller Name Role Phone GABRIELA SHANKAR Primary Care [...] Relationship to Policy Proctor CAREMARK PRESCRIPT ION [facility] Apr 27, 2023 [id number] BLANKAME GINO PATIENT EXPRESS SCRIPTS ([id number]) PRESCRIPT ION [facility] February 25, 2023 [id number] [facility] Apr 27, 2023 [id number] [facility] February 25, 2023 [id number] [facility] February 25, 2023 [id number] YENY MOSCOSO PATIENT Selected Encounter This section includes the information on record at [place] for the Encounter. Date/Time Encounter Type Encounter Description Reason Pro vider Source Oct 21, 2024 12:11 AM Outpatient Encounter ADMIN PAT ACTIVTIES (MASNONCT) IHE Encounter Template Text not used by [place] Plan of Treatment: Future Appointments (+ 6 months) and Future Tests (+/- 45 days) The Plan of Treatment section includes future care activities for the patient from all [place] treatmentfacilities. This section includes future appointments and future orders which are active, pending or scheduled. Future Appointments This section includes appointments that were scheduled to occur 6 months from the date of the Encounter, up to a maximum of 20 appointments. The data comes from all [place] treatment facilities. Appointment Date/Time Appointment Type Appointme nt Facility Name Nov 10, 2024 02:30 PM AMBULATORY - [place]ICINE [place] [facility] [place] [facility] Nov 11, 2024 01:30 PM AMBULATORY - MEDICINE [place] [facility] [place] [facility] Dec 03, 2024 08:45 AM AMBULATORY - PS[place]CHIATRY [place] [facility] [place] [facility] Dec 03, 2024 02:00 PM AMBULATORY - PS[place]IATRY [place] [facility] [place] [facility] Dec 07, 2024 09:00 AM AMBULATORY - PS[place]CHIATRY [place] [facility] [place] [facility] Dec 28, 2024 08:30 AM AMBULATORY - PS[place]CHIATRY [place] [facility] [place] [facility] Jan 12, 2025 08:30 AM AMBULATORY - PS[place]CHIATRY [place] [facility] [place] [facility] Feb 02, 2025 08:00 AM AMBULATORY - PS[place]CHIATRY [place] [facility] [place] [facility] February 25, 2025 01:00 PM AMBULATORY - MEDICINE [facility] [place] [facility] Social History: Smoking Status (Most current) and Tobacco Use (All prior to encounter date) This section includes the most current, and the historical, smoking and tobacco- related health factors from the [facility] facility where the Encounter took place. Current Smoking Status This section includes the most current smoking, or tobacco-related health factor, from the [place] facility where the Encounter took place. Date/Time Current Smoking Status Carlo clark Aug 28, 2024 08:30 AM VA-TOBACCO USER EVERY DAY [place] [facility] [place] [facility] Tobacco Use History This section includes a history of the smoking, or tobacco-related health factors, that were collected on or before the date of the Encounter. The data comes from the [place] facility where the Encounter took place. 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 [place] [facility] [place] [facility] Aug 28, 2024 08:30 AM VA-TOBACCO USE MED NO [place] [facility] [place] [facility] Aug 28, 2024 08:30 AM VA-TOBACCO USER EVERY DAY [place] [facility] [place] [facility] Aug 27, 2023 03:00 PM VA-TOBACCO USE > 15 LESS THAN 30 YEARS [place] [facility] [place] [facility] Aug 27, 2023 03:00 PM VA-TOBACCO USE ADVICE [place] [facility] [place] [facility] Aug 27, 2023 03:00 PM VA-TOBACCO USE CLOTH CHECKER NO [place] [facility] [place] [facility] Aug 27, 2023 03:00 PM VA-TOBACCO USE MED NO [place] [facility] [place] [facility] Aug 27, 2023 03:00 PM VA-TOBACCO USE [place] 30 MIN OF WAKEUP [place] [facility] [place] [facility] Aug 27, 2023 03:00 PM VA-TOBACCO USER EVERY DAY [facility] [place] [facility] Dec 09, 2020 03:30 PM VA-TOBACCO DOESNT USE WI 30 MIN WAKEUP [place] [facility] [place] [facility] Dec 09, 2020 03:30 PM VA-TOBACCO USE > 15 LESS THAN 30 YEARS [place] [facility] [place] [facility] Dec 09, 2020 03:30 PM VA-TOBACCO USE ADVICE [place] [facility] [place] [facility] Dec 09, 2020 03:30 PM VA-TOBACCO USE CLOTH CHECKER NO [place] [facility] [place] [facility] Dec 09, 2020 03:30 PM VA-TOBACCO USE MED NOTIFY PROVIDER vet requests lucero: does not like gum not helpful [facility] [place] [facility] Dec 09, 2020 03:30 PM VA-TOBACCO USER SOME DAYS [place] [facility] [place] [facility] Jul 08, 2019 12:33 PM VA-TOBACCO DOESNT USE [place] 30 MIN WAKEUP [place] [facility] [place] [facility] Jul 08, 2019 12:33 PM VA-TOBACCO USE > 15 LESS THAN 30 YEARS [place] [facility] [place] [facility] Jul 08, 2019 12:33 PM VA-TOBACCO USE ADVICE [place] [facility] [place] [facility] Jul 08, 2019 12:33 PM VA-TOBACCO USE CLOTH CHECKER YES [place] [facility] Jul 08, 2019 12:33 PM VA-TOBACCO USE MED NOTIFY PROVIDER Gum [facility] Jul 08, 2019 12:33 PM VA-TOBACCO USER SOME DAYS [place] CNTR [place]TRN [place] [facility] May 15, 2018 03:13 PM CURRENT SMOKER 4-6 cigarettes daily [place] [facility] [place] [facility] Nov 22, 2016 08:55 AM CURRENT SMOKER [facility] [place] [facility] Nov 22, 2016 08:55 AM V1-PT DECLINES REF TO TOBACCO CESS PRGM [place] [facility] [place] [facility] Nov 22, 2016 08:55 AM V1-PT DECLINES TOBACCO CESSATION MEDS [facility] [place] [facility] Nov 22, 2016 08:55 AM V1-PT THINKING ABOUT QUIT TOBACCO USE [place] [facility] [place] [facility] Nov 15, 2016 09:05 AM CURRENT SMOKER 8 TO 10 CIGARETTES PER DAY [place] [facility] [place] [facility] Nov 08, 2016 09:20 AM CURRENT SMOKER Smokes 1/2 pack of cigarettes per day [facility] [place] [facility] Oct 31, 2016 06:35 PM TOBACCO INPATIENT DECLINES MEDS [place] [facility] [place] [facility] Oct 31, 2016 03:08 PM [facility]KER [facility] [place] [facility] March 07, 2016 09:18 PM V1-PT NOT INTERESTED IN QUIT TOBACCO USE [place] [facility] [place] [facility] Jun 11, 2015 10:28 AM CURRENT SMOKER 6-8 cigs per day [facility] Jan 21, 2014 10:56 AM CURRENT SMOKER 4-6 cigarettes per day [facility] Jan 21, 2014 10:56 AM V1-PT NOT INTERESTED IN QUIT TOBACCO USE [facility] Radiology Reports: +/- 30 days of the encounter Radiology Reports For cases when an order for radiology services may have been completed prior to the date of the Encounter, the report list includes the Radiology Reports that were completed up to 30 days before dateof the Encounter. For cases when an order for radiology services may have been completed after the date of the Encounter, the report list also includes the Radiology Reports that were completed up to30 days after date of the Encounter. The data comes from all [facility] facilities. Date/Time Radiology Report Provider Source Nov 11, 2024 12:15 PM FOOT 3 OR MORE VIEWS(LEFT): BLANKAGABRIELA [id number] -1970 M Ex Date: NOV 11, 2024@12:15 Req Phys: JONNY PARIS Loc: CWM/NO/PODIATRY A (Req'g Loc) Img Loc: [facility] 1 Service: [place] [address] (Case 180 COMPLETE) FOOT 3 OR MORE VIEWS(LEFT) (RAD Detailed) CPT:79438 Proc Modifiers : LEFT CPT Modifiers : LT LEFT SIDE Reason for Study: sprain x 2 weeks with echymosis pain base fifth met left Clinical History: Report Status: Verified Date Reported: NOV 11, 2024 Date Verified: NOV 11, 2024 Communications Representative E-Sig:/ES/CANDACE HOFFMAN JR Report: Study: Weight-bearing AP, lateral, and oblique views of the left foot. Comparison: None. Findings: The soft tissues appear normal with no soft tissue swelling, calcifications or radiopaque foreign body identified. The bony mineralization is normal. There is no bony fracture, dislocation or subluxation. The plantar arch is maintained. No calcaneal spurs are identified. The left fifth metatarsal bone appears normal. If the patient continues to have pain, or an occult fracture is suspected, repeat radiographs in 7-10 days are recommended. Impression: No acute bony abnormality identified. Primary Diagnostic Code: No immediate attention required Primary Interpreting Staff: CANDACE HOFFMAN JR, Radiologist (Communications Representative) /CANDACE ELIZONDO JR [facility] Encounter Notes: All associated encounter notes This section contains the clinical notes associated to the Encounter. Date/Time Encounter Note(s) Provider Source Oct 21, 2024 12:11 AM PHARMACY NOTE: LOCAL TITLE: PHARMACY CUSTOMER CARE MEDICATION RENEWAL STANDARD TITLE: PHARMACY NOTE DATE OF NOTE: OCT 21, 2024@00:11 ENTRY DATE: OCT 21, 2024@00:12:02 AUTHOR: CLARK WILKERSON COSIGNER: URGENCY: STATUS: COMPLETED Date: Sep Division: [place] Pt referred by Pharmacy Call Center for medication renewal: Non-controlled/maintenan ce medication Medications requested: [id number] OXYCODONE HCL 5MG TAB NOT SA Contact Agent Saturday10/23/2024 To be picked up at [facility] Please review and renew if appropriate. *This note was generated by [facility] Pharmacy Customer Care. If you have any questions or need assistance, do not contact this author. Please refer all questions to your local, on-site pharmacy departments. /norberto/ CLARK WILKERSON CPhT [employer] Ribbon Machine Operator, [place]/Pharmacy Customer Care Signed: 10/21/2024 00:13 Receipt Acknowledged By: 10/21/2024 08:06 /norberto/ GABRIELA SHANKAR MD PHYSICIAN 10/22/2024 08:17 /norberto/ Parisa Her RN Primary Care Staff Nurse CLARK WILKERSON [facility]
--- OUTSIDE RECORDS SUMMARY | 2024-11-10 10:30 | XMS_ITS | Encounter Summary ---
Author Name [facility] [place] Address [address] [place] [address] Care Team Providers Care Director Of Pupil Personnel Program Name Role Phone YASH SHANKAR Primary Care Provider Unav ailable Insurance [...] Relationship to Policy Proctor CAREMARK PRESCRIPT ION [facility] Apr 27, 2023 [id number] BLANKAWY GINO PATIENT [employer] S[employer] ([id number]) PRESCRIPT ION [facility] February 25, 2023 [id number] [facility] Apr 27, 2023 [id number] [facility] February 25, 2023 [id number] [facility] February 25, 2023 [id number] YENY MOSCOSO PATIENT Selected Encounter This section includes the information on record at [place] for the Encounter. Date/Time Encounter Type Encounter Description Reason Provider Source Nov 10, 2024 02:30 PM OFFICE O/P EST MOD 30 MIN PODIATRY ICD-10-CM S93.692A Other sprain of left foot, initial encounter [place] Encounter Template Text not used by [place] Assessments - Encounter Diagnoses This section includes the primary and secondary diagnoses documented for the Encounter. Date/Time Primary/Secondary Diagnosis Diagnosis Name Provider Source Nov 10, 2024 04:13 PM PRIMARY Other sprain of left foot, initial encounter JONNY PARIS [place] [facility] [place] [facility] Nov 10, 2024 04:13 PM SECONDARY Corns and callosities JONNY PARIS [place] [facility] [facility] [place] [facility] Nov 10, 2024 04:13 PM SECONDARY Nail dystrophy JONNY PARIS [place] [facility] [place] [facility] Nov 10, 2024 04:13 PM SECONDARY Tinea unguium JONNY PARIS [place] [facility] [facility] [place] [facility] Plan of Treatment: Future Appointments (+ 6 months) and Future Tests (+/- 45 days) The Plan of Treatment section includes future care activities for the patient from all [place] [facility]. This section includes future appointments and future orders which are active, pending or scheduled. Future Appointments This section includes appointments that were scheduled to occur 6 months from the date of the Encounter, up to a maximum of 20 appointments. The data comes from all [place] treatment facilities. Appointment Date/Time Appointment Type Appointme nt Facility Name Nov 11, 2024 01:30 PM AMBULATORY [place]ICINE [place] [facility] [place] [facility] Dec 03, 2024 08:45 AM AMBULATORY - PS[place]CHIATRY [place] [facility] [place] [facility] Dec 03, 2024 02:00 PM AMBULATORY - PS[place]CHIATRY [place] [facility] [place] [facility] Dec 07, 2024 09:00 AM AMBULATORY - PS[place]CHIATRY [place] [facility] [place] [facility] Dec 28, 2024 08:30 AM AMBULATORY - PS[place]CHIATRY [place] [facility] [place] [facility] Jan 12, 2025 08:30 AM AMBULATORY - PS[place]CHIATRY [place] [facility] [place] [facility] Feb 02, 2025 08:00 AM AMBULATORY - PS[place]CHIATRY [place] [facility] [place] [facility] February 25, 2025 01:00 PM AMBULATORY - MEDICINE [place] [facility] [place] [facility] Social History: Smoking Status (Most current) [...] took place. Date/Time Current Smoking Status Comment Facil it Aug 28, 2024 08:30 AM VA-TOBACCO USER EVERY DAY [place] [facility] [place] [facility] Tobacco Use History This section includes a history of the smoking, or tobacco-related health factors, that were collected on or before the date of the Encounter. The data comes from the [place] facility where the Encounter took place. 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 [facility] [place] [facility] Aug 28, 2024 08:30 AM VA-TOBACCO USE MED NO [facility] [place] [facility] Aug 28, 2024 08:30 AM VA-TOBACCO USER EVERY DAY [facility] [place] [facility] Aug 27, 2023 03:00 PM VA-TOBACCO USE > 15 LESS THAN 30 YEARS [facility] [place] [facility] Aug 27, 2023 03:00 PM VA-TOBACCO USE ADVICE [facility] [place] [facility] Aug 27, 2023 03:00 PM VA-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 [facility] [place] [facility] Aug 27, 2023 03:00 PM VA-TOBACCO USE MED NO [facility] [place] [facility] Aug 27, 2023 03:00 PM VA-TOBACCO USE [place] 30 MIN OF WAKEUP [facility] [place] [facility] Aug 27, 2023 03:00 PM VA-TOBACCO USER EVERY DAY [facility] [place] [facility] Dec 09, 2020 03:30 PM VA-TOBACCO DOESNT USE WI 30 MIN WAKEUP [facility] [place] [facility] Dec 09, 2020 03:30 PM VA-TOBACCO USE > 15 LESS THAN 30 YEARS [facility] [place] [facility] Dec 09, 2020 03:30 PM VA-TOBACCO USE ADVICE [facility] [place] [facility] Dec 09, 2020 03:30 PM VA-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 [facility] [place] [facility] Dec 09, 2020 03:30 PM VA-TOBACCO USE MED NOTIFY PROVIDER vet requests lucero: does not like gum not helpful [facility] [place] [facility] Dec 09, 2020 03:30 PM VA-TOBACCO USER SOME DAYS [facility] [place] [facility] Jul 08, 2019 12:33 PM VA-TOBACCO DOESNT USE [place] 30 MIN WAKEUP [place] [facility] [place] [facility] Jul 08, 2019 12:33 PM VA-TOBACCO USE > 15 LESS THAN 30 YEARS [facility] [place] [facility] Jul 08, 2019 12:33 PM VA-TOBACCO USE ADVICE [facility] [place] [facility] Jul 08, 2019 12:33 PM VA-TOBACCO 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 YES [facility] [place] [facility] Jul 08, 2019 12:33 PM VA-TOBACCO USE MED NOTIFY PROVIDER Gum [place] [facility] [place] [facility] Jul 08, 2019 12:33 PM VA-TOBACCO USER SOME DAYS [facility] [place] [facility] May 15, 2018 03:13 PM CURRENT SMOKER 4-6 cigarettes daily [facility] [place] [facility] Nov 22, 2016 08:55 AM CURRENT SMOKER [facility] [place] [facility] Nov 22, 2016 08:55 AM V1-PT DECLINES REF TO TOBACCO CESS PRGM [facility] [place] [facility] Nov 22, 2016 08:55 AM V1-PT DECLINES TOBACCO CESSATION MEDS [facility] [place] [facility] Nov 22, 2016 08:55 AM V1-PT THINKING ABOUT QUIT TOBACCO USE [facility] Nov 15, 2016 09:05 AM CURRENT SMOKER 8 TO 10 CIGARETTES PER DAY [facility] Nov 08, 2016 09:20 AM CURRENT SMOKER Smokes 1/2 pack of cigarettes per day [facility] Oct 31, 2016 06:35 PM TOBACCO INPATIENT DECLINES MEDS [facility] Oct 31, 2016 03:08 PM CURRENT SMOKER [facility] March 07, 2016 09:18 PM V1-PT NOT INTERESTED IN QUIT TOBACCO USE [facility] Jun 11, 2015 10:28 AM CURRENT SMOKER 6-8 cigs per day [facility] Jan 21, 2014 10:56 AM CURRENT SMOKER 4-6 cigarettes per day [facility] Jan 21, 2014 10:56 AM V1-PT NOT INTERESTED IN QUIT TOBACCO USE [facility] Radiology Reports: +/- 30 days of the [...] the Encounter. The data comes from all [facility] facilities. Date/Time Radiology Report Provider Source Nov 11, 2024 12:15 PM FOOT 3 OR MORE VIEWS(LEFT): YASH MOSCOSO [id number] -1970 M Exm Date: NOV 11, 2024@12:15 Req Phys: JONNY PARIS Loc: CWM/NO/PODIATRY A (Req'g Loc) Img Loc: [facility] 1 Service: Unknown [facility] [place] [address] (Case 180 COMPLETE) FOOT 3 OR MORE VIEWS(LEFT) (RAD Detailed) CPT:21746 Proc Modifiers : LEFT CPT Modifiers : LT LEFT SIDE Reason for Study: sprain x 2 weeks with echymosis pain base fifth met left Clinical History: Report Status: Verified Date Reported: NOV 11, 2024 Date Verified: NOV 11, 2024 Subsurface Augmentee Operator E-Sig:/ES/CANDACE HOFFMAN JR Report: Study: Weight-bearing AP, [...] Primary Interpreting Staff: CANDACE HOFFMAN JR, Radiologist (Subsurface Augmentee Operator) /CANDACE ELIZONDO JR [facility] Encounter Notes: All associated encounter notes This section contains the clinical notes associated to the Encounter. Date/Time Encounter Note(s) Provider Source Nov 10, 2024 02:37 PM PODIATRY NOTE: LOCAL TITLE: PODIATRY NOTE STANDARD TITLE: PODIATRY NOTE DATE OF NOTE: NOV 10, 2024@14:37 ENTRY DATE: NOV 10, 2024@14:37:17 AUTHOR: JONNY PARIS COSIGNER: URGENCY: STATUS: COMPLETED Podiatry clinic progress note Routine care visit Nov 10, 2024 Patient Yash Moscoso Date of 1970 [id number] Age 53 male Reason for visit: Dystrophic nail care. Hx trauma to hallux nail resulting in nail dystrophy has been using topical clotimozole stef. last seen nov 2023. In addition to severe nail dystrophy and onychomycosis patient also has significant calluses at the IP joints of bilateral hallux which she occasionally trims himself with a nail clipper and attempts to mitigate with Epsom salts soaks. Patient also has remote history of left dropfoot had back surgery that did not resolve it had used a brace in the remote past but does not use it now gets along fine without it he states. However comes in today and states that he recently inverted his left ankle and has had swelling and black and blue of the lateral side of the foot with pain for 2 weeks. Ordered an x-ray for today but patient declined and will come back tomorrow before primary care visit. X-ray placed. Past medical history: No history of DM peripheral vascular disease or neuropathy. Anticoagulation: Active problems - Computerized Problem List is [...] Benign essential hypertension 14. Sciatica (SNOMED CT 52895103) 15. Generalized anxiety disorder (SNOMED CT 26581708) 16. Depressive episode (SNOMED CT 02785677) Active Outpatient Medications (including Supplies): Active Outpatient Medications Status 1) FENOFIBRATE 48MG TAB TAKE ONE TABLET BY MOUTH ONCE ACTIVE DAILY 2) LIDOCAINE 5% OINT APPLY SMALL AMOUNT TOPICALLY TWICE ACTIVE DAILY FOR MINOR SKIN WOUND PAIN 3) OXYCODONE HCL 5MG TAB NOT SA TAKE ONE TABLET BY ACTIVE MOUTH EVERY 6 HOURS NEXT FILL 06/04 Active Non-VA Medications Status 1) Non-VA LISINOPRIL 20MG TAB 20MG BY MOUTH EVERY ACTIVE MORNING 2) Non-VA LORAZEPAM 0.5MG TAB 0.5MG BY MOUTH THREE TIMES ACTIVE A DAY 5 Total Medications Data on this list may not be complete. Please check V. FACILITY ALLERGY/ADR -------- No Remote Allergy/ADR Data available for this patient [place] [facility] No Known Allergies Bilateral palpable DP and PT pulses Hyperhidrosis of the skin No edema No lymphatic or venous disease Bilateral nails dystrophic Bilateral hallux nails severely thickened and discolored consistent with tinea Right fifth toenail also very thick and dystrophic Webspaces clear Large tylomas 1.5 cm x 1 cm x 2 to 3 mm thick bilateral IP joint lateral plantar hallux No other hyperkeratotic lesions Grossly sensate to light touch pain and temperature excepting L4-5 distribution of her left foot Motor weakness at L4-5 left foot Problem focused: Left ankle with weakness as noted above Mild tenderness at the anterior talofibular ligament attachment No gross drawer sign noted Increased significant pain at the base of the fifth metatarsal with underlying ecchymosis. No gross osseous or positional deformity otherwise. Gait observed to be tandem. No foot slap observed Assessment: 1. Severe nail dystrophy 2. Corns and calluses x2 3. Dropfoot/asymptomatic to patient 4. Suspicion for base of fifth met left foot fracture SP inversion injury Plan: 1. Aseptic debridement of nails left and right 1 through 5 without incident using sterile instrumentation which was reprocessed according to [facility] policy for RME 2. Paring 2 lesions calluses bilateral hallux 3. Apply 10% alcohol solution disinfectant post procedures 4. Urea 40% cream apply to calluses once or twice a day 60 g 90-day supply 2 refills mail service 5. 3 films left foot to rule out fracture base fifth metatarsal Follow-up: Space available basis. aug-sep 2024 /norberto/ JONNY PARIS DPM PODIATRY ATTENDING Signed: 11/10/2024 16:13 JONNY PARIS [facility]
--- OUTSIDE RECORDS SUMMARY | 2024-11-11 09:30 | XMS_ITS ---
Author Name [facility] [place] [facility] [place] [facility] [place] Address [address] [place] [address] Care Team Providers Care Call Center Trainer Name Role Phone GABRIELA SHANKAR Primary Care [...] Relationship to Policy Proctor CAREMARK PRESCRIPT [facility] Apr 27, 2023 [id number] BLANKAOH GINO PATIENT [employer] ([id number]) [facility]CRIPT [facility] February 25, 2023 [id number] [facility] Apr 27, 2023 [id number] [facility] February 25, 2023 [id number] [phone] [facility] February 25, 2023 [id number] [id number] [phone] YENY MOSCOSO PATIENT Selected Encounter This section includes the information on record at [place] for the Encounter. Date/Time Encounter Type Encounter Description Reason Provider Source Nov 11, 2024 01:30 PM OFFICE O/P EST MOD 30 MIN PRIMARY CARE/MEDICINE ICD-10-CM M25.579 Pain in unspecified ankle and joints of unspecified foot Leyla SHANKAR IHMarleny Encounter Template Text not used by [place] Assessments - Encounter Diagnoses This section includes the primary and secondary diagnoses documented for the Encounter. Date/Time Primary/Secondary Diagnosis Diagnosis Name Provider Source Nov 11, 2024 04:17 PM PRIMARY Pain in unspecified ankle and joints of unspecified foot GABRIELA SHANKAR [facility] [place] [facility] Nov 11, 2024 04:17 PM SECONDARY Abnormal level of enzymes in specimens from oth org/tiss GABRIELA SHANKAR [facility] [place] [facility] Nov 11, 2024 04:17 PM SECONDARY Essential (primary) hypertension GABRIELA SHANKAR [facility] [place] [facility] Nov 11, 2024 04:17 PM SECONDARY Pain, unspecified [facility] Plan of Treatment: Future Appointments (+ 6 months) and Future Tests (+/- 45 days) The Plan of Treatment section includes future care activities for the patient from all [place] treatmentfacilities. This section includes future appointments and future orders which are active, pending or scheduled. Future Appointments This section includes appointments that were scheduled to occur 6 months from the date of the Encounter, up to a maximum of 20 appointments. The data comes from all [place] treatment facilities. Appointment Date/Time Appointment Type Appointme nt Facility Name Dec 03, 2024 08:45 AM AMBULATORY - PS[place]IATRY [facility] [place] [facility] Dec 03, 2024 02:00 PM AMBULATORY - [facility]IATRY [facility] [place] [facility] Dec 07, 2024 09:00 AM AMBULATORY - [facility]IATRY [facility] [place] [facility] Dec 28, 2024 08:30 AM AMBULATORY - [facility]IATRY [facility] [place] [facility] Jan 12, 2025 08:30 AM [facility] [place] [facility] Feb 02, 2025 08:00 AM AMBULATORY [place]AT[place] [facility] [place] [facility] February 25, 2025 01:00 PM AMBULATORY - MEDICINE [facility] [place] [facility] Vital Signs: All taken on the encounter date This section contains inpatient and outpatient Vital Signs collected on the date of the Encounter. Date/Time Temperature Pulse Blood Pressure Respiratory Rate SP02 Pain Height Weight Body Mass Index Source Nov 11, 2024 01:49 PM 140/86 [facility] [place] [facility] Nov 11, 2024 01:37 PM 82 158/104 18 96 235 29 [place] [facility] [place] [facility] Social History: Smoking Status (Most current) and Tobacco Use (All prior to encounter date) This section includes the most current, and the historical, smoking and tobacco- related health factors from the [place] facility where the Encounter took place. Current Smoking Status This section includes the most current smoking, or tobacco-related health factor, from the [place] facility where the Encounter took place. Date/Time Current Smoking Status Comment [facility] Aug 28, 2024 08:30 AM VA-TOBACCO USER EVERY DAY [place] [facility] Tobacco Use History This section includes a history of the smoking, or tobacco-related health factors, that were collected on or before the date of the Encounter. The data comes from the [place] facility where the Encounter took place. Date/Time Smoking Status/Tobac co Use Comment Facility Aug 28, 2024 08:30 AM VA-TOBACCO USE 30 YEARS OR MORE [facility] [place] [facility] Aug 28, 2024 08:30 AM VA-TOBACCO USE ADVICE [facility] [place] [facility] Aug 28, 2024 08:30 AM VA-TOBACCO USE RISK MGR NO [facility] [place] [facility] Aug 28, 2024 08:30 AM VA-TOBACCO USE MED NO [facility] [place] [facility] Aug 28, 2024 08:30 AM VA-TOBACCO USER EVERY DAY [facility] [place] [facility] Aug 27, 2023 03:00 PM VA-TOBACCO USE > 15 LESS THAN 30 YEARS [facility] [place] [facility] Aug 27, 2023 03:00 PM VA-TOBACCO USE ADVICE [facility] [place] [facility] Aug 27, 2023 03:00 PM VA-TOBACCO USE RISK MGR NO [facility] [place] [facility] Aug 27, 2023 03:00 PM VA-TOBACCO USE MED NO [facility] [place] [facility] Aug 27, 2023 03:00 PM VA-TOBACCO USE WI 30 MIN OF WAKEUP [facility] [place] [facility] Aug 27, 2023 03:00 PM VA-TOBACCO USER EVERY DAY [facility] [place] [facility] Dec 09, 2020 03:30 PM VA-TOBACCO DOESNT USE WI 30 MIN WAKEUP [facility] [place] [facility] Dec 09, 2020 03:30 PM VA-TOBACCO USE > 15 LESS THAN 30 YEARS [facility] [place] [facility] Dec 09, 2020 03:30 PM VA-TOBACCO USE ADVICE [facility] [place] [facility] Dec 09, 2020 03:30 PM VA-TOBACCO USE RISK MGR NO [facility] [place] [facility] Dec 09, 2020 03:30 PM VA-TOBACCO USE MED NOTIFY PROVIDER vet requests lucero: does not like gum not helpful [facility] [place] [facility] Dec 09, 2020 03:30 PM VA-TOBACCO USER SOME DAYS [facility] [place] [facility] Jul 08, 2019 12:33 PM VA-TOBACCO DOESNT USE WI 30 MIN WAKEUP [facility] [place] [facility] Jul 08, 2019 12:33 PM VA-TOBACCO USE > 15 LESS THAN 30 YEARS [facility] [place] [facility] Jul 08, 2019 12:33 PM VA-TOBACCO USE ADVICE [facility] [place] [facility] Jul 08, 2019 12:33 PM VA-TOBACCO USE RISK MGR YES [facility] [place] [facility] Jul 08, 2019 12:33 PM VA-TOBACCO USE MED NOTIFY PROVIDER Gum [facility] [place] [facility] Jul 08, 2019 12:33 PM VA-TOBACCO USER SOME DAYS [facility] [place] [facility] May 15, 2018 03:13 PM CURRENT SMOKER 4-6 cigarettes daily [facility] Nov 22, 2016 08:55 AM [facility] Nov 22, 2016 08:55 AM V1-PT DECLINES REF TO TOBACCO CESS PRGM [facility] Nov 22, 2016 08:55 AM V1-PT DECLINES TOBACCO CESSATION MEDS [facility] Nov 22, 2016 08:55 AM V1-PT THINKING ABOUT QUIT TOBACCO USE [facility] Nov 15, 2016 09:05 AM CURRENT SMOKER 8 TO 10 CIGARETTES PER DAY [facility] Nov 08, 2016 09:20 AM CURRENT SMOKER Smokes 1/2 pack of cigarettes per day [facility] Oct 31, 2016 06:35 PM TOBACCO INPATIENT DECLINES MEDS [facility] Oct 31, 2016 03:08 PM CURRENT SMOKER [facility] March 07, 2016 09:18 PM V1-PT NOT INTERESTED IN QUIT TOBACCO USE [facility] Jun 11, 2015 10:28 AM CURRENT SMOKER 6-8 cigs per day [facility] Jan 21, 2014 10:56 AM CURRENT SMOKER 4-6 cigarettes per day [facility] Jan 21, 2014 10:56 AM V1-PT NOT INTERESTED IN QUIT TOBACCO USE [facility] Radiology Reports: +/- 30 days of the [...] the Encounter. The data comes from all [facility] facilities. Date/Time Radiology Report Provider Source Nov 11, 2024 12:15 PM FOOT 3 OR MORE VIEWS(LEFT): GABRIELA MOSCOSO [phone] -1970 M Exm Date: NOV 11, 2024@12:15 Req Phys: JONNY PARIS Ranjana Loc: CWM/NO/PODIATRY A (Req'g Loc) Img Loc: [facility] 1 Service: Unknown [place] [id number] (Case [id number] COMPLETE) FOOT 3 OR MORE VIEWS(LEFT) (RAD Detailed) CPT:81300 Proc Modifiers : LEFT CPT Modifiers : LT LEFT SIDE Reason for Study: sprain x 2 weeks with echymosis pain base fifth met left Clinical History: Report Status: Verified Date Reported: NOV 11, 2024 Date Verified: NOV 11, 2024 Lan Specialist E-Sig:/ES/CANDACE HOFFMAN JR Report: Study: Weight-bearing AP, [...] No immediate attention required Primary Interpreting Staff: ACNDACE HOFFMAN JR, Radiologist (Lan Specialist) /CANDACE ELIZONDO JR [facility] Encounter Notes: All associated encounter notes This section contains the clinical notes associated to the Encounter. Date/Time Encounter Note(s) Provider Source Nov 11, 2024 08:35 AM PHYSICIAN NOTE: LOCAL TITLE: MD NOTE STANDARD TITLE: PHYSICIAN NOTE DATE OF NOTE: NOV 11, 2024@08:35 ENTRY DATE: NOV 11, 2024@08:35:57 AUTHOR: TI SHANKAR EXP COSIGNER: URGENCY: STATUS: COMPLETED HISTORY OF PRESENT ILLNESS: = GABRIELA Farmer BLANKA, is a 54 yo WHITE MALE who [place] [facility] CC. ankle pain HPI. this vet has long hx of chronic pain in lower back/spine surgery and hx of ankle injury. recently he injured left ankle/likely talofibular sprain. He saw podiatry and had xray today but results not available. He is using heat to area and admits to taking extra oxycodone. vet uses opiates for chronic pain ( 112 per 28 days). He wants to fill rx early and vet advised that we will advocate for vet to do this for this month only. He has hx of using remeron to help both sleep and mood in past and wants to restart this med, denies suicide ideation. he has hx of elev liver tests likely due to fatty liver. SH smokes 3 cigs daily Active problems - Computerized Problem [...] Benign essential hypertension 14. Sciatica (SNOMED CT 01643062) 15. Generalized anxiety disorder (SNOMED CT 88566917) 16. 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 - [employer] FROM Aug TO May COMBAT SERVICE INDICATED: No SERVICE CONNECTED % - 10 VITAL SIGNS: Temperature 98.5 F [36.9 C] (08/27/2023 15:04) Blood Pressure 147/96 (07/16/2024 11:02) Pulse 90 (07/16/2024 10:43) Respiration 19 (07/16/2024 10:43) Pain 0 (08/27/2023 15:04) BMI BMI: 28.8 Weight 230 lb [104.33 kg] (04/09/2024 11:02) Pulse Oximetry 97% (07/16/2024 10:43) Review of Systems: CONSTITUTIONAL: No fever, no loss of appetite ENT: No sore throat, no cough CARDIOVASCULAR: No chest pain, no palpitations RESPIRATORY: No SOB, no wheezing GASTROINTESTINAL: No abd pain, no N/V/D, no change in stool EXAMINATION General: this is 54 yo gentleman in no obvious distress. Mental Status: Alert and oriented x 3 Head: Normocephalic. Eyes: Anicteric sclerae. Conjunctivae noninjected. Neuro: Normal speech & gait/antalgic due ankle sprain. vet not using cane DATA REVIEW >> MEDICATIONS Reviewed Today (VA & Non VA) ALLERGIES: Patient has answered NKA Active Outpatient Medications (including Supplies): Issue Date Status Last Fill Active Outpatient Medications Refills Expiration === 1) FENOFIBRATE 48MG TAB Qty: 90 for 90 days ACTIVE Issue: 04/06/24 Sig: TAKE ONE TABLET BY MOUTH ONCE DAILY Refills: 1 Last : 10/17/24 Indication: FOR HIGH TRIGLYCERIDES Expr : 04/07/25 2) LIDOCAINE 5% OINT Qty: 35 for 90 days Sig: ACTIVE Issue: 05/05/24 APPLY SMALL AMOUNT TOPICALLY TWICE DAILY Refills: 2 Last : 05/06/24 Indication: FOR MINOR SKIN WOUND PAIN Expr : 05/06/25 3) OXYCODONE HCL 5MG TAB NOT SA Qty: 112 ACTIVE Issue: 10/21/24 for 28 days Sig: TAKE ONE TABLET BY MOUTH Refills: 0 Last : 10/22/24 EVERY 6 HOURS NEXT FILL 11/20 Expr : 11/20/24 Indication: FOR PAIN 4) UREA 40% CREAM Qty: 60 for 90 days Sig: ACTIVE Issue: 05/14/24 APPLY A SMALL AMOUNT TOPICALLY ONCE DAILY Refills: 2 Last : 05/14/24 APPLY TO CALLOUSED SKIN Expr : 05/15/25 Indication: FOR DRY SKIN Start Date Active Non-VA Medications Status Stop Date === 1) Non-VA LISINOPRIL 20MG TAB SiMG BY ACTIVE MOUTH EVERY MORNING Indication: FOR HIGH BLOOD PRESSURE 2) Non-VA LORAZEPAM 0.5MG TAB Si.5MG BY ACTIVE MOUTH THREE TIMES A DAY 6 Total Medications >> LABS REVIEWED TODAY: CHEM [...] 110 === UREA NITROGEN 04/09/24 11:37 7 CREATININE-EGFR 04/09/24 11:37 0.85 === LIVER PANEL TREND Collection DT Spec [...] MEDICINE GOALS Advance Directive Screen MH AD Nov 22,19 BMI>30/>24.99 High Risk Aug 18 Hepatitis B Serology/Immunization DUE NOW Pneumococcal Conjugate Vaccine (PCV15/PCDUE NOW Medication Reconciliation DUE NOW COVID-19 Immunization DUE NOW HTN Assess for Elevated BP>=140/90 DUE NOW Sexual Orientation DUE NOW RHS Screen DUE NOW (Optional) Whole Health Documentation DUE NOW ASSESSMENT/PLAN: 1. ankle sprain 2. chronic pain 3. HTN- vet reluctant to start meds 4. elev transaminases Plan 1. allow vet to fill oxycodone rx 2-3 days early-nov 18 for next refill but vet advised to use opiates as prescribed despite injuries such as ankle sprain 2. continue using heat/ f[facility] results and possible walking boot 3. monitor CBC/renal labs/vet using nsaids and lidocaine patches for pain also 4. monitor liver labs and consider telehepatology in 3 mos at PCP f/u LAB ORDERS FOR NEXT APPT. spent in [...] of active outpatient prescriptions dispensed from this [place] (local) and dispensed from another [facility] or [...] provider. /norberto/ GABRIELA SHANKAR MD PHYSICIAN Signed: 11/11/2024 16:17 TI SHANKAR [place] [facility]
--- OUTSIDE RECORDS SUMMARY | 2024-12-10 00:06 | XMS_ITS | Encounter Summary ---
Author Name [facility] [place] Organization [place] Address [address] [place] [address] Care Team Providers Care Non Food Receiving Clerk Name Role Phone GABRIELA SHANKAR Primary Care [...] Relationship to Policy Proctor CAREMARK PRESCRIPT ION [facility] Apr 27, 2023 [id number] BLANKAIN GINO PATIENT EXPRESS SCRIPTS ([id number]) PRESCRIPT ION [facility] February 25, 2023 [id number] [facility] Apr 27, 2023 [id number] [facility] February 25, 2023 [id number] [facility] February 25, 2023 [id number] YENY MOSCOSO PATIENT Selected Encounter This section includes the information on record at [place] for the Encounter. Date/Time Encounter Type Encounter Description Reason Pro vider Source Dec 10, 2024 04:06 AM Outpatient Encounter ADMIN PAT ACTIVTIES (MASNONCT) IHE Encounter Template Text not used by [place] Plan of Treatment: Future Appointments (+ 6 months) and Future Tests (+/- 45 days) The Plan of Treatment section includes future care activities for the patient from all [place] treatmentfacilst[facility]. This section includes future appointments and future orders which are active, pending or scheduled. Future Appointments This section includes appointments that were scheduled to occur 6 months from the date of the Encounter, up to a maximum of 20 appointments. The data comes from all [place] treatment facilities. Appointment Date/Time Appointment Type Appointme nt Facility Name Dec 28, 2024 08:30 AM AMBUL[facility] Jan 12, 2025 08:30 AM AM[facility]ULATORY [place] [facility] [place] [facility] Feb 02, 2025 08:00 AM AMBULATORY - PSYCHIATRY [place] [facility] [place] [facility] February 25, 2025 01:00 PM AMBULATORY - MEDICINE [facility] [place] [place] [facility] May 12, 2025 09:00 AM AMBULATORY - MEDICINE [place] C [facility] [place] [facility] May 19, 2025 03:30 PM AMBULATORY - MEDICINE [place] C [place] [place] [facility] Jun 08, 2025 01:30 PM AMBULATORY - NONE [facility] Social History: Smoking Status (Most current) and Tobacco Use (All prior to encounter date) This section includes the most current, and the historical, smoking and tobacco- related health factors from the [place] facility where the Encounter took place. Current Smoking Status This section includes the most current smoking, or tobacco-related health factor, from the [place] facility where the Encounter took place. Date/Time Current Smoking Status Comment Nilesh clark Aug 28, 2024 08:30 AM [facility]CO USER [facility] Tobacco Use History This section includes a history of the smoking, or tobacco-related health factors, that were collected on or before the date of the Encounter. The data comes from the [place] facility where the Encounter took place. Date/Time Smoking Status/Tobac co Use Comment Facility Aug 28, 2024 08:30 AM VA-TOBACCO USE 30 YEARS OR MORE [facility] [place] [place] [facility] Aug 28, 2024 08:30 AM VA-TOBACCO USE ADVICE [facility] [place] [facility] Aug 28, 2024 08:30 AM VA-TOBACCO USE HUMAN RESOURCES DIRECTOR NO [facility] [place] [facility] Aug 28, 2024 08:30 AM VA-TOBACCO USE MED NO [facility] [place] [facility] Aug 28, 2024 08:30 AM VA-TOBACCO USER EVERY DAY [facility] [place] [facility] Aug 27, 2023 03:00 PM VA-TOBACCO USE > 15 LESS THAN 30 YEARS [facility] [place] [facility] Aug 27, 2023 03:00 PM VA-TOBACCO USE ADVICE [facility] [place] [facility] Aug 27, 2023 03:00 PM VA-TOBACCO USE HUMAN RESOURCES DIRECTOR NO [facility] [place] [facility] Aug 27, 2023 03:00 PM VA-TOBACCO USE MED NO [facility] [place] [facility] Aug 27, 2023 03:00 PM VA-TOBACCO USE WI 30 MIN OF WAKEUP [facility] [place] [facility] Aug 27, 2023 03:00 PM VA-TOBACCO USER EVERY DAY [facility] [place] [facility] Dec 09, 2020 03:30 PM VA-TOBACCO DOESNT USE WI 30 MIN WAKEUP [facility] [place] [facility] Dec 09, 2020 03:30 PM VA-TOBACCO USE > 15 LESS THAN 30 YEARS [facility] [place] [facility] Dec 09, 2020 03:30 PM VA-TOBACCO USE ADVICE [facility] [place] [facility] Dec 09, 2020 03:30 PM VA-TOBACCO USE HUMAN RESOURCES DIRECTOR NO [facility] [place] [facility] Dec 09, 2020 03:30 PM VA-TOBACCO USE MED NOTIFY PROVIDER vet requests lucero: does not like gum not helpful [facility] [place] [facility] Dec 09, 2020 03:30 PM VA-TOBACCO USER SOME DAYS [facility] [place] [facility] Jul 08, 2019 12:33 PM VA-TOBACCO DOESNT USE WI 30 MIN [facility]UP [facility] [place] [facility] Jul 08, 2019 12:33 PM VA-TOBACCO USE > 15 LESS THAN 30 YEARS [facility] [place] [facility] Jul 08, 2019 12:33 PM VA-TOBACCO USE ADVICE [facility] [place] [facility] Jul 08, 2019 12:33 PM VA-TOBACCO USE HUMAN RESOURCES DIRECTOR YES [place] [facility] [place] [facility] Jul 08, 2019 12:33 PM VA-TOBACCO USE MED NOTIFY PROVIDER Gum [facility] [place] [facility] Jul 08, 2019 12:33 PM VA-TOBACCO USER SOME DAYS [place] [facility] [facility] May 15, 2018 03:13 PM CURRENT SMOKER 4-6 cigarettes daily [facility] [place] [facility] Nov 22, 2016 08:55 AM CURRENT SMOKER [facility] [facility] Nov 22, 2016 08:55 AM V1-PT DECLINES REF TO TOBACCO CESS PRGM [facility] [place] [facility] Nov 22, 2016 08:55 AM V1-PT DECLINES TOBACCO CESSATION MEDS [facility] [facility] Nov 22, 2016 08:55 AM V1-PT THINKING ABOUT QUIT TOBACCO USE [facility] [facility] Nov 15, 2016 09:05 AM CURRENT SMOKER 8 TO 10 CIGARETTES PER DAY [facility] [facility] Nov 08, 2016 09:20 AM CURRENT SMOKER Smokes 1/2 pack of cigarettes per day [facility] [place] [facility] Oct 31, 2016 06:35 PM TOBACCO INPATIENT DECLINES MEDS [facility] [place] [facility] Oct 31, 2016 03:08 PM CURRENT SMOKER [facility] [place] [facility] March 07, 2016 09:18 PM V1-PT NOT INTERESTED IN QUIT TOBACCO USE [facility] [place] [facility] Jun 11, 2015 10:28 AM CURRENT SMOKER 6-8 cigs per day [facility] [place] [facility] Jan 21, 2014 10:56 AM CURRENT SMOKER 4-6 cigarettes per day [facility] Jan 21, 2014 10:56 AM V1-PT NOT INTERESTED IN QUIT TOBACCO USE [facility] Radiology Reports: +/- 30 days [...] the Encounter. The data comes from all [facility] facilities. Date/Time Radiology Report Provider Source Nov 11, 2024 12:15 PM FOOT 3 OR MORE VIEWS(LEFT): GABRIELA MOSCOSO [id number] -[id number] M Exm Date: NOV 11, 2024@12:15 Req Phys: JONNY PARIS Loc: CWM/NO/PODIATRY A (Req'g Loc) Img Loc: [facility] Service: [place] [address] (Case 180 COMPLETE) FOOT 3 OR MORE VIEWS(LEFT) (RAD Detailed) CPT:84309 Proc Modifiers : LEFT CPT Modifiers : LT LEFT SIDE Reason for Study: sprain x 2 weeks with echymosis pain base fifth met left Clinical History: Report Status: Verified Date Reported: NOV 11, 2024 Date Verified: NOV 11, 2024 Phlebotomy Program Coordinator E-Sig:/ES/CANDACE HOFFMAN JR Report: Study: Weight-bearing AP, [...] Primary Interpreting Staff: CANDACE HOFFMAN JR, Radiologist (Phlebotomy Program Coordinator) /CANDACE ELIZONDO JR [facility] Encounter Notes: All associated encounter notes This section contains the clinical notes associated to the Encounter. Date/Time Encounter Note(s) Provider Source Dec 10, 2024 04:06 AM PHARMACY NOTE: LOCAL TITLE: PHARMACY CUSTOMER CARE MEDICATION RENEWAL STANDARD TITLE: PHARMACY NOTE DATE OF NOTE: DEC 10, 2024@04:06 ENTRY DATE: DEC 10, 2024@04:06:41 AUTHOR: SARAY OROURKE EXP COSIGNER: URGENCY: STATUS: COMPLETED Date: Nov Division: [place] Pt referred by Pharmacy Call Center for medication renewal: Controlled substance Medications requested: [id number] OXYCODONE HCL 5MG TAB NOT SA Defer to primary care provider To be picked up at [place] Please review and renew if appropriate. *This note was generated by [facility]/[place] Pharmacy Customer Care. If you have any questions or need assistance, do not contact this author. Please refer all questions to your local, on-site pharmacy departments. /norberto/ SARAY OROURKE CPhT [facility], [place]/Pharmacy Customer Care Signed: 12/10/2024 04:07 Receipt Acknowledged By: 12/10/2024 08:43 /es/ GABRIELA SHANKAR MD PHYSICIAN 12/10/2024 08:52 /norberto/ Parisa Her RN Primary Care Staff Nurse SARAY OROURKE [place] [facility]
--- OUTSIDE RECORDS SUMMARY | 2025-01-06 07:10 | XMS_ITS | Encounter Summary ---
Author Name [facility] of [place] Organization [place] Address [address] [place] [address] Care Team Providers Care Colorer Machine Name Role Phone GABRIELA SHANKAR Primary Care [...] Relationship to Policy Proctor CAREMARK PRESCRIPT ION [facility] Apr 27, 2023 [id number] BLANKASC GINO PATIENT EXPRESS SCRIPTS ([id number]) PRESCRIPT ION [facility] February 25, 2023 [id number] [facility] Apr 27, 2023 [id number] [facility] February 25, 2023 [id number] [facility] February 25, 2023 [id number] YENY MOSCOSO PATIENT Selected Encounter This section includes the information on record at [place] for the Encounter. Date/Time Encounter Type Encounter Description Reason Pro vider Source Jan 06, 2025 11:10 AM Outpatient Encounter ADMIN PAT ACTIVTIES (MASNONCT) IHE Encounter Template Text not used by [place] Plan of Treatment: Future Appointments (+ 6 months) and Future Tests (+/- 45 days) The Plan of Treatment section includes future care activities for the patient from all [place] treatmentfacilities. This section includes future appointments and future orders which are active, pending or scheduled. Future Appointments This section includes appointments that were scheduled to occur 6 months from the date of the Encounter, up to a maximum of 20 appointments. The data comes from all [place] treatment facilities. Appointment Date/Time Appointment Type Appointme nt Facility Name Jan 12, 2025 08:30 AM AMBULATORY - PSYCHIATRY [place] [place] [facility] Feb 02, 2025 08:00 AM AMBULATORY - PSYCHIATRY [place] [facility] February 25, 2025 01:00 PM AMBULATORY - MEDICINE [facility] [place] [facility] May 12, 2025 09:00 AM AMBULATORY - MEDICINE [facility] [place] [facility] May 19, 2025 03:30 PM AMBULATORY - MEDICINE [place] [facility] Jun 08, 2025 01:30 PM AMBULATORY - NONE [place] [facility] [place] [facility] Jun 24, 2025 08:30 AM AMBULATORY - MEDICINE [place] [facility] Jul 01, 2025 12:00 PM AMBULATORY - MEDICINE [facility] Jul 01, 2025 12:00 PM [facility] [place] [facility] Social History: Smoking Status (Most current) and Tobacco Use (All prior to encounter date) This section includes the most current, and the historical, smoking and tobacco- related health factors from the [place] facility where the Encounter took place. Current Smoking Status This section includes the most current smoking, or tobacco-related health factor, from the [place] facility where the Encounter took place. Date/Time Current Smoking Status Carlo clark Aug 28, 2024 08:30 AM VA-TOBACCO USER EVERY DAY [facility] Tobacco Use History This section includes a history of the smoking, or tobacco-related health factors, that were collected on or before the date of the Encounter. The data comes from the [place] facility where the Encounter took place. Date/Time Smoking Status/Tobac co Use Comment Facility Aug 28, 2024 08:30 AM VA-TOBACCO USE 30 YEARS OR MORE [facility] [place] [facility] Aug 28, 2024 08:30 AM VA-TOBACCO USE ADVICE [facility] [place] [facility] Aug 28, 2024 08:30 AM VA-TOBACCO USE RESORT KEEPER NO [facility] [place] [facility] Aug 28, 2024 08:30 AM VA-TOBACCO USE MED NO [facility] [place] [facility] Aug 28, 2024 08:30 AM VA-TOBACCO USER EVERY DAY [facility] [place] [facility] Aug 27, 2023 03:00 PM VA-TOBACCO USE > 15 LESS THAN 30 YEARS [facility] [place] [facility] Aug 27, 2023 03:00 PM VA-TOBACCO USE ADVICE [facility] [place] [facility] Aug 27, 2023 03:00 PM VA-TOBACCO USE RESORT KEEPER NO [facility] [place] [facility] Aug 27, 2023 03:00 PM VA-TOBACCO USE MED NO [facility] [place] [facility] Aug 27, 2023 03:00 PM VA-TOBACCO USE WI 30 MIN OF WAKEUP [facility] [place] [facility] Aug 27, 2023 03:00 PM VA-TOBACCO USER EVERY DAY [facility] [place] [facility] Dec 09, 2020 03:30 PM VA-TOBACCO DOESNT USE WI 30 MIN WAKEUP [facility] [place] [facility] Dec 09, 2020 03:30 PM VA-TOBACCO USE > 15 LESS THAN 30 YEARS [facility] [place] [facility] Dec 09, 2020 03:30 PM VA-TOBACCO USE ADVICE [facility] [place] [facility] Dec 09, 2020 03:30 PM VA-TOBACCO USE RESORT KEEPER NO [facility] [place] [facility] Dec 09, 2020 03:30 PM VA-TOBACCO USE MED NOTIFY PROVIDER vet requests lucero: does not like gum not helpful [facility] [place] [facility] Dec 09, 2020 03:30 PM VA-TOBACCO USER SOME DAYS [facility] [place] [facility] Jul 08, 2019 12:33 PM VA-TOBACCO DOESNT USE WI 30 MIN WAKEUP DE [facility] [place] [facility] Jul 08, 2019 12:33 PM VA-TOBACCO USE > 15 LESS THAN 30 YEARS VA [facility] [place] [facility] Jul 08, 2019 12:33 PM VA-TOBACCO USE ADVICE [facility] [place] [facility] Jul 08, 2019 12:33 PM VA-TOBACCO USE RESORT KEEPER YES [facility] Jul 08, 2019 12:33 PM VA-TOBACCO USE MED NOTIFY PROVIDER Gum [place] [facility] [place] [facility] Jul 08, 2019 12:33 PM VA-TOBACCO USER SOME DAYS DE [facility] [place] [facility] May 15, 2018 03:13 PM CURRENT SMOKER 4-6 cigarettes daily [place] [facility] [place] [facility] Nov 22, 2016 08:55 AM CURRENT SMOKER [facility] [place] [facility] Nov 22, 2016 08:55 AM V1-PT DECLINES REF TO [facility]BACCO [facility] [place] [facility] Nov 22, 2016 08:55 AM V1-PT DECLINES TOBACCO CESSATION MEDS [facility] [place] [facility] Nov 22, 2016 08:55 AM V1-PT THINKING ABOUT QUIT TOBACCO [facility] [place] [facility] Nov 15, 2016 09:05 AM CURRENT SMOKER 8 TO 10 CIGARETTES PER DAY [place] [facility] [place] [facility] Nov 08, 2016 09:20 AM CURRENT SMOKER Smokes 1/2 pack of cigarettes per day [facility] [place] [facility] Oct 31, 2016 06:35 PM TOBACCO INPATIENT DECLINES [facility] [place] [facility] Oct 31, 2016 03:08 PM CURRENT SMOKER [facility] [place] [facility] March 07, 2016 09:18 PM V1-PT NOT INTERESTED IN QUIT TOBACCO USE [facility] [place] [facility] Jun 11, 2015 10:28 AM CURRENT SMOKER 6-8 cigs per day [facility] Jan 21, 2014 10:56 AM CURRENT SMOKER 4-6 cigarettes per day [facility] Jan 21, 2014 10:56 AM V1-PT NOT INTERESTED IN QUIT TOBACCO USE [facility] Encounter Notes: All associated encounter notes This section contains the clinical notes associated to the Encounter. Date/Time Encounter Note(s) Provider Source Jan 06, 2025 11:10 AM PHARMACY NOTE: LOCAL TITLE: V1 PHARMACY CUSTOMER CARE MEDICATION RENEWAL STANDARD TITLE: PHARMACY NOTE DATE OF NOTE: JAN 06, 2025@11:10 ENTRY DATE: JAN 06, 2025@11:11 AUTHOR: NANI VINCENT EXP COSIGNER: URGENCY: STATUS: COMPLETED Date: Dec Division: [place] Pt referred by Pharmacy Call Center for medication renewal: Controlled substance Medications requested: [id number] OXYCODONE HCL 5MG TAB NOT SA Defer to primary care provider To be picked up at [place]. Please review and renew if appropriate. *This note was generated by [facility]/[place] Pharmacy Customer Care. If you have any questions or need assistance, do not contact this author. Please refer all questions to your local, on-site pharmacy departments. /norberto/ NANI VINCENT CPhT CERTIFIED JUVENILE PROBATION OFFICER, [place]/PHARMACY CUSTOMER CARE Signed: 01/06/2025 11:11 Receipt Acknowledged By: 01/06/2025 12:13 /norberto/ GABRIELA SHANKAR MD PHYSICIAN 01/06/2025 13:22 /norberto/ PARVEEN RICHARDSON Primary Care Staff Nurse NANI VINCENT [facility]
--- OUTSIDE RECORDS SUMMARY | 2025-02-04 02:56 | XMS_ITS | Encounter Summary ---
Author Name [facility] [place] Organization [place] Address [address] [place] [address] Care Team Providers Care Travel Money Advisor Name Role Phone GABRIELA SHANKAR Primary Care [...] Relationship to Policy Proctor CAREMARK PRESCRIPT ION [facility] Apr 27, 2023 [id number] [phone] BLANKAND GINO PATIENT EXPRESS SCRIPTS ([id number]) PRESCRIPT [facility] February 25, 2023 [id number] [facility]AT [facility] Apr 27, 2023 [id number] [facility] CE [facility] February 25, 2023 [id number] [id number] [facility] February 25, 2023 [id number] YENY MOSCOSO PATIENT Selected Encounter This section includes the information on record at [place] for the Encounter. Date/Time Encounter Type Encounter Description Reason Pro vider Source Feb 04, 2025 06:56 AM Outpatient Encounter ADMIN PAT ACTIVTIES (MASNONCT) IHE Encounter Template Text not used by [place] Plan of Treatment: Future Appointments (+ 6 months) and Future Tests (+/- 45 days) The Plan of Treatment section includes future care activities for the patient from all [place] treatmentfacilities. This section includes future appointments and future orders which are active, pending or scheduled. Future Appointments This section includes appointments that were scheduled to occur 6 months from the date of the Encounter, up to a maximum of 20 appointments. The data comes from all [place] treatment facilities. Appointment Date/Time Appointment Type Appointme nt Facility Name February 25, 2025 01:00 PM AMBULATORY [facility] MEDICINE [facility] [place] [facility] May 12, 2025 09:00 AM AMBULATORY - MEDICINE [facility] [place] [facility] May 19, 2025 03:30 PM AMBULATORY - MEDICINE [facility] [place] [facility] Jun 08, 2025 01:30 PM AMBULATORY - NONE [facility] [place] [facility] Jun 24, 2025 08:30 AM AMBULATORY - MEDICINE [facility] [place] [facility] Jul 01, 2025 12:00 PM [facility]ULATORY - [facility]ICINE [facility] Jul 01, 2025 12:00 PM AMBULATORY - NONE [facility] [place] [facility] Jul 19, 2025 02:30 PM AMBULATORY - SURGERY [facility] [place] [facility] Jul 22, 2025 01:30 PM AMBULATORY - MEDICINE [facility] [place] [facility] Jul 29, 2025 01:30 PM AMBULATORY - MEDICINE [facility] [place] [facility] Social History: Smoking Status (Most current) and Tobacco Use (All prior to encounter date) This section includes the most current, and the historical, smoking and tobacco- related health factors from the VA facility where the Encounter took place. Current Smoking Status This section includes the most current smoking, or tobacco-related health factor, from the VA facility where the Encounter took place. Date/Time Current Smoking Status Comment Nilesh clark Aug 28, 2024 08:30 AM VA-TOBACCO USER EVERY DAY [facility] [place] [facility] Tobacco Use History This section includes a history of the smoking, or tobacco-related health factors, that were collected on or before the date of the Encounter. The data comes from the [place] facility where the Encounter took place. Date/Time Smoking Status/Tobac co Use Comment Facility Aug 28, 2024 08:30 AM VA-TOBACCO USE 30 YEARS OR MORE [facility] [place] [facility] Aug 28, 2024 08:30 AM VA-TOBACCO USE ADVICE [facility] [place] [facility] Aug 28, 2024 08:30 AM VA-TOBACCO USE AS400 DEVELOPER NO [facility] [place] [facility] Aug 28, 2024 08:30 AM VA-TOBACCO USE MED NO [facility] [place] [facility] Aug 28, 2024 08:30 AM VA-TOBACCO USER EVERY DAY [facility] [place] [facility] Aug 27, 2023 03:00 PM VA-TOBACCO USE > 15 LESS THAN 30 YEARS [facility] [place] [facility] Aug 27, 2023 03:00 PM VA-TOBACCO USE ADVICE [facility] [place] [facility] Aug 27, 2023 03:00 PM VA-TOBACCO USE AS400 DEVELOPER NO [facility] [place] [facility] Aug 27, 2023 03:00 PM VA-TOBACCO USE MED NO [facility] [place] [facility] Aug 27, 2023 03:00 PM VA-TOBACCO USE WI 30 MIN OF WAKEUP [facility] [place] [facility] Aug 27, 2023 03:00 PM VA-TOBACCO USER EVERY DAY [facility] [place] [facility] Dec 09, 2020 03:30 PM VA-TOBACCO DOESNT USE WI 30 MIN WAKEUP [facility] [place] [facility] Dec 09, 2020 03:30 PM VA-TOBACCO USE > 15 LESS THAN 30 YEARS [facility] [place] [facility] Dec 09, 2020 03:30 PM VA-TOBACCO USE ADVICE [facility] [place] [facility] Dec 09, 2020 03:30 PM VA-TOBACCO USE AS400 DEVELOPER NO [facility] [place] [facility] Dec 09, 2020 03:30 PM VA-TOBACCO USE MED NOTIFY PROVIDER vet requests lucero: does not like gum not helpful [facility] [place] [facility] Dec 09, 2020 03:30 PM VA-TOBACCO USER SOME DAYS [facility] [place] [facility] Jul 08, 2019 12:33 PM VA-TOBACCO DOESNT USE [place] 30 MIN [facility]UP [facility] Jul 08, 2019 12:33 PM VA-TOBACCO USE > 15 LESS THAN 30 YEARS [facility] [place] [facility] Jul 08, 2019 12:33 PM VA-TOBACCO USE ADVICE [facility] Jul 08, 2019 12:33 PM VA-TOBACCO USE AS400 DEVELOPER YES [facility] Jul 08, 2019 12:33 PM VA-TOBACCO USE MED NOTIFY PROVIDER Gum [facility] Jul 08, 2019 12:33 PM VA-TOBACCO USER SOME DAYS [facility] [place] [facility] May 15, 2018 03:13 PM CURRENT SMOKER 4-6 cigarettes daily [facility] [place] [facility] Nov 22, 2016 08:55 AM CURRENT SMOKER [facility] Nov 22, 2016 08:55 AM V1-PT DECLINES REF TO TOBACCO CESS PRGM [facility] Nov 22, 2016 08:55 AM V1-PT DECLINES TOBACCO CESSATION MEDS [facility] Nov 22, 2016 08:55 AM V1-PT THINKING ABOUT QUIT TOBACCO USE [facility] [place] [facility] Nov 15, 2016 09:05 AM CURRENT SMOKER 8 TO 10 CIGARETTES PER DAY [facility] [place] [facility] Nov 08, 2016 09:20 AM CURRENT SMOKER Smokes 1/2 pack of cigarettes per day [facility] [place] [facility] Oct 31, 2016 06:35 PM TOBACCO INPATIENT DECLINES MEDS [facility] [place] [facility] Oct 31, 2016 03:08 PM CURRENT SMOKER [facility] March 07, 2016 09:18 PM V1-PT NOT INTERESTED IN QUIT TOBACCO USE [facility] [place] [facility] Jun 11, 2015 10:28 AM CURRENT SMOKER 6-8 cigs per day [facility] Jan 21, 2014 10:56 AM CURRENT SMOKER 4-6 cigarettes per day [facility] Jan 21, 2014 10:56 AM V1-PT NOT INTERESTED IN QUIT TOBACCO USE [facility] Encounter Notes: All associated encounter notes This section contains the clinical notes associated to the Encounter. Date/Time Encounter Note(s) Provider Source Feb 04, 2025 06:56 AM PHARMACY NOTE: LOCAL TITLE: V1 PHARMACY CUSTOMER CARE MEDICATION RENEWAL STANDARD TITLE: PHARMACY NOTE DATE OF NOTE: FEB 04, 2025@06:56 ENTRY DATE: FEB 04, 2025@06:57:01 AUTHOR: JENNIFER MALDONADO EXP COSIGNER: URGENCY: STATUS: COMPLETED Date: Jan Division: [place] Pt referred by Pharmacy Call Center for medication renewal: Controlled substance Medications requested: [id number] OXYCODONE HCL 5MG TAB NOT SA <DIN> Defer to primary care provider To be picked up. Please review and renew if appropriate. *This note was generated by [facility]/[place] Pharmacy Customer Care. If you have any questions or need assistance, do not contact this author. Please refer all questions to your local, on-site pharmacy departments. /norberto/ JENNIFER MALDONADO [facility] [employer], [place]/Pharmacy Customer Care Signed: 02/04/2025 06:57 Receipt Acknowledged By: 02/04/2025 10:11 /es/ GABRIELA SHANKAR MD PHYSICIAN 02/04/2025 09:27 /es/ PARVEEN RICHARDSON Primary Care Staff Nurse JENNIFER MALDONADO [facility]
--- OUTSIDE RECORDS SUMMARY | 2025-03-02 22:10 | XMS_ITS | Encounter Summary ---
Author Name Department of Veter[place] Affairs [place] Organization Department of [place] Address [address] [place] [address] Care Team Providers Care Peer Counselor Name Role Phone GABRIELA SHANKAR Primary Care [...] Relationship to Policy Proctor CAREMARK PRESCRIPT ION [facility] Apr 27, 2023 [id number] BLANKAFL GINO PATIENT EXPRESS SCRIPTS ([id number]) PRESCRIPT ION [facility] February 25, 2023 [id number] [facility] Apr 27, 2023 [id number] [facility] February 25, 2023 [id number] [facility] February 25, 2023 [id number] YENY MOSCOSO PATIENT Selected Encounter This section includes the information on record at [place] for the Encounter. Date/Time Encounter Type Encounter Description Reason Pro vider Source March 03, 2025 02:10 AM Outpatient Encounter ADMIN PAT ACTIVTIES (MASNONCT) IHE Encounter Template Text not used by [place] Plan of Treatment: Future Appointments (+ 6 months) and Future Tests (+/- 45 days) The Plan of Treatment section includes future care activities for the patient from all [place] treatmentfacilities. This section includes future appointments and future orders which are active, pending or scheduled. Future Appointments This section includes appointments that were scheduled to occur 6 months from the date of the Encounter, up to a maximum of 20 appointments. The data comes from all [place] treatment facilities. Appointment Date/Time Appointment Type Appointme nt Facility Name May 12, 2025 09:00 AM AMBULATORY - MEDICINE [place] [facility] [place] [facility] May 19, 2025 03:30 PM AMBULATORY - MEDICINE [facility] [place] [facility] Jun 08, 2025 01:30 PM AMBULATORY - NONE [facility] [place] [facility] Jun 24, 2025 08:30 AM AMBULATORY - MEDICINE [facility] [facility] Jul 01, 2025 12:00 PM [facility] Jul 01, 2025 12:00 PM AMBULATORY - NONE [facility] [place] [facility] Jul 19, 2025 02:30 PM AMBULATORY - SURGERY [facility] [place] [facility] Jul 22, 2025 01:30 PM AMBULATORY - MEDICINE [facility] [place] [facility] Jul 29, 2025 01:30 PM AMBULATORY - MEDICINE [place] [facility] [place] [facility] Social History: Smoking Status (Most [...] 2024 08:30 AM VA-TOBACCO USER EVERY DAY [facility] Tobacco Use History This section includes a history of the smoking, or tobacco-related health factors, that were collected on or before the date of the Encounter. The data comes from the [place] facility where the Encounter took place. Date/Time Smoking Status/Tobac co Use Comment Facility Aug 28, 2024 08:30 AM VA-TOBACCO USE 30 YEARS OR MORE [facility] [place] [facility] Aug 28, 2024 08:30 AM VA-TOBACCO USE ADVICE [facility] [place] [facility] Aug 28, 2024 08:30 AM VA-TOBACCO USE PARALEGAL INSTRUCTOR NO [facility] [place] [facility] Aug 28, 2024 08:30 AM VA-TOBACCO USE MED NO [facility] [place] [facility] Aug 28, 2024 08:30 AM VA-TOBACCO USER EVERY DAY [facility] [place] [facility] Aug 27, 2023 03:00 PM VA-TOBACCO USE > 15 LESS THAN 30 YEARS [facility] [place] [facility] Aug 27, 2023 03:00 PM VA-TOBACCO USE ADVICE [facility] [place] [facility] Aug 27, 2023 03:00 PM VA-TOBACCO USE PARALEGAL INSTRUCTOR NO [facility] [place] [facility] Aug 27, 2023 03:00 PM VA-TOBACCO USE MED NO [facility] [place] [facility] Aug 27, 2023 03:00 PM VA-TOBACCO USE WI 30 MIN OF WAKEUP [facility] [place] [facility] Aug 27, 2023 03:00 PM VA-TOBACCO USER EVERY DAY [facility] [place] [facility] Dec 09, 2020 03:30 PM VA-TOBACCO DOESNT USE WI 30 MIN WAKEUP [facility] [place] [facility] Dec 09, 2020 03:30 PM VA-TOBACCO USE > 15 LESS THAN 30 YEARS [facility] [place] [facility] Dec 09, 2020 03:30 PM VA-TOBACCO USE ADVICE [facility] [place] [facility] Dec 09, 2020 03:30 PM VA-TOBACCO USE PARALEGAL INSTRUCTOR NO [facility] [place] [facility] Dec 09, 2020 03:30 PM VA-TOBACCO USE MED NOTIFY PROVIDER vet requests lucero: does not like gum not helpful [facility] [place] [facility] Dec 09, 2020 03:30 PM VA-TOBACCO USER SOME DAYS [facility] [place] [facility] Jul 08, 2019 12:33 PM VA-TOBACCO DOESNT USE WI 30 MIN WAKEUP [facility] [place] [facility] Jul 08, 2019 12:33 PM VA-TOBACCO USE > 15 LESS THAN 30 YEARS [facility] [place] [facility] Jul 08, 2019 12:33 PM VA-TOBACCO USE ADVICE [facility] [place] [facility] Jul 08, 2019 12:33 PM VA-TOBACCO USE PARALEGAL INSTRUCTOR YES [facility] Jul 08, 2019 12:33 PM VA-TOBACCO USE MED NOTIFY PROVIDER Gum [facility] [place] [facility] Jul 08, 2019 12:33 PM VA-TOBACCO USER SOME DAYS [facility] [place] [facility] May 15, 2018 03:13 PM CURRENT SMOKER 4-6 cigarettes daily [facility] [place] [facility] Nov 22, 2016 08:55 AM [facility] [place] [facility] Nov 22, 2016 08:55 AM V1-PT DECLINES [facility] [place] Nov 22, 2016 08:55 AM V1-PT DECLINES [facility]BACCO [facility] [place] [facility] Nov 22, 2016 08:55 AM V1-PT THINKING ABOUT QUIT TOBACCO [facility] [place] [facility] Nov 15, 2016 09:05 AM CURRENT SMOKER 8 TO 10 CIGARETTES PER DAY [facility] [place] [facility] Nov 08, 2016 09:20 AM CURRENT SMOKER Smokes 1/2 pack of cigarettes per day [facility] [place] [facility] Oct 31, 2016 06:35 PM TOBACCO INPATIENT DECLINES [facility] [place] [facility] Oct 31, 2016 03:08 PM CURRENT SMOKER [facility] [place] [facility] March 07, 2016 09:18 PM V1-PT NOT INTERESTED IN QUIT TOBACCO [facility] [place] [facility] Jun 11, 2015 10:28 AM CURRENT SMOKER 6-8 cigs per day [facility] Jan 21, 2014 10:56 AM CURRENT SMOKER 4-6 cigarettes per day [facility] Jan 21, 2014 10:56 AM V1-PT NOT INTERESTED IN QUIT TOBACCO USE [facility] Encounter Notes: All associated encounter notes This section contains the clinical notes associated to the Encounter. Date/Time Encounter Note(s) Provider Source March 03, 2025 02:10 AM PHARMACY NOTE: LOCAL TITLE: V1 PHARMACY CUSTOMER CARE MEDICATION RENEWAL STANDARD TITLE: PHARMACY NOTE DATE OF NOTE: MARCH 03, 2025@02:10 ENTRY DATE: MARCH 03, 2025@02:10:08 AUTHOR: BJORN MOULTON EXP COSIGNER: URGENCY: STATUS: COMPLETED Date: February Division: [place] Pt referred by Pharmacy Call Center for medication renewal: Controlled substance Medications requested: [id number] OXYCODONE HCL 5MG TAB NOT SA *The requests Window Senior Maintenance Mechanic* Defer to primary care provider To be picked up. Please review and renew if appropriate. *This note was generated by [facility]/[place] Pharmacy Customer Care. If you have any questions or need assistance, do not contact this author. Please refer all questions to your local, on-site pharmacy departments. /norberto/ BJORN MOULTON CPhT Anthropometrist, [place]/Pharmacy Customer Care Signed: 03/03/2025 02:10 Receipt Acknowledged By: 03/03/2025 08:24 /norberto/ GABRIELA SHANKAR MD PHYSICIAN 03/03/2025 08:25 /norberto/ PARVEEN Castillo [facility] Primary Care Staff Nurse BJORN MOULTON [facility]
--- OUTSIDE RECORDS SUMMARY | 2025-03-31 14:30 | XMS_ITS | Encounter Summary ---
Author Name [facility] [place] Organization [facility] [place] Address [address] [place] [address] Care Team Providers Care Fine Dining Server Name Role Phone GABRIELA SHANKAR Primary Care [...] Relationship to Policy Proctor CAREMARK PRESCRIPT ION [facility] Apr 27, 2023 [id number] BLANKADE GINO PATIENT [employer] ([id number]) PRESCRIPT ION [facility] February 25, 2023 [id number] [facility] Apr 27, 2023 [id number] [facility] [place] February 25, 2023 [id number] [id number] [facility] [place] February 25, 2023 [id number] YENY MOSCOSO PATIENT Selected Encounter This section includes the information on record at [place] for the Encounter. Date/Time Encounter Type Encounter Description Reason Pro vider Source Mar 31, 2025 06:30 PM Outpatient Encounter ADMIN PAT ACTIVTIES (MASNONCT) IHE Encounter Template Text not used by [place] Plan of Treatment: Future Appointments (+ 6 months) and Future Tests (+/- 45 days) The Plan of Treatment section includes future care activities for the patient from all [place] [facility] This section includes future appointments and future orders which are active, pending or scheduled. Future Appointments This section includes appointments that were scheduled to occur 6 months from the date of the Encounter, up to a maximum of 20 appointments. The data comes from all [place] treatment facilities. Appointment Date/Time Appointment Type Appointme nt Facility Name May 12, 2025 09:00 AM AMBULATORY - MEDICINE [place] [facility] [place] [facility] May 19, 2025 03:30 PM AMBULATORY - MEDICINE [place] [facility] [place] [facility] Jun 08, 2025 01:30 PM AMBULATORY - NONE [facility] [place] [facility] Jun 24, 2025 08:30 AM AMBULATORY - MEDICINE [place] [facility] [place] [facility] Jul 01, 2025 12:00 PM AMBULATORY - MEDICINE [facility] Jul 01, 2025 12:00 PM AMBULATORY - NONE [facility] [place] [facility] Jul 19, 2025 02:30 PM AMBULATORY - SURGERY [place] [facility] [place] [facility] Jul 22, 2025 01:30 PM AMBULATORY - MEDICINE [place] [facility] [place] [facility] Jul 29, 2025 01:30 PM AMBULATORY - MEDICINE [place] [facility] [place] [facility] Active, Pending, and Scheduled Orders This section includes a listing of several types of active, pending, and scheduled orders, including clinic medications orders, diagnostic test orders, procedure orders and consult orders; where the start date of the order is 45 days before the date of the Encounter or 45 days after the date of theEncounter. The data comes from all [facility]. Test Date/Time Test Type Test Details Facility Name May 03, 2025 12:00 AM Laboratory - Chemistry Order PHENCYCLIDINE SCREEN w/Reflex to Confirm URINE (DRUG) [facility] May 03, 2025 12:00 AM Laboratory - Chemistry Order PROPOXYPHENE SCREEN URINE (DRUG) [facility] Lab Results: +/- 30 days of the encounter This section includes the Chemistry and Hematology Lab Results on record with [place] for the patient. Radiology Reports and Pathology Reports are provided separately, in subsequent sections. Lab Results This section contains the Chemistry/Hematology Results that were resulted 30 days before or 30 daysafter the date of the Encounter. Date/Time Source Result Type Result - Unit Interpretation Reference Range Specimen Type Comment Apr 29, 2025 10:58 AM [facility] MICROALBUMIN CREATININE RATIO PANEL URINE Spe cimen Type: URINE No comment entered. Ordering Provider: YENY SHANKAR Report Released Date/Time: Apr 28, 2025 08:45 AM Reporting Lab: [address] [address] Performing Lab: [address] [address] MICROALBUMIN/CREATININE RATIO 5.0 mg/g 0 -29.9 MICROALBUMIN,QUANTITATIVE 0.5 mg/dL RR U NAVAIL CREATININE URINE 100.18 mg/dL 63-166 Apr 29, 2025 10:58 AM [facility] HEMOGLOBIN A1C PANEL BLOOD Specimen Type: BLO OD Comment: Values obtained from A1C measurements can vary. For atypical A1C assays, a reported value of 7.0 could actually be between 6.72 and 7.28 if measured by a reference method. A reported value of 9.0 could actually be between 8.73 and 9.27. Ref: http://www.ngsp.org/CAPdata.asp Ordering Provider: GABRIELA SHANKAR Report Released Date/Time: Apr 28, 2025 08:45 AM Reporting Lab: [address] [address] Performing Lab: [address] [address] HEMOGLOBIN A1C 4.0 4.0-5.6 Apr 29, 2025 10:58 AM [facility] PT & INR (PROTIME) PLASMA Specimen Type: PLASM A No comment entered. Ordering Provider: GABRIELA SHANKAR Report Released Date/Time: Apr 28, 2025 08:45 AM Reporting Lab: [facility] [place] [facility] [address] [facility] [address] Performing Lab: [facility] [address] [facility] [address] INR 2.5 PROTIME 26.5 s H 10.0-13.1 Apr 29, 2025 10:58 AM [facility] TSH SERUM Specimen Type: SERUM No comment entered. Ordering Provider: GABRIELA SHANKAR Report Released Date/Time: Apr 28, 2025 08:45 AM Reporting Lab: [facility] [address] [address] Performing Lab: [facility] [address] [facility] [address] TSH 3.95 u[IU]/mL 0.35-4.94 Apr 29, 2025 10:58 AM [facility] CALCIUM SERUM Specimen Type: SERUM No comment entered. Ordering Provider: GABRIELA SHANKAR Report Released Date/Time: Apr 28, 2025 08:45 AM Reporting Lab: [facility] [address] [address] Performing Lab: [facility] [address] [address] CALCIUM 7.5 mg/dL L 8.4-10.2 Apr 29, 2025 10:58 AM [facility] HEPATITIS C ANTIBODY (HCV)-ARC SERUM Specimen Type: SERUM Comment: Hep C Ab: No HCV antibody detected. If recent infection is suspected or other evidence suggests HCV infection, consider HCV nucleic acid testing Ordering Provider: GABRIELA SHANKAR Report Released Date/Time: Apr 28, 2025 08:45 AM Reporting Lab: [facility] [address] [address] Performing Lab: [facility] [address] [facility] [address] HEPATITIS C ANTIBODY NON-REACTIVE NON-RE ACTIVE Apr 29, 2025 10:58 AM [facility] LIVER FUNCTION SERUM Specimen Type: SERUM No comment entered. Ordering Provider: GABRIELA SHANKAR Report Released Date/Time: Apr 28, 2025 08:45 AM Reporting Lab: [facility] [address] [facility] [address] Performing Lab: [facility] [address] [facility] [address] PROTEIN,TOTAL 8.3 g/dL 6.4-8.3 ALBUMIN 2.3 g/dL L 3.5-5.2 ALKALINE PHOSPHATASE 103 U/L 40-150 AST 97 U/L H 5-34 ALT 36 U/L 0-55 BILIRUBIN, TOTAL 9.8 mg/dL H 0.2-1.2 BILIRUBIN, DIRECT 4.5 mg/dL H 0-0.5 Apr 29, 2025 10:58 AM [facility] BASIC METABOLIC PANEL (non-fasting) SERUM Spe cimen Type: SERUM No comment entered. Ordering Provider: GABRIELA SHANKAR Report Released Date/Time: Apr 28, 2025 08:45 AM Reporting Lab: [facility] [address] [facility] [address] Performing Lab: [address] [address] UREA NITROGEN 4 mg/dL L 8-26 GLUCOSE 106 mg/dL H 65-100 SODIUM 131 mmol/L L 136-145 POTASSIUM 3.3 mmol/L L 3.5-5.1 CHLORIDE 97 mmol/L L 98-107 CO2 27 meq/L 22-29 CALCIUM 7.5 mg/dL L 8.4-10.2 CREATININE, Serum 0.62 mg/dL L 0.72-1.25 eGFR(CKD-EPI 2020) >90 mL/min >60 Apr 29, 2025 10:58 AM [facility] CBC AND DIFF (AUTO) BLOOD Specimen Type: BLOO D No comment entered. Ordering Provider: GABRILEA SHANKAR Report Released Date/Time: Apr 28, 2025 08:45 AM Reporting [facility]: [facility] [address] [facility] [address] Performing [facility]: [facility] [address] [facility] [address] WBC 12.31 10*3/uL H 4.50-11.00 RBC 3.86 10*6/uL L 4.23-5.66 HGB 13.2 g/dL 12.8-17 HCT 38.3 L 39.2-50.4 MCV 99.2 fL H 82-99 MCHC 34.5 g/dL 30.8-35.1 PLT 135 10*3/uL L 140-360 MPV 10.0 fL 9.2-12.4 RDW-CV 15.4 12.0-16.0 MONO, ABS 1.12 10*3/uL H 0.30-1.10 MCH 34.2 pg H 26.2-32.6 NEUT % 63.7 43.7-75.8 LYMPH % 24.8 14.0-42.3 MONO % 9.1 5.1-13.7 EOS % 1.1 0.4-6.8 BASO % 0.7 0.1-2.0 NEUT, ABS 7.83 10*3/uL H 2.20-7.60 LYMPH, ABS 3.05 10*3/uL 1.00-3.20 EOS, ABS 0.14 10*3/uL 0.03-0.44 BASO, ABS 0.09 10*3/uL 0.01-0.13 IMMATURE GRAN % 0.6 0.0-0.7 IMMATURE GRAN, ABS 0.08 10*3/uL H 0.00-0.0 6 NRBC % 0.0 0.0-0.0 NRBC, ABS 0.00 10*3/uL 0.00-0.00 Social History: Smoking Status (Most current) and Tobacco Use (All prior to encounter date) This section includes the most current, and the historical, smoking and tobacco- related health factors from the [place] facility where the Encounter took place. Current Smoking Status This section includes the most current smoking, or tobacco-related health factor, from the [place] facility where the Encounter took place. Date/Time Current Smoking Status Comment [facility] Aug 28, 2024 08:30 AM VA-TOBACCO USER EVERY DAY [facility] [place] [facility] Tobacco Use History This section includes a history of the smoking, or tobacco-related health factors, that were collected on or before the date of the Encounter. The data comes from the [place] facility where the Encounter took place. Date/Time Smoking Status/Tobac co Use Comment Facility Aug 28, 2024 08:30 AM VA-TOBACCO USE 30 YEARS OR MORE [facility] [place] [facility] Aug 28, 2024 08:30 AM VA-TOBACCO USE ADVICE [facility] [place] [facility] Aug 28, 2024 08:30 AM VA-TOBACCO USE VOICE INSTRUCTOR NO [facility] [place] [facility] Aug 28, 2024 08:30 AM VA-TOBACCO USE MED NO [facility] [place] [facility] Aug 28, 2024 08:30 AM VA-TOBACCO USER EVERY DAY [facility] [place] [facility] Aug 27, 2023 03:00 PM VA-TOBACCO USE > 15 LESS THAN 30 YEARS [facility] [place] [facility] Aug 27, 2023 03:00 PM VA-TOBACCO USE ADVICE [facility] [place] [facility] Aug 27, 2023 03:00 PM VA-TOBACCO USE VOICE INSTRUCTOR NO [facility] [place] [facility] Aug 27, 2023 03:00 PM VA-TOBACCO USE MED NO [facility] [place] [facility] Aug 27, 2023 03:00 PM VA-TOBACCO USE WI 30 MIN OF WAKEUP [facility] [place] [facility] Aug 27, 2023 03:00 PM VA-TOBACCO USER EVERY DAY [facility] [place] [facility] Dec 09, 2020 03:30 PM VA-TOBACCO DOESNT USE WI 30 MIN WAKEUP [facility] [place] [facility] Dec 09, 2020 03:30 PM VA-TOBACCO USE > 15 LESS THAN 30 YEARS [facility] [place] [facility] Dec 09, 2020 03:30 PM VA-TOBACCO USE ADVICE [facility] [place] [facility] Dec 09, 2020 03:30 PM VA-TOBACCO USE VOICE INSTRUCTOR NO [facility] [place] [facility] Dec 09, 2020 03:30 PM VA-TOBACCO USE MED NOTIFY PROVIDER vet requests lucero: does not like gum not helpful [facility] [place] [facility] Dec 09, 2020 03:30 PM VA-TOBACCO USER SOME DAYS [facility] [place] [facility] Jul 08, 2019 12:33 PM VA-TOBACCO DOESNT USE WI 30 MIN WAKEUP [facility] [place] [facility] Jul 08, 2019 12:33 PM VA-TOBACCO USE > 15 LESS THAN 30 YEARS [facility] [place] [facility] Jul 08, 2019 12:33 PM VA-TOBACCO USE ADVICE [facility] [place] [facility] Jul 08, 2019 12:33 PM VA-TOBACCO USE VOICE INSTRUCTOR YES [facility] [place] [facility] Jul 08, 2019 12:33 PM VA-TOBACCO USE MED NOTIFY PROVIDER Gum [facility] [place] [facility] Jul 08, 2019 12:33 PM VA-TOBACCO USER SOME DAYS [facility] [place] [facility] May 15, 2018 03:13 PM CURRENT SMOKER 4-6 cigarettes daily [facility] [place] [facility] Nov 22, 2016 08:55 AM CURRENT SMOKER [facility] [place] [facility] Nov 22, 2016 08:55 AM V1-PT DECLINES [facility] [place] [facility] Nov 22, 2016 08:55 AM V1-PT DECLINES TOBACCO CESSATION MEDS [facility] [place] [facility] Nov 22, 2016 08:55 AM V1-PT THINKING ABOUT QUIT TOBACCO USE [facility] [place] [facility] Nov 15, 2016 09:05 AM CURRENT SMOKER 8 TO 10 CIGARETTES PER DAY [facility] [place] [facility] Nov 08, 2016 09:20 AM CURRENT SMOKER Smokes 1/2 pack of cigarettes per day [facility] [place] [facility] Oct 31, 2016 06:35 PM TOBACCO INPATIENT DECLINES MEDS [facility] [place] [facility] Oct 31, 2016 03:08 PM CURRENT SMOKER [facility] [place] [facility] March 07, 2016 09:18 PM V1-PT NOT INTERESTED IN QUIT TOBACCO USE [facility] Jun 11, 2015 10:28 AM CURRENT SMOKER 6-8 cigs per day [facility] Jan 21, 2014 10:56 AM CURRENT SMOKER 4-6 cigarettes per day [facility] Jan 21, 2014 10:56 AM V1-PT NOT INTERESTED IN QUIT TOBACCO USE [facility] Encounter Notes: All associated encounter notes This section contains the clinical notes associated to the Encounter. Date/Time Encounter Note(s) Provider Source Mar 31, 2025 06:30 PM PHARMACY NOTE: LOCAL TITLE: PHARMACY CUSTOMER CARE MEDICATION RENEWAL STANDARD TITLE: PHARMACY NOTE DATE OF NOTE: MAR 31, 2025@18:30 ENTRY DATE: MAR 31, 2025@18:30:17 AUTHOR: RADHA MCKEON EXP COSIGNER: URGENCY: STATUS: COMPLETED Date: Mar Division: [place] Pt referred by Pharmacy Call Center for medication renewal: Controlled substance Medications requested: [id number] OXYCODONE HCL 5MG TAB NOT SA <DIN> Defer to primary care provider To be picked up.____attalla _ Please review and renew if appropriate. *This note was generated by [facility] [facility] Customer [facility]. If you have any questions or need assistance, do not contact this author. Please refer all questions to your local, on-site pharmacy departments. /norberto/ RADHA MCKEON [facility] [employer], [place]/Pharmacy Customer Care Signed: 03/31/2025 18:30 Receipt Acknowledged By: 04/01/2025 12:11 /es/ GABRIELA SHANKAR MD PHYSICIAN 04/01/2025 08:31 /norberto/ PARVEEN RICHARDSON Primary Care Staff Nurse RADHA MCKEON [facility]
--- OUTSIDE RECORDS SUMMARY | 2025-04-26 09:30 | XMS_ITS | Encounter Summary ---
Author Name [facility] [place] Organization [facility] [place] Address [address] [place] [address] Care Team Providers Care Event Host Name Role Phone GABRIELA SHANKAR Primary Care [...] Relationship to Policy Proctor CAREMARK PRESCRIPT ION [facility] Apr 27, 2023 [id number] [phone] BLANKANY GINO PATIENT [employer] ([id number]) PRESCRIPT ION [facility] February 25, 2023 [id number] YENY MOSCOSO [facility] Apr 27, 2023 [id number] [facility] February 25, 2023 [id number] [facility] February 25, 2023 [id number] [phone] BLANKANY GINO PATIENT Selected Encounter This section includes the information on record at [place] for the Encounter. Date/Time Encounter Type Encounter Description Reason Pro vider Source Apr 26, 2025 01:30 PM Outpatient Encounter PRIMARY CARE/MEDICINE IHE Encounter Template Text not used by [place] Plan of Treatment: Future Appointments (+ 6 months) and Future Tests (+/- 45 days) The Plan of Treatment section includes future care activities for the patient [facility] [place] [facility] This section includes future appointments and future orders which are active, pending or scheduled. Future Appointments This section includes appointments that were scheduled to occur 6 months from the date of the Encounter, up to a maximum of 20 appointments. The data comes from all [facility]. Appointment Date/Time Appointment Type Appointme nt Facility Name May 12, 2025 09:00 AM AMBULATORY - MEDICINE [place] [facility] May 19, 2025 03:30 PM AMBULATORY - MEDICINE [place] [facility] Jun 08, 2025 01:30 PM AMBULATORY - NONE [place] [facility] [facility] Jul 19, 2025 02:30 PM AMBULATORY - SURGERY [place] [facility] Jul 22, 2025 01:30 PM AMBULATORY - MEDICINE [place] [facility] Jul 29, 2025 01:30 PM AMBULATORY - MEDICINE [place] [facility] Active, Pending, and Scheduled Orders This section includes a listing of several types of active, pending, and scheduled orders, including clinic medications orders, diagnostic test orders, procedure orders and consult orders; where the start date of the order is 45 days before the date of the Encounter or 45 days after the date of theEncounter. The data comes from all [facility]. Test Date/Time Test Type Test Details Facility Name May 03, 2025 12:00 AM Laboratory - Chemistry Order PHENCYCLIDINE SCREEN w/Reflex to Confirm URINE (DRUG) [facility] May 03, 2025 12:00 AM Laboratory - Chemistry Order PROPOXYPHENE SCREEN URINE (DRUG) [facility] May 19, 2025 12:00 AM Laboratory - Chemistry Order HEPATITIS B SURFACE ANTIGEN (HBsAg)-WH BLOOD (SST-SERUM) [facility] May 19, 2025 12:00 AM Laboratory - Chemistry Order HEPATITIS C ANTIBODY (HCV)-ARC BLOOD (MARBLED-TOP SERUM) [facility] May 19, 2025 12:00 AM Laboratory - Chemistry Order FERRITIN BLOOD (SST-SERUM) [facility] May 19, 2025 12:00 AM Laboratory - Chemistry Order HEPATITIS B CORE (Total) Ab BLOOD (SST-SERUM) [facility] May 19, 2025 12:00 AM Laboratory - Chemistry Order IRON & TIBC PANEL BLOOD (SST-SERUM) [facility] May 19, 2025 12:00 AM Laboratory - Chemistry Order MARCELO SCREEN/TITER BLOOD (SST-GOLD) SERUM [facility] May 19, 2025 12:00 AM Laboratory - Chemistry Order GAMMA-GTP BLOOD (SST-SERUM) [facility] May 19, 2025 12:00 AM Laboratory - Chemistry Order ALBUMIN BLOOD (SST-SERUM) [facility] May 19, 2025 12:00 AM Laboratory - Chemistry Order PROTEIN,TOTAL BLOOD (SST-SERUM) [facility] May 19, 2025 12:00 AM Laboratory - Chemistry Order ALBUMIN BLOOD (SST-SERUM) [facility] May 19, 2025 12:00 AM Laboratory - Chemistry Order ALKALINE PHOSPHATASE BLOOD (SST-SERUM) [facility] May 19, 2025 12:00 AM Laboratory - Chemistry Order AST BLOOD (SST-SERUM) [facility] May 19, 2025 12:00 AM Laboratory - Chemistry Order BILIRUBIN, TOTAL BLOOD (SST-SERUM) [facility] May 19, 2025 12:00 AM Laboratory - Chemistry Order ALT BLOOD (SST-SERUM) [facility] May 19, 2025 03:57 PM Laboratory - Chemistry Order PT & INR (PROTIME) BLOOD (BLUE-PLASMA) [facility] May 19, 2025 03:57 PM Consult Order HEPATOLOGY SERVICES [facility] WHAV Cons Packaging Design Engineer's Choice [facility] May 26, 2025 12:00 AM Laboratory - Chemistry Order LIVER KIDNEY MICROSOME ANTIBODY BLOOD (RED-PLAIN) SERUM [facility] May 26, 2025 12:00 AM Laboratory - Chemistry Order MARCELO SCREEN/TITER BLOOD (SST-GOLD) SERUM [facility] May 26, 2025 12:00 AM Laboratory - Chemistry Order IGG BLOOD (SST-SERUM) [facility] May 26, 2025 12:00 AM Laboratory - Chemistry Order ACTIN (SMOOTH MUSCLE) ANTIBODY (IgG) BLOOD (SST-SERUM) [facility] May 26, 2025 12:00 AM Laboratory - Chemistry Order FERRITIN BLOOD (SST-SERUM) [facility] May 26, 2025 12:00 AM Laboratory - Chemistry Order IRON & TIBC PANEL BLOOD (SST-SERUM) [facility] May 26, 2025 12:00 AM Laboratory - Chemistry Order CERULOPLASMIN BLOOD (RED-PLAIN) SERUM [facility] May 26, 2025 12:00 AM Laboratory - Chemistry Order A1A PHENOTYPE PANEL BLOOD (SST-SERUM) [facility] May 26, 2025 12:00 AM Laboratory - Chemistry Order HEPATITIS B CORE (Total) Ab BLOOD (SST-SERUM) [facility] May 26, 2025 12:00 AM Laboratory - Chemistry Order HEPATITIS B SURFACE ANTIGEN (HBsAg)- BLOOD (SST-SERUM) [facility] May 26, 2025 12:00 AM Laboratory - Chemistry Order HEPATITIS B SURFACE ANTIBODY (HBsAb)- BLOOD (SST-SERUM) [facility] May 26, 2025 12:00 AM Laboratory - Chemistry Order PT & INR (PROTIME) BLOOD (BLUE-PLASMA) [facility] May 26, 2025 12:00 AM Laboratory - Chemistry Order BASIC METABOLIC PANEL (non-fasting) BLOOD (SST-SERUM) [facility] May 26, 2025 12:00 AM Laboratory - Chemistry Order LIVER FUNCTION BLOOD (SST-SERUM) [facility] RAMÓNLilian [facility] May 26, 2025 12:00 AM Laboratory - Chemistry Order ALPHA-FETOPROTEIN BLOOD (SST-SERUM) [facility] May 26, 2025 12:00 AM Laboratory - Chemistry Order CBC AND DIFF (AUTO) BLOOD (LAV-BLOOD) [facility] Jun 08, 2025 12:00 AM Imaging - Ultrasound Order ULTRASOUND ELASTOGRAPHY PARENCHYMA [facility] Jun 08, 2025 12:00 AM Imaging - Ultrasound Order ULTRASOUND ABDOMEN [facility] Lab Results: +/- 30 days of the encounter This section includes the Chemistry and Hematology Lab Results on [facility] with [facility] for the [facility]. Radiology Reports and Pathology Reports are provided separately, in subsequent sections. Lab Results This section contains the Chemistry/Hematology Results that were resulted 30 days before or 30 daysafter the date of the Encounter. Date/Time Source Result Type Result - Unit Interpretation Reference Range Specimen Type Comment May 03, 2025 01:16 PM [facility] DEXTRO/LevoMethorphan, Urine URINE Specimen T ype: URINE Comment: REFERENCE RANGE: <5 ng/mL This test is not chiral specific; therefore, dextromethorphan and/or levomethorphan may be present. This test was developed and its analytical performance characteristics have been determined by [facility]. It has not been cleared or approved by the FDA. This assay has been validated pursuant to the CLIA regulations and is used for clinical purposes. This drug testing is for medical treatment only. Analysis was performed as non-forensic testing and these results should be used only by healthcare providers to render diagnosis or treatment, or to monitor progress of medical conditions. Test performed by: [facility] [address], [address] [place] [address] Papeterie Table Assembler: Jordan Porras M.D. Test Reported by [facility], [place], [employer] [place], [address] [place] [address] Mir Rodriguez M.D., Ph.D., Director of Laboratories , CLIA [id number] TEST PERFORMED AT: , Ordering Provider: STEPHANIE SHANKAR Report Released Date/Time: May 03, 2025 01:35 PM Reporting Lab: [facility] [address] [facility] [address] Performing Lab: [facility] [address] [address] DEXTRO/LevoMethorphan, Urine NEGATIVE ng/mL SEE BELOW May 03, 2025 01:16 PM [facility] TRAMADOL PNL (Path.To) URINE Specimen Type: URI NE Comment: REFERENCE RANGE: <100 ng/mL REFERENCE RANGE: <100 ng/mL See LDT message Test Performed by [facility], [address] [place] [address] Mir Rodriguez M.D., Ph.D., Director of Laboratories , CLIA [id number] This drug testing is for medical treatment only. Analysis was performed as non-forensic testing and these results should be used only by healthcare providers to render diagnosis or treatment, or to monitor progress of medical conditions. LDT Message: This test was developed and its analytical performance characteristics have been determined by [place]. It has not been cleared or approved by the U.S. Food and Drug Administration. This assay has been validated pursuant to the CLIA regulations and is used for clinical purposes. Healthcare Providers needing Interpretation assistance, please contact us at [phone] ) M-F, 8am to 10pm EST TEST PERFORMED AT: , Ordering Provider: GABRIELA SHANKAR Report Released Date/Time: May 03, 2025 01:35 PM Reporting Lab: [facility] [address] [facility] [address] Performing Lab: [facility] [address] [facility], [address] [place] [address] TRAMADOL,URINE NEGATIVE ng/mL SEE BELOW DESMETHYLTRAMADOL NEGATIVE ng/mL SEE BEL OW May 03, 2025 01:16 PM [facility] BARBITURATES SCREEN PANEL URINE Specimen Type : URINE Comment: Urine with Cr <5 is diluted or substituted. Cr between 5 and 20 is very dilute. Urine with SG of 1.001 or less is diluted or substituted. SG of 1.003 or less is very dilute. Urine with a pH <3 or >11 has been adulterated and is unsuitable for testing by our current method. Urine with pH between 3 and 4 OR 10 and 11 may have been adulterated. Ordering Provider: GABRIELA SHANKAR Report Released Date/Time: May 03, 2025 01:35 PM Reporting Lab: [address] [address] Performing Lab: [address] [address] BARBITURATES SCREEN NONE-DETECTED None-D etected,Cutoff = 200 ng/mL PH, DWIGHT 6.1 [pH] 5.0-8.0 CREATININE, DWIGHT 76.65 mg/dL 63-166 SP.GRAVITY, DWIGHT 1.003 L 1.005-1.030 May 03, 2025 01:16 PM [facility] ALCOHOL, ETHYL URINE PANEL URINE Specimen Typ e: URINE Comment: Urine with Cr <5 is diluted or substituted. Cr between 5 and 20 is very dilute. Urine with SG of 1.001 or less is diluted or substituted. SG of 1.003 or less is very dilute. Urine with a pH <3 or >11 has been adulterated and is unsuitable for testing by our current method. Urine with pH between 3 and 4 OR 10 and 11 may have been adulterated. Ordering Provider: GABRIELA SHANKAR Report Released Date/Time: May 03, 2025 01:35 PM Reporting Lab: [address] [address] Performing Lab: [facility] [address] [address] ALCOHOL, ETHYL URINE POSITIVE HH None-Detec alok, cutoff = 10 mg/dL PH, DWIGHT 6.1 [pH] 5.0-8.0 CREATININE, DWIGHT 76.65 mg/dL 63-166 SP.GRAVITY, DWIGHT 1.003 L 1.005-1.030 May 03, 2025 01:16 PM [facility] AMPHETAMINES SCREEN PANEL URINE Specimen Type : URINE Comment: Urine with Cr <5 is diluted or substituted. Cr between 5 and 20 is very dilute. Urine with SG of 1.001 or less is diluted or substituted. SG of 1.003 or less is very dilute. Urine with a pH <3 or >11 has been adulterated and is unsuitable for testing by our current method. Urine with pH between 3 and 4 OR 10 and 11 may have been adulterated. Ordering Provider: GABRIELA SHANKAR Report Released Date/Time: May 03, 2025 01:35 PM Reporting Lab: [address] [address] Performing Lab: [address] [address] AMPHETAMINES SCREEN NONE-DETECTED None-D etected, Cutoff = 1000 ng/mL PH, DWIGHT 6.1 [pH] 5.0-8.0 CREATININE, DWIGHT 76.65 mg/dL 63-166 SP.GRAVITY, DWIGHT 1.003 L 1.005-1.030 May 03, 2025 01:16 PM [facility] CANNABINOIDS SCREEN PANEL URINE Specimen Type : URINE Comment: Urine with Cr <5 is diluted or substituted. Cr between 5 and 20 is very dilute. Urine with SG of 1.001 or less is diluted or substituted. SG of 1.003 or less is very dilute. Urine with a pH <3 or >11 has been adulterated and is unsuitable for testing by our current method. Urine with pH between 3 and 4 OR 10 and 11 may have been adulterated. Ordering Provider: GABRIELA SHANKAR Report Released Date/Time: May 03, 2025 01:35 PM Reporting Lab: [facility] [address] [address] Performing Lab: [address] [address] CANNABINOIDS SCREEN NONE-DETECTED None-D etected,Cutoff = 50 ng/mL PH, DWIGHT 6.1 [pH] 5.0-8.0 CREATININE, DWIGHT 76.65 mg/dL 63-166 SP.GRAVITY, DWIGHT 1.003 L 1.005-1.030 May 03, 2025 01:16 PM [facility] BUPRENORPHINE SCREEN PANEL URINE Specimen Typ e: URINE Comment: Urine with Cr <5 is diluted or substituted. Cr between 5 and 20 is very dilute. Urine with SG of 1.001 or less is diluted or substituted. SG of 1.003 or less is very dilute. Urine with a pH <3 or >11 has been adulterated and is unsuitable for testing by our current method. Urine with pH between 3 and 4 OR 10 and 11 may have been adulterated. Ordering Provider: GABRIELA SHANKAR Report Released Date/Time: May 03, 2025 01:35 PM Reporting Lab: [address] [address] Performing Lab: [address] [address] BUPRENORPHINE SCREEN NONE-DETECTED None Detected, Cutoff = 5 ng/mL PH, DWIGHT 6.1 [pH] 5.0-8.0 CREATININE, DWIGHT 76.65 mg/dL 63-166 SP.GRAVITY, DWIGHT 1.003 L 1.005-1.030 May 03, 2025 01:16 PM [facility] BENZODIAZEPINES SCREEN PANEL URINE Specimen T ype: URINE Comment: Urine with Cr <5 is diluted or substituted. Cr between 5 and 20 is very dilute. Urine with SG of 1.001 or less is diluted or substituted. SG of 1.003 or less is very dilute. Urine with a pH <3 or >11 has been adulterated and is unsuitable for testing by our current method. Urine with pH between 3 and 4 OR 10 and 11 may have been adulterated. Ordering Provider: GABRIELA SHANKAR Report Released Date/Time: May 03, 2025 01:35 PM Reporting Lab: [address] [address] Performing Lab: [address] [address] BENZODIAZEPINES SCREEN NONE-DETECTED Non e-Detected, Cutoff = 200 ng/mL PH, DWIGHT 6.1 [pH] 5.0-8.0 CREATININE, DWIGHT 76.65 mg/dL 63-166 SP.GRAVITY, DWIGHT 1.003 L 1.005-1.030 May 03, 2025 01:16 PM [facility] COCAINE SCREEN PANEL URINE Specimen Type: URI NE Comment: Urine with Cr <5 is diluted or substituted. Cr between 5 and 20 is very dilute. Urine with SG of 1.001 or less is diluted or substituted. SG of 1.003 or less is very dilute. Urine with a pH <3 or >11 has been adulterated and is unsuitable for testing by our current method. Urine with pH between 3 and 4 OR 10 and 11 may have been adulterated. Ordering Provider: GABRIELA SHANKAR Report Released Date/Time: May 03, 2025 01:35 PM Reporting Lab: [address] [address] Performing Lab: [address] [address] COCAINE SCREEN NONE-DETECTED None-Detect ed,Cutoff = 300 ng/mL PH, DWIGHT 6.1 [pH] 5.0-8.0 CREATININE, DWIGHT 76.65 mg/dL 63-166 SP.GRAVITY, DWIGHT 1.003 L 1.005-1.030 May 03, 2025 01:16 PM [facility] FENTANYL SCREEN PANEL URINE Specimen Type: UR INE Comment: Urine with Cr <5 is diluted or substituted. Cr between 5 and 20 is very dilute. Urine with SG of 1.001 or less is diluted or substituted. SG of 1.003 or less is very dilute. Urine with a pH <3 or >11 has been adulterated and is unsuitable for testing by our current method. Urine with pH between 3 and 4 OR 10 and 11 may have been adulterated. Fentanyl confirmation not sent by lab. Ordering Provider: GABRIELA SHANKAR Report Released Date/Time: May 03, 2025 01:35 PM Reporting Lab: [address] [address] Performing Lab: [address] [address] FENTANYL SCREEN NONE-DETECTED None-Detec alok, Cutoff = 1.00 ng/mL PH, DWIGHT 6.1 [pH] 5.0-8.0 CREATININE, DWIGHT 76.00 mg/dL 63-166 SP.GRAVITY, DWIGHT 1.003 L 1.005-1.030 May 03, 2025 01:16 PM [facility] METHADONE SCREEN PANEL URINE Specimen Type: U RINE Comment: Urine with Cr <5 is diluted or substituted. Cr between 5 and 20 is very dilute. Urine with SG of 1.001 or less is diluted or substituted. SG of 1.003 or less is very dilute. Urine with a pH <3 or >11 has been adulterated and is unsuitable for testing by our current method. Urine with pH between 3 and 4 OR 10 and 11 may have been adulterated. Ordering Provider: GABRIELA SHANKAR Report Released Date/Time: May 03, 2025 01:35 PM Reporting Lab: [address] [address] Performing Lab: [address] [address] PH, DWIGHT 6.1 [pH] 5.0-8.0 CREATININE, DWIGHT 76.65 mg/dL 63-166 SP.GRAVITY, DWIGHT 1.003 L 1.005-1.030 METHADONE SCREEN NONE-DETECTED None-Dete cted,Cutoff = 300 ng/mL May 03, 2025 01:16 PM [facility] OPIATES SCREEN PANEL URINE Specimen Type: URI NE Comment: Urine with Cr <5 is diluted or substituted. Cr between 5 and 20 is very dilute. Urine with SG of 1.001 or less is diluted or substituted. SG of 1.003 or less is very dilute. Urine with a pH <3 or >11 has been adulterated and is unsuitable for testing by our current method. Urine with pH between 3 and 4 OR 10 and 11 may have been adulterated. Ordering Provider: GABRIELA SHANKAR Report Released Date/Time: May 03, 2025 01:35 PM Reporting Lab: [facility] [address] [facility] [address] Performing Lab: [address] [address] OPIATES SCREEN NONE-DETECTED None-Detect ed, Cutoff = 300 ng/mL PH, DWIGHT 6.1 [pH] 5.0-8.0 CREATININE, DWIGHT 76.65 mg/dL 63-166 SP.GRAVITY, DWIGHT 1.003 L 1.005-1.030 May 03, 2025 01:16 PM [facility] OXYCODONE SCREEN PANEL URINE Specimen Type: U RINE Comment: Urine with Cr <5 is diluted or substituted. Cr between 5 and 20 is very dilute. Urine with SG of 1.001 or less is diluted or substituted. SG of 1.003 or less is very dilute. Urine with a pH <3 or >11 has been adulterated and is unsuitable for testing by our current method. Urine with pH between 3 and 4 OR 10 and 11 may have been adulterated. Ordering Provider: GABRIELA SHANKAR Report Released Date/Time: May 03, 2025 01:35 PM Reporting Lab: [address] [address] Performing Lab: [address] [address] OXYCODONE SCREEN POSITIVE HH None-Detected, Cutoff = 100 ng/mL PH, DWIGHT 6.1 [pH] 5.0-8.0 CREATININE, DWIGHT 76.65 mg/dL 63-166 SP.GRAVITY, DWIGHT 1.003 L 1.005-1.030 Apr 29, 2025 10:58 AM [facility] MICROALBUMIN CREATININE RATIO PANEL URINE Spe cimen Type: URINE No comment entered. Ordering Provider: GABRIELA SHAKNAR Report Released Date/Time: Apr 28, 2025 08:45 AM Reporting Lab: [facility] [address] [facility] [address] Performing Lab: [facility] [address] [facility] [address] MICROALBUMIN/CREATININE RATIO 5.0 mg/g 0 -29.9 MICROALBUMIN,QUANTITATIVE 0.5 mg/dL RR U NAVAIL CREATININE URINE 100.18 mg/dL 63-166 Apr 29, 2025 10:58 AM [facility] PT & INR (PROTIME) PLASMA Specimen Type: PLASM A No comment entered. Ordering Provider: GABRIELA SHANKAR Report Released Date/Time: Apr 28, 2025 08:45 AM Reporting Lab: [facility] [address] [facility] [address] Performing Lab: [address] [address] INR 2.5 PROTIME 26.5 s H 10.0-13.1 Apr 29, 2025 10:58 AM [facility] HEMOGLOBIN A1C PANEL BLOOD Specimen Type: BLO [...] Apr 28, 2025 08:45 AM Reporting Lab: [facility] [address] [facility] [address] Performing Lab: [address] [address] HEMOGLOBIN A1C 4.0 4.0-5.6 Apr 29, 2025 10:58 AM [facility] TSH SERUM Specimen Type: SERUM No comment entered. Ordering Provider: GABRIELA SHANKAR Report Released Date/Time: Apr 28, 2025 08:45 AM Reporting Lab: [facility] [address] [facility] [address] Performing Lab: [facility] [address] [facility] [address] TSH 3.95 u[IU]/mL 0.35-4.94 Apr 29, 2025 10:58 AM [facility] CALCIUM SERUM Specimen Type: SERUM No comment entered. Ordering Provider: GABRIELA SHANKAR Report Released Date/Time: Apr 28, 2025 08:45 AM Reporting Lab: [facility] [place] [facility] [address] [facility] [address] Performing Lab: [facility] [place] [facility] [address] [facility] [address] CALCIUM 7.5 mg/dL L 8.4-10.2 Apr 29, 2025 10:58 AM [facility] HEPATITIS C ANTIBODY (HCV)-ARC SERUM Specimen Type: SERUM Comment: Hep C Ab: No HCV antibody detected. If recent infection is suspected or other evidence suggests HCV infection, consider HCV nucleic acid testing Ordering Provider: GABRIELA SHANKAR Report Released Date/Time: Apr 28, 2025 08:45 AM Reporting Lab: [facility] [place] [facility] [address] [facility] [address] Performing Lab: [facility] [address] [facility] [address] HEPATITIS C ANTIBODY NON-REACTIVE NON-RE ACTIVE Apr 29, 2025 10:58 AM [facility] LIVER FUNCTION SERUM Specimen Type: SERUM No comment entered. Ordering Provider: GABRIELA SHANKAR Report Released Date/Time: Apr 28, 2025 08:45 AM Reporting Lab: [facility] [place] [facility] [address] [facility] [address] Performing Lab: [facility] [address] [address] PROTEIN,TOTAL 8.3 g/dL 6.4-8.3 ALBUMIN 2.3 g/dL L 3.5-5.2 ALKALINE PHOSPHATASE 103 U/L 40-150 AST 97 U/L H 5-34 ALT 36 U/L 0-55 BILIRUBIN, TOTAL 9.8 mg/dL H 0.2-1.2 BILIRUBIN, DIRECT 4.5 mg/dL H 0-0.5 Apr 29, 2025 10:58 AM [facility] BASIC METABOLIC PANEL (non-fasting) SERUM Spe cimen Type: SERUM No comment entered. Ordering Provider: GABRIELA SHANKAR Report Released Date/Time: Apr 28, 2025 08:45 AM Reporting Lab: [facility] [address] [facility] [address] Performing Lab: [address] [address] UREA NITROGEN 4 mg/dL L 8-26 GLUCOSE 106 mg/dL H 65-100 SODIUM 131 mmol/L L 136-145 POTASSIUM 3.3 mmol/L L 3.5-5.1 CHLORIDE 97 mmol/L L 98-107 CO2 27 meq/L 22-29 CALCIUM 7.5 mg/dL L 8.4-10.2 CREATININE, Serum 0.62 mg/dL L 0.72-1.25 eGFR(CKD-EPI 2020) >90 mL/min >60 Apr 29, 2025 10:58 AM [facility] CBC AND DIFF (AUTO) BLOOD Specimen Type: BLOO D No comment entered. Ordering Provider: GABRIELA SHANKAR Report Released Date/Time: Apr 28, 2025 08:45 AM Reporting Lab: [facility] [address] [facility] [address] Performing Lab: [address] [address] WBC 12.31 10*3/uL H 4.50-11.00 RBC 3.86 [...] and tobacco- related health factors from the [place] facility where the Encounter took place. Current Smoking Status This section includes the most current smoking, or tobacco-related health factor, from the [place] facility where the Encounter took place. Date/Time Current Smoking Status Comment Nilesh macedo Aug 28, 2024 08:30 AM VA-TOBACCO USER EVERY DAY [facility] Tobacco Use History This section includes a history of the smoking, or tobacco-related health factors, that were collected on or before the date of the Encounter. The data comes from the [place] facility where the Encounter took place. 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 [facility] Aug 28, 2024 08:30 AM VA-TOBACCO USE MED NO [facility] Aug 28, 2024 08:30 AM VA-TOBACCO USER EVERY DAY [facility] Aug 27, 2023 03:00 PM VA-TOBACCO USE > 15 LESS THAN 30 YEARS [facility] Aug 27, 2023 03:00 PM VA-TOBACCO USE ADVICE [facility] Aug 27, 2023 03:00 PM 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 [facility] Aug 27, 2023 03:00 PM VA-TOBACCO USE MED NO [facility] Aug 27, 2023 03:00 PM VA-TOBACCO USE WI 30 MIN OF WAKEUP [facility] Aug 27, 2023 03:00 PM VA-TOBACCO USER EVERY DAY [facility] Dec 09, 2020 03:30 PM VA-TOBACCO DOESNT USE WI 30 MIN WAKEUP [facility] Dec 09, 2020 03:30 PM VA-TOBACCO USE > 15 LESS THAN 30 YEARS [facility] Dec 09, 2020 03:30 PM VA-TOBACCO USE ADVICE [facility] Dec 09, 2020 03:30 PM 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 [facility] Dec 09, 2020 03:30 PM VA-TOBACCO USE MED NOTIFY PROVIDER vet requests [email or web address]: does not like gum not helpful [facility] Dec 09, 2020 03:30 PM VA-TOBACCO USER SOME DAYS [facility] Jul 08, 2019 12:33 PM VA-TOBACCO DOESNT USE WI 30 MIN WAKEUP [facility] Jul 08, 2019 12:33 PM VA-TOBACCO USE > 15 LESS THAN 30 YEARS [facility] Jul 08, 2019 12:33 PM VA-TOBACCO USE ADVICE [facility] Jul 08, 2019 12:33 PM 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 [facility] Jul 08, 2019 12:33 PM VA-TOBACCO USE MED NOTIFY PROVIDER Gum [facility] Jul 08, 2019 12:33 PM VA-TOBACCO USER SOME DAYS [facility] May 15, 2018 03:13 PM CURRENT SMOKER 4-6 cigarettes daily [facility] Nov 22, 2016 08:55 AM CURRENT SMOKER [facility] Nov 22, 2016 08:55 AM V1-PT DECLINES REF TO TOBACCO [facility]ESS [facility] Nov 22, 2016 08:55 AM V1-PT DECLINES TOBACCO CESSATION MEDS [facility] Nov 22, 2016 08:55 AM V1-PT THINKING ABOUT QUIT TOBACCO USE [facility] Nov 15, 2016 09:05 AM CURRENT SMOKER 8 TO 10 CIGARETTES PER DAY [facility] Nov 08, 2016 09:20 AM CURRENT SMOKER Smokes 1/2 pack of cigarettes per day [facility] Oct 31, 2016 06:35 PM TOBACCO INPATIENT DECLINES [facility] Oct 31, 2016 03:08 PM CUR[facility]MOKER [facility] March 07, 2016 09:18 PM V1-PT NOT INTERESTED IN QUIT TOBACCO USE [facility] Jun 11, 2015 10:28 AM CURRENT SMOKER 6-8 cigs per day [facility] Jan 21, 2014 10:56 AM CURRENT SMOKER 4-6 cigarettes per day [facility] Jan 21, 2014 10:56 AM V1-PT NOT INTERESTED IN QUIT TOBACCO USE [facility]
--- OUTSIDE RECORDS SUMMARY | 2025-04-27 22:59 | XMS_ITS | Encounter Summary ---
Author Name [facility] [place] [place] [facility] [place] Organization [facility] [place] [facility] [place] Address [address] [place] [address] Care Team Providers Care Financial Advocate Name Role Phone GABRIELA SHANKAR Primary Care [...] Relationship to Policy Proctor CAREMARK PRESCRIPT ION [facility] Apr 27, 2023 [id number] BLANKACO GINO PATIENT [employer]IP[employer] ([id number]) PRESCRIPT ION [facility] February 25, 2023 [id number] [facility] ORGANIZAT ION [facility] Apr 27, 2023 [id number] [facility]GANIZ [facility] February 25, 2023 [id number] [facility]GANIZ [facility] February 25, 2023 [id number] YENY MOSCOSO PATIENT Selected Encounter This section includes the information on record at [place] for the Encounter. Date/Time Encounter Type Encounter Description Reason Pro vider Source Apr 28, 2025 02:59 AM Outpatient Encounter ADMIN PAT ACTIVTIES (MASNONCT) IHE Encounter Template Text not used by [place] Plan of Treatment: Future Appointments (+ 6 months) and Future Tests (+/- 45 days) The Plan of Treatment section includes future care activities for the patient from all [facility] This section includes future appointments and future orders which are active, pending or scheduled. Future Appointments This section includes appointments that were scheduled to occur 6 months from the date of the Encounter, up to a maximum of 20 appointments. The data comes from all [facility]. Appointment Date/Time Appointment Type Appointme nt Facility Name May 12, 2025 09:00 AM AMBULATORY - MEDICINE [facility] [place] [facility] May 19, 2025 03:30 PM AMBULATORY - MEDICINE [facility] [place] [facility] Jun 08, 2025 01:30 PM AMBULATORY - NONE [facility] [place] [facility] Jul 19, 2025 02:30 PM AMBULATORY - SURGERY [facility] [place] [facility] Jul 22, 2025 01:30 PM AMBULATORY - MEDICINE [facility] [place] [facility] Jul 29, 2025 01:30 PM AMBULATORY - MEDICINE [facility] [place] [facility] Active, Pending, and Scheduled Orders This section includes a listing of several types of active, pending, and scheduled orders, including clinic medications orders, diagnostic test orders, procedure orders and consult orders; where the start date of the order is 45 days before the date of the Encounter or 45 days after the date of theEncounter. The data comes from all [facility]. Test Date/Time Test Type Test Details Facility Name May 03, 2025 12:00 AM Laboratory - Chemistry Order PROPOXYPHENE SCREEN URINE (DRUG) [facility] [place] [facility] May 03, 2025 12:00 AM Laboratory - Chemistry Order PHENCYCLIDINE SCREEN w/Reflex to Confirm URINE (DRUG) [facility] May 19, 2025 12:00 AM Laboratory - Chemistry Order HEPATITIS C ANTIBODY (HCV)-ARC BLOOD (MARBLED-TOP SERUM) [facility] May 19, 2025 12:00 AM Laboratory - Chemistry Order FERRITIN BLOOD (SST-SERUM) [facility] May 19, 2025 12:00 AM Laboratory - Chemistry Order HEPATITIS B SURFACE ANTIGEN (HBsAg)-WH BLOOD (SST-SERUM) [facility] May 19, 2025 12:00 AM Laboratory - Chemistry Order HEPATITIS B CORE (Total) Ab BLOOD (SST-SERUM) [facility] May 19, 2025 12:00 AM Laboratory - Chemistry Order IRON & TIBC PANEL BLOOD (SST-SERUM) [facility] May 19, 2025 12:00 AM Laboratory - Chemistry Order MARCELO SCREEN/TITER BLOOD (SST-GOLD) SER[facility] May 19, 2025 12:00 AM Laboratory - Chemistry Order GAMMA-GTP BLOOD (SST-SERUM) [facility] May 19, 2025 12:00 AM Laboratory - Chemistry Order ALBUMIN BLOOD (SST-SERUM) [facility] May 19, 2025 12:00 AM Laboratory - Chemistry Order ALKALINE PHOSPHATASE BLOOD (SST-SERUM) [facility] May 19, 2025 12:00 AM Laboratory - Chemistry Order ALBUMIN BLOOD (SST-SERUM) [facility] May 19, 2025 12:00 AM Laboratory - Chemistry Order AST BLOOD (SST-SERUM) [facility] May 19, 2025 12:00 AM Laboratory - Chemistry Order PROTEIN,TOTAL BLOOD (SST-SERUM) SP ONCE [facility] May 19, 2025 12:00 AM Laboratory - Chemistry Order BILIRUBIN, TOTAL BLOOD (SST-SERUM) [facility] May 19, 2025 12:00 AM Laboratory - Chemistry Order ALT BLOOD (SST-SERUM) [facility] May 19, 2025 03:57 PM Laboratory - Chemistry Order PT & INR (PROTIME) BLOOD (BLUE-PLASMA) [facility] May 19, 2025 03:57 PM Consult Order HEPATOLOGY SERVICES [facility] Cons Helmet Hat Sweatband Puncher's Choice [facility] May 26, 2025 12:00 AM Laboratory - Chemistry Order LIVER KIDNEY MICROSOME ANTIBODY BLOOD (RED-PLAIN) [facility] May 26, 2025 12:00 AM Laboratory - Chemistry Order MARCELO SCREEN/TITER BLOOD (SST-GOLD) SERUM [facility] May 26, 2025 12:00 AM Laboratory - Chemistry Order IGG BLOOD (SST-SERUM) [facility] May 26, 2025 12:00 AM Laboratory - Chemistry Order ACTIN (SMOOTH MUSCLE) ANTIBODY (IgG) BLOOD (SST-SERUM) [facility] May 26, 2025 12:00 AM Laboratory - Chemistry Order IRON & TIBC PANEL BLOOD (SST-SERUM) [facility] May 26, 2025 12:00 AM Laboratory - Chemistry Order FERRITIN BLOOD (SST-SERUM) [facility] May 26, 2025 12:00 AM Laboratory - Chemistry Order CERULOPLASMIN BLOOD (RED-PLAIN) SERUM [facility] May 26, 2025 12:00 AM Laboratory - Chemistry Order HEPATITIS B SURFACE ANTIGEN (HBsAg)- BLOOD (SST-SERUM) [facility] May 26, 2025 12:00 AM Laboratory - Chemistry Order HEPATITIS B SURFACE ANTIBODY (HBsAb)- BLOOD (SST-SERUM) [facility] May 26, 2025 12:00 AM Laboratory - Chemistry Order CBC AND DIFF (AUTO) BLOOD (LAV-BLOOD) [facility] May 26, 2025 12:00 AM Laboratory - Chemistry Order PT & INR (PROTIME) BLOOD (BLUE-PLASMA) [facility] May 26, 2025 12:00 AM Laboratory - Chemistry Order HEPATITIS B CORE (Total) Ab BLOOD (SST-SERUM) [facility] May 26, 2025 12:00 AM Laboratory - Chemistry Order A1A PHENOTYPE PANEL BLOOD (SST-SERUM) [facility] May 26, 2025 12:00 AM Laboratory - Chemistry Order LIVER FUNCTION BLOOD (SST-SERUM) [facility] May 26, 2025 12:00 AM Laboratory - Chemistry Order BASIC METABOLIC PANEL (non-fasting) BLOOD (SST-SERUM) [facility] May 26, 2025 12:00 AM Laboratory - Chemistry Order ALPHA-FETOPROTEIN BLOOD (SST-SERUM) [facility] Jun 08, 2025 12:00 AM Imaging - Ultrasound Order ULTRASOUND ELASTOGRAPHY PARENCHYMA [facility] Jun 08, 2025 12:00 AM Imaging - Ultrasound Order ULTRASOUND ABDOMEN [facility] Lab Results: +/- 30 days of the [...] Type Comment May 03, 2025 01:16 PM [facility] DEXTRO/LevoMethorphan, Urine URINE Specimen T ype: URINE Comment: REFERENCE RANGE: <5 ng/mL This test is not chiral specific; therefore, dextromethorphan and/or levomethorphan may be present. This test was developed and its analytical performance characteristics have been determined by [email or web address]. It has not been cleared or approved [...] progress of medical conditions. Test performed by: [email or web address] [place] [id number] [facility], [address] [place] [address] Custom Bike Builder: Jordan Porras M.D. Test Reported by [email or web address] [place], [address] [place] [address] Mir Rodriguez M.D., Ph.D., Director of Laboratories , CLIA [id number] TEST PERFORMED AT: , Ordering Provider: STEPHANIE SHANKAR Report Released Date/Time: May 03, 2025 01:35 PM Reporting Lab: [facility] [address] [facility] [address] Performing Lab: [facility] [address] [address] DEXTRO/LevoMethorphan, Urine NEGATIVE ng/mL SEE BELOW May 03, 2025 01:16 PM [facility] TRAMADOL PNL ([email or web address]) URINE Specimen Type: URI NE Comment: REFERENCE RANGE: <100 ng/mL REFERENCE RANGE: <100 ng/mL See LDT message Test Performed by [email or web address] [place], [address] [place] [address] Mir Rodriguez M.D., Ph.D., Director of Laboratories , CLIA [id number] This drug testing is for medical treatment only. Analysis was performed as non-forensic testing and these results should be used only by healthcare providers to render diagnosis or treatment, or to monitor progress of medical conditions. LDT Message: This test was developed and its analytical performance characteristics have been determined by [employer] [place], [place]. It has not been cleared or approved by the U.S. Food and Drug Administration. This assay has been validated pursuant to the CLIA regulations and is used for clinical purposes. Healthcare Providers needing Interpretation assistance, please contact us at [phone] ( [phone] M-F, 8am to 10pm EST TEST PERFORMED AT: , Ordering Provider: GABRIELA SHANKAR Report Released Date/Time: May 03, 2025 01:35 PM Reporting Lab: [facility] [address] [facility] [address] Performing Lab: [facility] [address] [address] TRAMADOL,URINE NEGATIVE ng/mL SEE BELOW DESMETHYLTRAMADOL NEGATIVE ng/mL SEE BEL OW May 03, 2025 01:16 PM [facility] ALCOHOL, ETHYL URINE PANEL URINE Specimen Typ [...] May 03, 2025 01:35 PM Reporting Lab: [address] [address] Performing Lab: [address] [address] ALCOHOL, ETHYL URINE POSITIVE HH None-Detec alok, cutoff = 10 mg/dL PH, DWIGHT 6.1 [pH] 5.0-8.0 CREATININE, DWIGHT 76.65 mg/dL 63-166 SP.GRAVITY, DWIGHT 1.003 L 1.005-1.030 May 03, 2025 01:16 PM [facility] AMPHETAMINES SCREEN PANEL URINE Specimen Type : [...] May 03, 2025 01:35 PM Reporting Lab: [address] [address] Performing Lab: [address] [address] AMPHETAMINES SCREEN NONE-DETECTED None-D etected, Cutoff = 1000 ng/mL PH, DWIGHT 6.1 [pH] 5.0-8.0 CREATININE, DWIGHT 76.65 mg/dL 63-166 SP.GRAVITY, DWIGHT 1.003 L 1.005-1.030 May 03, 2025 01:16 PM [facility] BARBITURATES SCREEN PANEL URINE Specimen Type : [...] May 03, 2025 01:35 PM Reporting Lab: [address] [address] Performing Lab: [address] [address] BARBITURATES SCREEN NONE-DETECTED None-D etected,Cutoff = 200 ng/mL PH, DWIGHT 6.1 [pH] 5.0-8.0 CREATININE, DWIGHT 76.65 mg/dL 63-166 SP.GRAVITY, DWIGHT 1.003 L 1.005-1.030 May 03, 2025 01:16 PM [facility] BUPRENORPHINE SCREEN PANEL URINE Specimen Typ e: [...] May 03, 2025 01:35 PM Reporting Lab: [address] [address] Performing Lab: [address] [address] BUPRENORPHINE SCREEN NONE-DETECTED None Detected, Cutoff = 5 ng/mL PH, DWIGHT 6.1 [pH] 5.0-8.0 CREATININE, DWIGHT 76.65 mg/dL 63-166 SP.GRAVITY, DWIGHT 1.003 L 1.005-1.030 May 03, 2025 01:16 PM [facility] BENZODIAZEPINES SCREEN PANEL URINE Specimen T ype: [...] May 03, 2025 01:35 PM Reporting Lab: [address] [address] Performing Lab: [address] [address] BENZODIAZEPINES SCREEN NONE-DETECTED Non e-Detected, Cutoff = 200 ng/mL PH, DWIGHT 6.1 [pH] 5.0-8.0 CREATININE, DWIGHT 76.65 mg/dL 63-166 SP.GRAVITY, DWIGHT 1.003 L 1.005-1.030 May 03, 2025 01:16 PM [facility] COCAINE SCREEN PANEL URINE Specimen Type: URI [...] May 03, 2025 01:35 PM Reporting Lab: [address] [address] Performing Lab: [address] [address] COCAINE SCREEN NONE-DETECTED None-Detect ed,Cutoff = 300 ng/mL PH, DWIGHT 6.1 [pH] 5.0-8.0 CREATININE, DWIGHT 76.65 mg/dL 63-166 SP.GRAVITY, DWIGHT 1.003 L 1.005-1.030 May 03, 2025 01:16 PM [facility] CANNABINOIDS SCREEN PANEL URINE Specimen Type : [...] May 03, 2025 01:35 PM Reporting Lab: [address] [address] Performing Lab: [address] [address] CANNABINOIDS SCREEN NONE-DETECTED None-D etected,Cutoff = 50 ng/mL PH, DWIGHT 6.1 [pH] 5.0-8.0 CREATININE, DWIGHT 76.65 mg/dL 63-166 SP.GRAVITY, DWIGHT 1.003 L 1.005-1.030 May 03, 2025 01:16 PM [facility] FENTANYL SCREEN PANEL URINE Specimen Type: UR [...] May 03, 2025 01:35 PM Reporting Lab: [address] [address] Performing Lab: [address] [address] FENTANYL SCREEN NONE-DETECTED None-Detec alok, Cutoff = 1.00 ng/mL PH, DWIGHT 6.1 [pH] 5.0-8.0 CREATININE, DWIGHT 76.00 mg/dL 63-166 SP.GRAVITY, DWIGHT 1.003 L 1.005-1.030 May 03, 2025 01:16 PM [facility] OPIATES SCREEN PANEL URINE Specimen Type: URI [...] May 03, 2025 01:35 PM Reporting Lab: [address] [address] Performing Lab: [address] [address] OPIATES SCREEN NONE-DETECTED None-Detect ed, Cutoff = 300 ng/mL PH, DWIGHT 6.1 [pH] 5.0-8.0 CREATININE, DWIGHT 76.65 mg/dL 63-166 SP.GRAVITY, DWIGHT 1.003 L 1.005-1.030 May 03, 2025 01:16 PM [facility] OXYCODONE SCREEN PANEL URINE Specimen Type: U [...] May 03, 2025 01:35 PM Reporting Lab: [address] [address] Performing Lab: [address] [address] OXYCODONE SCREEN POSITIVE HH None-Detected, Cutoff = 100 ng/mL PH, DWIGHT 6.1 [pH] 5.0-8.0 CREATININE, DWIGHT 76.65 mg/dL 63-166 SP.GRAVITY, DWIGHT 1.003 L 1.005-1.030 May 03, 2025 01:16 PM [facility] METHADONE SCREEN PANEL URINE Specimen Type: U [...] May 03, 2025 01:35 PM Reporting Lab: [address] [address] Performing Lab: [address] [address] PH, DWIGHT 6.1 [pH] 5.0-8.0 CREATININE, DWIGHT 76.65 mg/dL 63-166 SP.GRAVITY, DWIGHT 1.003 L 1.005-1.030 METHADONE SCREEN NONE-DETECTED None-Dete cted,Cutoff = 300 ng/mL Apr 29, 2025 10:58 AM [facility] HEMOGLOBIN A1C PANEL BLOOD Specimen Type: [...] Apr 28, 2025 08:45 AM Reporting Lab: [facility] [place] [address] [address] Performing Lab: [facility] [place] [address] [address] HEMOGLOBIN A1C 4.0 4.0-5.6 Apr 29, 2025 10:58 AM [facility] MICROALBUMIN CREATININE RATIO PANEL URINE Spe cimen Type: URINE No comment entered. Ordering Provider: GABRIELA SHANKAR Report Released Date/Time: Apr 28, 2025 08:45 AM Reporting Lab: [facility] [place] [address] [address] Performing Lab: [facility] [place] [facility] [address] [facility] [address] MICROALBUMIN/CREATININE RATIO 5.0 mg/g 0 -29.9 MICROALBUMIN,QUANTITATIVE 0.5 mg/dL RR U NAVAIL CREATININE URINE 100.18 mg/dL 63-166 Apr 29, 2025 10:58 AM [facility] TSH SERUM Specimen Type: SERUM No comment entered. Ordering Provider: GABRIELA SHANKAR Report Released Date/Time: Apr 28, 2025 08:45 AM Reporting Lab: [facility] [place] [facility] [address] [facility] [address] Performing Lab: [facility] [address] TSH 3.95 u[IU]/mL 0.35-4.94 Apr 29, 2025 10:58 AM [facility] PT & INR (PROTIME) PLASMA Specimen Type: PLASM A No comment entered. Ordering Provider: GABRIELA SHANKAR Report Released Date/Time: Apr 28, 2025 08:45 AM Reporting Lab: [facility] CAM[facility]N [facility] [address] [facility] [address] Performing Lab: [facility] [address]ITALRL TRN [facility] [address] [facility] [address] INR 2.5 PROTIME 26.5 s H 10.0-13.1 Apr 29, 2025 10:58 AM [facility] CALCIUM SERUM Specimen Type: SERUM No comment entered. Ordering Provider: GABRIELA SHANKAR Report Released Date/Time: Apr 28, 2025 08:45 AM Reporting Lab: [facility]ITAL[facility] TRN [facility] [address] [facility] [address] Performing Lab: [facility]ITALR[facility]ITALN [facility]ITAL[facility] [address] [facility] [address] CALCIUM 7.5 mg/dL L 8.4-10.2 Apr 29, 2025 10:58 AM [facility] HEPATITIS C ANTIBODY (HCV)-ARC SERUM Specimen Type: SERUM Comment: Hep C Ab: No HCV antibody detected. If recent infection is suspected or other evidence suggests HCV infection, consider HCV nucleic acid testing Ordering Provider: GABRIELA SHANKAR Report Released Date/Time: Apr 28, 2025 08:45 AM Reporting Lab: [facility]ITALN [facility] [address] [facility] [address] Performing Lab: [facility]ITALR[facility]ITALN [facility]ITAL[facility] [address] [address] HEPATITIS C ANTIBODY NON-REACTIVE NON-RE ACTIVE Apr 29, 2025 10:58 AM [facility] LIVER FUNCTION SERUM Specimen Type: SERUM No comment entered. Ordering Provider: GABRIELA SHANKAR Report Released Date/Time: Apr 28, 2025 08:45 AM Reporting Lab: [facility]ITALRL TRN [facility]ITAL[facility] [address] [facility] [address] Performing Lab: [facility]ITALR[facility]PITALN [facility] [address] [address] PROTEIN,TOTAL 8.3 g/dL 6.4-8.3 ALBUMIN 2.3 g/dL L 3.5-5.2 ALKALINE PHOSPHATASE 103 U/L 40-150 AST 97 U/L H 5-34 ALT 36 U/L 0-55 BILIRUBIN, TOTAL 9.8 mg/dL H 0.2-1.2 BILIRUBIN, DIRECT 4.5 mg/dL H 0-0.5 Apr 29, 2025 10:58 AM [facility] BASIC METABOLIC PANEL (non-fasting) SERUM Spe cimen Type: SERUM No comment entered. Ordering Provider: GABRIELA SHANKAR Report Released Date/Time: Apr 28, 2025 08:45 AM Reporting Lab: [address] [address] Performing Lab: [address] [address] UREA NITROGEN 4 mg/dL L 8-26 GLUCOSE 106 mg/dL H 65-100 SODIUM 131 mmol/L L 136-145 POTASSIUM 3.3 mmol/L L 3.5-5.1 CHLORIDE 97 mmol/L L 98-107 CO2 27 meq/L 22-29 CALCIUM 7.5 mg/dL L 8.4-10.2 CREATININE, Serum 0.62 mg/dL L 0.72-1.25 eGFR(CKD-EPI 2020) >90 mL/min >60 Apr 29, 2025 10:58 AM [facility] CBC AND DIFF (AUTO) BLOOD Specimen Type: BLOO D No comment entered. Ordering Provider: GABRIELA SHANKAR Report Released Date/Time: Apr 28, 2025 08:45 AM Reporting Lab: [facility] [address] [facility] [address] Performing Lab: [address] [address] WBC 12.31 10*3/uL H 4.50-11.00 RBC 3.86 [...] and tobacco- related health factors from the [facility] facility where the Encounter took place. Current Smoking Status This section includes the most current smoking, or tobacco-related health factor, from the [facility] facility where the Encounter took place. Date/Time Current Smoking Status Comment Nilesh macedo Aug 28, 2024 08:30 AM VA-TOBACCO USE 30 YEARS OR MORE [facility] Tobacco Use History This section includes a history of the smoking, or tobacco-related health factors, that were collected on or before the date of the Encounter. The data comes from the [facility] facility where the Encounter took place. 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 [facility] [place] [facility] Aug 28, 2024 08:30 AM VA-TOBACCO USE MED NO [facility] [place] [facility] Aug 28, 2024 08:30 AM VA-TOBACCO USER EVERY DAY [facility] [place] [facility] Aug 27, 2023 03:00 PM VA-TOBACCO USE > 15 LESS THAN 30 YEARS [facility] [place] [facility] Aug 27, 2023 03:00 PM VA-TOBACCO USE ADVICE [facility] [place] [facility] Aug 27, 2023 03:00 PM 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 [facility] [place] [facility] Aug 27, 2023 03:00 PM VA-TOBACCO USE MED NO [facility] [place] [facility] Aug 27, 2023 03:00 PM VA-TOBACCO USE WI 30 MIN OF WAKEUP [facility] [place] [facility] Aug 27, 2023 03:00 PM VA-TOBACCO USER EVERY DAY [facility] [place] [facility] Dec 09, 2020 03:30 PM VA-TOBACCO DOESNT USE WI 30 MIN WAKEUP [facility] [place] [facility] Dec 09, 2020 03:30 PM VA-TOBACCO USE > 15 LESS THAN 30 YEARS [facility] [place] [facility] Dec 09, 2020 03:30 PM VA-TOBACCO USE ADVICE [facility] [place] [facility] Dec 09, 2020 03:30 PM 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 [facility] [place] [facility] Dec 09, 2020 03:30 PM VA-TOBACCO USE MED NOTIFY PROVIDER vet requests lucero: does not like gum not helpful [facility] [place] [facility] Dec 09, 2020 03:30 PM VA-TOBACCO USER SOME DAYS [facility] [place] [facility] Jul 08, 2019 12:33 PM VA-TOBACCO DOESNT USE WI 30 MIN WAKEUP [facility] [place] [facility] Jul 08, 2019 12:33 PM VA-TOBACCO USE > 15 LESS THAN 30 YEARS [facility] [place] [facility] Jul 08, 2019 12:33 PM VA-TOBACCO USE ADVICE [facility] [place] [facility] Jul 08, 2019 12:33 PM 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 Jul 08, 2019 12:33 PM VA-TOBACCO USE MED NOTIFY PROVIDER Gum [facility] Jul 08, 2019 12:33 PM VA-TOBACCO USER SOME DAYS [facility] May 15, 2018 03:13 PM CURRENT SMOKER 4-6 cigarettes daily [facility] [place] [facility] Nov 22, 2016 08:55 AM CURRENT SMOKER [facility] Nov 22, 2016 08:55 AM V1-PT DECLINES REF TO TOBACCO CESS PRGM [facility] Nov 22, 2016 08:55 AM V1-PT DECLINES TOBACCO CESSATION MEDS [facility]NN [facility] Nov 22, 2016 08:55 AM V1-PT THINKING ABOUT QUIT TOBACCO USE [facility] [facility] Nov 15, 2016 09:05 AM CURRENT SMOKER 8 TO 10 CIGARETTES PER DAY [facility] Nov 08, 2016 09:20 AM CURRENT SMOKER Smokes 1/2 pack of cigarettes per day [facility] Oct 31, 2016 06:35 PM TOBACCO INPATIENT DECLINES MEDS [facility] Oct 31, 2016 03:08 PM CURRENT SMOKER [facility] [place] [facility] March 07, 2016 09:18 PM V1-PT NOT INTERESTED IN QUIT TOBACCO USE [facility] [facility] Jun 11, 2015 10:28 AM CURRENT SMOKER 6-8 cigs per day [facility] [place] [facility] Jan 21, 2014 10:56 AM CURRENT SMOKER 4-6 cigarettes per day [facility] [place] [facility] Jan 21, 2014 10:56 AM V1-PT NOT INTERESTED IN QUIT [facility]BACCO [facility] Encounter Notes: All associated encounter notes This section contains the clinical notes associated to the Encounter. Date/Time Encounter Note(s) Provider Source Apr 28, 2025 10:30 AM ADDENDUM: LOCAL TITLE: Addendum STANDARD TITLE: ADDENDUM DATE OF NOTE: APR 28, 2025@10:30:04 ENTRY DATE: APR 28, 2025@10:30:05 AUTHOR: TI SHANKAR COSIGNER: URGENCY: STATUS: COMPLETED refills of oxycodone will be ordered when vet completes labs and UDS to complete yearly requirements /malena SHANKAR MD PHYSICIAN Signed: 04/28/2025 10:30 Receipt Acknowledged By: 04/28/2025 10:49 /malena Castillo [facility] Primary Care Staff Nurse 04/29/2025 08:08 /norberto/ BJORN MOULTON [facility] [place] [facility] [place] Customer Care ========= --- Original Document --- 04/28/25 V1 PHARMACY CUSTOMER CARE MEDICATION RENEWAL: Date: Apr Division: [place] Pt referred by Pharmacy Call Center for medication renewal: Controlled substance Medications requested: [id number] OXYCODONE HCL 5MG TAB NOT SA *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 Please review and renew if appropriate. *This note was generated by [facility]. If you have any questions or need assistance, do not contact this author. Please refer all questions to your local, on-site pharmacy departments. /malena MOULTON [facility] [place] [facility] Customer [facility] Signed: 04/28/2025 03:00 Receipt Acknowledged By: 04/28/2025 10:29 /malena SHANKAR MD PHYSICIAN 04/28/2025 08:34 /malena Castilol [facility] Primary Care Staff Nurse [facility] Apr 28, 2025 02:59 AM PHARMACY NOTE: LOCAL TITLE: V1 PHARMACY CUSTOMER CARE MEDICATION RENEWAL STANDARD TITLE: PHARMACY NOTE DATE OF NOTE: APR 28, 2025@02:59 ENTRY DATE: APR 28, 2025@02:59:43 AUTHOR: BJORN MOULTON EXP COSIGNER: URGENCY: STATUS: COMPLETED V1 PHARMACY CUSTOMER CARE MEDICATION RENEWAL Has ADDENDA Date: Apr Division: [place] Pt referred by Pharmacy Call Center for medication renewal: Controlled substance Medications requested: [id number] OXYCODONE HCL 5MG TAB NOT SA *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 Please review and renew if appropriate. *This note was generated by [facility]. If you have any questions or need assistance, do not contact this author. Please refer all questions to your local, on-site pharmacy departments. /norberto/ BJORN MOULTON [facility] [place] [facility] Customer [facility] Signed: 04/28/2025 03:00 Receipt Acknowledged By: 04/28/2025 10:29 /norberto/ GABRIELA SHANKAR MD PHYSICIAN 04/28/2025 08:34 /norberto/ PARVEEN RICHARDSON Primary Care Staff Nurse 04/28/2025 ADDENDUM STATUS: COMPLETED refills of oxycodone will be ordered when vet completes labs and UDS to complete yearly requirements /norberto/ GABRIELA SHANKAR MD PHYSICIAN Signed: 04/28/2025 10:30 Receipt Acknowledged By: * AWAITING SIGNATURE * PARVEEN RICHARDSON * AWAITING SIGNATURE * BJORN MOULTON ERIC C [facility]
--- OUTSIDE RECORDS SUMMARY | 2025-05-03 05:46 | XMS_ITS ---
Author Name [facility] [facility] [place] Address [address] [place] [address] Care Team Providers Care Production Helper Name Role Phone GABRIELA SHANKAR Primary Care [...] Relationship to Policy Proctor CAREMARK PRESCRIPT ION [facility] Apr 27, 2023 [id number] BLANKAVT MONA PATIENT [employer] SCRIPTS ([id number]) PRESCRIPT ION [facility] February 25, 2023 [id number] BLANKA,[facility] CE ORGANIZAT ION [facility] Apr 27, 2023 [id number] [facility]GANIZ [facility] February 25, 2023 [id number] [facility] CE ORGANIZ [facility] February 25, 2023 [id number] YENY MOSCOSO PATIENT Selected Encounter This section includes the information on record at CT for the Encounter. Date/Time Encounter Type Encounter Description Reason Provider Source May 03, 2025 09:46 AM OFF/OP EST FEBRUARY X REQ PHY/QHP PRIMARY CARE/MEDICINE ICD-10-CM Z71.89 Other specified counseling RG CASILLAS SA IHE Encounter Template Text not used by CT Assessments - Encounter Diagnoses This section includes the primary and secondary diagnoses documented for the Encounter. Date/Time Primary/Secondary Diagnosis Diagnosis Name Provider Source May 03, 2025 02:15 PM PRIMARY Other specified counseling RG CASILLAS SA [facility] [place] [facility] Plan of Treatment: Future Appointments (+ 6 months) and Future Tests (+/- 45 days) The Plan of Treatment section includes future care activities for the patient from all CT treatmentfacilities. This section includes future appointments and future orders which are active, pending or scheduled. Future Appointments This section includes appointments that were scheduled to occur 6 months from the date of the Encounter, up to a maximum of 20 appointments. The data comes from all [facility]. Appointment Date/Time Appointment Type Appointme nt Facility Name May 12, 2025 09:00 AM AMBULATORY - MEDICINE CT C [facility] [facility] May 19, 2025 03:30 PM AMBULATORY - MEDICINE CT C [facility] [place] [facility] Jun 08, 2025 01:30 PM AMBULATORY - NONE CT [facility] [place] [facility] Jul 19, 2025 02:30 PM AMBULATORY - SURGERY CT CN [facility] [place] [facility] Jul 22, 2025 01:30 PM AMBULATORY - MEDICINE CT C [facility] [place] [facility] Jul 29, 2025 01:30 PM AMBULATORY - MEDICINE CT C [facility] [place] [facility] Active, Pending, and Scheduled Orders This section includes a listing of several types of active, pending, and scheduled orders, including clinic medications orders, diagnostic test orders, procedure orders and consult orders; where the start date of the order is 45 days before the date of the Encounter or 45 days after the date of theEncounter. The data comes from all CT treatment [facility]. Test Date/Time Test Type Test Details Facility Name May 03, 2025 12:00 AM Laboratory - Chemistry Order PHENCYCLIDINE SCREEN w/Reflex to Confirm URINE (DRUG) [facility] May 03, 2025 12:00 AM Laboratory - Chemistry Order PROPOXYPHENE SCREEN URINE (DRUG) [facility] May 19, 2025 12:00 AM Laboratory - Chemistry Order HEPATITIS C ANTIBODY (HCV)-ARC BLOOD (MARBLED-TOP SERUM) [facility] May 19, 2025 12:00 AM Laboratory - Chemistry Order HEPATITIS B SURFACE ANTIGEN (HBsAg)-WH BLOOD (SST-SERUM) [facility] May 19, 2025 12:00 AM Laboratory - Chemistry Order HEPATITIS B CORE (Total) Ab BLOOD (SST-SERUM) [facility] May 19, 2025 12:00 AM Laboratory - Chemistry Order IRON & TIBC PANEL BLOOD (SST-SERUM) [facility] May 19, 2025 12:00 AM Laboratory - Chemistry Order FERRITIN BLOOD (SST-SERUM) [facility] May 19, 2025 12:00 AM Laboratory - Chemistry Order GAMMA-GTP BLOOD (SST-SERUM) [facility] May 19, 2025 12:00 AM Laboratory - Chemistry Order MARCELO SCREEN/TITER BLOOD (SST-GOLD) SERUM [facility] May 19, 2025 12:00 AM Laboratory - Chemistry Order ALBUMIN BLOOD (SST-SERUM) [facility] May 19, 2025 12:00 AM Laboratory - Chemistry Order PROTEIN,TOTAL BLOOD (SST-SERUM) SP ONCE [facility] May 19, 2025 12:00 AM Laboratory - Chemistry Order ALKALINE PHOSPHATASE BLOOD (SST-SERUM) [facility] May 19, 2025 12:00 AM Laboratory - Chemistry Order AST BLOOD (SST-SERUM) [facility] May 19, 2025 12:00 AM Laboratory - Chemistry Order BILIRUBIN, TOTAL BLOOD (SST-SERUM) [facility] May 19, 2025 12:00 AM Laboratory - Chemistry Order ALT BLOOD (SST-SERUM) [facility] May 19, 2025 12:00 AM Laboratory - Chemistry Order ALBUMIN BLOOD (SST-SERUM) [facility] May 19, 2025 03:57 PM Laboratory - Chemistry Order PT & INR (PROTIME) BLOOD (BLUE-PLASMA) [facility] May 19, 2025 03:57 PM Consult Order [facility] Elevator Erector's Choice [facility] May 26, 2025 12:00 AM Laboratory - Chemistry Order LIVER KIDNEY MICROSOME ANTIBODY BLOOD (RED-PLAIN) SERUM [facility] May 26, 2025 12:00 AM Laboratory - Chemistry Order IGG BLOOD (SST-SERUM) [facility] May 26, 2025 12:00 AM Laboratory - Chemistry Order MARCELO SCREEN/TITER BLOOD (SST-GOLD) SERUM [facility] May 26, 2025 12:00 AM Laboratory - Chemistry Order ACTIN (SMOOTH MUSCLE) ANTIBODY (IgG) BLOOD (SST-SERUM) [facility] May 26, 2025 12:00 AM Laboratory - Chemistry Order IRON & TIBC PANEL BLOOD (SST-SERUM) [facility] May 26, 2025 12:00 AM Laboratory - Chemistry Order CERULOPLASMIN BLOOD (RED-PLAIN) SERUM [facility] May 26, 2025 12:00 AM Laboratory - Chemistry Order A1A PHENOTYPE PANEL BLOOD (SST-SERUM) [facility] May 26, 2025 12:00 AM Laboratory - Chemistry Order HEPATITIS B CORE (Total) Ab BLOOD (SST-SERUM) [facility] May 26, 2025 12:00 AM Laboratory - Chemistry Order FERRITIN BLOOD (SST-SERUM) [facility] May 26, 2025 12:00 AM Laboratory - Chemistry Order HEPATITIS B SURFACE ANTIBODY (HBsAb)-WH BLOOD (SST-SERUM) [facility] May 26, 2025 12:00 AM Laboratory - Chemistry Order HEPATITIS B SURFACE ANTIGEN (HBsAg)- BLOOD (SST-SERUM) [facility] May 26, 2025 12:00 AM Laboratory - Chemistry Order CBC AND DIFF (AUTO) BLOOD (LAV-BLOOD) [facility] May 26, 2025 12:00 AM Laboratory - Chemistry Order PT & INR (PROTIME) BLOOD (BLUE-PLASMA) [facility] May 26, 2025 12:00 AM Laboratory - Chemistry Order BASIC METABOLIC PANEL (non-fasting) BLOOD (SST-SERUM) [facility] May 26, 2025 12:00 AM Laboratory - Chemistry Order ALPHA-FETOPROTEIN BLOOD (SST-SERUM) [facility] May 26, 2025 12:00 AM Laboratory - Chemistry Order LIVER FUNCTION BLOOD (SST-SERUM) [facility] Jun 08, 2025 12:00 AM Imaging - Ultrasound Order ULTRASOUND ELASTOGRAPHY PARENCHYMA [facility] Jun 08, 2025 12:00 AM Imaging - Ultrasound Order ULTRASOUND ABDOMEN [facility] Lab Results: +/- 30 days of [...] Type Comment May 03, 2025 01:16 PM [facility] DEXTRO/LevoMethorphan, Urine URINE Specimen T ype: URINE Comment: REFERENCE RANGE: <5 ng/mL This test is not chiral specific; therefore, dextromethorphan and/or levomethorphan may be present. This test was developed and its analytical performance characteristics have been determined by [employer]. It has not been cleared or approved [...] progress of medical conditions. Test performed by: [facility] [address], [address] [place] [address] Lisw: Jordan Porras M.D. Test Reported by [facility] [place], [facility] [place], [address] [place] [address] Mir Rodriguez M.D., Ph.D., Director of Laboratories , CLIA [id number] TEST PERFORMED AT: , Ordering Provider: SETPHANIE SHANKAR Report Released Date/Time: May 03, 2025 01:35 PM Reporting Lab: [facility] [address] [address] Performing Lab: [facility] [address] [address] DEXTRO/LevoMethorphan, Urine NEGATIVE ng/mL SEE BELOW May 03, 2025 01:16 PM [facility] TRAMADOL PNL (Include Fitness) URINE Specimen Type: URI NE Comment: REFERENCE RANGE: <100 ng/mL REFERENCE RANGE: <100 ng/mL See LDT message Test Performed by [facility] [place], [facility], [address] [place] [address] Mir Rodriguez M.D., Ph.D., Director of Laboratories , CLIA [id number] This drug testing is for medical treatment only. Analysis was performed as non-forensic testing and these results should be used only by healthcare providers to render diagnosis or treatment, or to monitor progress of medical conditions. LDT Message: This test was developed and its analytical performance characteristics have been determined by [facility] [place], [place]. It has not been cleared or approved by the U.S. Food and Drug Administration. This assay has been validated pursuant to the CLIA regulations and is used for clinical purposes. Healthcare Providers needing Interpretation assistance, please contact us at [phone] ( ) M-F, 8am to 10pm EST TEST PERFORMED AT: , Ordering Provider: GABRIELA SHANKAR Report Released Date/Time: May 03, 2025 01:35 PM Reporting Lab: [address] [address] Performing Lab: [facility] [address] [facility], [address] [place] [address] TRAMADOL,URINE NEGATIVE ng/mL SEE BELOW DESMETHYLTRAMADOL NEGATIVE ng/mL SEE BEL OW May 03, 2025 01:16 PM [facility] ALCOHOL, ETHYL URINE PANEL URINE Specimen [...] May 03, 2025 01:35 PM Reporting Lab: [address] [address] Performing Lab: [address] [address] ALCOHOL, ETHYL URINE POSITIVE HH None-Detec alok, cutoff = 10 mg/dL PH, DWIGHT 6.1 [pH] 5.0-8.0 CREATININE, DWIGHT 76.65 mg/dL 63-166 SP.GRAVITY, DWIGHT 1.003 L 1.005-1.030 May 03, 2025 01:16 PM [facility] BARBITURATES SCREEN PANEL URINE Specimen Type [...] May 03, 2025 01:35 PM Reporting Lab: [address] [address] Performing Lab: [address] [address] BARBITURATES SCREEN NONE-DETECTED None-D etected,Cutoff = 200 ng/mL PH, DWIGHT 6.1 [pH] 5.0-8.0 CREATININE, DWIGHT 76.65 mg/dL 63-166 SP.GRAVITY, DWIGHT 1.003 L 1.005-1.030 May 03, 2025 01:16 PM [facility] CANNABINOIDS SCREEN PANEL URINE Specimen Type [...] May 03, 2025 01:35 PM Reporting Lab: [address] [address] Performing Lab: [address] [address] CANNABINOIDS SCREEN NONE-DETECTED None-D etected,Cutoff = 50 ng/mL PH, DWIGHT 6.1 [pH] 5.0-8.0 CREATININE, DWIGHT 76.65 mg/dL 63-166 SP.GRAVITY, DWIGHT 1.003 L 1.005-1.030 May 03, 2025 01:16 PM [facility] BUPRENORPHINE SCREEN PANEL URINE Specimen Typ [...] May 03, 2025 01:35 PM Reporting Lab: [address] [address] Performing Lab: [address] [address] BUPRENORPHINE SCREEN NONE-DETECTED None Detected, Cutoff = 5 ng/mL PH, DWIGHT 6.1 [pH] 5.0-8.0 CREATININE, DWIGHT 76.65 mg/dL 63-166 SP.GRAVITY, DWIGHT 1.003 L 1.005-1.030 May 03, 2025 01:16 PM [facility] BENZODIAZEPINES SCREEN PANEL URINE Specimen T [...] May 03, 2025 01:35 PM Reporting Lab: [address] [address] Performing Lab: [address] [address] BENZODIAZEPINES SCREEN NONE-DETECTED Non e-Detected, Cutoff = 200 ng/mL PH, DWIGHT 6.1 [pH] 5.0-8.0 CREATININE, DWIGHT 76.65 mg/dL 63-166 SP.GRAVITY, DWIGHT 1.003 L 1.005-1.030 May 03, 2025 01:16 PM [facility] AMPHETAMINES SCREEN PANEL URINE Specimen Type [...] May 03, 2025 01:35 PM Reporting Lab: [facility] [address] [address] Performing Lab: [address] [address] AMPHETAMINES SCREEN NONE-DETECTED None-D etected, Cutoff = 1000 ng/mL PH, DWIGHT 6.1 [pH] 5.0-8.0 CREATININE, DWIGHT 76.65 mg/dL 63-166 SP.GRAVITY, DWIGHT 1.003 L 1.005-1.030 May 03, 2025 01:16 PM [facility] COCAINE SCREEN PANEL URINE Specimen Type: [...] May 03, 2025 01:35 PM Reporting Lab: [facility] [address] [address] Performing Lab: [address] [address] COCAINE SCREEN NONE-DETECTED None-Detect ed,Cutoff = 300 ng/mL PH, DWIGHT 6.1 [pH] 5.0-8.0 CREATININE, DWIGHT 76.65 mg/dL 63-166 SP.GRAVITY, DWIGHT 1.003 L 1.005-1.030 May 03, 2025 01:16 PM [facility] FENTANYL [facility]EL URINE Specimen Type: [...] May 03, 2025 01:35 PM Reporting Lab: [address] [address] Performing Lab: [address] [address] FENTANYL SCREEN NONE-DETECTED None-Detec alok, Cutoff = 1.00 ng/mL PH, DWIGHT 6.1 [pH] 5.0-8.0 CREATININE, DWIGHT 76.00 mg/dL 63-166 SP.GRAVITY, DWIGHT 1.003 L 1.005-1.030 May 03, 2025 01:16 PM [facility] OPIATES SCREEN PANEL URINE Specimen Type: [...] May 03, 2025 01:35 PM Reporting Lab: [address] [address] Performing Lab: [address] [address] OPIATES SCREEN NONE-DETECTED None-Detect ed, Cutoff = 300 ng/mL PH, DWIGHT 6.1 [pH] 5.0-8.0 CREATININE, DWIGHT 76.65 mg/dL 63-166 SP.GRAVITY, DWIGHT 1.003 L 1.005-1.030 May 03, 2025 01:16 PM [facility] METHADONE SCREEN PANEL URINE Specimen Type: [...] May 03, 2025 01:35 PM Reporting Lab: [address] [address] Performing Lab: [address] [address] PH, DWIGHT 6.1 [pH] 5.0-8.0 CREATININE, DWIGHT 76.65 mg/dL 63-166 SP.GRAVITY, DWIGHT 1.003 L 1.005-1.030 METHADONE SCREEN NONE-DETECTED None-Dete cted,Cutoff = 300 ng/mL May 03, 2025 01:16 PM [facility] OXYCODONE SCREEN PANEL URINE Specimen Type: [...] May 03, 2025 01:35 PM Reporting Lab: [address] [address] Performing Lab: [address] [address] OXYCODONE SCREEN POSITIVE HH None-Detected, Cutoff = 100 ng/mL PH, DWIGHT 6.1 [pH] 5.0-8.0 CREATININE, DWIGHT 76.65 mg/dL 63-166 SP.GRAVITY, DWIGHT 1.003 L 1.005-1.030 Apr 29, 2025 10:58 AM [facility] PT & INR (PROTIME) PLASMA Specimen Type: PLASM A No comment entered. Ordering Provider: GABRIELA SHAKNAR Report Released Date/Time: Apr 28, 2025 08:45 AM Reporting [facility] [address] Performing Lab: [address] [address] INR 2.5 PROTIME 26.5 s H 10.0-13.1 Apr 29, 2025 10:58 AM [facility] HEMOGLOBIN A1C PANEL BLOOD Specimen Type: [...] Apr 28, 2025 08:45 AM Reporting Lab: [address] [address] Performing Lab: [address] [address] HEMOGLOBIN A1C 4.0 4.0-5.6 Apr 29, 2025 10:58 AM [facility] TSH SERUM Specimen Type: SERUM No comment entered. Ordering Provider: GABRIELA SHANKAR Report Released Date/Time: Apr 28, 2025 08:45 AM Reporting Lab: [address] [address] Performing Lab: [address] [address] TSH 3.95 u[IU]/mL 0.35-4.94 Apr 29, 2025 10:[address] [facility] CALCIUM SERUM Specimen Type: SERUM No comment entered. Ordering Provider: GABRIELA SHANKAR Report Released Date/Time: Apr 28, 2025 08:45 AM Reporting Lab: [facility] [place] [facility] [address] [address] Performing Lab: [facility] [address] [address] CALCIUM 7.5 mg/dL L 8.4-10.2 Apr 29, 2025 10:[address] [facility] MICROALBUMIN CREATININE RATIO PANEL URINE Spe cimen Type: URINE No comment entered. Ordering Provider: GABRIELA SHANKAR Report Released Date/Time: Apr 28, 2025 08:45 AM Reporting Lab: [facility] [address] [address] Performing Lab: [facility] [address] [address] MICROALBUMIN/CREATININE RATIO 5.0 mg/g 0 -29.9 MICROALBUMIN,QUANTITATIVE 0.5 mg/dL RR U NAVAIL CREATININE URINE 100.18 mg/dL 63-166 Apr 29, 2025 10:58 AM [facility] HEPATITIS C ANTIBODY (HCV)-ARC SERUM Specimen Type: SERUM Comment: Hep C Ab: No HCV antibody detected. If recent infection is suspected or other evidence suggests HCV infection, consider HCV nucleic acid testing Ordering Provider: GABRIELA SHANKAR Report Released Date/Time: Apr 28, 2025 08:45 AM Reporting Lab: [facility] [address] [address] Performing Lab: [facility] [address] [address] HEPATITIS C ANTIBODY NON-REACTIVE NON-RE ACTIVE Apr 29, 2025 10:[address] [facility] LIVER FUNCTION SERUM Specimen Type: SERUM No comment entered. Ordering Provider: GABRIELA SHANKAR Report Released Date/Time: Apr 28, 2025 08:45 AM Reporting Lab: [facility] [address] [address] Performing Lab: [facility] [address] [address] PROTEIN,TOTAL 8.3 g/dL 6.4-8.3 ALBUMIN 2.3 g/dL L 3.5-5.2 ALKALINE PHOSPHATASE 103 U/L 40-150 AST 97 U/L H 5-34 ALT 36 U/L 0-55 BILIRUBIN, TOTAL 9.8 mg/dL H 0.2-1.2 BILIRUBIN, DIRECT 4.5 mg/dL H 0-0.5 Apr 29, 2025 10:58 AM [facility] BASIC METABOLIC PANEL (non-fasting) SERUM Spe cimen Type: SERUM No comment entered. Ordering Provider: GABRIELA SHANKAR Report Released Date/Time: Apr 28, 2025 08:45 AM Reporting Lab: [facility] [address] [address] Performing Lab: [address] [address] UREA NITROGEN 4 mg/dL L 8-26 GLUCOSE 106 mg/dL H 65-100 SODIUM 131 mmol/L L 136-145 POTASSIUM 3.3 mmol/L L 3.5-5.1 CHLORIDE 97 mmol/L L 98-107 CO2 27 meq/L 22-29 CALCIUM 7.5 mg/dL L 8.4-10.2 CREATININE, Serum 0.62 mg/dL L 0.72-1.25 eGFR(CKD-EPI 2020) >90 mL/min >60 Apr 29, 2025 10:58 AM [facility] CBC AND DIFF (AUTO) BLOOD Specimen Type: BLOO D No comment entered. Ordering Provider: GABRIELA SHANKAR Report Released Date/Time: Apr 28, 2025 08:45 AM Reporting Lab: [facility] [address] [address] Performing Lab: [address] [address] WBC 12.31 10*3/uL H 4.50-11.00 RBC 3.86 [...] and tobacco- related health factors from the CT facility where the Encounter took place. Current Smoking Status This section includes the most current smoking, or tobacco-related health factor, from the CT facility where the Encounter took place. Date/Time Current Smoking Status Comment Nilesh clark Aug 28, 2024 08:30 AM VA-TOBACCO USER EVERY DAY CT [facility] [place] [facility] Tobacco Use History This section includes a history of the smoking, or tobacco-related health factors, that were collected on or before the date of the Encounter. The data comes from the CT facility where the Encounter took place. 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 [facility] [place] [facility] Aug 28, 2024 08:30 AM VA-TOBACCO USE MED NO [facility] [place] [facility] Aug 28, 2024 08:30 AM VA-TOBACCO USER EVERY DAY [facility] [place] [facility] Aug 27, 2023 03:00 PM VA-TOBACCO USE > 15 LESS THAN 30 YEARS [facility] [place] [facility] Aug 27, 2023 03:00 PM VA-TOBACCO USE ADVICE [facility] [place] [facility] Aug 27, 2023 03:00 PM 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 [facility] [place] [facility] Aug 27, 2023 03:00 PM VA-TOBACCO USE MED NO [facility] [place] [facility] Aug 27, 2023 03:00 PM VA-TOBACCO USE WI 30 MIN OF WAKEUP [facility] [place] [facility] Aug 27, 2023 03:00 PM VA-TOBACCO USER EVERY DAY [facility] [place] [facility] Dec 09, 2020 03:30 PM VA-TOBACCO DOESNT USE WI 30 MIN WAKEUP [facility] [place] [facility] Dec 09, 2020 03:30 PM VA-TOBACCO USE > 15 LESS THAN 30 YEARS [facility] [place] [facility] Dec 09, 2020 03:30 PM VA-TOBACCO USE ADVICE [facility] [place] [facility] Dec 09, 2020 03:30 PM 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 [facility] [place] [facility] Dec 09, 2020 03:30 PM VA-TOBACCO USE MED NOTIFY PROVIDER vet requests lucero: does not like gum not helpful [facility] [place] [facility] Dec 09, 2020 03:30 PM VA-TOBACCO USER SOME DAYS [facility] [place] [facility] Jul 08, 2019 12:33 PM VA-TOBACCO DOESNT USE [place] [address] [facility] [place] [facility] Jul 08, 2019 12:33 PM VA-TOBACCO USE > [address]ESS THAN [address] [facility] [place] [facility] Jul 08, 2019 12:33 PM VA-TOBACCO USE ADVICE [facility] [place] [facility] Jul 08, 2019 12:33 PM VA-TOBACCO USE 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 [facility] [place] [facility] Jul 08, 2019 12:33 PM VA-TOBACCO USE MED NOTIFY PROVIDER Gum [facility] [place] [facility] Jul 08, 2019 12:33 PM VA-TOBACCO USER SOME DAYS CT [facility] [place] [facility] May 15, 2018 03:13 PM CURRENT SMOKER 4-6 cigarettes daily [facility] [place] [facility] Nov 22, 2016 08:55 AM CURRENT SMOKER [facility] [place] [facility] Nov 22, 2016 08:55 AM V1-PT DECLINES REF TO TOBACCO CESS PRGM CT [facility] [place] [facility] Nov 22, 2016 08:55 AM V1-PT DECLINES TOBACCO CESSATION MEDS [facility] [place] [facility] Nov 22, 2016 08:55 AM V1-PT THINKING ABOUT QUIT TOBACCO USE CT [facility] [place] [facility] Nov 15, 2016 09:05 AM CURRENT SMOKER 8 TO [address] [facility] [place] [facility] Nov 08, 2016 09:20 AM CURRENT SMOKER Smokes 1/2 pack of cigarettes per day [facility] [place] [facility] Oct 31, 2016 06:35 PM TOBACCO INPATIENT DECLINES MEDS [facility] [place] [facility] Oct 31, 2016 03:08 PM CURRENT SMOKER [facility] [place] [facility] March 07, 2016 09:18 PM V1-PT NOT INTERESTED IN QUIT TOBACCO USE CT [facility] [place] [facility] Jun 11, 2015 10:28 AM CURRENT SMOKER 6-[address] [facility] [place] [facility] Jan 21, 2014 10:56 AM CURRENT SMOKER 4-6 cigarettes per day [facility] Jan 21, 2014 10:56 AM V1-PT NOT INTERESTED IN QUIT TOBACCO USE [facility] Encounter Notes: All associated encounter notes This section contains the clinical notes associated to the Encounter. Date/Time Encounter Note(s) Provider Source May 03, 2025 03:35 PM ADDENDUM: LOCAL TITLE: Addendum STANDARD TITLE: ADDENDUM DATE OF NOTE: MAY 03, 2025@15:35:27 ENTRY DATE: MAY 03, 2025@15:35:27 AUTHOR: CANDIDA CASILLAS EXP COSIGNER: URGENCY: STATUS: COMPLETED Medication ordered by covering provider. /malena CASILLAS REGISTERED NURSE Signed: 05/03/2025 15:36 Receipt Acknowledged By: 05/03/2025 16:40 /norberto/ GABRIELA SHANKAR MD PHYSICIAN ========= --- Original Document --- 05/03/25 WALK-IN NOTE PRIMARY CARE (T): Patient identity was verified using two identifiers, per CT Policy: Full Name, Date of Medication Renewal Request: Labs were completed last week noted provided sample for urine but urine drug screen not completed at that time. [place] advised to return to lab for completion. Urine Drug screen collected and pedning results at this time. PDMP and Opioid/Controlled substance note completed. Defer to pcp for renewal as deemed appropriate. Patient walked in to request refill on: Medication name: OXYCODONE HCL NOT SA TAB 5MG /malena CASILLAS REGISTERED NURSE Signed: 05/03/2025 13:20 05/03/2025 ADDENDUM STATUS: COMPLETED Opioid Drug Screening V2: Drug Screen ordered Drug screening once every year recommended for this patient. /malena CASILLAS REGISTERED NURSE Signed: 05/03/2025 14:14 CANDIDA CASILLAS [facility] May 03, 2025 09:46 AM PRIMARY CARE NOTE: LOCAL TITLE: WALK-IN NOTE PRIMARY CARE (T) STANDARD TITLE: PRIMARY CARE NOTE DATE OF NOTE: MAY 03, 2025@09:46 ENTRY DATE: MAY 03, 2025@09:46:43 AUTHOR: CANDIDA CASILLAS EXP COSIGNER: URGENCY: STATUS: COMPLETED WALK-IN NOTE PRIMARY CARE (T) Has ADDENDA Patient identity was verified using two identifiers, per [place] Policy: Full Name, Date of Medication Renewal Request: Labs were completed last week noted provided sample for urine but urine drug screen not completed at that time. advised to return to lab for completion. Urine Drug screen collected and pedning results at this time. PDMP and Opioid/Controlled substance note completed. Defer to pcp for renewal as deemed appropriate. Patient walked in to request refill on: Medication name: OXYCODONE HCL NOT SA TAB 5MG /norberto/ CANDIDA CASILLAS REGISTERED NURSE Signed: 05/03/2025 13:20 05/03/2025 ADDENDUM STATUS: COMPLETED Opioid Drug Screening V2: Drug Screen ordered Drug screening once every year recommended for this patient. /malena CASILLAS REGISTERED NURSE Signed: 05/03/2025 14:14 05/03/2025 ADDENDUM STATUS: COMPLETED Medication ordered by covering provider. /malena CASILLAS REGISTERED NURSE Signed: 05/03/2025 15:36 Receipt Acknowledged By: * AWAITING SIGNATURE * GABRIELA SHANKAR MELISSA H CT [facility]
--- OUTSIDE RECORDS SUMMARY | 2025-05-12 05:00 | XMS_ITS | Encounter Summary ---
Author Name [facility] [place] [facility] [place] [facility] [facility] [place] Address [address] [place] [address] Care Team Providers Care Line Cook Name Role Phone GABRIELA SHANKAR Primary Care [...] Relationship to Policy Proctor CAREMARK PRESCRIPT ION [facility] Apr 27, 2023 [id number] [phone] [employer] MONA PATIENT [employer] SCRIPTS ([id number]) PRESCRIPT ION [facility] February 25, 2023 [id number] [facility] ORGANIZAT ION [facility] Apr 27, 2023 [id number] [facility] ORGANIZ [facility] February 25, 2023 [id number] [facility] ORGANIZ [facility] February 25, 2023 [id number] [phone] YENY MOSCOSO PATIENT Selected Encounter This section includes the information on record at [place] for the Encounter. Date/Time Encounter Type Encounter Description Reason Provider Source May 12, 2025 09:00 AM COMPRE OPH EXAM NEW PT 1/> OPTOMETRY ICD-10-CM H25.13 Age-related nuclear cataract, bilateral BARKLEY,YIFAN J IHE Encounter Template Text not used by [facility] Assessments - Encounter Diagnoses This section includes the primary and secondary diagnoses documented for the Encounter. Date/Time Primary/Secondary Diagnosis Diagnosis Name Provider Source May 12, 2025 09:56 AM PRIMARY Age-related nuclear cataract, bilateral BARKLEY,YIFAN J [place] [facility] [place] [facility] May 12, 2025 09:56 AM SECONDARY Presbyopia YIFAN BARKLEY [place] [facility] [place] [facility] Plan of Treatment: Future Appointments (+ 6 months) and Future Tests (+/- 45 days) The Plan of Treatment section includes future care activities for the patient from all [place] treatmentfacilities. This section includes future appointments and future orders which are active, pending or scheduled. Future Appointments This section includes appointments that were scheduled to occur 6 months from the date of the Encounter, up to a maximum of 20 appointments. The data comes from all [place] treatment facilities. Appointment Date/Time Appointment Type Appointme nt Facility Name May 19, 2025 03:30 PM AMBULATORY - MEDICINE [place] [facility] [place] [facility] Jun 08, 2025 01:30 PM AMBULATORY - NONE [place] [facility] [place] [facility] Jul 19, 2025 02:30 PM AMBULATORY - SURGERY [place] [facility] [place] [facility] Jul 22, 2025 01:30 PM AMBULATORY - MEDICINE [place] [facility] [facility] Jul 29, 2025 01:30 PM AMBULATORY - MEDICINE [facility] Active, Pending, and Scheduled Orders This section includes a listing of several types of active, pending, and scheduled orders, including clinic medications orders, diagnostic test orders, procedure orders and consult orders; where the start date of the order is 45 days before the date of the Encounter or 45 days after the date of theEncounter. The data comes from all [place] treatment facilities. Test Date/Time Test Type Test Details Facility Name May 03, 2025 12:00 AM Laboratory - Chemistry Order PHENCYCLIDINE SCREEN w/Reflex to Confirm URINE (DRUG) [facility] May 03, 2025 12:00 AM Laboratory - Chemistry Order PROPOXYPHENE SCREEN URINE (DRUG) [facility] May 19, 2025 12:00 AM Laboratory - Chemistry Order HEPATITIS B SURFACE ANTIGEN (HBsAg)-WH BLOOD (SST-SERUM) [facility] May 19, 2025 12:00 AM Laboratory - Chemistry Order HEPATITIS C ANTIBODY (HCV)-ARC BLOOD (MARBLED-TOP SERUM) [facility] May 19, 2025 12:00 AM Laboratory - Chemistry Order FERRITIN BLOOD (SST-SERUM) [facility] May 19, 2025 12:00 AM Laboratory - Chemistry Order HEPATITIS B CORE (Total) Ab BLOOD (SST-SERUM) [facility] May 19, 2025 12:00 AM Laboratory - Chemistry Order IRON & TIBC PANEL BLOOD (SST-SERUM) [facility] May 19, 2025 12:00 AM Laboratory - Chemistry Order MARCELO SCREEN/TITER BLOOD (SST-GOLD) SERUM [facility] May 19, 2025 12:00 AM Laboratory - Chemistry Order GAMMA-GTP BLOOD (SST-SERUM) [facility] May 19, 2025 12:00 AM Laboratory - Chemistry Order ALBUMIN BLOOD (SST-SERUM) [facility] May 19, 2025 12:00 AM Laboratory - Chemistry Order PROTEIN,TOTAL BLOOD (SST-SERUM) SP ONCE [facility] May 19, 2025 12:00 AM Laboratory - Chemistry Order ALBUMIN BLOOD (SST-SERUM) [facility] May 19, 2025 12:00 AM Laboratory - Chemistry Order ALKALINE PHOSPHATASE BLOOD (SST-SERUM) [facility] May 19, 2025 12:00 AM Laboratory - Chemistry Order AST BLOOD (SST-SERUM) [facility] May 19, 2025 12:00 AM Laboratory - Chemistry Order BILIRUBIN, TOTAL BLOOD (SST-SERUM) [facility] May 19, 2025 12:00 AM Laboratory - Chemistry Order ALT BLOOD (SST-SERUM) [facility] May 19, 2025 03:57 PM Laboratory - Chemistry Order PT & INR (PROTIME) BLOOD (BLUE-PLASMA) [facility] May 19, 2025 03:57 PM Consult [facility] Orthodontic Technician Assistant's Choice [facility] May 26, 2025 12:00 AM Laboratory - Chemistry Order LIVER KIDNEY MICROSOME ANTIBODY BLOOD (RED-PLAIN) SERUM [facility] May 26, 2025 12:00 AM Laboratory - Chemistry Order MARCELO SCREEN/TITER BLOOD (SST-GOLD) SERUM [facility] May 26, 2025 12:00 AM Laboratory - Chemistry Order IGG BLOOD (SST-SERUM) [facility] May 26, 2025 12:00 AM Laboratory - Chemistry Order ACTIN (SMOOTH MUSCLE) ANTIBODY (IgG) BLOOD (SST-SERUM) [facility] May 26, 2025 12:00 AM Laboratory - Chemistry Order FERRITIN BLOOD (SST-SERUM) [facility] May 26, 2025 12:00 AM Laboratory - Chemistry Order IRON & TIBC PANEL BLOOD (SST-SERUM) [facility] May 26, 2025 12:00 AM Laboratory - Chemistry Order CERULOPLASMIN BLOOD (RED-PLAIN) SERUM [facility] May 26, 2025 12:00 AM Laboratory - Chemistry Order A1A PHENOTYPE PANEL BLOOD (SST-SERUM) [facility] May 26, 2025 12:00 AM Laboratory - Chemistry Order HEPATITIS B CORE (Total) Ab BLOOD (SST-SERUM) [facility] May 26, 2025 12:00 AM Laboratory - Chemistry Order HEPATITIS B SURFACE ANTIGEN (HBsAg)-WH BLOOD (SST-SERUM) SP [facility] [place] [facility] May 26, 2025 12:00 AM Laboratory - Chemistry Order HEPATITIS B SURFACE ANTIBODY (HBsAb)- BLOOD (SST-SERUM) [facility] May 26, 2025 12:00 AM Laboratory - Chemistry Order PT & INR (PROTIME) BLOOD (BLUE-PLASMA) [facility] May 26, 2025 12:00 AM Laboratory - Chemistry Order BASIC METABOLIC PANEL (non-fasting) BLOOD (SST-SERUM) [facility] May 26, 2025 12:00 AM Laboratory - Chemistry Order LIVER FUNCTION BLOOD (SST-SERUM) [facility] May 26, 2025 12:00 AM Laboratory - Chemistry Order ALPHA-FETOPROTEIN BLOOD (SST-SERUM) [facility] May 26, 2025 12:00 AM Laboratory - Chemistry Order CBC AND DIFF (AUTO) BLOOD (LAV-BLOOD) [facility] Jun 08, 2025 12:00 AM Imaging - Ultrasound Order ULTRASOUND ELASTOGRAPHY PARENCHYMA [facility] Jun 08, 2025 12:00 AM Imaging - Ultrasound Order ULTRASOUND ABDOMEN [facility] Lab Results: +/- 30 days of [...] Type Comment May 03, 2025 01:16 PM [facility] DEXTRO/LevoMethorphan, Urine URINE Specimen T ype: URINE Comment: REFERENCE RANGE: <5 ng/mL This test is not chiral specific; therefore, dextromethorphan and/or levomethorphan may be present. This test was developed and its analytical performance characteristics have been determined by [employer]. It has not been cleared or approved [...] progress of medical conditions. Test performed by: [employer] [address] [facility], [address] [place] [address] Channel Installer: Jordan Porras M.D. Test Reported by [employer] [place], [employer] [place], [address] [place] [address] Mir Rodriguez M.D., Ph.D., Director of Laboratories , CLIA [id number] TEST PERFORMED AT: , Ordering Provider: STEPHANIE SHANKAR Report Released Date/Time: May 03, 2025 01:35 PM Reporting Lab: [facility] [address] [facility] [address] Performing Lab: [facility] [address] [address] DEXTRO/LevoMethorphan, Urine NEGATIVE ng/mL SEE BELOW May 03, 2025 01:16 PM [facility] TRAMADOL PNL ([place]) URINE Specimen Type: URI NE Comment: REFERENCE RANGE: <100 ng/mL REFERENCE RANGE: <100 ng/mL See LDT message Test Performed by [employer] [place], [employer] [place], [address] [place] [address] Mir Rodriguez M.D., Ph.D., Director of Laboratories , CLIA [id number] This drug testing is for medical treatment only. Analysis was performed as non-forensic testing and these results should be used only by healthcare providers to render diagnosis or treatment, or to monitor progress of medical conditions. LDT Message: This test was developed and its analytical performance characteristics have been determined by [employer] [place], [place]. It has not been cleared or approved by the U.S. Food and Drug Administration. This assay has been validated pursuant to the CLIA regulations and is used for clinical purposes. Healthcare Providers needing Interpretation assistance, please contact us at [phone] ( ) M-F, 8am to 10pm EST TEST PERFORMED AT: , Ordering Provider: GABRIELA SHANKAR Report Released Date/Time: May 03, 2025 01:35 PM Reporting Lab: [address] [address] Performing Lab: [facility] [address] [address] TRAMADOL,URINE NEGATIVE ng/mL SEE BELOW DESMETHYLTRAMADOL NEGATIVE ng/mL SEE BEL OW May 03, 2025 01:16 PM [facility] BARBITURATES SCREEN PANEL URINE Specimen Type : [...] May 03, 2025 01:35 PM Reporting Lab: [address] [address] Performing Lab: [address] [address] BARBITURATES SCREEN NONE-DETECTED None-D etected,Cutoff = 200 ng/mL PH, DWIGHT 6.1 [pH] 5.0-8.0 CREATININE, DWIGHT 76.65 mg/dL 63-166 SP.GRAVITY, DWIGHT 1.003 L 1.005-1.030 May 03, 2025 01:16 PM [facility] ALCOHOL, ETHYL URINE PANEL URINE Specimen Typ [...] May 03, 2025 01:35 PM Reporting Lab: [address] [address] Performing Lab: [address] [address] ALCOHOL, ETHYL URINE POSITIVE HH None-Detec alok, cutoff = 10 mg/dL PH, DWIGHT 6.1 [pH] 5.0-8.0 CREATININE, DWIGHT 76.65 mg/dL 63-166 SP.GRAVITY, DWIGHT 1.003 L 1.005-1.030 May 03, 2025 01:16 PM [facility] AMPHETAMINES SCREEN PANEL URINE Specimen Type : [...] May 03, 2025 01:35 PM Reporting Lab: [address] [address] Performing Lab: [address] [address] AMPHETAMINES SCREEN NONE-DETECTED None-D etected, Cutoff = 1000 ng/mL PH, DWIGHT 6.1 [pH] 5.0-8.0 CREATININE, DWIGHT 76.65 mg/dL 63-166 SP.GRAVITY, DWIGHT 1.003 L 1.005-1.030 May 03, 2025 01:16 PM [facility] CANNABINOIDS SCREEN PANEL URINE Specimen Type : [...] May 03, 2025 01:35 PM Reporting Lab: [address] [address] Performing Lab: [address] [address] CANNABINOIDS SCREEN NONE-DETECTED None-D etected,Cutoff = 50 ng/mL PH, DWIGHT 6.1 [pH] 5.0-8.0 CREATININE, DWIGHT 76.65 mg/dL 63-166 SP.GRAVITY, DWIGHT 1.003 L 1.005-1.030 May 03, 2025 01:16 PM [facility] BUPRENORPHINE SCREEN PANEL URINE Specimen Typ e: [...] May 03, 2025 01:35 PM Reporting Lab: [address] [address] Performing Lab: [address] [address] BUPRENORPHINE SCREEN NONE-DETECTED None Detected, Cutoff = 5 ng/mL PH, DWIGHT 6.1 [pH] 5.0-8.0 CREATININE, DWIGHT 76.65 mg/dL 63-166 SP.GRAVITY, DWIGHT 1.003 L 1.005-1.030 May 03, 2025 01:16 PM [facility] BENZODIAZEPINES SCREEN PANEL URINE Specimen T ype: [...] May 03, 2025 01:35 PM Reporting Lab: [place] [facility] [employer] [address] Performing Lab: [address] [address] BENZODIAZEPINES SCREEN NONE-DETECTED Non e-Detected, Cutoff = 200 ng/mL PH, DWIGHT 6.1 [pH] 5.0-8.0 CREATININE, DWIGHT 76.65 mg/dL 63-166 SP.GRAVITY, DWIGHT 1.003 L 1.005-1.030 May 03, 2025 01:16 PM [facility] COCAINE SCREEN PANEL URINE Specimen Type: [...] May 03, 2025 01:35 PM Reporting Lab: [facility] [employer] [address] Performing Lab: [facility] panpan[address] [address] COCAINE SCREEN NONE-DETECTED None-Detect ed,Cutoff = 300 ng/mL PH, DWIGHT 6.1 [pH] 5.0-8.0 CREATININE, DWIGHT 76.65 mg/dL 63-166 SP.GRAVITY, DWIGHT 1.003 L 1.005-1.030 May 03, 2025 01:16 PM [place] [facility] FENTANYL SCREEN PANEL URINE Specimen Type: [...] May 03, 2025 01:35 PM Reporting Lab: [address] [address] Performing Lab: [address] [address] FENTANYL SCREEN NONE-DETECTED None-Detec alok, Cutoff = 1.00 ng/mL PH, DWIGHT 6.1 [pH] 5.0-8.0 CREATININE, DWIGHT 76.00 mg/dL 63-166 SP.GRAVITY, DWIGHT 1.003 L 1.005-1.030 May 03, 2025 01:16 PM [facility] METHADONE SCREEN PANEL URINE Specimen Type: U [...] May 03, 2025 01:35 PM Reporting Lab: [address] [address] Performing Lab: [address] [address] PH, DWIGHT 6.1 [pH] 5.0-8.0 CREATININE, DWIGHT 76.65 mg/dL 63-166 SP.GRAVITY, DWIGHT 1.003 L 1.005-1.030 METHADONE SCREEN NONE-DETECTED None-Dete cted,Cutoff = 300 ng/mL May 03, 2025 01:16 PM [facility] OPIATES SCREEN PANEL URINE Specimen Type: URI [...] may have been adulterated. Ordering Provider: GABRIELA SHAKNAR Report Released Date/Time: May 03, 2025 01:35 PM Reporting Lab: [address] [address] Performing Lab: [address] [address] OPIATES SCREEN NONE-DETECTED None-Detect ed, Cutoff = 300 ng/mL PH, DWIGHT 6.1 [pH] 5.0-8.0 CREATININE, DWIGHT 76.65 mg/dL 63-166 SP.GRAVITY, DWIGHT 1.003 L 1.005-1.030 May 03, 2025 01:16 PM [facility] OXYCODONE SCREEN PANEL URINE Specimen Type: U [...] May 03, 2025 01:35 PM Reporting Lab: [address] [address] Performing Lab: [address] [address] OXYCODONE SCREEN POSITIVE HH None-Detected, Cutoff = 100 ng/mL PH, DWIGHT 6.1 [pH] 5.0-8.0 CREATININE, DWIGHT 76.65 mg/dL 63-166 SP.GRAVITY, DWIGHT 1.003 L 1.005-1.030 Apr 29, 2025 10:58 AM [facility] MICROALBUMIN CREATININE RATIO PANEL URINE Spe cimen Type: URINE No comment entered. Ordering Provider: GABRIELA SHANKAR Report Released Date/Time: Apr 28, 2025 08:45 AM Reporting Lab: [address] [address] Performing Lab: [address] [address] MICROALBUMIN/CREATININE RATIO 5.0 mg/g 0 -29.9 MICROALBUMIN,QUANTITATIVE 0.5 mg/dL RR U NAVAIL CREATININE URINE 100.18 mg/dL 63-166 Apr 29, 2025 10:58 AM [facility] PT & INR (PROTIME) PLASMA Specimen Type: PLASM A No comment entered. Ordering Provider: GABRIELA SHANKAR Report Released Date/Time: Apr 28, 2025 08:45 AM Reporting Lab: [address] [address] Performing Lab: [address] [address] INR 2.5 PROTIME 26.5 s H 10.0-13.1 Apr 29, 2025 10:58 AM [facility] HEMOGLOBIN A1C PANEL BLOOD Specimen Type: BLO [...] Apr 28, 2025 08:45 AM Reporting Lab: [address] [address] Performing Lab: [facility] [place] [facility] [address] [facility] [address] HEMOGLOBIN A1C 4.0 4.0-5.6 Apr 29, 2025 10:58 AM [facility] [place] [facility] TSH SERUM Specimen Type: SERUM No comment entered. Ordering Provider: GABRIELA SHANKAR Report Released Date/Time: Apr 28, 2025 08:45 AM Reporting Lab: [facility] [place] [facility] [address] [facility] [address] Performing Lab: [facility] [place] [facility] [address] [facility] [address] TSH 3.95 u[IU]/mL 0.35-4.94 Apr 29, 2025 10:58 AM [facility] CALCIUM SERUM Specimen Type: SERUM No comment entered. Ordering Provider: GABRIELA SHANKAR Report Released Date/Time: Apr 28, 2025 08:45 AM Reporting Lab: [facility] [place] [facility] [address] [facility] [address] Performing Lab: [facility]ENTER[facility] [address] [address] CALCIUM 7.5 mg/dL L 8.4-10.2 Apr 29, 2025 10:58 AM [facility] HEPATITIS C ANTIBODY (HCV)-ARC SERUM Specimen Type: SERUM Comment: Hep C Ab: No HCV antibody detected. If recent infection is suspected or other evidence suggests HCV infection, consider HCV nucleic acid testing Ordering Provider: GABRIELA SHANKAR Report Released Date/Time: Apr 28, 2025 08:45 AM Reporting Lab: [facility] [place] [facility] [address] [facility] [address] Performing Lab: [facility] [place] [facility]ENTERUSETS [address] [address] HEPATITIS C ANTIBODY NON-REACTIVE NON-RE ACTIVE Apr 29, 2025 10:58 AM [facility] [place] [facility] LIVER FUNCTION SERUM Specimen Type: SERUM No comment entered. Ordering Provider: GABRIELA SAHNKAR Report Released Date/Time: Apr 28, 2025 08:45 AM Reporting Lab: [facility] [address] [facility] [address] Performing Lab: [facility] [address] [facility] [address] PROTEIN,TOTAL 8.3 g/dL 6.4-8.3 ALBUMIN 2.3 g/dL L 3.5-5.2 ALKALINE PHOSPHATASE 103 U/L 40-150 AST 97 U/L H 5-34 ALT 36 U/L 0-55 BILIRUBIN, TOTAL 9.8 mg/dL H 0.2-1.2 BILIRUBIN, DIRECT 4.5 mg/dL H 0-0.5 Apr 29, 2025 10:58 AM [facility] BASIC METABOLIC PANEL (non-fasting) SERUM Spe cimen Type: SERUM No comment entered. Ordering Provider: GABRIELA SHANKAR Report Released Date/Time: Apr 28, 2025 08:45 AM Reporting Lab: [facility] [address] [facility] [address] Performing Lab: [address] [address] UREA NITROGEN 4 mg/dL L 8-26 GLUCOSE 106 mg/dL H 65-100 SODIUM 131 mmol/L L 136-145 POTASSIUM 3.3 mmol/L L 3.5-5.1 CHLORIDE 97 mmol/L L 98-107 CO2 27 meq/L 22-29 CALCIUM 7.5 mg/dL L 8.4-10.2 CREATININE, Serum 0.62 mg/dL L 0.72-1.25 eGFR(CKD-EPI 2020) >90 mL/min >60 Apr 29, 2025 10:58 AM [facility] CBC AND DIFF (AUTO) BLOOD Specimen Type: BLOO D No comment entered. Ordering Provider: GABRIELA SHANKAR Report Released Date/Time: Apr 28, 2025 08:45 AM Reporting Lab: [facility] [address] [facility] [address] Performing Lab: [address] [address] WBC 12.31 10*3/uL H 4.50-11.00 RBC 3.86 [...] and tobacco- related health factors from the [place] facility where the Encounter took place. Current Smoking Status This section includes the most current smoking, or tobacco-related health factor, from the [place] facility where the Encounter took place. Date/Time Current Smoking Status Comment Nilesh clark Aug 28, 2024 08:30 AM VA-TOBACCO USER EVERY DAY [place] [facility] [place] [facility] Tobacco Use History This section includes a history of the smoking, or tobacco-related health factors, that were collected on or before the date of the Encounter. The data comes from the [place] facility where the Encounter took place. Date/Time Smoking Status/Tobac co Use Comment Facility Aug 28, 2024 08:30 AM VA-TOBACCO USE 30 YEARS OR MORE [facility] [place] [facility] Aug 28, 2024 08:30 AM VA-TOBACCO USE ADVICE [facility] [place] [facility] Aug 28, 2024 08:30 AM VA-TOBACCO USE INSTRUCTIONAL DESIGN CONSULTANT NO [facility] [place] [facility] Aug 28, 2024 08:30 AM VA-TOBACCO USE MED NO [facility] [place] [facility] Aug 28, 2024 08:30 AM VA-TOBACCO USER EVERY DAY [facility] [place] [facility] Aug 27, 2023 03:00 PM VA-TOBACCO USE > 15 LESS THAN 30 YEARS [facility] [place] [facility] Aug 27, 2023 03:00 PM VA-TOBACCO USE ADVICE [facility] [facility] Aug 27, 2023 03:00 PM VA-TOBACCO USE INSTRUCTIONAL DESIGN CONSULTANT NO [facility] [place] [facility] Aug 27, 2023 03:00 PM VA-TOBACCO USE MED NO [facility] [place] [facility] Aug 27, 2023 03:00 PM VA-TOBACCO USE WI 30 MIN OF WAKEUP [facility] [place] [facility] Aug 27, 2023 03:00 PM VA-TOBACCO USER EVERY DAY [facility] [place] [facility] Dec 09, 2020 03:30 PM VA-TOBACCO DOESNT USE WI 30 MIN WAKEUP [facility] [place] [facility] Dec 09, 2020 03:30 PM VA-TOBACCO USE > 15 LESS THAN 30 YEARS [facility] [facility] Dec 09, 2020 03:30 PM VA-TOBACCO USE ADVICE [facility] [place] [facility] Dec 09, 2020 03:30 PM VA-TOBACCO USE INSTRUCTIONAL DESIGN CONSULTANT NO [facility] [place] [facility] Dec 09, 2020 03:30 PM VA-TOBACCO USE MED NOTIFY PROVIDER vet requests lucero: does not like gum not helpful [facility] [place] [facility] Dec 09, 2020 03:30 PM VA-TOBACCO USER SOME DAYS [facility] [place] [facility] Jul 08, 2019 12:33 PM VA-TOBACCO DOESNT USE WI 30 MIN WAKEUP [place] [facility] [facility] Jul 08, 2019 12:33 PM VA-TOBACCO USE > 15 LESS THAN 30 YEARS [place] [facility] [place] [facility] Jul 08, 2019 12:33 PM VA-TOBACCO USE ADVICE [facility] [place] [facility] Jul 08, 2019 12:33 PM VA-TOBACCO USE INSTRUCTIONAL DESIGN CONSULTANT YES [place] [facility] [facility] Jul 08, 2019 12:33 PM VA-TOBACCO USE MED NOTIFY PROVIDER Gum [facility] [place] [facility] Jul 08, 2019 12:33 PM VA-TOBACCO USER SOME DAYS [place] [facility] [facility] May 15, 2018 03:13 PM CURRENT SMOKER 4-6 cigarettes daily [facility] [place] [facility] Nov 22, 2016 08:55 AM CURRENT SMOKER [facility] [place] [facility] Nov 22, 2016 08:55 AM V1-PT DECLINES REF TO TOBACCO CESS [facility]GM [facility] [place] [facility] Nov 22, 2016 08:55 AM V1-PT DECLINES [facility]BACCO [facility] [place] [facility] Nov 22, 2016 08:55 AM V1-PT THINKING ABOUT QUIT TOBACCO USE [facility] [place] [facility] Nov 15, 2016 09:05 AM CURRENT SMOKER 8 TO 10 CIGARETTES PER DAY [facility] [place] [facility] Nov 08, 2016 09:20 AM CURRENT SMOKER Smokes 1/2 pack of cigarettes per day [facility] [place] [facility] Oct 31, 2016 06:35 PM TOBACCO INPATIENT DECLINES MEDS [facility] [place] [facility] Oct 31, 2016 03:08 PM CURRENT SMOKER [facility] [place] [facility] March 07, 2016 09:18 PM V1-PT NOT INTERESTED IN QUIT TOBACCO USE [facility] [place] [facility] Jun 11, 2015 10:28 AM CURRENT SMOKER 6-8 cigs per day [facility] [place] [facility] Jan 21, 2014 10:56 AM CURRENT SMOKER 4-6 cigarettes per day [facility] Jan 21, 2014 10:56 AM V1-PT NOT INTERESTED IN QUIT TOBACCO USE [facility] Encounter Notes: All associated encounter notes This section contains the clinical notes associated to the Encounter. Date/Time Encounter Note(s) Provider Source May 12, 2025 09:38 AM OPTOMETRY NOTE: LOCAL TITLE: OPTOMETRY NOTE STANDARD TITLE: OPTOMETRY NOTE DATE OF NOTE: MAY 12, 2025@09:38 ENTRY DATE: MAY 12, 2025@09:38:56 AUTHOR: YIFAN BARKLEY EXP COSIGNER: URGENCY: STATUS: COMPLETED Eye Examination for: GABRIELA MOSCOSO, 54 year old WHITE MALE MHx: Code Description I10. Essential hypertension ([facility] [id number]) R52. Chronic pain ([facility] [id number]) R89.0 Serum AST (aspartate aminotransferase) level outside reference range ([facility] [id number]) Z77.29 Exposure to potentially hazardous substance ([facility] [id number]) Z72.0 Tobacco abuse ([facility] [id number]) M25.579 Ankle pain ([facility] 560797509) F10.20 Alcohol dependence ([facility] [id number]) F41.9 Anxiety disorder ([facility] [id number]) E66.8 Obesity ([facility] [id number]) R73.01 Impaired fasting glucose ([facility] [id number]) E78.5 Hyperlipidemia ([facility] [id number]) M54.5 Back pain ([facility] [id number]) I10. Benign essential hypertension ([facility] [id number]) 724.3 Sciatica (ICD-9-CM 724.3) F41.9 Generalized anxiety disorder ([facility] 81286579) F33.8 Depressive episode ([facility] [id number]) SYSTEMIC MEDICATIONS/OCULAR MEDICATIONS: Active Outpatient Medications (including Supplies): Active Outpatient Medications Status 1) MIRTAZAPINE 30MG TAB TAKE ONE TABLET BY MOUTH AT BEDTIME FOR ACTIVE DEPRESSION/MOOD Indication: FOR MAJOR DEPRESSIVE DISORDER 2) OXYCODONE HCL 5MG TAB NOT SA TAKE ONE TABLET BY MOUTH ACTIVE EVERY 6 HOURS NEEDED NEXT FILL 05/31 Indication: FOR PAIN 3) PRAZOSIN HCL 1MG CAP TAKE ONE CAPSULE BY MOUTH AT BEDTIME ACTIVE FOR 7 DAYS, THEN TAKE TWO CAPSULES AT BEDTIME FOR 23 DAYS Indication: FOR HIGH BLOOD PRESSURE 4) UREA 40% CREAM APPLY A SMALL AMOUNT TOPICALLY ONCE DAILY ACTIVE APPLY TO CALLOUSED SKIN Indication: FOR DRY SKIN Active Non-VA Medications Status 1) Non-VA LISINOPRIL 20MG TAB 20MG BY MOUTH EVERY MORNING ACTIVE Indication: FOR HIGH BLOOD PRESSURE 2) Non-VA LORAZEPAM 0.5MG TAB 0.5MG BY MOUTH THREE TIMES A DAY ACTIVE 6 Total Medications ALLERGIES: Patient has answered NKA VITALS (most recent, as listed in the electronic record): B/P: 140/86 (11/11/2024 13:49) Pulse: 82 (11/11/2024 13:37) Temperature: 98.5 F [36.9 C] (08/27/2023 15:04) Weight: 235 lb [106.59 kg] (11/11/2024 13:37) Height: 75 in [190.5 cm] (03/08/2016 08:43) BMI: BMI: 29.4 PERTINENT LABS: HEMOGLOBIN A1C TREND Collection DT Spec HGBA1c 04/29/2025 10:58 BLOOD 4.0 04/09/2024 11:37 BLOOD 5.3 03/31/2021 13:13 BLOOD 5.2 08/17/2019 15:25 BLOOD 5.7 H 09/21/2016 10:27 BLOOD 5.5 Forwar d from note, checked by Attending Optometry [employer] Attending Provider Note: Date of Last Exam:First at [facility] Location: [facility] Last eye exam elsewhere: [facility]. Does not remember when. Chief Complaint:I think my prescription needs to be updated. I cant see TV clearly anymore, with or without glassses. Patient forgot them at home. Later complains that when he reads, after a while vision gets blurry. HISTORY AND REVIEW OF SYSTEMS: OHX: + Refractive error OU (-) Pain: (-) RESTREPO: (-) Diplopia: (-) Flashes: (-) Floaters: (-) Amaurosis Fugax/Tia's: (-) Eye Injury: (-) Eye Surgery: (-) TBI (-) FOHx: (-) Smoker/Length of Time: DIABEIC: No LAST A1C: PERTINENT LABS: HEMOGLOBIN A1C TREND Collection DT Spec HGBA1c 04/29/2025 10:58 BLOOD 4.0 04/09/2024 11:37 BLOOD 5.3 03/31/2021 13:13 BLOOD 5.2 08/17/2019 15:25 BLOOD 5.7 H 09/21/2016 10:27 BLOOD 5.5 NEW ALLERGIES TO REPORT: No EYE MEDICATION(S):NONE CURRENT RX WITH BCVA:Did not bring glasses. LENSOMETRY OD OS ADD DVA: (x)SC ( )CC ( )Phoropter ( )CL OD: 20/25-2 struggle OS: 20/25-2 struggle NVA OU: 20/30- (SC) at 26 AUTO REFRACTION: OD:0.00 -0.75 x 013 OS:0.00 -0.75 x 177 MANIFEST REFRACTION(MRx):patient responds slowly OD:-0.25 -0.75 x 010 20/15-2 OS: 0.00 -0.75 x 180 20/15-2 ADD:+2.00 OU 20/20 16-20 likes this range CVF: Appear FTFC OU EOMS: Appear Full OU PUPILS: Appear ERRL(-)APD no nvi seen ou INTRAOCULAR PRESSURE (IOP) METHOD: Goldmann Time:9:26. (patient moves) OD:16 OS:16 ANTERIOR CHAMBER (AC): Penlight or slit lamp (if available) exam appears unremarkable. Pupils are dilated. Dilation and driving precautions reviewed with patient and patient expresses understanding. Medication: 1% Tropicamide, 2.5% Phenylephrine OU Time:9:27am Visual Imaging Performed Today:none Additional Comments:Patient seems to need guiidance on what glasses he might need . Patient was given mydriatics specs. reports after discussion having PAL at home, reports they are less than 3 years old. Understands contract it teacher is unavailable today and will bring glasses to fittings appt once made. Would likely like to have PAL again in future, only wears for reading and TV so does not appear to need photochromatic or sunglass at present. Final Rx: OD: -0.25-0.91x337 20/15-2 OS: plano-0.68m470 20/15-2 Add: +2.00 20/20 SLE: Lids/Lashes: dermatochalasis OU, tr blepharitis BUL & BLL Conjunctiva: white and quiet bulbar conj OU quiet palpebral conj OU Corneas: clear OU Iris: flat and clear OU AC: D & Q OU Angles: 4x4 OU Dilated Fundus Exam: Vit: syneresis OU Lens: tr+ NSC OU C/D (Size and Rim Description) OD 0.25 pink and healthy, smaller disc OS 0.35 pink and healthy PPole OD clear OS clear Macula OD flat and clear OS flat and area of parafoveal hypopigmentation A/V: normal caliber OU Periphery: flat and intact (-)holes, tears, detachments 360 OU Assessment/Plan: 1. Nuclear Sclerotic Cataracts OU - not visually significant at present -Pt ed re today's findings and the importance of UV protection -Pt ed cataracts may cause reduction of BCVA and symptoms of glare -RTC sooner if vision declines or interferes with ADLs - repeated back the plan and education. -Monitor 2. Refractive Error and Presbyopia OU -[place] to return for fittings appt -Monitor RTC 1 year or earlier PRN Glasses adjusted/repaired in office: () Yes (x) No If yes, how many pairs: EYE: Visual Function Reminder: Normal Vision: 20/25 or better: Unspecified disorder of refraction or accommodation (367.9). Medication Reconciliation: Outpatient: Has the patient been taking medications as documented in the EMLR? YES: The patient has been taking medications as documented in the EMLR. Essential Medication List for Review used to complete this medication reconciliation. INCLUDED IN THIS LIST: Alphabetical list of active outpatient prescriptions dispensed from this [place] (local) and dispensed from another [place] or [facility] facility (remote) as well as inpatient orders [...] whether with a VA or non-VA provider. Medication List: JLV Link Data on this list may not be complete. Please check JLV. Allergies/ADRs (Tool #5) FACILITY ALLERGY/ADR -------- No Remote Allergy/ADR Data available for this patient [place] [facility] [place] [facility] No Known Allergies Med. Reconciliation (Tool #1) INCLUDED IN THIS LIST: Alphabetical list of active outpatient prescriptions dispensed from this VA (local) and dispensed from another VA or [facility] facility (remote) as well as inpatient orders (local pending and active), local clinic medications, locally documented non-VA medications, and local prescriptions that have or been discontinued in the past 90 days. Non-VA Meds Last Documented On: Apr 09, 2024 NOTE The display of VA prescriptions dispensed from another [place] or [facility] facility (remote) is limited to active outpatient prescription entries matched to National Drug File at the originating site and may not include some items such as investigational drugs, compounds, etc. NOT INCLUDED IN THIS LIST: Medications self-entered by the patient into personal health records (i.e. TelePharm) are NOT included in this list. Non-VA medications documented outside this [place], remote inpatient orders (regardless of status) and remote clinic medications are NOT included in this list. The patient and provider must always discuss medications the patient is taking, regardless of where the medication was dispensed or obtained. OUTPT FENOFIBRATE 48MG TAB (Status = ) TAKE ONE TABLET BY MOUTH ONCE DAILY Rx# [id number] Last Released: 02/08/25 Qty/Days Supply: Rx Expiration Date: 04/07/25 Refills Remainin Indication: FOR HIGH TRIGLYCERIDES OUTPT LIDOCAINE 5% OINT (Status = ) APPLY SMALL AMOUNT TOPICALLY TWICE DAILY FOR MINOR SKIN WOUND PAIN Rx# [id number] Last Released: 05/09/24 Qty/Days Supply: Rx Expiration Date: 05/06/25 Refills Remainin Indication: FOR MINOR SKIN WOUND PAIN Non-VA LISINOPRIL 20MG TAB TAKE ONE TABLET BY MOUTH EVERY MORNING 2011 Medication prescribed by Non-VA provider. Indication: FOR HIGH BLOOD PRESSURE Non-VA LORAZEPAM 0.5MG TAB TAKE ONE TABLET BY MOUTH THREE TIMES A DAY Non-VA medication not recommended by VA provider. OUTPT MIRTAZAPINE 30MG TAB (Status = Active) TAKE ONE TABLET BY MOUTH AT BEDTIME FOR DEPRESSION/MOOD Rx# [id number] Last Released: 11/12/24 Qty/Days Supply: Rx Expiration Date: 11/12/25 Refills Remainin Indication: FOR MAJOR DEPRESSIVE DISORDER OUTPT OXYCODONE HCL 5MG TAB NOT SA (Status = Discontinued) TAKE ONE TABLET BY MOUTH EVERY 6 HOURS NEEDED NEXT FILL 03/09 Rx# [id number] Last Released: 02/08/25 Qty/Days Supply: Rx Expiration Date: 03/06/25 Refills Remainin Indication: FOR PAIN OUTPT OXYCODONE HCL 5MG TAB NOT SA (Status = Discontinued) TAKE ONE TABLET BY MOUTH EVERY 6 HOURS NEEDED FOR PAIN Rx# [id number] Last Released: 03/08/25 Qty/Days Supply: Rx Expiration Date: 04/02/25 Refills Remainin Indication: FOR PAIN OUTPT OXYCODONE HCL 5MG TAB NOT SA (Status = ) TAKE ONE TABLET BY MOUTH EVERY 6 HOURS NEEDED NEXT FILL 05/03 Rx# [id number] Last Released: 04/02/25 Qty/Days Supply: Rx Expiration Date: 05/01/25 Refills Remainin Indication: FOR PAIN OUTPT OXYCODONE HCL 5MG TAB NOT SA (Status = Active) TAKE ONE TABLET BY MOUTH EVERY 6 HOURS NEEDED NEXT FILL 05/31 Rx# [id number] Last Released: 05/03/25 Qty/Days Supply: Rx Expiration Date: 06/02/25 Refills Remainin Indication: FOR PAIN OUTPT PRAZOSIN HCL 1MG CAP (Status = Active) TAKE ONE CAPSULE BY MOUTH AT BEDTIME FOR 7 DAYS, THEN TAKE TWO CAPSULES AT BEDTIME FOR 23 DAYS FOR HIGH BLOOD PRESSURE Rx# [id number] Last Released: 12/11/24 Qty/Days Supply: Rx Expiration Date: 12/08/25 Refills Remainin Indication: FOR HIGH BLOOD PRESSURE OUTPT UREA 40% CREAM (Status = Active) APPLY A SMALL AMOUNT TOPICALLY ONCE DAILY APPLY TO CALLOUSED SKIN Rx# [id number] Last Released: 05/20/24 Qty/Days Supply: 60/ Rx Expiration Date: 05/15/25 Refills Remainin Indication: FOR DRY SKIN SUPPLIES PHARMACY TERMS AND POSSIBLE PATIENT ACTIONS INPT = [place] inpatient order IV = [place] intravenous medication OUTPT = [place] outpatient prescription PHARMACY POSSIBLE PATIENT TERMS EXPLANATION ACTIONS -------- ----- ACTIVE A prescription that can be If you have refills, filled at the local [place] pharmacy. you may request a refill of this prescription from your [place] pharmacy. CLINIC A medication you received during If you have questions a visit to a [place] clinic or about this medication emergency department. contact your [place] healthcare team. DISCONTINUED A prescription your provider has Contact your [place] stopped. It is no longer healthcare team if you available to be sent to you or need more of this picked up at the [place] pharmacy medication. window. A prescription which is too old Contact your VA to fill. This does not refer to healthcare team if you the expiration date of the need more of this medication in the container. medication. NON-VA A medication that came from If this medication someplace other than a VA information is pharmacy. This may be a incorrect or out of prescription from either the VA date, please tell your or non VA providers that was VA healthcare team. filled outside the VA. Or, it may be an osyd-[id number]-[id number] (OTC), herbal, dietary supplements or sample medication. ON HOLD An active prescription that will Contact your VA not be filled until pharmacy pharmacy when you need resolves the issue. more of this medication. PARKED An active prescription that will Contact your VA not be filled until the patient pharmacy when you need requests it. this medication. PENDING This prescription order has been If you have been sent to the pharmacy for review instructed to start and is not ready yet. this medication now, contact your VA pharmacy. SUSPENDED An active prescription that is Contact your VA not scheduled to be filled yet. pharmacy if you need You should receive it before this medication now. you run out. 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 Essential hypertension 2. Chronic pain 3. Serum AST (aspartate aminotransferase) level outside reference range 4. Exposure to potentially hazardous substance 5. Tobacco abuse 6. Ankle pain 7. Alcohol dependence 8. Anxiety disorder 9. Obesity 10. Impaired fasting glucose 11. Hyperlipidemia 12. Back pain 13. Benign essential hypertension 14. Sciatica ([facility] CT [id number]) 15. Generalized anxiety disorder ([facility] [id number]) 16. Depressive episode ([facility] CT [id number]) Active Outpatient Medications (including Supplies): Active Outpatient Medications Status 1) MIRTAZAPINE 30MG TAB TAKE ONE TABLET BY MOUTH AT BEDTIME FOR ACTIVE DEPRESSION/MOOD Indication: FOR MAJOR DEPRESSIVE DISORDER 2) OXYCODONE HCL 5MG TAB NOT SA TAKE ONE TABLET BY MOUTH ACTIVE EVERY 6 HOURS NEEDED NEXT FILL 05/31 Indication: FOR PAIN 3) PRAZOSIN HCL 1MG CAP TAKE ONE CAPSULE BY MOUTH AT BEDTIME ACTIVE FOR 7 DAYS, THEN TAKE TWO CAPSULES AT BEDTIME FOR 23 DAYS Indication: FOR HIGH BLOOD PRESSURE 4) UREA 40% CREAM APPLY A SMALL AMOUNT TOPICALLY ONCE DAILY ACTIVE APPLY TO CALLOUSED SKIN Indication: FOR DRY SKIN Active Non-VA Medications Status 1) Non-VA LISINOPRIL 20MG TAB 20MG BY MOUTH EVERY MORNING ACTIVE Indication: FOR HIGH BLOOD PRESSURE 2) Non-VA LORAZEPAM 0.5MG TAB 0.5MG BY MOUTH THREE TIMES A DAY ACTIVE 6 Total Medications Allergies: Patient has answered NKA All medications including those prescribed by outside VA's, community providers, and all OTC meds were reviewed and reconciled with patient to the best of their abilities. This 54 year old MALE is seen today for a new patient CEE. Medical, eye, personal, and social history are all reviewed and is contributory or is not contributory to today's visit. Optometry [employer] Attending Provider Note: Date of Last Exam:First at [facility] Location: [facility] Last eye exam elsewhere: [facility]. Does not remember when. Chief Complaint:I think my prescription needs to be updated. I cant see TV clearly anymore, with or without glassses. Patient forgot them at home. Later complains that when he reads, after a while vision gets blurry. HISTORY AND REVIEW OF SYSTEMS: OHX: + Refractive error OU (-) Pain: (-) RESTREPO: (-) Diplopia: (-) Flashes: (-) Floaters: (-) Amaurosis Fugax/Tia's: (-) Eye Injury: (-) Eye Surgery: (-) TBI (-) FOHx: (-) Smoker/Length of Time: DIABEIC: No LAST A1C: PERTINENT LABS: HEMOGLOBIN A1C TREND Collection DT Spec HGBA1c 04/29/2025 10:58 BLOOD 4.0 04/09/2024 11:37 BLOOD 5.3 03/31/2021 13:13 BLOOD 5.2 08/17/2019 15:25 BLOOD 5.7 H 09/21/2016 10:27 BLOOD 5.5 NEW ALLERGIES TO REPORT: No EYE MEDICATION(S):NONE CURRENT RX WITH BCVA:Did not bring glasses. LENSOMETRY OD OS ADD DVA: (x)SC ( )CC ( )Phoropter ( )CL OD: 20/25-2 struggle OS: 20/25-2 struggle NVA OU: 20/30- (SC) at 26 AUTO REFRACTION: OD:0.00 -0.75 x 013 OS:0.00 -0.75 x 177 MANIFEST REFRACTION(MRx):patient responds slowly OD:-0.25 -0.75 x 010 20/15-2 OS: 0.00 -0.75 x 180 20/15-2 ADD:+2.00 OU 20/20 16-20 likes this range CVF: Appear FTFC OU EOMS: Appear Full OU PUPILS: Appear ERRL(-)APD no nvi seen ou INTRAOCULAR PRESSURE (IOP) METHOD: Goldmann Time:9:26. (patient moves) OD:16 OS:16 ANTERIOR CHAMBER (AC): Penlight or slit lamp (if available) exam appears unremarkable. Pupils are dilated. Dilation and driving precautions reviewed with patient and patient expresses understanding. Medication: 1% Tropicamide, 2.5% Phenylephrine OU Time:9:27 Visual Imaging Performed Today:none Additional Comments:Patient seems to need guiidance on what glasses he might need . Patient was given mydriatics specs. Suicide Screen: C-SSRS Screening [place]-Suicide Severity Rating Scale (C-SSRS Screener) 1. Over the past month, have you wished you were or wished you could go to sleep and not wake up? No 2. Over the past month, have you had any actual thoughts of killing yourself? No 3. Over the past month, have you been thinking about how you might do this? Response not required due to responses to other questions. 4. Over the past month, have you had these thoughts and had some intention of acting on them? Response not required due to responses to other questions. 5. Over the past month, have you started to work out or worked out the details of how to kill yourself? Response not required due to responses to other questions. 6. If yes, at any time in the past month did you intend to carry out this plan? Response not required due to responses to other questions. 7. In your lifetime, have you ever done anything, started to do anything, or prepared to do anything to end your life (for example, collected pills, obtained a gun, gave away valuables, went to the roof but didn't jump)? No 8. If YES, was this within the past 3 months? Response not required due to responses to other questions. /norberto/ DEBRA CÁRDENAS OPTOMETRY TECH Signed: 05/12/2025 09:35 DEBRA CÁRDENAS [place] [facility]
--- OUTSIDE RECORDS SUMMARY | 2025-05-17 09:30 | XMS_ITS | Encounter Summary ---
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 February 25, 2023 [id number] [facility] February 25, 2023 [id number] BLANKAVT GINO PATIENT Selected Encounter This section includes the information on record at [place] for the Encounter. Date/Time Encounter Type Encounter Description Reason Pro vider Source May 17, 2025 01:30 PM Outpatient Encounter PRIMARY CARE/MEDICINE IHE Encounter Template Text not used by [place] Plan of Treatment: Future Appointments (+ 6 months) and Future Tests (+/- 45 days) The Plan of Treatment section includes future care activities for the patient from all [place] [facility] This section includes future appointments and future orders which are active, pending or scheduled. Future Appointments This section includes appointments that were scheduled to occur 6 months from the date of the Encounter, up to a maximum of 20 appointments. The data comes from all [facility]. Appointment Date/Time Appointment Type Appointme nt Facility Name May 19, 2025 03:30 PM AMBULATORY - MEDICINE [place] [facility] [place] [facility] Jun 08, 2025 01:30 PM AMBUL[facility]ORY - NONE [place] [facility] Jul 19, 2025 02:30 PM AMBULATORY - SURGERY [place] [facility] [place] [facility] Jul 22, 2025 01:30 PM AMBULATORY - MEDICINE [place] [facility] [facility] Jul 29, 2025 01:30 PM AMBULATORY - MEDICINE [place] [facility] Active, Pending, and Scheduled Orders This section includes a listing of several types of active, pending, and scheduled orders, including clinic medications orders, diagnostic test orders, procedure orders and consult orders; where the start date of the order is 45 days before the date of the Encounter or 45 days after the date of theEncounter. The data comes from all [facility]. Test Date/Time Test Type Test Details Facility Name May 03, 2025 12:00 AM Laboratory - Chemistry Order PROPOXYPHENE SCREEN URINE (DRUG) [facility] May 03, 2025 12:00 AM Laboratory - Chemistry Order PHENCYCLIDINE SCREEN w/Reflex to Confirm URINE (DRUG) [facility] May 19, 2025 12:00 AM Laboratory - Chemistry Order HEPATITIS B SURFACE ANTIGEN (HBsAg)-WH BLOOD (SST-SERUM) [facility] May 19, 2025 12:00 AM Laboratory - Chemistry Order HEPATITIS B CORE (Total) Ab BLOOD (SST-SERUM) [facility] May 19, 2025 12:00 AM Laboratory - Chemistry Order HEPATITIS C ANTIBODY (HCV)-ARC BLOOD (MARBLED-TOP SERUM) [facility] May 19, 2025 12:00 AM Laboratory - Chemistry Order FERRITIN BLOOD (SST-SERUM) [facility] May 19, 2025 12:00 AM Laboratory - Chemistry Order MARCELO SCREEN/TITER BLOOD (SST-GOLD) SERUM [facility] May 19, 2025 12:00 AM Laboratory - Chemistry Order IRON & TIBC PANEL BLOOD (SST-SERUM) [facility] May 19, 2025 12:00 AM Laboratory - Chemistry Order GAMMA-GTP BLOOD (SST-SERUM) [facility] May 19, 2025 12:00 AM Laboratory - Chemistry Order ALBUMIN BLOOD (SST-SERUM) [facility] May 19, 2025 12:00 AM Laboratory - Chemistry Order ALBUMIN BLOOD (SST-SERUM) [facility] May 19, 2025 12:00 AM Laboratory - Chemistry Order PROTEIN,TOTAL BLOOD (SST-SERUM) SP [facility] May 19, 2025 12:00 AM Laboratory - Chemistry Order ALKALINE PHOSPHATASE BLOOD (SST-SERUM) [facility] May 19, 2025 12:00 AM Laboratory - Chemistry Order AST BLOOD (SST-SERUM) [facility] May 19, 2025 12:00 AM Laboratory - Chemistry Order BILIRUBIN, TOTAL BLOOD (SST-SERUM) [facility] May 19, 2025 12:00 AM Laboratory - Chemistry Order ALT BLOOD (SST-SERUM) [facility] May 19, 2025 03:57 PM Laboratory - Chemistry Order PT & INR (PROTIME) BLOOD (BLUE-PLASMA) [facility] May 19, 2025 03:57 PM Consult Order HEPATOLOGY SERVICES IF WHAV Cons Biological Science Technician's Choice [facility] May 26, 2025 12:00 AM Laboratory - Chemistry Order MARCELO SCREEN/TITER BLOOD (SST-GOLD) SERUM [facility] May 26, 2025 12:00 AM Laboratory - Chemistry Order IGG BLOOD (SST-SERUM) [facility] May 26, 2025 12:00 AM Laboratory - Chemistry Order ACTIN (SMOOTH MUSCLE) ANTIBODY (IgG) BLOOD (SST-SERUM) [facility] May 26, 2025 12:00 AM Laboratory - Chemistry Order FERRITIN BLOOD (SST-SERUM) [facility] May 26, 2025 12:00 AM Laboratory - Chemistry Order LIVER KIDNEY MICROSOME ANTIBODY BLOOD (RED-PLAIN) SERUM [facility] May 26, 2025 12:00 AM Laboratory - Chemistry Order IRON & TIBC PANEL BLOOD (SST-SERUM) [facility] May 26, 2025 12:00 AM Laboratory - Chemistry Order CERULOPLASMIN BLOOD (RED-PLAIN) SERUM [facility] May 26, 2025 12:00 AM Laboratory - Chemistry Order HEPATITIS B CORE (Total) Ab BLOOD (SST-SERUM) [facility] May 26, 2025 12:00 AM Laboratory - Chemistry Order A1A PHENOTYPE PANEL BLOOD (SST-SERUM) [facility] May 26, 2025 12:00 AM Laboratory - Chemistry Order HEPATITIS B SURFACE ANTIGEN (HBsAg)- BLOOD (SST-SERUM) [facility] May 26, 2025 12:00 AM Laboratory - Chemistry Order HEPATITIS B SURFACE ANTIBODY (HBsAb)- BLOOD (SST-SERUM) [facility] May 26, 2025 12:00 AM Laboratory - Chemistry Order CBC AND DIFF (AUTO) BLOOD (LAV-BLOOD) [facility] May 26, 2025 12:00 AM Laboratory - Chemistry Order PT & INR (PROTIME) BLOOD (BLUE-PLASMA) SP [facility] May 26, 2025 12:00 AM Laboratory - Chemistry Order LIVER FUNCTION BLOOD (SST-SERUM) [facility] May 26, 2025 12:00 AM Laboratory - Chemistry Order BASIC METABOLIC PANEL (non-fasting) BLOOD (SST-SERUM) [facility] May 26, 2025 12:00 AM Laboratory - Chemistry Order ALPHA-FETOPROTEIN BLOOD (SST-SERUM) [facility] Jun 08, 2025 12:00 AM Imaging - Ultrasound Order ULTRASOUND ELASTOGRAPHY PARENCHYMA [facility] Jun 08, 2025 12:00 AM Imaging - Ultrasound Order ULTRASOUND ABDOMEN [facility] Lab Results: +/- 30 days of [...] Type Comment May 03, 2025 01:16 PM [facility] DEXTRO/LevoMethorphan, Urine URINE Specimen T ype: URINE Comment: REFERENCE RANGE: <5 ng/mL This test is not chiral specific; therefore, dextromethorphan and/or levomethorphan may be present. This test was developed and its analytical performance characteristics have been determined by [employer]. It has not been cleared or approved [...] progress of medical conditions. Test performed by: [facility] [address], [address] [place] [address] Form Grader: Jordan Porras M.D. Test Reported by Nelli Svetlana, [employer] [facility], [address] [place], [place] Mir Rodriguez M.D., Ph.D., Director of Laboratories , CLIA [id number] TEST PERFORMED AT: , Ordering Provider: STEPHANIE SHANKAR Report Released Date/Time: May 03, 2025 01:35 PM Reporting Lab: [facility] [address] [facility] [address] Performing Lab: [facility] [address], [address] [place] [address] DEXTRO/LevoMethorphan, Urine NEGATIVE ng/mL SEE BELOW May 03, 2025 01:16 PM [facility] TRAMADOL PNL ([employer]) URINE Specimen Type: URI NE Comment: REFERENCE RANGE: <100 ng/mL REFERENCE RANGE: <100 ng/mL See LDT message Test Performed by [facility], [employer] [facility], [address] [place] [address] Mir Rodriguez M.D., Ph.D., Director of Laboratories , CLIA [id number] This drug testing is for medical treatment only. Analysis was performed as non-forensic testing and these results should be used only by healthcare providers to render diagnosis or treatment, or to monitor progress of medical conditions. LDT Message: This test was developed and its analytical performance characteristics have been determined by [employer] [place], [place]. It has not been cleared or approved by the U.S. Food and Drug Administration. This assay has been validated pursuant to the CLIA regulations and is used for clinical purposes. Healthcare Providers needing Interpretation assistance, please contact us at [phone] ( [phone] M-F, 8am to 10pm EST TEST PERFORMED AT: , Ordering Provider: GABRIELA SHANKAR Report Released Date/Time: May 03, 2025 01:35 PM Reporting Lab: [facility] [address] [facility] [address] Performing Lab: [facility] [address], [address] [place] [address] TRAMADOL,URINE NEGATIVE ng/mL SEE BELOW DESMETHYLTRAMADOL NEGATIVE ng/mL SEE BEL OW May 03, 2025 01:16 PM [facility] AMPHETAMINES SCREEN PANEL URINE Specimen Type [...] May 03, 2025 01:35 PM Reporting Lab: [address] [address] Performing Lab: [address] [address] AMPHETAMINES SCREEN NONE-DETECTED None-D etected, Cutoff = 1000 ng/mL PH, DWIGHT 6.1 [pH] 5.0-8.0 CREATININE, DWIGHT 76.65 mg/dL 63-166 SP.GRAVITY, DWIGHT 1.003 L 1.005-1.030 May 03, 2025 01:16 PM [facility] ALCOHOL, ETHYL URINE PANEL URINE Specimen [...] May 03, 2025 01:35 PM Reporting Lab: [address] [address] Performing Lab: [address] [address] ALCOHOL, ETHYL URINE POSITIVE HH None-Detec alok, cutoff = 10 mg/dL PH, DWIGHT 6.1 [pH] 5.0-8.0 CREATININE, DWIGHT 76.65 mg/dL 63-166 SP.GRAVITY, DWIGHT 1.003 L 1.005-1.030 May 03, 2025 01:16 PM [facility] BENZODIAZEPINES SCREEN PANEL URINE Specimen T [...] May 03, 2025 01:35 PM Reporting Lab: [address] [address] Performing Lab: [address] [address] BENZODIAZEPINES SCREEN NONE-DETECTED Non e-Detected, Cutoff = 200 ng/mL PH, DWIGHT 6.1 [pH] 5.0-8.0 CREATININE, DWIGHT 76.65 mg/dL 63-166 SP.GRAVITY, DWIGHT 1.003 L 1.005-1.030 May 03, 2025 01:16 PM [facility] BARBITURATES SCREEN PANEL URINE Specimen Type [...] May 03, 2025 01:35 PM Reporting Lab: [address] [address] Performing Lab: [place] [facility] [address] [address] BARBITURATES SCREEN NONE-DETECTED None-D etected,Cutoff = 200 ng/mL PH, DWIGHT 6.1 [pH] 5.0-8.0 CREATININE, DWIGHT 76.65 mg/dL 63-166 SP.GRAVITY, DWIGHT 1.003 L 1.005-1.030 May 03, 2025 01:16 PM [facility] BUPRENORPHINE SCREEN PANEL URINE Specimen Typ [...] May 03, 2025 01:35 PM Reporting Lab: [address] [address] Performing Lab: [address] [address] BUPRENORPHINE SCREEN NONE-DETECTED None Detected, Cutoff = 5 ng/mL PH, DWIGHT 6.1 [pH] 5.0-8.0 CREATININE, DWIGHT 76.65 mg/dL 63-166 SP.GRAVITY, DWIGHT 1.003 L 1.005-1.030 May 03, 2025 01:16 PM [facility] CANNABINOIDS SCREEN PANEL URINE Specimen Type [...] May 03, 2025 01:35 PM Reporting Lab: [place] [id number] Performing Lab: [address] [address] CANNABINOIDS SCREEN NONE-DETECTED None-D etected,Cutoff = 50 ng/mL PH, DWIGHT 6.1 [pH] 5.0-8.0 CREATININE, DWIGHT 76.65 mg/dL 63-166 SP.GRAVITY, DWIGHT 1.003 L 1.005-1.030 May 03, 2025 01:16 PM [facility] COCAINE SCREEN PANEL URINE Specimen Type: [...] May 03, 2025 01:35 PM Reporting Lab: [address] [address] Performing Lab: [address] [address] COCAINE SCREEN NONE-DETECTED None-Detect ed,Cutoff = 300 ng/mL PH, DWIGHT 6.1 [pH] 5.0-8.0 CREATININE, DWIGHT 76.65 mg/dL 63-166 SP.GRAVITY, DWIGHT 1.003 L 1.005-1.030 May 03, 2025 01:16 PM [facility] FENTANYL SCREEN PANEL URINE Specimen Type: [...] May 03, 2025 01:35 PM Reporting Lab: [address] [address] Performing Lab: [address] [address] FENTANYL SCREEN NONE-DETECTED None-Detec alok, Cutoff = 1.00 ng/mL PH, DWIGHT 6.1 [pH] 5.0-8.0 CREATININE, DWIGHT 76.00 mg/dL 63-166 SP.GRAVITY, DWIGHT 1.003 L 1.005-1.030 May 03, 2025 01:16 PM [facility] METHADONE SCREEN PANEL URINE Specimen Type: [...] May 03, 2025 01:35 PM Reporting Lab: [address] [address] Performing Lab: [address] [address] PH, DWIGHT 6.1 [pH] 5.0-8.0 CREATININE, DWIGHT 76.65 mg/dL 63-166 SP.GRAVITY, DWIGHT 1.003 L 1.005-1.030 METHADONE SCREEN NONE-DETECTED None-Dete cted,Cutoff = 300 ng/mL May 03, 2025 01:16 PM [facility] OPIATES SCREEN PANEL URINE Specimen Type: [...] May 03, 2025 01:35 PM Reporting Lab: [address] [address] Performing Lab: [address] [address] OPIATES SCREEN NONE-DETECTED None-Detect ed, Cutoff = 300 ng/mL PH, DWIGHT 6.1 [pH] 5.0-8.0 CREATININE, DWIGHT 76.65 mg/dL 63-166 SP.GRAVITY, DWIGHT 1.003 L 1.005-1.030 May 03, 2025 01:16 PM [facility] OXYCODONE SCREEN PANEL URINE Specimen Type: [...] May 03, 2025 01:35 PM Reporting Lab: [address] [address] Performing Lab: [address] [address] OXYCODONE SCREEN POSITIVE HH None-Detected, Cutoff = 100 ng/mL PH, DWIGHT 6.1 [pH] 5.0-8.0 CREATININE, DWIGHT 76.65 mg/dL 63-166 SP.GRAVITY, DWIGHT 1.003 L 1.005-1.030 Apr 29, 2025 10:58 AM [facility] HEMOGLOBIN A1C PANEL BLOOD Specimen Type: [...] AM Reporting Lab: [facility] [place] [facility] [address] [facility] [address] Performing Lab: [facility] [place] [facility] [address] [facility] [address] HEMOGLOBIN A1C 4.0 4.0-5.6 Apr 29, 2025 10:58 AM [facility] [place] [facility] PT & INR (PROTIME) PLASMA Specimen Type: PLASM A No comment entered. Ordering Provider: GABRIELA SHANKAR Report Released Date/Time: Apr 28, 2025 08:45 AM Reporting Lab: [facility] [place] [facility] [address] [facility] [address] Performing Lab: [place] [facility] [place] [address] [address] INR 2.5 PROTIME 26.5 s H 10.0-13.1 Apr 29, 2025 10:58 AM [facility] TSH SERUM Specimen Type: SERUM No comment entered. Ordering Provider: GABRIELA SHANKAR Report Released Date/Time: Apr 28, 2025 08:45 AM Reporting Lab: [facility] [place] [facility] [address] [facility] [address] Performing Lab: [facility] [place] [facility] [address] [facility] [address] TSH 3.95 u[IU]/mL 0.35-4.94 Apr 29, 2025 10:58 AM [facility] [place] [facility] MICROALBUMIN CREATININE RATIO PANEL URINE Spe cimen Type: URINE No comment entered. Ordering Provider: GABRIELA SHANKAR Report Released Date/Time: Apr 28, 2025 08:45 AM Reporting Lab: [facility] [place] [facility] [address] [facility] [address] Performing Lab: [facility] [place] [address] [address] MICROALBUMIN/CREATININE RATIO 5.0 mg/g 0 -29.9 MICROALBUMIN,QUANTITATIVE 0.5 mg/dL RR U NAVAIL CREATININE URINE 100.18 mg/dL 63-166 Apr 29, 2025 10:58 AM [facility] CALCIUM SERUM Specimen Type: SERUM No comment entered. Ordering Provider: GABRIELA SHANKAR Report Released Date/Time: Apr 28, 2025 08:45 AM Reporting Lab: [facility] [address] [address] Performing Lab: [facility] [address] [facility] [address] CALCIUM 7.5 mg/dL L 8.4-10.2 Apr 29, 2025 10:58 AM [facility] HEPATITIS C ANTIBODY (HCV)-ARC SERUM Specimen Type: SERUM Comment: Hep C Ab: No HCV antibody detected. If recent infection is suspected or other evidence suggests HCV infection, consider HCV nucleic acid testing Ordering Provider: GABRIELA SHANKAR Report Released Date/Time: Apr 28, 2025 08:45 AM Reporting Lab: [facility] [address] [facility] [facility] [address] Performing Lab: [facility] [address] [facility] [address] HEPATITIS C ANTIBODY NON-REACTIVE NON-RE ACTIVE Apr 29, 2025 10:58 AM [facility] BASIC METABOLIC PANEL (non-fasting) SERUM Spe cimen Type: SERUM No comment entered. Ordering Provider: GABRIELA SHANKAR Report Released Date/Time: Apr 28, 2025 08:45 AM Reporting Lab: [facility] [address] [facility] [address] Performing Lab: [address] [address] UREA NITROGEN 4 mg/dL L 8-26 GLUCOSE 106 mg/dL H 65-100 SODIUM 131 mmol/L L 136-145 POTASSIUM 3.3 mmol/L L 3.5-5.1 CHLORIDE 97 mmol/L L 98-107 CO2 27 meq/L 22-29 CALCIUM 7.5 mg/dL L 8.4-10.2 CREATININE, Serum 0.62 mg/dL L 0.72-1.25 eGFR(CKD-EPI 2020) >90 mL/min >60 Apr 29, 2025 10:58 AM [facility] LIVER FUNCTION SERUM Specimen Type: SERUM No comment entered. Ordering Provider: GABRIELA SHANKAR Report Released Date/Time: Apr 28, 2025 08:45 AM Reporting Lab: [facility] [address] [facility] [address] Performing Lab: [address] [address] PROTEIN,TOTAL 8.3 g/dL 6.4-8.3 ALBUMIN 2.3 g/dL L 3.5-5.2 ALKALINE PHOSPHATASE 103 U/L 40-150 AST 97 U/L H 5-34 ALT 36 U/L 0-55 BILIRUBIN, TOTAL 9.8 mg/dL H 0.2-1.2 BILIRUBIN, DIRECT 4.5 mg/dL H 0-0.5 Apr 29, 2025 10:58 AM [facility] CBC AND DIFF (AUTO) BLOOD Specimen Type: BLOO D No comment entered. Ordering Provider: GABRIELA SHANKAR Report Released Date/Time: Apr 28, 2025 08:45 AM Reporting Lab: [facility] [address] [facility] [address] Performing Lab: [address] [address] WBC 12.31 10*3/uL H 4.50-11.00 RBC 3.86 [...] and tobacco- related health factors from the [place] facility where the Encounter took place. Current Smoking Status This section includes the most current smoking, or tobacco-related health factor, from the [place] facility where the Encounter took place. Date/Time Current Smoking Status Comment Nilesh macedo Aug 28, 2024 08:30 AM VA-TOBACCO DOESNT USE WI 30 MIN WAKEUP [facility] Tobacco Use History This section includes a history of the smoking, or tobacco-related health factors, that were collected on or before the date of the Encounter. The data comes from the [place] facility where the Encounter took place. Date/Time Smoking Status/Tobac co Use Comment Facility Aug 28, 2024 08:30 AM VA-TOBACCO USE 30 YEARS OR MORE [place] [facility] [place] [facility] Aug 28, 2024 08:30 AM VA-TOBACCO USE ADVICE [facility] Aug 28, 2024 08:30 AM VA-TOBACCO USE DENTAL DETAIL REPRESENTATIVE NO [facility] Aug 28, 2024 08:30 AM VA-TOBACCO USE MED NO [facility] [place] [facility] Aug 28, 2024 08:30 AM VA-TOBACCO USER EVERY DAY [facility] [place] [facility] Aug 27, 2023 03:00 PM VA-TOBACCO USE > 15 LESS THAN 30 YEARS [facility] [place] [facility] Aug 27, 2023 03:00 PM VA-TOBACCO USE ADVICE [facility] [place] [facility] Aug 27, 2023 03:00 PM VA-TOBACCO USE DENTAL DETAIL REPRESENTATIVE NO [facility] [place] [facility] Aug 27, 2023 03:00 PM VA-TOBACCO USE MED NO [facility] [place] [facility] Aug 27, 2023 03:00 PM VA-TOBACCO USE WI 30 MIN OF WAKEUP [facility] [place] [facility] Aug 27, 2023 03:00 PM VA-TOBACCO USER EVERY DAY [facility] [place] [facility] Dec 09, 2020 03:30 PM VA-TOBACCO DOESNT USE WI 30 MIN WAKEUP [facility] [place] [facility] Dec 09, 2020 03:30 PM VA-TOBACCO USE > 15 LESS THAN 30 YEARS [facility] [place] [facility] Dec 09, 2020 03:30 PM VA-TOBACCO USE ADVICE [facility] [place] [facility] Dec 09, 2020 03:30 PM VA-TOBACCO USE DENTAL DETAIL REPRESENTATIVE NO [facility] [place] [facility] Dec 09, 2020 03:30 PM VA-TOBACCO USE MED NOTIFY PROVIDER vet requests lucero: does not like gum not helpful [facility] [place] [facility] Dec 09, 2020 03:30 PM VA-TOBACCO USER SOME DAYS [facility] [place] [facility] Jul 08, 2019 12:33 PM VA-TOBACCO DOESNT USE WI 30 MIN WAKEUP [facility] [place] [facility] Jul 08, 2019 12:33 PM VA-TOBACCO USE > 15 LESS THAN 30 YEARS [facility] [place] [facility] Jul 08, 2019 12:33 PM VA-TOBACCO USE ADVICE [facility] [place] [facility] Jul 08, 2019 12:33 PM VA-TOBACCO USE DENTAL DETAIL REPRESENTATIVE YES [facility] [place] [facility] Jul 08, 2019 12:33 PM VA-TOBACCO USE MED NOTIFY PROVIDER Gum [facility] Jul 08, 2019 12:33 PM VA-TOBACCO USER SOME DAYS [facility] May 15, 2018 03:13 PM CURRENT SMOKER 4-6 cigarettes daily [facility] Nov 22, 2016 08:55 AM CURRENT SMOKER [facility] Nov 22, 2016 08:55 AM V1-PT DECLINES REF TO TOBACCO CESS PRGM [facility] Nov 22, 2016 08:55 AM V1-PT DECLINES TOBACCO CESSATION MEDS [facility] Nov 22, 2016 08:55 AM V1-PT THINKING ABOUT QUIT TOBACCO USE [facility] Nov 15, 2016 09:05 AM CURRENT SMOKER 8 TO 10 CIGARETTES PER [facility] Nov 08, 2016 09:20 AM CURRENT SMOKER Smokes 1/2 pack of cigarettes per [facility] Oct 31, 2016 06:35 PM TOBACCO INPATIENT DECLINES [facility] Oct 31, 2016 03:08 PM CURRENT SMOKER [facility] [place] [facility] March 07, 2016 09:18 PM V1-PT NOT INTERESTED IN QUIT [facility] [place] [facility] Jun 11, 2015 10:28 AM CURRENT SMOKER 6-8 cigs per day [facility] [place] [facility] Jan 21, 2014 10:56 AM CURRENT SMOKER 4-6 cigarettes per day [facility] [place] [facility] Jan 21, 2014 10:56 AM V1-PT NOT INTERESTED IN QUIT TOBACCO [facility] Encounter Notes: All associated encounter notes This section contains the clinical notes associated to the Encounter. Date/Time Encounter Note(s) Provider Source May 17, 2025 01:49 PM NURSING NOTE: LOCAL TITLE: NURSING NOTE STANDARD TITLE: NURSING NOTE DATE OF NOTE: MAY 17, 2025@13:49 ENTRY DATE: MAY 17, 2025@13:50 AUTHOR: PARVEEN RICHARDSON EXP COSIGNER: URGENCY: STATUS: COMPLETED NURSING NOTE Has ADDENDA Per PCP- Vet last seen Nov 11, 2024 and was to haev 3 month f/u. He has cancelled/resched or NS after multiple reschedualings. Per PCP please sherri Vet next available PCP appt- can overbook if need be. He must keep this appt for any future refills of pain medication. /norberto/ PARVEEN RICHARDSON Primary Care Staff Nurse Signed: 05/17/2025 13:51 Receipt Acknowledged By: 05/17/2025 14:08 /norberto/ PELON YEE Advanced [employer] Route 05/17/2025 ADDENDUM STATUS: COMPLETED Appt rescheduled to 05/19. /norberto/ PELON YEE Advanced [employer] Route Signed: 05/17/2025 14:07 PARVEEN RICHARDSON [place] CNTRL [facility]
--- OUTSIDE RECORDS SUMMARY | 2025-05-19 11:30 | XMS_ITS ---
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 Name Role Phone GABRIELA SHANKAR Primary Care [...] Relationship to Policy Proctor CAREMARK PRESCRIPT ION [facility] Apr 27, 2023 [id number] [phone] BLANKAMS GINO PATIENT [employer] ([id number]) PRESCRIPT ION [facility] February 25, 2023 [id number] [facility] Apr 27, 2023 [id number] [facility] February 25, 2023 [id number] [facility] February 25, 2023 [id number] [phone] YENY MOSCOSO PATIENT Selected Encounter This section includes the information on record at [place] for the Encounter. Date/Time Encounter Type Encounter Description Reason Provider Source May 19, 2025 03:30 PM OFFICE O/P EST MOD 30 MIN PRIMARY CARE/MEDICINE ICD-10-CM K70.9 Alcoholic liver disease, unspecified Leyla SHANKARANGELES Saavedra Marleny Encounter Template Text not used by [place] Assessments - Encounter Diagnoses This section includes the primary and secondary diagnoses documented for the Encounter. Date/Time Primary/Secondary Diagnosis Diagnosis Name Provider Source May 19, 2025 04:24 PM PRIMARY Alcoholic liver disease, unspecified GABRIELA SHANKAR [place] [facility] [place] [facility] May 19, 2025 04:24 PM SECONDARY Alcohol dependence, uncomplicated GABRIELA SHANKAR [place] [facility] [place] [facility] May 19, 2025 04:24 PM SECONDARY Essential (primary) hypertension GABRIELA SHANKAR [place] [facility] [place] [facility] May 19, 2025 04:24 PM SECONDARY Pain, unspecified GABRIELA SHANKAR [place] [facility] [place] [facility] Plan of Treatment: Future Appointments (+ 6 months) and Future Tests (+/- 45 days) The Plan of Treatment section includes future care activities for the patient from all [place] treatmentfacilities. This section includes future appointments and future orders which are active, pending or scheduled. Future Appointments This section includes appointments that were scheduled to occur 6 months from the date of the Encounter, up to a maximum of 20 appointments. The data comes from all [place] treatment facilities. Appointment Date/Time Appointment Type Appointme nt Facility Name Jun 08, 2025 01:30 PM AMBULATORY - NONE [place] [facility] [place] [facility] Jul 19, 2025 02:30 PM AMBULATORY - SURGERY [place] [facility] [place] [facility] Jul 22, 2025 01:30 PM AMBULATORY - MEDICINE [place] [facility] [place] [facility] Jul 29, 2025 01:30 PM AMBULATORY - MEDICINE [place] [facility] [facility] Active, Pending, and Scheduled Orders This section includes a listing of several types of active, pending, and scheduled orders, including clinic medications orders, diagnostic test orders, procedure orders and consult orders; where the start date of the order is 45 days before the date of the Encounter or 45 days after the date of theEncounter. The data comes from all [facility] facilities. Test Date/Time Test Type Test Details Facility Name May 03, 2025 12:00 AM Laboratory - Chemistry Order PHENCYCLIDINE SCREEN w/Reflex to Confirm URINE (DRUG) [facility] May 03, 2025 12:00 AM Laboratory - Chemistry Order PROPOXYPHENE SCREEN URINE (DRUG) [facility] May 19, 2025 12:00 AM Laboratory - Chemistry Order HEPATITIS B SURFACE ANTIGEN (HBsAg)-WH BLOOD (SST-SERUM) [facility] May 19, 2025 12:00 AM Laboratory - Chemistry Order HEPATITIS C ANTIBODY (HCV)-ARC BLOOD (MARBLED-TOP SERUM) [facility] May 19, 2025 12:00 AM Laboratory - Chemistry Order FERRITIN BLOOD (SST-SERUM) [facility] May 19, 2025 12:00 AM Laboratory - Chemistry Order HEPATITIS B CORE (Total) Ab BLOOD (SST-SERUM) [facility] May 19, 2025 12:00 AM Laboratory - Chemistry Order IRON & TIBC PANEL BLOOD (SST-SERUM) [facility] May 19, 2025 12:00 AM Laboratory - Chemistry Order MARCELO SCREEN/TITER BLOOD (SST-GOLD) [facility] May 19, 2025 12:00 AM Laboratory - Chemistry Order GAMMA-GTP BLOOD (SST-SERUM) [facility] May 19, 2025 12:00 AM Laboratory - Chemistry Order ALBUMIN BLOOD (SST-SERUM) [facility] May 19, 2025 12:00 AM Laboratory - Chemistry Order PROTEIN,TOTAL BLOOD (SST-SERUM) SP ONCE [facility] May 19, 2025 12:00 AM Laboratory - Chemistry Order ALBUMIN BLOOD (SST-SERUM) [facility] May 19, 2025 12:00 AM Laboratory - Chemistry Order ALKALINE PHOSPHATASE BLOOD (SST-SERUM) [facility] May 19, 2025 12:00 AM Laboratory - Chemistry Order AST BLOOD (SST-SERUM) [facility] May 19, 2025 12:00 AM Laboratory - Chemistry Order BILIRUBIN, TOTAL BLOOD (SST-SERUM) [facility] May 19, 2025 12:00 AM Laboratory - Chemistry Order ALT BLOOD (SST-SERUM) [facility] May 19, 2025 03:57 PM Laboratory - Chemistry Order PT & INR (PROTIME) BLOOD (BLUE-PLASMA) [facility] May 19, 2025 03:57 PM Consult [facility] [employer] [facility] May 26, 2025 12:00 AM Laboratory - Chemistry Order LIVER KIDNEY MICROSOME ANTIBODY BLOOD (RED-PLAIN) [facility] May 26, 2025 12:00 AM Laboratory - Chemistry Order MARCELO SCREEN/TITER BLOOD (SST-GOLD) [facility] May 26, 2025 12:00 AM Laboratory - Chemistry Order IGG BLOOD (SST-SERUM) [facility] May 26, 2025 12:00 AM Laboratory - Chemistry Order ACTIN (SMOOTH MUSCLE) ANTIBODY (IgG) BLOOD (SST-SERUM) [facility] May 26, 2025 12:00 AM Laboratory - Chemistry Order FERRITIN BLOOD (SST-SERUM) [facility] May 26, 2025 12:00 AM Laboratory - Chemistry Order IRON & TIBC PANEL BLOOD (SST-SERUM) [facility] May 26, 2025 12:00 AM Laboratory - Chemistry Order CERULOPLASMIN BLOOD (RED-PLAIN) [facility] May 26, 2025 12:00 AM Laboratory - Chemistry Order A1A PHENOTYPE PANEL BLOOD (SST-SERUM) [facility] May 26, 2025 12:00 AM Laboratory - Chemistry Order HEPATITIS B CORE (Total) Ab BLOOD (SST-SERUM) [facility] May 26, 2025 12:00 AM Laboratory - Chemistry Order HEPATITIS B SURFACE ANTIGEN (HBsAg)- BLOOD (SST-SERUM) [facility] May 26, 2025 12:00 AM Laboratory - Chemistry Order HEPATITIS B SURFACE ANTIBODY (HBsAb)- BLOOD (SST-SERUM) [facility] May 26, 2025 12:00 AM Laboratory - Chemistry Order PT & INR (PROTIME) BLOOD (BLUE-PLASMA) [facility] May 26, 2025 12:00 AM Laboratory - Chemistry Order BASIC METABOLIC PANEL (non-fasting) BLOOD (SST-SERUM) [facility] May 26, 2025 12:00 AM Laboratory - Chemistry Order LIVER FUNCTION BLOOD (SST-SERUM) [facility] May 26, 2025 12:00 AM Laboratory - Chemistry Order ALPHA-FETOPROTEIN BLOOD (SST-SERUM) [facility] May 26, 2025 12:00 AM Laboratory - Chemistry Order CBC AND DIFF (AUTO) BLOOD (LAV-BLOOD) [facility] Jun 08, 2025 12:00 AM Imaging - Ultrasound Order ULTRASOUND ELASTOGRAPHY PARENCHYMA [facility] Jun 08, 2025 12:00 AM Imaging - Ultrasound Order ULTRASOUND ABDOMEN [facility] Lab Results: +/- 30 days of the encounter This section includes the Chemistry and Hematology Lab Results on record with [place] for the patient. Radiology Reports and Pathology Reports are provided separately, in subsequent sections. Lab Results This section contains the Chemistry/Hematology Results that were resulted 30 days before or 30 daysafter the date of the Encounter. Date/Time Source Result Type Result - Unit Interpretation Reference Range Specimen Type Comment May 03, 2025 01:16 PM [facility] DEXTRO/LevoMethorphan, Urine URINE Specimen T ype: URINE Comment: REFERENCE RANGE: <5 ng/mL This test is not chiral specific; therefore, dextromethorphan and/or levomethorphan may be present. This test was developed and its analytical performance characteristics have been determined by [employer]. It has not been cleared or approved [...] progress of medical conditions. Test performed by: [facility] [address], [address] [place] [address] Production Weigher: Jordan Porras M.D. Test Reported by [employer], [address] [place], [place] Mir Rodriguez M.D., Ph.D., Director of Laboratories , CLIA [id number] TEST PERFORMED AT: , Ordering Provider: STEPHANIE SHANKAR Report Released Date/Time: May 03, 2025 01:35 PM Reporting Lab: [facility] [address] [facility] [address] Performing Lab: [facility] [address] [address] DEXTRO/LevoMethorphan, Urine NEGATIVE ng/mL SEE BELOW May 03, 2025 01:16 PM [facility] TRAMADOL PNL (Certain) URINE Specimen Type: URI NE Comment: REFERENCE RANGE: <100 ng/mL REFERENCE RANGE: <100 ng/mL See LDT message Test Performed by [employer], [address] [place], [place] Mir Rodriguez M.D., Ph.D., Director of Laboratories , CLIA [id number] This drug testing is for medical treatment only. Analysis was performed as non-forensic testing and these results should be used only by healthcare providers to render diagnosis or treatment, or to monitor progress of medical conditions. LDT Message: This test was developed and its analytical performance characteristics have been determined by [employer] [place], [place]. It has not been cleared or approved by the U.S. Food and Drug Administration. This assay has been validated pursuant to the CLIA regulations and is used for clinical purposes. Healthcare Providers needing Interpretation assistance, please contact us at [phone] ( [phone] M-F, 8am to 10pm EST TEST PERFORMED AT: , Ordering Provider: GABRIELA SHANKAR Report Released Date/Time: May 03, 2025 01:35 PM Reporting Lab: [address] [address] Performing Lab: [facility] [address] [address] TRAMADOL,URINE NEGATIVE ng/mL SEE BELOW DESMETHYLTRAMADOL NEGATIVE ng/mL SEE BEL May 03, 2025 01:16 PM [facility] BARBITURATES SCREEN PANEL URINE Specimen [...] May 03, 2025 01:35 PM Reporting Lab: [address] [address] Performing Lab: [address] [address] BARBITURATES SCREEN NONE-DETECTED None-D etected,Cutoff = 200 ng/mL PH, DWIGHT 6.1 [pH] 5.0-8.0 CREATININE, DWIGHT 76.65 mg/dL 63-166 SP.GRAVITY, DWIGHT 1.003 L 1.005-1.030 May 03, 2025 01:16 PM [facility] ALCOHOL, ETHYL URINE PANEL URINE [...] May 03, 2025 01:35 PM Reporting Lab: [address] [address] Performing Lab: [address] [address] ALCOHOL, ETHYL URINE POSITIVE HH None-Detec alok, cutoff = 10 mg/dL PH, DWIGHT 6.1 [pH] 5.0-8.0 CREATININE, DWIGHT 76.65 mg/dL 63-166 SP.GRAVITY, DWIGHT 1.003 L 1.005-1.030 May 03, 2025 01:16 PM [facility] AMPHETAMINES SCREEN PANEL URINE Specimen [...] May 03, 2025 01:35 PM Reporting Lab: [address] [address] Performing Lab: [address] [address] AMPHETAMINES SCREEN NONE-DETECTED None-D etected, Cutoff = 1000 ng/mL PH, DWIGHT 6.1 [pH] 5.0-8.0 CREATININE, DWIGHT 76.65 mg/dL 63-166 SP.GRAVITY, DWIGHT 1.003 L 1.005-1.030 May 03, 2025 01:16 PM [facility] CANNABINOIDS SCREEN PANEL URINE Specimen [...] May 03, 2025 01:35 PM Reporting Lab: [address] [address] Performing Lab: [address] [address] CANNABINOIDS SCREEN NONE-DETECTED None-D etected,Cutoff = 50 ng/mL PH, DWIGHT 6.1 [pH] 5.0-8.0 CREATININE, DWIGHT 76.65 mg/dL 63-166 SP.GRAVITY, DWIGHT 1.003 L 1.005-1.030 May 03, 2025 01:16 PM [facility] BUPRENORPHINE SCREEN PANEL URINE Specimen [...] May 03, 2025 01:35 PM Reporting Lab: [address] [address] Performing Lab: [address] [address] BUPRENORPHINE SCREEN NONE-DETECTED None Detected, Cutoff = 5 ng/mL PH, DWIGHT 6.1 [pH] 5.0-8.0 CREATININE, DWIGHT 76.65 mg/dL 63-166 SP.GRAVITY, DWIGHT 1.003 L 1.005-1.030 May 03, 2025 01:16 PM [facility] BENZODIAZEPINES SCREEN PANEL URINE Specimen [...] May 03, 2025 01:35 PM Reporting Lab: [address] [address] Performing Lab: [address] [address] BENZODIAZEPINES SCREEN NONE-DETECTED Non e-Detected, Cutoff = 200 ng/mL PH, DWIGHT 6.1 [pH] 5.0-8.0 CREATININE, DWIGHT 76.65 mg/dL 63-166 SP.GRAVITY, DWIGHT 1.003 L 1.005-1.030 May 03, 2025 01:16 PM [facility] COCAINE SCREEN PANEL URINE Specimen [...] May 03, 2025 01:35 PM Reporting Lab: [address] [address] Performing Lab: [address] [address] COCAINE SCREEN NONE-DETECTED None-Detect ed,Cutoff = 300 ng/mL PH, DWIGHT 6.1 [pH] 5.0-8.0 CREATININE, DWIGHT 76.65 mg/dL 63-166 SP.GRAVITY, DWIGHT 1.003 L 1.005-1.030 May 03, 2025 01:16 PM [facility] FENTANYL SCREEN PANEL URINE Specimen Type: [...] May 03, 2025 01:35 PM Reporting Lab: [address] [address] Performing Lab: [address] [address] FENTANYL SCREEN NONE-DETECTED None-Detec alok, Cutoff = 1.00 ng/mL PH, DWIGHT 6.1 [pH] 5.0-8.0 CREATININE, DWIGHT 76.00 mg/dL 63-166 SP.GRAVITY, DWIGHT 1.003 L 1.005-1.030 May 03, 2025 01:16 PM [facility] METHADONE SCREEN PANEL URINE Specimen [...] May 03, 2025 01:35 PM Reporting Lab: [address] [address] Performing Lab: [address] [place] [address] PH, DWIGHT 6.1 [pH] 5.0-8.0 CREATININE, DWIGHT 76.65 mg/dL 63-166 SP.GRAVITY, DWIGHT 1.003 L 1.005-1.030 METHADONE SCREEN NONE-DETECTED None-Dete cted,Cutoff = 300 ng/mL May 03, 2025 01:16 PM [facility] OPIATES SCREEN PANEL URINE Specimen [...] May 03, 2025 01:35 PM Reporting Lab: [address] [address] Performing Lab: [address] [address] OPIATES SCREEN NONE-DETECTED None-Detect ed, Cutoff = 300 ng/mL PH, DWIGHT 6.1 [pH] 5.0-8.0 CREATININE, DWIGHT 76.65 mg/dL 63-166 SP.GRAVITY, DWIGHT 1.003 L 1.005-1.030 May 03, 2025 01:16 PM [facility] OXYCODONE SCREEN PANEL URINE Specimen [...] May 03, 2025 01:35 PM Reporting Lab: [facility] [address] [place] [address] Performing Lab: [facility] [address] [facility] [address] OXYCODONE SCREEN POSITIVE HH None-Detected, Cutoff = 100 ng/mL PH, DWIGHT 6.1 [pH] 5.0-8.0 CREATININE, DWIGHT 76.65 mg/dL 63-166 SP.GRAVITY, DWIGHT 1.003 L 1.005-1.030 Apr 29, 2025 10:58 AM [facility] MICROALBUMIN CREATININE RATIO PANEL URINE Spe cimen Type: URINE No comment entered. Ordering Provider: GABRIELA SHANKAR Report Released Date/Time: Apr 28, 2025 08:45 AM Reporting Lab: [facility] [address] [facility] [address] Performing Lab: [address] [address] MICROALBUMIN/CREATININE RATIO 5.0 mg/g 0 -29.9 MICROALBUMIN,QUANTITATIVE 0.5 mg/dL RR U NAVAIL CREATININE URINE 100.18 mg/dL 63-166 Apr 29, 2025 10:58 AM [facility] PT & INR (PROTIME) PLASMA Specimen Type: PLASM A No comment entered. Ordering Provider: GABRIELA SHANKAR Report Released Date/Time: Apr 28, 2025 08:45 AM Reporting Lab: [address] [address] Performing Lab: [address] [address] INR 2.5 PROTIME 26.5 s H 10.0-13.1 Apr 29, 2025 10:58 AM [facility] HEMOGLOBIN A1C PANEL BLOOD Specimen [...] Apr 28, 2025 08:45 AM Reporting Lab: [facility] [address] [facility] [address] Performing Lab: [place] [facility] [address] [facility] [address] HEMOGLOBIN A1C 4.0 4.0-5.6 Apr 29, 2025 10:58 AM [facility] TSH SERUM Specimen Type: SERUM No comment entered. Ordering Provider: GABRIELA SHANKAR Report Released Date/Time: Apr 28, 2025 08:45 AM Reporting Lab: [facility] [place] [facility] [address] [facility] [address] Performing Lab: [facility] [address] [address] TSH 3.95 u[IU]/mL 0.35-4.94 Apr 29, 2025 10:58 AM [facility] CALCIUM SERUM Specimen Type: SERUM No comment entered. Ordering Provider: GABRIELA SHANKAR Report Released Date/Time: Apr 28, 2025 08:45 AM Reporting Lab: [facility] [address] [facility] [address] Performing Lab: [facility] [address] [address] CALCIUM 7.5 mg/dL L 8.4-10.2 Apr 29, 2025 10:58 AM [facility] HEPATITIS C ANTIBODY (HCV)-ARC SERUM Specimen Type: SERUM Comment: Hep C Ab: No HCV antibody detected. If recent infection is suspected or other evidence suggests HCV infection, consider HCV nucleic acid testing Ordering Provider: GABRIELA SHANKAR Report Released Date/Time: Apr 28, 2025 08:45 AM Reporting Lab: [facility] [address] [facility] [address] Performing Lab: [facility]ETS [address] [address] HEPATITIS C ANTIBODY NON-REACTIVE NON-RE ACTIVE Apr 29, 2025 10:58 AM [facility] LIVER FUNCTION SERUM Specimen Type: SERUM No comment entered. Ordering Provider: GABRIELA SHANKAR Report Released Date/Time: Apr 28, 2025 08:45 AM Reporting Lab: [address] [address] Performing Lab: [address] [address] PROTEIN,TOTAL 8.3 g/dL 6.4-8.3 ALBUMIN 2.3 g/dL L 3.5-5.2 ALKALINE PHOSPHATASE 103 U/L 40-150 AST 97 U/L H 5-34 ALT 36 U/L 0-55 BILIRUBIN, TOTAL 9.8 mg/dL H 0.2-1.2 BILIRUBIN, DIRECT 4.5 mg/dL H 0-0.5 Apr 29, 2025 10:58 AM [facility] BASIC METABOLIC PANEL (non-fasting) SERUM Spe cimen Type: SERUM No comment entered. Ordering Provider: GABRIELA SHANKAR Report Released Date/Time: Apr 28, 2025 08:45 AM Reporting Lab: [address] [address] Performing Lab: [address] [address] UREA NITROGEN 4 mg/dL L 8-26 GLUCOSE 106 mg/dL H 65-100 SODIUM 131 mmol/L L 136-145 POTASSIUM 3.3 mmol/L L 3.5-5.1 CHLORIDE 97 mmol/L L 98-107 CO2 27 meq/L 22-29 CALCIUM 7.5 mg/dL L 8.4-10.2 CREATININE, Serum 0.62 mg/dL L 0.72-1.25 eGFR(CKD-EPI 2020) >90 mL/min >60 Apr 29, 2025 10:58 AM [facility] CBC AND DIFF (AUTO) BLOOD Specimen Type: BLOO D No comment entered. Ordering Provider: GABRIELA SHANKAR Report Released Date/Time: Apr 28, 2025 08:45 AM Reporting Lab: [facility] [address] [facility] [address] Performing Lab: [facility] [address] [facility] [address] WBC 12.31 10*3/uL H 4.50-11.00 RBC 3.86 [...] 0.0 0.0-0.0 NRBC, ABS 0.00 10*3/uL 0.00-0.00 Vital Signs: All taken on the encounter date This section contains inpatient and outpatient Vital Signs collected on the date of the Encounter. Date/Time Temperature Pulse Blood Pressure Respiratory Rate SP02 Pain Height Weight Body Mass Index Source May 19, 2025 03:34 PM 98.3 F 96 /min 122/76 mm[Hg] 20 /min 93 % 249 lb 31 [facility] Social History: Smoking Status (Most current) and Tobacco Use (All prior to encounter date) This section includes the most current, and the historical, smoking and tobacco- related health factors from the [place] facility where the Encounter took place. Current Smoking Status This section includes the most current smoking, or tobacco-related health factor, from the [place] facility where the Encounter took place. Date/Time Current Smoking Status Comment [facility] it Aug 28, 2024 08:30 AM VA-TOBACCO USER EVERY DAY [facility] Tobacco Use History This section includes a history of the smoking, or tobacco-related health factors, that were collected on or before the date of the Encounter. The data comes from the [place] facility where the Encounter took place. Date/Time Smoking Status/Tobac co Use Comment Facility Aug 28, 2024 08:30 AM VA-TOBACCO USE 30 YEARS OR MORE [facility] [place] [facility] Aug 28, 2024 08:30 AM VA-TOBACCO USE ADVICE [place] [facility] [facility] Aug 28, 2024 08:30 AM VA-TOBACCO USE SLEEPING CAR CONDUCTOR NO [facility] [place] [facility] Aug 28, 2024 08:30 AM VA-TOBACCO USE MED NO [facility] [place] [facility] Aug 28, 2024 08:30 AM VA-TOBACCO USER EVERY DAY [facility] [place] [facility] Aug 27, 2023 03:00 PM VA-TOBACCO USE > 15 LESS THAN 30 YEARS [facility] [place] [facility] Aug 27, 2023 03:00 PM VA-TOBACCO USE ADVICE [facility] [place] [facility] Aug 27, 2023 03:00 PM VA-TOBACCO USE SLEEPING CAR CONDUCTOR NO [facility] [place] [facility] Aug 27, 2023 03:00 PM VA-TOBACCO USE MED NO [facility] [place] [facility] Aug 27, 2023 03:00 PM VA-TOBACCO USE WI 30 MIN OF WAKEUP [facility] [place] [facility] Aug 27, 2023 03:00 PM VA-TOBACCO USER EVERY DAY [facility] [place] [facility] Dec 09, 2020 03:30 PM VA-TOBACCO DOESNT USE WI 30 MIN WAKEUP [place] [facility] [place] [facility] Dec 09, 2020 03:30 PM VA-TOBACCO USE > 15 LESS THAN 30 YEARS [facility] [place] [facility] Dec 09, 2020 03:30 PM VA-TOBACCO USE ADVICE [facility] [place] [facility] Dec 09, 2020 03:30 PM VA-TOBACCO USE SLEEPING CAR CONDUCTOR NO [facility] [place] [facility] Dec 09, 2020 03:30 PM VA-TOBACCO USE MED NOTIFY PROVIDER vet requests lucero: does not like gum not helpful [facility] [place] [facility] Dec 09, 2020 03:30 PM VA-TOBACCO USER SOME DAYS [facility] [place] [facility] Jul 08, 2019 12:33 PM VA-TOBACCO DOESNT USE WI 30 MIN WAKEUP [facility] [place] [facility] Jul 08, 2019 12:33 PM VA-TOBACCO USE > 15 LESS THAN 30 YEARS [facility] [place] [facility] Jul 08, 2019 12:33 PM VA-TOBACCO USE ADVICE [facility] [place] [facility] Jul 08, 2019 12:33 PM VA-TOBACCO USE SLEEPING CAR CONDUCTOR YES [facility] [place] [facility] Jul 08, 2019 12:33 PM VA-TOBACCO USE MED NOTIFY PROVIDER Gum [facility] [place] [facility] Jul 08, 2019 12:33 PM VA-TOBACCO USER SOME DAYS [facility] [place] [facility] May 15, 2018 03:13 PM CURRENT SMOKER 4-6 cigarettes daily [facility] [place] [facility] Nov 22, 2016 08:55 AM CURRENT SMOKER [facility] [place] [facility] Nov 22, 2016 08:55 AM V1-PT DECLINES REF TO TOBACCO CESS PRGM [facility] [place] [facility] Nov 22, 2016 08:55 AM V1-PT DECLINES TOBACCO CESSATION MEDS [facility] [place] [facility] Nov 22, 2016 08:55 AM V1-PT THINKING ABOUT QUIT TOBACCO USE [facility] [place] [facility] Nov 15, 2016 09:05 AM CURRENT SMOKER 8 TO 10 CIGARETTES PER DAY [facility] [place] [facility] Nov 08, 2016 09:20 AM CURRENT SMOKER Smokes 1/2 pack of cigarettes per day [facility] Oct 31, 2016 06:35 PM TOBACCO INPATIENT DECLINES MEDS [facility] Oct 31, 2016 03:08 PM CURRENT SMOKER [facility] March 07, 2016 09:18 PM V1-PT NOT INTERESTED IN QUIT TOBACCO USE [facility] Jun 11, 2015 10:28 AM CURRENT SMOKER 6-8 cigs per day [facility] Jan 21, 2014 10:56 AM CURRENT SMOKER 4-6 cigarettes per day [facility] Jan 21, 2014 10:56 AM V1-PT NOT INTERESTED IN QUIT TOBACCO USE [facility] Encounter Notes: All associated encounter notes This section contains the clinical notes associated to the Encounter. Date/Time Encounter Note(s) Provider Source May 19, 2025 08:27 AM PHYSICIAN NOTE: LOCAL TITLE: MD NOTE STANDARD TITLE: PHYSICIAN NOTE DATE OF NOTE: MAY 19, 2025@08:27 ENTRY DATE: MAY 19, 2025@08:27:43 AUTHOR: TI SHANKAR EXP COSIGNER: URGENCY: STATUS: COMPLETED HISTORY OF PRESENT ILLNESS: = GABRIELA Marleny BLANKA, is a 54 yo WHITE MALE who presents at the [place] [facility]. chronic pain and other problems HPI. vet wanted refills of his opiates for his chronic back pain and per [facility]/PCP plan he needed to have UDS and labs done. gillest also needed F2F visit w/ PCP to continue oxycodone scrip for chronic low back pain. gillest admits to heavy etoh use in past. he reports he has not felt well for a few mos and has poor appetite and abdominal discomfort in lower abdomen area ( he reports hx of volvulus in past and believes pain is from that problem). He has hx of HTN, denies angina and wants [facility] to fill lisinopril rx. SEE PLAN, DISCUSSED WITH VET CLEAR EVIDENCE OF LIVER DAMAGE PER LABS, JAUNDICE AND ABD DISTENTION AND EDEMA. SH. smokes 1/2 ppd and admits to 3 drinks/daily ( this is cut down from heavier use in recent past). Active problems - Computerized Problem List is the source for the followin. Essential hypertension 2. Chronic pain 3. Serum AST (aspartate aminotransferase) level outside reference range 4. Exposure to potentially hazardous substance 5. Tobacco abuse 6. Ankle pain 7. Alcohol dependence 8. Anxiety disorder 9. Obesity 10. Impaired fasting glucose 11. Hyperlipidemia 12. Back pain 13. Benign essential hypertension 14. Sciatica (SNOMED CT 22354368) 15. Generalized anxiety disorder (SNOMED CT 84154955) 16. 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 May COMBAT SERVICE INDICATED: No SERVICE CONNECTED % - 10 VITAL SIGNS: Temperature 98.5 F [36.9 C] (08/27/2023 15:04) Blood Pressure 140/86 (11/11/2024 13:49) Pulse 82 (11/11/2024 13:37) Respiration 18 (11/11/2024 13:37) Pain 0 (08/27/2023 15:04) BMI BMI: 29.4 Weight 235 lb [106.59 kg] (11/11/2024 13:37) Pulse Oximetry 96% (11/11/2024 13:37) Review of Systems: CONSTITUTIONAL: No fever, no sweats ENT: No sore throat, no cough CARDIOVASCULAR: No chest pain, no palpitations RESPIRATORY: No SOB, no wheezing GASTROINTESTINAL: no vomiting, no change in stool EXAMINATION General: this vet is chronically ill-appearing gentleman in mild distress/ both due to malaise, fatigue and his back pain. Mental Status: Alert and oriented Head: Normocephalic. Eyes: Icteric sclerae. GI: Abdomen is diffusely distended, no tympany, dullness from chest to pubic area to percussion/ CAPUT MEDUSAE= distended veins visible on abodmen Ext: bilat 3+ edema from feet to distal thighs Integument: Skin visible jaundice DATA REVIEW >> MEDICATIONS Reviewed Today (VA & Non VA) ALLERGIES: Patient has answered NKA Active Outpatient Medications (including Supplies): Issue Date Status Last Fill Active Outpatient Medications Refills Expiration === 1) FENOFIBRATE 48MG TAB Qty: 90 for 90 days ACTIVE Issue: 05/18/25 Sig: TAKE ONE TABLET BY MOUTH ONCE DAILY Refills: 3 Last : 05/18/25 Indication: FOR HIGH TRIGLYCERIDES Expr : 05/19/26 2) MIRTAZAPINE 30MG TAB Qty: 90 for 90 days ACTIVE Issue: 11/11/24 Sig: TAKE ONE TABLET BY MOUTH AT BEDTIME FOR Refills: 2 Last : 11/11/24 DEPRESSION/MOOD Expr : 11/12/25 Indication: FOR MAJOR DEPRESSIVE DISORDER 3) OXYCODONE HCL 5MG TAB NOT SA Qty: 112 ACTIVE Issue: 05/03/25 for 28 days Sig: TAKE ONE TABLET BY MOUTH Refills: 0 Last : 05/03/25 EVERY 6 HOURS NEEDED NEXT FILL 05/31 Expr : 06/02/25 Indication: FOR PAIN 4) PRAZOSIN HCL 1MG CAP Qty: 53 for 30 days ACTIVE Issue: 12/07/24 Sig: TAKE ONE CAPSULE BY MOUTH AT BEDTIME Refills: 1 Last : 12/07/24 FOR 7 DAYS, THEN TAKE TWO CAPSULES AT Expr : 12/08/25 BEDTIME FOR 23 DAYS Indication: FOR HIGH BLOOD PRESSURE Start Date Active Non-VA Medications Status Stop Date === 1) Non-VA LISINOPRIL 20MG TAB SiMG BY ACTIVE MOUTH EVERY MORNING Indication: FOR HIGH BLOOD PRESSURE 2) Non-VA LORAZEPAM 0.5MG TAB Si.5MG BY ACTIVE MOUTH THREE TIMES A DAY 6 Total Medications >> LABS REVIEWED TODAY: CHEM 7 TREND LAB CUMULATIVE SELECTED Collection DT Spec GLUCOSE BUN CREATIN Sodium K+/Pot CL CO2 04/29/2025 10:58 SERUM 106 H 4 L 0.62 L 131 L 3.3 L 97 L 27 04/09/2024 11:37 SERUM 130 H 7 0.85 141 4.1 106 23 08/27/2023 14:00 SERUM 109 H 6 L 0.81 138 4.5 102 25 03/31/2021 13:13 SERUM 134 H 10 0.86 136 4.5 101 23 08/17/2019 15:25 SERUM 111 H 10 0.90 141 4.5 104 26 LAB CUMULATIVE SELECTED 2 No selection items chosen for this component. CHEM 7 Results Collection DT Spec Sodium K+/Pot CL CO2 GLUCOSE BUN 04/29/2025 10:58 SERUM 131 L 3.3 L 97 L 27 106 H 4 L 04/09/2024 11:37 SERUM 141 4.1 106 23 [...] WBC RBC HGB HCT MCV MCH PLT 04/29/2025 10:58 BLOOD 12.31 H 3.86 L 13.2 38.3 L 99.2 H 34.2 H 135 L 08/27/2023 14:00 BLOOD 7.14 5.75 H 16.9 52.0 H 90.4 29.4 154 12/08/2021 13:20 BLOOD 8.86 5.51 16.5 51.0 H 92.6 29.9 173 03/31/2021 13:13 BLOOD 7.92 5.37 16.0 49.3 91.8 29.8 168 08/17/2019 15:25 BLOOD 11.03 H 5.59 16.2 50.9 H 91.1 29.0 200 === HEMOGLOBIN A1C TREND Collection DT Spec [...] H 3.4 127 110 === UREA NITROGEN 04/29/25 10:58 4 L CREATININE-EGFR 04/29/25 10:58 0.62 L === LIVER PANEL TREND Collection DT Spec AST ALT T BILI ALK MATT T. PROT ALBUMIN 04/29/2025 10:58 SERUM 97 H 36 9.8 H 103 8.3 2.3 L 04/09/2024 11:37 SERUM 4.1 08/27/2023 14:00 SERUM 51 H 57 H 0.4 87 7.5 4.1 12/08/2021 13:20 SERUM 34 63 H 0.6 62 4.4 03/31/2021 13:13 SERUM 41 H 72 H 1.6 H 71 7.9 4.5 === PSA TREND Collection DT Spec PSA SR- 08/27/2023 14:00 SERUM 0.38 = Collection DT Spec TSH SR- 04/29/2025 10:58 SERUM 3.95 == ANEMIA PANEL TREND Collection DT Spec B12 SR- HCT Ferrit IRON TIBC 04/29/2025 10:58 BLOOD 38.3 L 04/09/2024 11:37 SERUM 883 H 139 412 08/27/2023 14:00 BLOOD 52.0 H 12/08/2021 13:20 BLOOD 51.0 H 03/31/2021 13:13 BLOOD 49.3 === PT INR TREND Collection DT Spec INR PT 04/29/2025 10:58 PLASM 2.5 26.5 H === >> HEALTH MAINTENANCE PREVENTIVE MEDICINE GOALS Advance Directive Screen MH AD Sep 18 BMI>30/>24.99 High Risk Aug 18 HIV Screening Mar 31 Pneumococcal Conjugate Vaccine (PCV15/PCDUE NOW Medication Reconciliation DUE NOW COVID-19 Immunization Jun 29 HTN Assess for Elevated BP>=140/90 DUE NOW Sexual Orientation DUE NOW RHS Screen DUE NOW (Optional) Whole Health Documentation DUE NOW ASSESSMENT/PLAN: 1. alcoholic liver disease 2. chronic pain 3. HTN 4. etoh dependence Plan 1. counselled vet about goal of abstinence to reduce further damage to liver 2. check U/S and eval for liver stiffness/ additional liver tests ordered 3. [facility] telehepatology consult due to his jaundice & other clinical signs 4. vet aware that if abd pain worsens or has bleeding or feels worse he will go to hosp ED for eval 5. vet advised that he needed reduced dose of opiates due to liver dz 6. refill lisinopril as community PCP retired 7. vet advised to have mental health counselling for etoh and he will consider this. 8. f/u w/ PCP in 2 mos and PRN 9. COULD NOT DO FIB-4 SCORE CALCULATOR NOT FUNCTIONING AT THIS TIME LAB ORDERS FOR NEXT APPT. spent in [...] provider. /norberto/ GABRIELA SHANKAR MD PHYSICIAN Signed: 05/19/2025 16:24 [facility]
--- OUTSIDE RECORDS SUMMARY | 2025-06-24 04:30 | XMS_ITS | Encounter Summary ---
Author Name [facility] [place] [facility] [place] Organization [facility] [place] Address [address] [place] [address] Care Team Providers Care Instructor Hairspring Name Role Phone GABRIELA SHANKAR Primary Care [...] Relationship to Policy Proctor [facility] Apr 27, 2023 [id number] [phone] BLANKACA GINO PATIENT [facility] ([id number]) [facility] February 25, 2023 [id number] [facility] Apr 27, 2023 [id number] [facility] February 25, 2023 [id number] [phone] [id number] [facility] February 25, 2023 [id number] [phone] [id number] YENY MOSCOSO PATIENT Selected Encounter This section includes the information on record at [place] for the Encounter. Date/Time Encounter Type Encounter Description Reason Provider Source Jun 24, 2025 08:30 AM OFFICE O/P EST MOD 30 MIN PRIMARY CARE/MEDICINE ICD-10-CM K70.9 Alcoholic liver disease, unspecified Leyla SHANKAR Marleny Encounter Template Text not used by [place] Assessments - Encounter Diagnoses This section includes the primary and secondary diagnoses documented for the Encounter. Date/Time Primary/Secondary Diagnosis Diagnosis Name Provider Source Jun 24, 2025 09:25 AM PRIMARY Alcoholic liver disease, unspecified GABRIELA SHANKAR [facility] [place] [facility] Jun 24, 2025 09:25 AM SECONDARY Essential (primary) hypertension GABRIELA SHANKAR [facility] [place] [facility] Jun 24, 2025 09:25 AM SECONDARY Other ascites GABRIELA SHANKAR [facility] [place] [facility] Jun 24, 2025 09:25 AM SECONDARY Pain, unspecified GABRIELA SHANKAR [facility] [place] [facility] Plan of Treatment: Future Appointments (+ 6 months) and Future Tests (+/- 45 days) The Plan of Treatment section includes future care activities for the patient from all [place] treatmentfacilities. This section includes future appointments and future orders which are active, pending or scheduled. Future Appointments This section includes appointments that were scheduled to occur 6 months from the date of the Encounter, up to a maximum of 20 appointments. The data comes from all [place] treatment facilities. Appointment Date/Time Appointment Type Appointme nt Facility Name Jul 01, 2025 12:00 PM AMBULATORY - MEDICINE [facility] Jul 01, 2025 12:00 PM AMBULATORY - NONE [facility] [place] [facility] Jul 19, 2025 02:30 PM AMBULATORY - SURGERY [facility] [place] [facility] Jul 22, 2025 01:30 PM AMBULATORY - MEDICINE [place] [facility] [place] [facility] Jul 29, 2025 01:30 PM AMBULATORY - MEDICINE [place] [facility] [place] [facility] Oct 11, 2025 01:30 PM AMBULATORY - MEDICINE [place] [facility] Active, Pending, and Scheduled Orders This section includes a listing of several types of active, pending, and scheduled orders, including clinic medications orders, diagnostic test orders, procedure orders and consult orders; where the start date of the order is 45 days before the date of the Encounter or 45 days after the date of theEncounter. The data comes from all [place] treatment facilities. Test Date/Time Test Type Test Details Facility Name May 19, 2025 12:00 AM Laboratory - Chemistry Order HEPATITIS B SURFACE ANTIGEN (HBsAg)-WH BLOOD (SST-SERUM) [facility] May 19, 2025 12:00 AM Laboratory - Chemistry Order HEPATITIS B CORE (Total) Ab BLOOD (SST-SERUM) [facility] May 19, 2025 12:00 AM Laboratory - Chemistry Order HEPATITIS C ANTIBODY (HCV)-ARC BLOOD (MARBLED-TOP SERUM) [facility] May 19, 2025 12:00 AM Laboratory - Chemistry Order FERRITIN BLOOD (SST-SERUM) [facility] May 19, 2025 12:00 AM Laboratory - Chemistry Order IRON & TIBC PANEL BLOOD (SST-SERUM) [facility] May 19, 2025 12:00 AM Laboratory - Chemistry Order MARCELO SCREEN/TITER BLOOD (SST-GOLD) SERUM [facility] May 19, 2025 12:00 AM Laboratory - Chemistry Order GAMMA-GTP BLOOD (SST-SERUM) [facility] May 19, 2025 12:00 AM Laboratory - Chemistry Order ALBUMIN BLOOD (SST-SERUM) [facility] May 19, 2025 12:00 AM Laboratory - Chemistry Order PROTEIN,TOTAL BLOOD (SST-SERUM) SP ONCE [facility] May 19, 2025 12:00 AM Laboratory - Chemistry Order ALBUMIN BLOOD (SST-SERUM) [facility] May 19, 2025 12:00 AM Laboratory - Chemistry Order ALKALINE PHOSPHATASE BLOOD (SST-SERUM) [facility] May 19, 2025 12:00 AM Laboratory - Chemistry Order BILIRUBIN, TOTAL BLOOD (SST-SERUM) SP [facility] May 19, 2025 12:00 AM Laboratory - Chemistry Order AST BLOOD (SST-SERUM) [facility] May 19, 2025 12:00 AM Laboratory - Chemistry Order ALT BLOOD (SST-SERUM) [facility] May 19, 2025 03:57 PM Laboratory - Chemistry Order PT & INR (PROTIME) BLOOD (BLUE-PLASMA) [facility] May 19, 2025 03:57 PM Consult Order HEPATOLOGY SERVICES [facility] Saw Man's Choice [facility] May 26, 2025 12:00 AM Laboratory - Chemistry Order MARCELO SCREEN/TITER BLOOD (SST-GOLD) SERUM [facility] May 26, 2025 12:00 AM Laboratory - Chemistry Order LIVER KIDNEY MICROSOME ANTIBODY BLOOD (RED-PLAIN) SERUM [facility] May 26, 2025 12:00 AM Laboratory - Chemistry Order IGG BLOOD (SST-SERUM) [facility] May 26, 2025 12:00 AM Laboratory - Chemistry Order ACTIN (SMOOTH MUSCLE) ANTIBODY (IgG) BLOOD (SST-SERUM) [facility] May 26, 2025 12:00 AM Laboratory - Chemistry Order FERRITIN BLOOD (SST-SERUM) [facility] May 26, 2025 12:00 AM Laboratory - Chemistry Order IRON & TIBC PANEL BLOOD (SST-SERUM) [facility] May 26, 2025 12:00 AM Laboratory - Chemistry Order HEPATITIS B CORE (Total) Ab BLOOD (SST-SERUM) [facility] May 26, 2025 12:00 AM Laboratory - Chemistry Order CERULOPLASMIN BLOOD (RED-PLAIN) SERUM [facility] May 26, 2025 12:00 AM Laboratory - Chemistry Order HEPATITIS B SURFACE ANTIGEN (HBsAg)-WH BLOOD (SST-SERUM) [facility] May 26, 2025 12:00 AM Laboratory - Chemistry Order A1A PHENOTYPE PANEL BLOOD (SST-SERUM) [facility] May 26, 2025 12:00 AM Laboratory - Chemistry Order HEPATITIS B SURFACE ANTIBODY (HBsAb)-WH BLOOD (SST-SERUM) [facility] May 26, 2025 12:00 AM Laboratory - Chemistry Order PT & INR (PROTIME) BLOOD (BLUE-PLASMA) [facility] May 26, 2025 12:00 AM Laboratory - Chemistry Order LIVER FUNCTION BLOOD (SST-SERUM) [facility] May 26, 2025 12:00 AM Laboratory - Chemistry Order BASIC METABOLIC PANEL (non-fasting) BLOOD (SST-SERUM) [facility] May 26, 2025 12:00 AM Laboratory - Chemistry Order CBC AND DIFF (AUTO) BLOOD (LAV-BLOOD) [facility] May 26, 2025 12:00 AM Laboratory - Chemistry Order ALPHA-FETOPROTEIN BLOOD (SST-SERUM) [facility] Jun 24, 2025 09:26 AM Laboratory - Chemistry Order LIVER KIDNEY MICROSOME ANTIBODY BLOOD (RED-PLAIN) SERUM [facility] Jun 24, 2025 09:26 AM Laboratory - Chemistry Order ACTIN (SMOOTH MUSCLE) ANTIBODY (IgG) BLOOD (SST-SERUM) [facility] Jun 24, 2025 09:26 AM Laboratory - Chemistry Order A1A PHENOTYPE PANEL BLOOD (SST-SERUM) [facility] Lab Results: +/- 30 days of the encounter This section includes the Chemistry and Hematology Lab Results on record with [place] for the patient. Radiology Reports and Pathology Reports are provided separately, in subsequent sections. Lab Results This section contains the Chemistry/Hematology Results that were resulted 30 days before or 30 daysafter the date of the Encounter. Date/Time Source Result Type Result - Unit Interpretation Reference Range Specimen Type Comment Jun 24, 2025 09:26 AM [facility] MARCELO SCREEN/TITER SERUM Specimen Type: SERUM No comment entered. Ordering Provider: MATT SHANKAR Report Released Date/Time: Jun 24, 2025 09:00 AM Reporting Lab: [facility] [address] [address] Performing Lab: [facility] [address] [address] MARCELO SCREEN NEG NEG <1:40 Jun 24, 2025 09:26 AM [facility] IGG SERUM Specimen Type: SERUM Comment: Specimen Icteric Ordering Provider: GABRIELA SHANKAR Report Released Date/Time: Jun 24, 2025 09:00 AM Reporting Lab: [facility] [address] [address] Performing Lab: [facility] [address] [address] IGG 3210 mg/dL H 700-1600 Jun 24, 2025 09:26 AM [facility] CERULOPLASMIN SERUM Specimen Type: SERUM Comment: Specimen Icteric Ordering Provider: GABRIELA SHANKAR Report Released Date/Time: Jun 24, 2025 09:00 AM Reporting Lab: [facility] [address] [address] Performing Lab: [facility] [address] [address] CERULOPLASMIN 29 mg/dL 20-60 Jun 24, 2025 09:26 AM [facility] HEPATITIS B CORE (Total) Ab SERUM Specimen Ty pe: SERUM Comment: Hep B Core, Total: This test detects both IgG and IgM antibodies. A nonreactive final interpretation indicates that anti-HBc antibodies were not detected in the sample. Hep B Surf Ag: Negative for HBsAg. Other markers of Hepatitis B virus are needed to ascertain Hepatitis B infection status. Ordering Provider: GABRIELA SHANKAR Report Released Date/Time: Jun 24, 2025 09:00 AM Reporting Lab: [address] [address] Performing Lab: [facility] [address] [facility] [address] HEPATITIS B CORE (Total) Ab Non Reactive Non Reactive Jun 24, 2025 09:26 AM [facility] HEPATITIS B SURFACE ANTIGEN (HBsAg)- SERUM Specimen Type: SERUM Comment: Specimen Icteric Ordering Provider: GABRIELA SHANKAR Report Released Date/Time: Jun 24, 2025 09:00 AM Reporting Lab: [facility] [address] Performing Lab: [facility] [address] [facility] [address] HBsAg Non Reactive Non Reactive Jun 24, 2025 09:26 AM [facility] HEPATITIS B SURFACE ANTIBODY (HBsAb)- SERUM Specimen Type: SERUM Comment: Hep B Core, Total: This test detects both IgG and IgM antibodies. A nonreactive final interpretation indicates that anti-HBc antibodies were not detected in the sample. Hep B Surf Ag: Negative for HBsAg. Other markers of Hepatitis B virus are needed to ascertain Hepatitis B infection status. Hep B Surface Ab: The immune status of the individual should be further assessed by considering other factors, such as clinical status, follow-up testing, associated risk factors and use of additional diagnostic information. Ordering Provider: GABRIELA SHANKAR Report Released Date/Time: Jun 24, 2025 09:00 AM Reporting Lab: [address] [address] Performing Lab: [facility] [address] HBsAb GRAYZONE Non Reactive Jun 24, 2025 09:26 AM [facility] ALPHA-FETOPROTEIN SERUM Specimen Type: SERUM Comment: Specimen Icteric Ordering Provider: GABRIELA SHANKAR Report Released Date/Time: Jun 24, 2025 09:00 AM Reporting Lab: [address] [address] Performing Lab: [facility] [address] [address] ALPHA-FETOPROTEIN 7.79 ng/mL 0-10 Jun 24, 2025 09:26 AM [facility] FERRITIN SERUM Specimen Type: SERUM No comment entered. Ordering Provider: GABRIELA SHANKAR Report Released Date/Time: Jun 24, 2025 09:00 AM Reporting Lab: [address] [address] Performing Lab: [address] [address] FERRITIN 1213.8 ng/mL H 21.8-274.7 Jun 24, 2025 09:26 AM [facility] IRON & TIBC PANEL SERUM Specimen Type: SERUM No comment entered. Ordering Provider: GABRIELA SHANKAR Report Released Date/Time: Jun 24, 2025 09:00 AM Reporting Lab: [address] [address] Performing Lab: [address] [address] TIBC 182 ug/dL L 204-475 IRON 91 ug/dL 65-175 Transferrin Saturation 50.0 H 15-45 Transferrin (TRF) 138 mg/dL L 174-364 Jun 24, 2025 09:26 AM [facility] PT & INR (PROTIME) PLASMA Specimen Type: PLASM A No comment entered. Ordering Provider: GABRIELA SHANKAR Report Released Date/Time: Jun 24, 2025 09:00 AM Reporting Lab: [address] [address] Performing Lab: [address] [address] INR 1.9 PROTIME 20.9 s H 10.0-13.1 Jun 24, 2025 09:26 AM [facility] BASIC METABOLIC PANEL (non-fasting) SERUM Spe cimen Type: SERUM No comment entered. Ordering Provider: GABRIELA SHANKAR Report Released Date/Time: Jun 24, 2025 09:00 AM Reporting Lab: [facility] [address] [address] Performing Lab: [facility] [address] [address] UREA NITROGEN 7 mg/dL L 8-26 GLUCOSE 105 mg/dL H 65-100 SODIUM 136 mmol/L 136-145 POTASSIUM 3.9 mmol/L 3.5-5.1 CHLORIDE 99 mmol/L 98-107 CO2 22 meq/L 22-29 CALCIUM 8.4 mg/dL 8.4-10.2 CREATININE, Serum 0.62 mg/dL L 0.72-1.25 eGFR(CKD-EPI 2020) >90 mL/min >60 Jun 24, 2025 09:26 AM [facility] LIVER FUNCTION SERUM Specimen Type: SERUM No comment entered. Ordering Provider: GABRIELA SHANKAR Report Released Date/Time: Jun 24, 2025 09:00 AM Reporting Lab: [facility] [address] [address] Performing Lab: [address] [address] PROTEIN,TOTAL 8.7 g/dL H 6.4-8.3 ALBUMIN 2.6 g/dL L 3.5-5.2 ALKALINE PHOSPHATASE 84 U/L 40-150 AST 87 U/L H 5-34 ALT 41 U/L 0-55 BILIRUBIN, TOTAL 6.3 mg/dL H 0.2-1.2 BILIRUBIN, DIRECT 3.6 mg/dL H 0-0.5 Jun 24, 2025 09:26 AM [facility] CBC AND DIFF (AUTO) BLOOD Specimen Type: BLOO D No comment entered. Ordering Provider: GABRIELA SHANKAR Report Released Date/Time: Jun 24, 2025 09:00 AM Reporting Lab: [address] [address] Performing Lab: [address] [address] WBC 9.47 10*3/uL 4.50-11.00 RBC 3.60 10*6/uL L 4.23-5.66 HGB 12.2 g/dL L 12.8-17 HCT 37.0 L 39.2-50.4 MCV 102.8 fL H 82-99 MCHC 33.0 g/dL 30.8-35.1 PLT 177 10*3/uL 140-360 MPV 9.4 fL 9.2-12.4 RDW-CV 12.6 12.0-16.0 MONO, ABS 0.84 10*3/uL 0.30-1.10 MCH 33.9 pg H 26.2-32.6 NEUT % 70.8 43.7-75.8 LYMPH % 17.8 14.0-42.3 MONO % 8.9 5.1-13.7 EOS % 1.3 0.4-6.8 BASO % 0.8 0.1-2.0 NEUT, ABS 6.70 10*3/uL 2.20-7.60 LYMPH, ABS 1.69 10*3/uL 1.00-3.20 EOS, ABS 0.12 10*3/uL 0.03-0.44 BASO, ABS 0.08 10*3/uL 0.01-0.13 IMMATURE GRAN % 0.4 0.0-0.7 IMMATURE GRAN, ABS 0.04 10*3/uL 0.00-0.0 6 NRBC % 0.0 0.0-0.0 NRBC, ABS 0.00 10*3/uL 0.00-0.00 Vital Signs: All taken on the encounter date This section contains inpatient and outpatient Vital Signs collected on the date of the Encounter. Date/Time Temperature Pulse Blood Pressure Respiratory Rate SP02 Pain Height Weight Body Mass Index Source Jun 24, 2025 09:08 AM 210 lb 26 [facility] Jun 24, 2025 08:37 AM 98 /min 101/64 mm[Hg] 20 /min 94 % [facility] Social History: Smoking Status (Most current) [...] 2024 08:30 AM VA-TOBACCO USER EVERY DAY [facility] [place] [facility] Tobacco Use History This section includes a history of the smoking, or tobacco-related health factors, that were collected on or before the date of the Encounter. The data comes from the [place] facility where the Encounter took place. 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 SUPERVISOR NO [facility] [place] [facility] Aug 28, 2024 08:30 AM VA-TOBACCO USE MED NO [facility] [place] [facility] Aug 28, 2024 08:30 AM VA-TOBACCO USER EVERY DAY [facility] [place] [facility] Aug 27, 2023 03:00 PM VA-TOBACCO USE > 15 LESS THAN 30 YEARS [facility] [place] [facility] Aug 27, 2023 03:00 PM VA-TOBACCO USE ADVICE [facility] [place] [facility] Aug 27, 2023 03:00 PM VA-TOBACCO USE CURTAIN SUPERVISOR NO [facility] [place] [facility] Aug 27, 2023 03:00 PM VA-TOBACCO USE MED NO [facility] [place] [facility] Aug 27, 2023 03:00 PM VA-TOBACCO USE WI 30 MIN OF WAKEUP [facility] [place] [facility] Aug 27, 2023 03:00 PM VA-TOBACCO USER EVERY DAY [facility] [place] [facility] Dec 09, 2020 03:30 PM VA-TOBACCO DOESNT USE WI 30 MIN WAKEUP [facility] [place] [facility] Dec 09, 2020 03:30 PM VA-TOBACCO USE > 15 LESS THAN 30 YEARS [facility] [place] [facility] Dec 09, 2020 03:30 PM VA-TOBACCO USE ADVICE [facility] [place] [facility] Dec 09, 2020 03:30 PM VA-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 USE 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 SUPERVISOR NO [facility] [place] [facility] Dec 09, 2020 03:30 PM VA-TOBACCO USE MED NOTIFY PROVIDER vet requests lucero: does not like gum not helpful [facility] [place] [facility] Dec 09, 2020 03:30 PM VA-TOBACCO USER SOME DAYS [facility] [place] [facility] Jul 08, 2019 12:33 PM VA-TOBACCO DOESNT USE WI 30 MIN WAKEUP [facility] [place] [facility] Jul 08, 2019 12:33 PM VA-TOBACCO USE > 15 LESS THAN 30 YEARS [facility] [place] [facility] Jul 08, 2019 12:33 PM VA-TOBACCO USE ADVICE [facility] [place] [facility] Jul 08, 2019 12:33 PM VA-TOBACCO USE CURTAIN SUPERVISOR YES [facility] [place] [facility] Jul 08, 2019 12:33 PM VA-TOBACCO USE MED NOTIFY PROVIDER Gum [facility] [place] [facility] Jul 08, 2019 12:33 PM VA-TOBACCO USER SOME DAYS [facility] [place] [facility] May 15, 2018 03:13 PM CURRENT SMOKER 4-6 cigarettes daily [facility] [place] [facility] Nov 22, 2016 08:55 AM CURRENT SMOKER [facility] [place] [facility] Nov 22, 2016 08:55 AM V1-PT DECLINES REF TO TOBACCO CESS PRGM [facility] [place] [facility] Nov 22, 2016 08:55 AM V1-PT DECLINES TOBACCO CESSATION MEDS [facility] [place] [facility] Nov 22, 2016 08:55 AM V1-PT THINKING ABOUT QUIT TOBACCO USE [facility] [place] [facility] Nov 15, 2016 09:05 AM CURRENT SMOKER 8 TO 10 CIGARETTES PER DAY [facility] [place] [facility] Nov 08, 2016 09:20 AM CURRENT SMOKER Smokes 1/2 pack of cigarettes per day [facility] [place] [facility] Oct 31, 2016 06:35 PM TOBACCO INPATIENT DECLINES MEDS [facility] [place] [facility] Oct 31, 2016 03:08 PM CURRENT SMOKER [facility] [place] [facility] March 07, 2016 09:18 PM V1-PT NOT INTERESTED IN QUIT TOBACCO USE [facility] Jun 11, 2015 10:28 AM CURRENT SMOKER 6-8 cigs per day [facility] Jan 21, 2014 10:56 AM CURRENT SMOKER 4-6 cigarettes per day [facility] Jan 21, 2014 10:56 AM V1-PT NOT INTERESTED IN QUIT TOBACCO USE [facility] Radiology Reports: +/- 30 days of [...] the Encounter. The data comes from all [facility] facilities. Date/Time Radiology Report Provider Source Jun 08, 2025 01:22 PM ULTRASOUND ELASTOGRAPHY PARENCHYMA: BLANKAGABRIELA [id number] -[id number] M Exm Date: JUN 08, 2025@13:22 Req Phys: GABRIELA SHANKAR Pat Loc: [facility] PACT 4 MD ([place] Loc) Img Loc: ULTRASOUND Service: [place] [address] (Case [id number] COMPLETE) ULTRASOUND ABDOMEN LIMITED (US Detailed) CPT:41303 Reason for Study: jaundice (Case [id number] COMPLETE) ULTRASOUND ELASTOGRAPHY PARENCHYM(US Detailed) CPT:55235 Clinical History: Report Status: Verified Date Reported: JUN 08, 2025 Date Verified: JUN 08, 2025 Filler Shaker E-Sig:/ES/CANDACE HOFFMAN JR Report: Study: Abdomen ultrasound with elastography. COMPARISON: Abdominal ultrasound with elastography from April 25, 2021. FINDINGS: The liver is mildly enlarged at 16.0 cm in long length. The liver is again diffusely increased in echogenicity consistent with hepatic steatosis/fibrosis. There is a subtle peripheral nodular contour to the liver present suspicious for cirrhosis. No intrahepatic bile duct dilatation is seen. No hepatic mass is seen. The portal vein is patent with normal hepatopedal flow. The common hepatic duct measures 0.99 cm, which is abnormal for patient's age. The visualized pancreas is normal. The spleen is enlarged without focal abnormality and measures 13.4 cm in length. There is a new moderate amount of echogenic debris present within the gallbladder, likely representing sludge. Moderate gallbladder wall thickening is present with no gallstones identified. The rotary envelope machine operator reports a negative sonographic Chauhan sign is present. These findings can be seen secondary to ascites however, if gallbladder dysfunction is suspected, a HIDA scan may be helpful to better evaluate. A moderate amount of ascites is now present. Liver Elastography: Poor technical study secondary to ascites. Examination performed on a [employer] Epiq 7 ultrasound machine. EQI IQR/Med Marco Antonio 26 %, less than 30% indicative of good quality data set. Stiffness median 1.67 m/s. Previously this measured 1.4 m/s. SRU Recommendations for interpretations of Liver Stiffness Values Obtained Using ARFI Techniques in Patients with Viral Hepatitis and NAFLD Liver Stiffness Value.....Recommendation 1. <=5kPa (1.3 m/s).........High probability of being normal 2. < 9kPa (1.7 m/s)..........In the absence of other known clinical signs, rules out compensated advanced chronic liver disease. If there are known clinical signs, may need further testing for confirmation. 3. 9 kPa-13 kPa (1.7 to 2.1 m/s) ...Suggestive of compensated advanced chronic liver disease but may need further testing for confirmation. 4. > 13 kPa (2.1 m/s) Likely confirming compensated advanced chronic liver disease. 5. > 17 kPa (2.4 m/s) Suggestive of clinically significant portal hypertension. ARFI = acoustic radiation force impulse cACLD = (compensated) advanced chronic liver disease, CSPH = clinically significant portal hypertension NAFLD = non-alcoholic fatty liver disease A) Factors that may increase liver stiffness include elevated liver function tests, non-fasting state, vascular congestion, acute hepatitis, infiltrative liver diseases, and intense physical exercise. In this setting, the stage of liver fibrosis may be overestimated. However, in all these conditions, stiffness values within the normal range exclude significant liver fibrosis. B) In some patients with NAFLD, the cutoff values for cACLD may be lower (7-9 kPa). C) In etiologies other than viral hepatitis and NAFLD, inclusive of but not limited to alcoholic hepatitis, primary biliary cirrhosis, autoimmune hepatitis, sclerosing cholangitis and drug-induced liver diseases, the cutoff values are not well established. D) In patients with chronic viral hepatitis B or hepatitis C that are successfully treated, the baseline liver stiffness should be that obtained after viral eradication or suppression. E) The percentage change in liver stiffness over time, and not absolute values, should be used. On follow-up studies to evaluate for efficacy of treatment or progression of disease, a 10% difference in liver stiffness should be considered clinically significant. * Update to the Society of Radiologists in Ultrasound Liver Elastography Consensus Statement. Radiology 2020; 296:263-274. Impression: New moderate amount of ascites with peripheral cirrhotic contour now present to the liver with new abnormal gallbladder findings for which clinical correlation is recommended. Elastography values which, in the absence of other known clinical signs, rules out compensated advanced chronic liver disease. If there are known clinical signs, may need further testing for confirmation. Primary Diagnostic Code: Significant Abnormality Attention Needed Primary Interpreting Staff: CANDACE HOFFMAN JR, Radiologist (Filler Shaker) /CANDACE ELIZONDO JR [facility] Encounter Notes: All associated encounter notes This section contains the clinical notes associated to the Encounter. Date/Time Encounter Note(s) Provider Source Jun 24, 2025 09:14 AM PAIN MEDICATION MGT NOTE: LOCAL TITLE: OPIOID/CONTROLLED SUBSTANCE NOTE STANDARD TITLE: PAIN MEDICATION MGT NOTE DATE OF NOTE: JUN 24, 2025@09:14 ENTRY DATE: JUN 24, 2025@09:14:37 AUTHOR: PARISA RICHARDSON COSIGNER: URGENCY: STATUS: COMPLETED OPIOID/CONTROLLED SUBSTANCE NOTE Controlled Substance Renewal Request REQUESTED MEDICATIONS: OXYCODONE PHARMACY PICK-UP A valid consent for Long-Term Opioid therapy for Pain is required for opioid duration of 90 days or greater. CONSENT FOR LONG-TERM OPIOIDS FOR PAIN Jun 11, 2015 Prescription Drug Monitoring Program (PDMP): A PDMP note is required at every new prescription for a controlled substance. PDMP HISTORY 1 YEAR Info Disclosed: Patient Demographics Purpose: Accessing Prescription Drug Monitoring Program (PDMP) databases for review of controlled substances prescribed outside of the [facility], and any additional information that may become available, as an important component of standard clinical care and in accordance with [facility] policy. 06/30/24 10:19 Genoveva Thompson PDMP [place] 07/27/24 07:55 Genoveva Thompson PDMP [place] 08/24/24 08:39 Genoveva Thompson PDMP [place] 09/17/24 09:35 Pich,Parisa A PDMP [place] 10/22/24 08:17 Pich,Parisa A PDMP [place] 12/10/24 08:48 Pich,Parisa A PDMP [place] 01/06/25 13:19 Pich,Parisa A PDMP [place] 02/04/25 08:49 Pich,Parisa A PDMP [place] 03/03/25 08:25 Pic,Parisa A PDMP [place] 04/01/25 08:29 Pich,Parisa A PDMP [place] 05/03/25 13:13 Holly Osorio PDMP [place] 06/24/25 09:12 [facility],Parisa A PDMP [place] Urine Drug Screen: A urine drug screen is required prior to reaching 90 days of opioid therapy and at least annually thereafter. Collection DT Specimen Test Name Result Units Ref Range 05/03/2025 13:16 URINE !! OPIATES SCREEN NONE-DETECTED Ref: None-Detected, Cutoff = 300 ng/mL 05/03/2025 13:16 URINE !! OXYCODONE SCREEN POSITIVE H* Ref: None-Detected, Cutoff = 100 ng/mL 05/03/2025 13:16 URINE !! BenzoSc NONE-DETECTED Ref: None-Detected, Cutoff = 200 ng/mL 05/03/2025 13:16 URINE !! COCAINE SCREEN NONE-DETECTED Ref: None-Detected,Cutoff = 300 ng/mL 05/03/2025 13:16 URINE !! CANNABINOIDS SCRENONE-DETECTED Ref: None-Detected,Cutoff = 50 ng/mL 05/03/2025 13:16 URINE !! ALCOHOL, ETHYL URPOSITIVE H* Ref: None-Detected, cutoff = 10 mg/dL 05/03/2025 13:16 URINE !! AMPHETAMINES SCRENONE-DETECTED Ref: None-Detected, Cutoff = 1000 ng/mL 05/03/2025 13:16 URINE !! BUPRENORPHINE SCRNONE-DETECTED Ref: None Detected, Cutoff = 5 ng/mL !! Indicates COMMENTS AVAILABLE...Refer to Interim Lab Report. Most Recent Naloxone Prescription Information: Reminder Term: [facility]-NALOXONE USE Drug: NALOXONE HCL 4MG/SPRAY SOLN NASAL SPRAY Outpatient Medication: NALOXONE HCL 4MG/SPRAY SOLN NASAL SPRAY 09/08/2024@03:03:29 Status: Start date: 06/10/2024@03:03:29 Stop date: 09/08/2024@03:03:29 Duration: 90 D Last release date: 06/10/2024@03:03:29 [facility] PARISA RICHARDSON Primary Care Staff Nurse Signed: 06/24/2025 09:15 PARISA RICHARDSON [facility] [place] [facility] Jun 24, 2025 09:12 AM ACCOUNTING OF DISCLOSURES NOTE: LOCAL TITLE: STATE PRESCRIPTION DRUG MONITORING PROGRAM STANDARD TITLE: ACCOUNTING OF DISCLOSURES NOTE DATE OF NOTE: JUN 24, 2025@09:12:40 ENTRY DATE: JUN 24, 2025@09:12:40 AUTHOR: PARISA RICHARDSON EXP COSIGNER: GABRIELA SHANKAR URGENCY: STATUS: COMPLETED This PDMP query was submitted by Parisa Richardson on behalf of Gabriela Shankar. The clinical justification for this PDMP query is to review controlled substances prescribed outside of the [facility], and any additional information that may become available, as an important component of standard clinical care, and in accordance with [facility] policy. Patient information was shared with the PDMP [place]. The [facility] prescriber, for which I am a delegate, will be alerted of these PDMP findings through co-signature of this progress note. Prescription(s) which have been filled outside the [facility] in the last 90 days are noted. 06/05/2025 Oxycodone Hcl (Ir) 5 Mg Tablet 15tablets- dispensed upon Hospital DC filled at [facility] /malena RICHARDSON Primary Care Staff Nurse Signed: 06/24/2025 09:14 /malena SHANKAR MD PHYSICIAN Cosigned: 06/24/2025 09:26 PARISA RICHARDSON [facility] [place] [facility] Jun 24, 2025 07:49 AM PHYSICIAN NOTE: LOCAL TITLE: MD NOTE STANDARD TITLE: PHYSICIAN NOTE DATE OF NOTE: JUN 24, 2025@07:49 ENTRY DATE: JUN 24, 2025@07:49:38 AUTHOR: TI SHANKAR EXP COSIGNER: URGENCY: STATUS: COMPLETED HISTORY OF PRESENT ILLNESS: = GABRIELA Farmer BLANKA, is a 54 yo WHITE MALE Gordon who [facility] CC. multiple problems HPI. see prior PCP note from April and vet reports that he was concerned about his illness and after [facility] P[facility] visit he was admitted to [facility] for a few weeks. he underwent paracentesis twice to drain signif amt of fluids and discharged on diuretics, vitamins and lactulose. vet has had approx 30 lb wt loss in past month and he maintains during this visit that he plans NEVER to use etoh again due to ongoing liver damage, fibrosis and steatosis. He denies any fevers and his stools remain loose on lactulose and he notes improved BP control since not using etoh. he has chronic pain and asks to use oxycodone up from 3 times daily to 4 times per day. lower leg edema improved also. SH- smokes few cigs daily Active problems - Computerized Problem List is the source for the followin. ALD - Alcoholic liver disease 2. Essential hypertension 3. Chronic pain 4. Serum AST (aspartate aminotransferase) level outside reference range 5. Exposure to potentially hazardous substance 6. Tobacco abuse 7. Ankle pain 8. Alcohol dependence 9. Anxiety disorder 10. Obesity 11. Impaired fasting glucose 12. Hyperlipidemia 13. Back pain 14. Benign essential hypertension 15. Sciatica (SNOMED CT 09203062) 16. Generalized anxiety disorder (SNOMED CT 46949171) 17. Depressive episode (SNOMED CT 65460154) HISTORY: PERIOD OF SERVICE - morphCARD FROM Aug TO May COMBAT SERVICE INDICATED: No SERVICE CONNECTED % - 10 VITAL SIGNS: Temperature 98.3 F [36.8 C] (05/19/2025 15:34) Blood Pressure 122/76 (05/19/2025 15:34) Pulse 96 (05/19/2025 15:34) Respiration 20 (05/19/2025 15:34) Pain 0 (08/27/2023 15:04) BMI BMI: 31.2 Weight 249 lb [112.94 kg] (05/19/2025 15:34) Pulse Oximetry 93% (05/19/2025 15:34) Review of Systems: CONSTITUTIONAL: No fever, appetite is slowly improving ENT: No sore throat, no cough CARDIOVASCULAR: No chest pain, no palpitations RESPIRATORY: No SOB, no wheezing GASTROINTESTINAL: vet notes loose stools w/ use of lactulose// no blood in stool EXAMINATION General: this is chronically ill-appearing gentleman in no obvious distress/ but he markedly improved from last visit in April. Mental Status: Alert and oriented Head: Normocephalic. GI: Abdomen has much less distention but remains mildly tender difffusely over entire abodmen. some tympany noted in upper abdomen area. Ext: 2 edema bilat/ improved from severe edema 5 weeks ago DATA REVIEW >> MEDICATIONS Reviewed Today ([facility] [...] FOR HIGH TRIGLYCERIDES Expr : 05/19/26 2) LISINOPRIL 20MG TAB Qty: 90 for 90 days Sig: ACTIVE Issue: 05/19/25 TAKE ONE TABLET BY MOUTH ONCE DAILY TO Refills: 1 Last : 05/22/25 CONTROL BLOOD PRESSURE Expr : 05/20/26 Indication: FOR HIGH BLOOD PRESSURE 3) PRAZOSIN HCL 1MG CAP Qty: 53 for [...] BY ACTIVE MOUTH THREE TIMES A DAY 5 Total Medications >> LABS REVIEWED TODAY: CHEM [...] Reconciliation DUE NOW COVID-19 Immunization Jun 29 Sexual Orientation DUE NOW RHS Screen DUE NOW (Optional) Whole Health Documentation DUE NOW ASSESSMENT/PLAN: 1. alcoholic liver dz 2. ascites and edema 3. HTN 4. chronic pain Plan 1. vet will do labs today to re-assess liver fxn and to prepare for [facility] w/ hepatology next week. 2. vet repeats during visit that he does NOT plan use etoh/urged to maintain abstinence 3. refill thiamine, folic acid 4. continue furosemide 40 and spironolactone 25 ( vet may need to incr spirono to 50 in future) 5. reduce lisinopril form 20 to 10mg daily 6. will fill oxycodone 5 mg tabs qid PRN and will advise vet if liver tests show continued damage. 7. [facility] AND in september LAB ORDERS FOR NEXT APPT. spent in [...] of active outpatient prescriptions dispensed from this [facility] (local) and dispensed from another [facility] or [facility] facility (remote) as well as inpatient orders [...] provider. /norberto/ GABRIELA SHANKAR MD PHYSICIAN Signed: 06/24/2025 09:25 [facility]
--- OUTSIDE RECORDS SUMMARY | 2025-06-27 10:05 | XMS_ITS | Encounter Summary ---
Author Name [facility] [place] Organization [facility] [place] Address [address] [place] [address] Care Team Providers Care Childcare Teacher Name Role Phone GABRIELA SHANKAR Primary Care [...] Relationship to Policy Proctor CAREMARK PRESCRIPT ION [facility] Apr 27, 2023 [id number] BLANKAWY GINO PATIENT [employer] ([id number]) PRESCRIPT ION [facility] February 25, 2023 [id number] YENY MOSCOSO [facility] ORGANIZAT ION [facility] Apr 27, 2023 [id number] [id number] [id number] [facility] February 25, 2023 [id number] [phone] [id number] [facility] February 25, 2023 [id number] [phone] [id number] [phone] BLANKAWY GINO PATIENT Selected Encounter This section includes the information on record at [place] for the Encounter. Date/Time Encounter Type Encounter Description Reason Provider Source Jun 27, 2025 02:05 PM Outpatient Encounter PRIMARY CARE/MEDICINE MATT SHANKAR IHMarleny Encounter Template Text not used by [place] Plan of Treatment: Future Appointments (+ 6 months) and Future Tests (+/- 45 days) The Plan of Treatment section includes future care activities for the patient [facility] [place] [facility] This section includes future appointments and future orders which are active, pending or scheduled. Future Appointments This section includes appointments that were scheduled to occur 6 months from the date of the Encounter, up to a maximum of 20 appointments. The data comes from all [facility]. Appointment Date/Time Appointment Type Appointme nt Facility Name Jul 01, 2025 12:00 PM AMBULATORY [facility] Jul 01, 2025 12:00 PM AMBULATORY - NONE [place] [facility] [place] [facility] Jul 19, 2025 02:30 PM AMBULATORY - SURGERY [place] [facility]RL [facility] [facility] Jul 22, 2025 01:30 PM AMBULATORY - MEDICINE [place] [facility] [place] [facility] Jul 29, 2025 01:30 PM AMBULATORY - MEDICINE [place] [facility] [place] [facility] Oct 11, 2025 01:30 PM AMBULATORY - MEDICINE [place] [facility] [place] [facility] Active, Pending, and Scheduled Orders This section includes a listing of several types of active, pending, and scheduled orders, including clinic medications orders, diagnostic test orders, procedure orders and consult orders; where the start date of the order is 45 days before the date of the Encounter or 45 days after the date of theEncounter. The data comes from all [facility]. Test Date/Time Test Type Test Details Facility Name May 19, 2025 12:00 AM Laboratory - Chemistry Order HEPATITIS B SURFACE ANTIGEN (HBsAg)-WH BLOOD (SST-SERUM) [facility] May 19, 2025 12:00 AM Laboratory - Chemistry Order HEPATITIS B CORE (Total) Ab BLOOD (SST-SERUM) [facility] W[facility] May 19, 2025 12:00 AM Laboratory - Chemistry Order HEPATITIS C ANTIBODY (HCV)-ARC BLOOD (MARBLED-TOP SERUM) SP [facility] May 19, 2025 12:00 AM Laboratory - Chemistry Order FERRITIN BLOOD (SST-SERUM) SP [facility] May 19, 2025 12:00 AM Laboratory - Chemistry Order IRON & TIBC PANEL BLOOD (SST-SERUM) [facility] May 19, 2025 12:00 AM Laboratory - Chemistry Order MARCELO SCREEN/TITER BLOOD (SST-GOLD) SERUM [facility] May 19, 2025 12:00 AM Laboratory - Chemistry Order GAMMA-GTP BLOOD (SST-SERUM) [facility] May 19, 2025 12:00 AM Laboratory - Chemistry Order ALBUMIN BLOOD (SST-SERUM) [facility] May 19, 2025 12:00 AM Laboratory - Chemistry Order PROTEIN,TOTAL BLOOD (SST-SERUM) SP ONCE [facility] May 19, 2025 12:00 AM Laboratory - Chemistry Order ALBUMIN BLOOD (SST-SERUM) [facility] May 19, 2025 12:00 AM Laboratory - Chemistry Order ALKALINE PHOSPHATASE BLOOD (SST-SERUM) [facility] May 19, 2025 12:00 AM Laboratory - Chemistry Order AST BLOOD (SST-SERUM) [facility] May 19, 2025 12:00 AM Laboratory - Chemistry Order BILIRUBIN, TOTAL BLOOD (SST-SERUM) [facility] May 19, 2025 12:00 AM Laboratory - Chemistry Order ALT BLOOD (SST-SERUM) [facility] May 19, 2025 03:57 PM Laboratory - Chemistry Order PT & INR (PROTIME) BLOOD (BLUE-PLASMA) [facility] May 19, 2025 03:57 PM Consult [facility] Artificial Intelligence Specialist's Choice [facility] May 26, 2025 12:00 AM Laboratory - Chemistry Order LIVER KIDNEY MICROSOME ANTIBODY BLOOD (RED-PLAIN) SERUM [facility] May 26, 2025 12:00 AM Laboratory - Chemistry Order MARCELO SCREEN/TITER BLOOD (SST-GOLD) SERUM [facility] May 26, 2025 12:00 AM Laboratory - Chemistry Order IGG BLOOD (SST-SERUM) [facility] May 26, 2025 12:00 AM Laboratory - Chemistry Order ACTIN (SMOOTH MUSCLE) ANTIBODY (IgG) BLOOD (SST-SERUM) [facility] May 26, 2025 12:00 AM Laboratory - Chemistry Order FERRITIN BLOOD (SST-SERUM) [facility] May 26, 2025 12:00 AM Laboratory - Chemistry Order CERULOPLASMIN BLOOD (RED-PLAIN) SERUM [facility] May 26, 2025 12:00 AM Laboratory - Chemistry Order IRON & TIBC PANEL BLOOD (SST-SERUM) [facility] May 26, 2025 12:00 AM Laboratory - Chemistry Order A1A PHENOTYPE PANEL BLOOD (SST-SERUM) [facility] May 26, 2025 12:00 AM Laboratory - Chemistry Order HEPATITIS B CORE (Total) Ab BLOOD (SST-SERUM) [facility] May 26, 2025 12:00 AM Laboratory - Chemistry Order HEPATITIS B SURFACE ANTIGEN (HBsAg)- BLOOD (SST-SERUM) [facility] May 26, 2025 12:00 AM Laboratory - Chemistry Order HEPATITIS B SURFACE ANTIBODY (HBsAb)- BLOOD (SST-SERUM) [facility] May 26, 2025 12:00 AM Laboratory - Chemistry Order CBC AND DIFF (AUTO) BLOOD (LAV-BLOOD) [facility] May 26, 2025 12:00 AM Laboratory - Chemistry Order PT & INR (PROTIME) BLOOD (BLUE-PLASMA) [facility] May 26, 2025 12:00 AM Laboratory - Chemistry Order ALPHA-FETOPROTEIN BLOOD (SST-SERUM) [facility] May 26, 2025 12:00 AM Laboratory - Chemistry Order LIVER FUNCTION BLOOD (SST-SERUM) [facility] May 26, 2025 12:00 AM Laboratory - Chemistry Order BASIC METABOLIC PANEL (non-fasting) BLOOD (SST-SERUM) SP [facility] Jun 24, 2025 09:26 AM Laboratory - Chemistry Order LIVER KIDNEY MICROSOME ANTIBODY BLOOD (RED-PLAIN) SERUM SP [facility] Jun 24, 2025 09:26 AM Laboratory - Chemistry Order ACTIN (SMOOTH MUSCLE) ANTIBODY (IgG) BLOOD (SST-SERUM) [facility] Jun 24, 2025 09:26 AM Laboratory - Chemistry Order A1A PHENOTYPE PANEL BLOOD (SST-SERUM) [facility] Lab Results: +/- 30 days of [...] Type Comment Jun 24, 2025 09:26 AM [facility] MARCELO SCREEN/TITER SERUM Specimen Type: SERUM No comment entered. Ordering Provider: MATT SHANKAR Report Released Date/Time: Jun 24, 2025 09:00 AM Reporting Lab: [facility] [address] [address] Performing Lab: [facility] [address] [facility] [address] MARCELO SCREEN NEG NEG <1:40 Jun 24, 2025 09:26 AM [facility] CERULOPLASMIN SERUM Specimen Type: SERUM Comment: Specimen Icteric Ordering Provider: GABRIELA SHANKAR Report Released Date/Time: Jun 24, 2025 09:00 AM Reporting Lab: [address] [address] Performing Lab: [facility] [address] [facility] [address] CERULOPLASMIN 29 mg/dL 20-60 Jun 24, 2025 09:26 AM [facility] IGG SERUM Specimen Type: SERUM Comment: Specimen Icteric Ordering Provider: GABRIELA SHANKAR Report Released Date/Time: Jun 24, 2025 09:00 AM Reporting Lab: [facility] [address] [address] Performing Lab: [facility] [address] [facility] [address] IGG 3210 mg/dL H 700-1600 Jun 24, 2025 09:26 AM [facility] HEPATITIS B CORE (Total) Ab SERUM Specimen [...] Jun 24, 2025 09:00 AM Reporting Lab: [address] [address] Performing Lab: [facility] [address] [facility] [address] HEPATITIS B CORE (Total) Ab Non Reactive Non Reactive Jun 24, 2025 09:26 AM [facility] HEPATITIS B SURFACE ANTIBODY (HBsAb)-WH SERUM Specimen Type: SERUM Comment: Hep B [...] Jun 24, 2025 09:00 AM Reporting Lab: [place] [facility] [place] [facility] [address] [address] Performing Lab: [place] [facility] [place] [facility] [address] [facility] [address] HBsAb GRAYZONE Non Reactive Jun 24, 2025 09:26 AM [facility] HEPATITIS B SURFACE ANTIGEN (HBsAg)-WH SERUM Specimen Type: SERUM Comment: Specimen Icteric Ordering Provider: GABRIELA SHANKAR Report Released Date/Time: Jun 24, 2025 09:00 AM Reporting Lab: [place] [facility] [place] [facility] [address] [address] Performing Lab: [place] [facility] [address] [facility] [address] HBsAg Non Reactive Non Reactive Jun 24, 2025 09:26 AM [facility] ALPHA-FETOPROTEIN SERUM Specimen Type: SERUM Comment: Specimen Icteric Ordering Provider: GABRIELA SHANKAR Report Released Date/Time: Jun 24, 2025 09:00 AM Reporting Lab: [facility] [place] [facility] [address] [address] Performing Lab: [place] [facility] [address] [facility] [address] ALPHA-FETOPROTEIN 7.79 ng/mL 0-10 Jun 24, 2025 09:26 AM [facility] FERRITIN SERUM Specimen Type: SERUM No comment entered. Ordering Provider: GABRIELA SHANKAR Report Released Date/Time: Jun 24, 2025 09:00 AM Reporting Lab: [place] [facility] [facility] [address] [address] Performing Lab: [place] [facility] [address] [address] FERRITIN 1213.8 ng/mL H 21.8-274.7 Jun 24, 2025 09:26 AM [facility] IRON & TIBC PANEL SERUM Specimen Type: SERUM No comment entered. Ordering Provider: GABRIELA SHANKAR Report Released Date/Time: Jun 24, 2025 09:00 AM Reporting Lab: [address] [address] Performing Lab: [address] [address] TIBC 182 ug/dL L 204-475 IRON 91 ug/dL 65-175 Transferrin Saturation 50.0 H 15-45 Transferrin (TRF) 138 mg/dL L 174-364 Jun 24, 2025 09:26 AM [facility] PT & INR (PROTIME) PLASMA Specimen Type: PLASM A No comment entered. Ordering Provider: GABRIELA SHANKAR Report Released Date/Time: Jun 24, 2025 09:00 AM Reporting Lab: [address] [address] Performing Lab: [address] [address] INR 1.9 PROTIME 20.9 s H 10.0-13.1 Jun 24, 2025 09:26 AM [facility] LIVER FUNCTION SERUM Specimen Type: SERUM No comment entered. Ordering Provider: GABRIELA SHANKAR Report Released Date/Time: Jun 24, 2025 09:00 AM Reporting Lab: [address] [address] Performing Lab: [address] [address] PROTEIN,TOTAL 8.7 g/dL H 6.4-8.3 ALBUMIN 2.6 g/dL L 3.5-5.2 ALKALINE PHOSPHATASE 84 U/L 40-150 AST 87 U/L H 5-34 ALT 41 U/L 0-55 BILIRUBIN, TOTAL 6.3 mg/dL H 0.2-1.2 BILIRUBIN, DIRECT 3.6 mg/dL H 0-0.5 Jun 24, 2025 09:26 AM [facility] BASIC METABOLIC PANEL (non-fasting) SERUM Spe cimen Type: SERUM No comment entered. Ordering Provider: GABRIELA SHANKAR Report Released Date/Time: Jun 24, 2025 09:00 AM Reporting Lab: [facility] [address] [address] Performing Lab: [facility] [address] [address] UREA NITROGEN 7 mg/dL L 8-26 GLUCOSE 105 mg/dL H 65-100 SODIUM 136 mmol/L 136-145 POTASSIUM 3.9 mmol/L 3.5-5.1 CHLORIDE 99 mmol/L 98-107 CO2 22 meq/L 22-29 CALCIUM 8.4 mg/dL 8.4-10.2 CREATININE, Serum 0.62 mg/dL L 0.72-1.25 eGFR(CKD-EPI 2020) >90 mL/min >60 Jun 24, 2025 09:26 AM [facility] CBC AND DIFF (AUTO) BLOOD Specimen Type: BLOO D No comment entered. Ordering Provider: GABRIELA SHANKAR Report Released Date/Time: Jun 24, 2025 09:00 AM Reporting Lab: [facility] [address] [address] Performing Lab: [facility] [address] [address] WBC 9.47 10*3/uL 4.50-11.00 RBC 3.60 10*6/uL [...] took place. Date/Time Current Smoking Status Comment [facility] Aug 28, 2024 08:30 AM VA-TOBACCO USER EVERY DAY [place] [facility] Tobacco Use History This section includes a history of the smoking, or tobacco-related health factors, that were collected on or before the date of the Encounter. The data comes from the [place] facility where the Encounter took place. 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 [place] [facility] [place] [facility] Aug 28, 2024 08:30 AM VA-TOBACCO USE MED NO [place] [facility] [place] [facility] Aug 28, 2024 08:30 AM VA-TOBACCO USER EVERY DAY [place] [facility] [place] [facility] Aug 27, 2023 03:00 PM VA-TOBACCO USE > 15 LESS THAN 30 YEARS [facility] [place] [facility] Aug 27, 2023 03:00 PM VA-TOBACCO USE ADVICE [place] [facility] [place] [facility] Aug 27, 2023 03:00 PM 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 [facility] [place] [facility] Aug 27, 2023 03:00 PM VA-TOBACCO USE MED NO [facility] [place] [facility] Aug 27, 2023 03:00 PM VA-TOBACCO USE WI 30 MIN OF WAKEUP [facility] [place] [facility] Aug 27, 2023 03:00 PM VA-TOBACCO USER EVERY DAY [facility] [place] [facility] Dec 09, 2020 03:30 PM VA-TOBACCO DOESNT USE WI 30 MIN WAKEUP [facility] [place] [facility] Dec 09, 2020 03:30 PM VA-TOBACCO USE > 15 LESS THAN 30 YEARS [facility] [place] [facility] Dec 09, 2020 03:30 PM VA-TOBACCO USE ADVICE [facility] [place] [facility] Dec 09, 2020 03:30 PM 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 [facility] [place] [facility] Dec 09, 2020 03:30 PM VA-TOBACCO USE MED NOTIFY PROVIDER vet requests lucero: does not like gum not helpful [facility] [place] [facility] Dec 09, 2020 03:30 PM VA-TOBACCO USER SOME DAYS [facility] [place] [facility] Jul 08, 2019 12:33 PM VA-TOBACCO DOESNT USE WI 30 MIN WAKEUP [facility] [place] [facility] Jul 08, 2019 12:33 PM VA-TOBACCO USE > 15 LESS THAN 30 YEARS [facility] [place] [facility] Jul 08, 2019 12:33 PM VA-TOBACCO USE ADVICE [facility] [place] [facility] Jul 08, 2019 12:33 PM VA-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 YES [facility] [place] [facility] Jul 08, 2019 12:33 PM VA-TOBACCO USE MED NOTIFY PROVIDER Gum [facility] [place] [facility] Jul 08, 2019 12:33 PM VA-TOBACCO USER SOME DAYS [facility] [place] [facility] May 15, 2018 03:13 PM CURRENT SMOKER 4-6 cigarettes daily [facility] [place] [facility] Nov 22, 2016 08:55 AM CURRENT [facility]MOKER [facility] Nov 22, 2016 08:55 AM V1-PT DECLINES REF TO TOBACCO CESS PRGM [facility] Nov 22, 2016 08:55 AM V1-PT DECLINES TOBACCO CESSATION MEDS [facility] Nov 22, 2016 08:55 AM V1-PT THINKING ABOUT QUIT TOBACCO USE [facility] Nov 15, 2016 09:05 AM CURRENT SMOKER 8 TO 10 CIGARETTES PER DAY [facility] Nov 08, 2016 09:20 AM CURRENT SMOKER Smokes 1/2 pack of cigarettes per day [facility] Oct 31, 2016 06:35 PM TOBACCO INPATIENT DECLINES MEDS [facility] Oct 31, 2016 03:08 PM CURRENT SMOKER [facility] March 07, 2016 09:18 PM V1-PT NOT INTERESTED IN QUIT TOBACCO USE [facility] Jun 11, 2015 10:28 AM CURRENT SMOKER 6-8 cigs per day [facility] Jan 21, 2014 10:56 AM CURRENT SMOKER 4-6 cigarettes per day [facility] Jan 21, 2014 10:56 AM V1-PT NOT INTERESTED IN QUIT TOBACCO USE [facility] Radiology Reports: +/- 30 days of the [...] the Encounter. The data comes from all [facility] facilities. Date/Time Radiology Report Provider Source Jun 08, 2025 01:22 PM ULTRASOUND ELASTOGRAPHY PARENCHYMA: GABRIELA MOSCOSO [id number] -[phone] M Exm Date: JUN 08, 2025@13:22 Req Phys: GABRIELA SHANKAR Pat Loc: [facility] PACT 4 ([place] [facility]) Img Loc: ULTRASOUND Service: Unknown [facility] [place] [address] (Case [id number] COMPLETE) ULTRASOUND ABDOMEN LIMITED (US Detailed) CPT:97662 Reason for Study: jaundice (Case 175 COMPLETE) ULTRASOUND ELASTOGRAPHY PARENCHYM(US Detailed) CPT:48250 Clinical History: Report Status: Verified Date Reported: JUN 08, 2025 Date Verified: JUN 08, 2025 Paper Products Inspector E-Sig:/ES/CANDACE HOFFMAN JR Report: Study: Abdomen ultrasound [...] is present with no gallstones identified. The fluorescent solution mixer reports a negative sonographic Chauhan sign is [...] Primary Interpreting Staff: CANDACE HOFFMAN JR, Radiologist (Paper Products Inspector) /CANDACE ELIZONDO JR [place] [facility] [facility] Encounter Notes: All associated encounter notes This section contains the clinical notes associated to the Encounter. Date/Time Encounter Note(s) Provider Source Jun 27, 2025 02:05 PM LETTERS: LOCAL TITLE: VISN 1 RESULT LETTER AUTOMAIL STANDARD TITLE: LETTERS DICT DATE: JUN 27, 2025@14:05:25 ENTRY DATE: JUN 27, 2025@14:05:26 DICTATED BY: TI SHANKAR EXP COSIGNER: URGENCY: STATUS: COMPLETED SUBJECT: AUTOMATED RESULT LETTER - Single Note 68 lines - provider may cinthia Dear : GABRIELA MOSCOSO Thank you for choosing the [facility] as your health care provider. Here are your Jun 24 2025 exam results. For any questions, please call your team via the [place] Call Center at [phone] or message them by secure messaging. TEST NAME RESULT UNITS REF. RANGE ======== CERULOPLASMIN 29 mg/dL 20 - 60 MARCELO SCREEN NEG Ref: NEG <1:40 IRON & TIBC PANEL TIBC 182 L ug/dL 204 - 475 IRON 91 ug/dL 65 - 175 Transferrin Saturation 50.0 H % 15 - 45 Transferrin (TRF) 138 L mg/dL 174 - 364 BASIC METABOLIC PANEL (non-fasting) SODIUM 136 mmol/L 136 - 145 POTASSIUM 3.9 mmol/L 3.5 - 5.1 CHLORIDE 99 mmol/L 98 - 107 CO2 22 mEq/L 22 - 29 UREA NITROGEN 7 L mg/dL 8 - 26 GLUCOSE 105 H mg/dL 65 - 100 CALCIUM 8.4 mg/dL 8.4 - 10.2 CREATININE, Serum 0.62 L mg/dL 0.72 - 1.25 eGFR(CKD-EPI 2020) >90 mL/min Ref: >=60 LIVER FUNCTION PROTEIN,TOTAL 8.7 H g/dL 6.4 - 8.3 ALBUMIN 2.6 L g/dL 3.5 - 5.2 ALKALINE PHOSPHATASE 84 U/L 40 - 150 AST 87 H U/L 5 - 34 BILIRUBIN, TOTAL 6.3 H mg/dL 0.2 - 1.2 BILIRUBIN, DIRECT 3.6 H mg/dL 0 - 0.5 ALT 41 U/L 0 - 55 FERRITIN 1213.8 H ng/mL 21.8 - 274.7 HEPATITIS B CORE (Total) Non Reactive Ref: Non Reactiv HBsAg Non Reactive Ref: Non Reactiv HBsAb GRAYZONE Ref: Non Reactiv IGG 3210 H mg/dL 700 - 1600 ALPHA-FETOPROTEIN 7.79 ng/mL 0 - 10 CBC AND DIFF (AUTO) WBC 9.47 10*3/uL 4.50 - 11.00 RBC 3.60 L 10*6/uL 4.23 - 5.66 HGB 12.2 L g/dL 12.8 - 17 HCT 37.0 L % 39.2 - 50.4 MCV 102.8 H fl 82 - 99 MCH 33.9 H pg 26.2 - 32.6 MCHC 33.0 g/dL 30.8 - 35.1 RDW-CV 12.6 % 12.0 - 16.0 PLT 177 10*3/uL 140 - 360 MPV 9.4 fL 9.2 - 12.4 NEUT % 70.8 % 43.7 - 75.8 LYMPH % 17.8 % 14.0 - 42.3 MONO % 8.9 % 5.1 - 13.7 EOS % 1.3 % 0.4 - 6.8 BASO % 0.8 % 0.1 - 2.0 IMMATURE GRAN % 0.4 % 0.0 - 0.7 NRBC % 0.0 % 0.0 - 0.0 NEUT, ABS 6.70 10*3/uL 2.20 - 7.60 LYMPH, ABS 1.69 10*3/uL 1.00 - 3.20 MONO, ABS 0.84 10*3/uL 0.30 - 1.10 EOS, ABS 0.12 10*3/uL 0.03 - 0.44 BASO, ABS 0.08 10*3/uL 0.01 - 0.13 IMMATURE GRAN, ABS 0.04 10*3/uL 0.00 - 0.06 NRBC, ABS 0.00 10*3/uL 0.00 - 0.00 PT & INR (PROTIME) INR 1.9 PROTIME 20.9 H sec 10.0 - 13.1 TI SHANKAR [facility]
--- OUTSIDE RECORDS SUMMARY | 2025-06-29 02:38 | XMS_ITS | Continuity of Care Document ---
Author Name [facility] Organization [facility] Care Team Providers Care Plane Tableman Name Role Phone [facility] Unavailable Unavailable Problems Combined list of problems from Department of Defense and Veterans Affairs facilities. It does not include entries that were removed or entered in error. Problem Status Onset Date Problem Type Date of Resolution Comments Source Depressive episode (SNOMED CT 30736773) Active 10/28/18 86 Condition [facility] Alcohol dependence Active Condition Nov 15, 2016 Entered By: MOHAN HOPKINS Comment: Alcohol Use Disorder, Moderate [facility]ISEC[facility] ALD - Alcoholic liver disease Active Condition May 19, 2025 Entered By: YENY SHANKAR Comment: vet w/ new onset ascites, jaundice, scleral icterus and caput medusae- 2024Jul 2024 Entered By: YENY SHANKAR Comment: vet admits to heavy etoh use in past-now reports only 3 drinks per day [facility] Ankle pain Active Condition [facility] Anxiety disorder Active Condition [place] Ascites Active Condition Jun 24 Entered By: YENY SHANKAR Comment: vet w/ ascites and LE edema/ paracentesis twice during hosp stay at [place]- April 2025 [facility] Back pain Active Condition [facility] Benign essential hypertension Active Condition [facility] Chronic pain Active Condition Apr 09, 2024 Entered By: YENY SHANKAR Comment: sciatica/back pain/hernia surgeries/ankle pain/SC 10% [facility] Essential hypertension Active Condition May 18, 2025 Entered By: YENY SHANKAR Comment: etoh is factor in worsening BP [facility] Exposure to potentially hazardous substance Active Condition Dec 30, 2023 Entered By: ISA MERRILL Comment: Connect Snomed Code to ICD 10 Code refer to note dated 08/27/23 [facility] Generalized anxiety disorder (SNOMED CT 82252937) Active Condition [facility] Hyperlipidemia Active Condition [facility] Impaired fasting glucose Active Condition [facility]esity Active Condition [facility] Sciatica (SNOMED CT 72041398) Active Condition Jan 21, 2015 Entered By: DEISI NGUYEN Comment: left foot drop- chronic [facility] Serum AST (aspartate aminotransferase) level outside reference range Active Condition [facility] Tobacco abuse Active Condition Oct Entered By: MOHAN HOPKINS Comment: Tobacco (Cigarette) Use Disorder, [facility] Diagnosis: ICD-10-CM K70.9 Alcoholic liver disease, unspecified Active Diagnosis [facility] Diagnosis: ICD-10-CM H25.13 Age-related nuclear cataract, bilateral Active Diagnosis [facility] Diagnosis: ICD-10-CM Z71.89 Other specified counseling Active Diagnosis [facility] Diagnosis: ICD-10-CM Z71.9 Counseling, unspecified Active Diagnosis [facility] Diagnosis: ICD-10-CM R52 Pain, unspecified Active Diagnosis [facility] Diagnosis: ICD-10-CM F41.9 Anxiety disorder, unspecified Active Diagnosis [facility] Diagnosis: ICD-10-CM M25.579 Pain in unspecified ankle and joints of unspecified foot Active Diagnosis [facility] Diagnosis: ICD-10-CM S93.692A Other sprain of left foot, initial encounter Active Diagnosis [facility] Diagnosis: ICD-10-CM Z23 Encounter for immunization Active Diagnosis [facility] Diagnosis: ICD-10-CM Z13.6 Encounter for screening for cardiovascular disorders Active Diagnosis [facility] Diagnosis: ICD-10-CM R03.0 Elevated blood-pressure reading, w/o diagnosis of htn [facility] Diagnosis: ICD-10-CM L84 Corns and callosities Active [facility] Medications Combined list of outpatient medications from Department of Defense and Veterans Affairs facilities.Medications provided include 1) outpatient medications from the last 15 months, and 2) patient-reported medications. Medication Details Route Status Patient Instructions Prescription Expires Prescription Number Last Dispense Date Ordering Provider Order Date Order Qty Source FENOFIBRATE 48MG TAB TAKE ONE TABLET BY MOUTH ONCE DAILY ORAL ACTIVE 05/19/2026 [id number] STEPHANIE CUNNINGHAM 2024 90 [facility] FENOFIBRATE 48MG TAB TAKE ONE TABLET BY MOUTH ONCE DAILY ORAL DISCONT INUED 04/07/2025 [id number] 5 STEPHANIE CUNNINGHAM 2023 90 [facility] FOLIC ACID 1MG TAB TAKE ONE TABLET BY MOUTH ONCE DAILY VITAMIN/ NUTRITIO N SUPPLEME NT ORAL ACTIVE 06/25/2026 [id number] 5 STEPHANIE CUNNINGHAM 2024 90 [facility] FUROSEMIDE 40MG TAB TAKE ONE TABLET BY MOUTH ONCE DAILY TO REMOVE FLUID/CO NTROL BLOOD PRESSURE ORAL ACTIVE 06/25/2026 [id number] 5 STEPHANIE CUNNINHGAM 2024 90 [facility] LACTULOSE 10GM/15ML SOLN,ORAL TAKE 45 ML (3 TABLESPO ONS) BY MOUTH ONCE DAILY NEEDED ORAL ACTIVE STEPHANIE CUNNINGHAM 2024 [facility] LIDOCAINE 5% OINT,TOP APPLY SMALL AMOUNT TOPICALL Y TWICE DAILY FOR MINOR SKIN WOUND PAIN TOPICA L 05/06/2025 [id number] STEPHANIE CUNNINGHAM 2023 35 [facility] LISINOPRIL 10MG TAB TAKE ONE TABLET BY MOUTH ONCE DAILY TO CONTROL BLOOD PRESSURE ORAL ACTIVE 06/25/2026 [id number] 5 STEPHANIE CUNNINGHAM 2024 90 [facility] LISINOPRIL 20MG TAB TAKE ONE TABLET BY MOUTH ONCE DAILY TO CONTROL BLOOD PRESSURE ORAL DISCONT INUED (EDIT) 05/20/2026 [id number] 5 STEPHANIE CUNNINGHAM 2024 90 [facility] LISINOPRIL 20MG TAB TAKE ONE TABLET BY MOUTH EVERY MORNING ORAL ACTIVE STEPHANIE CUNNINGHAM 2011 [facility] LORAZEPAM 0.5MG TAB TAKE ONE TABLET BY MOUTH THREE TIMES A DAY ORAL ACTIVE DARIEL QUINTERO JAWED 2017 [facility] MIRTAZAPINE 30MG TAB TAKE ONE TABLET BY MOUTH AT BEDTIME FOR DEPRESSI ON/MOOD ORAL DISCONT INUED BY PROVIDE R 11/12/2025 [id number] 5 STEPHANIE CUNNINGHAM 2024 90 [facility] NALOXONE HCL 4MG/SPRAY SOLN,SPRAY, NASAL INSTILL 1 SPRAY ONE NOSTRIL ONE TIME NEEDED FOR OPIOID OVERDOSE CALL 911 WITH ADMINIST RATION. REPEAT WITH SECOND DEVICE IF SYMPTOMS RETURN NASAL 08/31/2024 [id number] 4 STEPHANIE CUNNINGHAM 2023 2 [facility] OXYCODONE HCL 5MG TAB TAKE ONE TABLET BY MOUTH EVERY 6 HOURS NEEDED NEXT FILL 07/22 ORAL ACTIVE 07/24/2025 [id number] 5 STEPHANIE CUNNINGHAM 2024 112 [facility] OXYCODONE HCL 5MG TAB TAKE ONE TABLET BY MOUTH EVERY 6 HOURS NEEDED NEXT FILL 05/31 ORAL DISCONT INUED (EDIT) 06/02/2025 [id number] 5 ANUPAMA STYLES 2024 112 [facility] OXYCODONE HCL 5MG TAB TAKE ONE TABLET BY MOUTH EVERY 6 HOURS NEEDED FOR PAIN ORAL DISCONT INUED (EDIT) 04/02/2025 [id number] 5 STEPHANIE CUNNINGHAM 2024 112 [facility] OXYCODONE HCL 5MG TAB TAKE ONE TABLET BY MOUTH EVERY 6 HOURS NEEDED NEXT FILL 03/09 ORAL DISCONT INUED (EDIT) 03/06/2025 [id number] 5 STEPHANIE CUNNINGHAM 2024 112 [facility] OXYCODONE HCL 5MG TAB TAKE ONE TABLET BY MOUTH EVERY 6 HOURS FOR PAIN ORAL DISCONT INUED 02/05/2025 [id number] 5 STEPHANIE CUNNINGHAM 2024 112 [facility] OXYCODONE HCL 5MG TAB TAKE ONE TABLET BY MOUTH EVERY 6 HOURS FOR PAIN ORAL DISCONT INUED (EDIT) 01/09/2025 [id number] 5 STEPHANIE CUNNINGHAM 2024 112 [facility] OXYCODONE HCL 5MG TAB TAKE ONE TABLET BY MOUTH EVERY 6 HOURS NEXT FILL 12/18 ORAL DISCONT INUED (EDIT) 12/11/2024 [id number] 5 STEPHANIE CUNNINGHAM 2024 112 [facility] OXYCODONE HCL 5MG TAB TAKE ONE TABLET BY MOUTH EVERY 6 HOURS NEXT FILL 11/20 ORAL DISCONT INUED (EDIT) 11/20/2024 [id number] 4 STEPHANIE CUNNINGHAM 2023 112 [facility] OXYCODONE HCL 5MG TAB TAKE ONE TABLET BY MOUTH EVERY 6 HOURS FOR PAIN (NEXT FILL 09/25/24 ) ORAL DISCONT INUED (EDIT) 09/23/2024 [id number] 4 STEPHANIE CUNNINGHAM 2023 112 [facility] OXYCODONE HCL 5MG TAB TAKE ONE TABLET BY MOUTH EVERY 6 HOURS NEXT FILL 08/28 ORAL DISCONT INUED (EDIT) 08/24/2024 [id number] 4 STEPHANIE CUNNINGHAM 2023 112 [facility] OXYCODONE HCL 5MG TAB TAKE ONE TABLET BY MOUTH EVERY 6 HOURS NEXT FILL 07/31 ORAL DISCONT INUED (EDIT) 07/30/2024 [id number] 4 STEPHANIE CUNNINGHAM 2023 112 [facility] OXYCODONE HCL 5MG TAB TAKE ONE TABLET BY MOUTH EVERY 6 HOURS FOR PAIN (NEXT FILL 07/03/24) ORAL DISCONT INUED 07/02/2024 [id number] 4 STEPHANIE CUNNINGHAM 2023 112 [facility] OXYCODONE HCL 5MG TAB TAKE ONE TABLET BY MOUTH EVERY 6 HOURS NEXT FILL 06/04 ORAL DISCONT INUED (EDIT) 06/04/2024 [id number] 4 DALILA TAVERAS 2023 112 [facility] OXYCODONE HCL 5MG TAB TAKE ONE TABLET BY MOUTH EVERY 6 HOURS FOR PAIN (NEXT FILL 05/07/24) ORAL DISCONT INUED 05/06/2024 [id number] 4 STEPHANIE CUNNINGHAM 2023 112 [facility] OXYCODONE HCL 5MG TAB TAKE ONE TABLET BY MOUTH THREE TIMES DAILY NEEDED FOR PAIN ORAL 06/18/2025 [id number] 5 STEPHANIE CUNNINGHAM 2024 84 [facility] OXYCODONE HCL 5MG TAB TAKE ONE TABLET BY MOUTH EVERY 6 HOURS NEEDED NEXT FILL 05/03 ORAL 05/01/2025 [id number] 5 STEPHANIE CUNNINGHAM 2024 [facility] OXYCODONE HCL 5MG TAB TAKE ONE TABLET BY MOUTH EVERY 6 HOURS FOR PAIN (NEXT FILL 10/23/24 ) ORAL 10/16/2024 [id number] 4 STEPHANIE CUNNINGHAM 2023 112 [facility] PRAZOSIN HCL 1MG CAP TAKE ONE CAPSULE BY MOUTH AT BEDTIME FOR 7 DAYS, THEN TAKE TWO CAPSULES AT BEDTIME FOR 23 DAYS FOR HIGH BLOOD PRESSURE ORAL DISCONT INUED BY PROVIDE R 12/08/2025 [id number] 5 STEPHANIE CUNNINGHAM 2024 53 [facility] SPIRONOLACT ONE 25MG TAB TAKE ONE TABLET BY MOUTH ONCE DAILY ORAL SUSPEND ED 06/25/2026 [id number] 5 STEPHANIE CUNNINGHAM 2024 90 [facility] THIAMINE 100MG TAB TAKE ONE TABLET BY MOUTH ONCE DAILY ORAL ACTIVE 06/25/2026 [id number] 5 STEPHANIE CUNNINGHAM 2024 100 [facility] UREA 40% CREAM,TOP APPLY A SMALL AMOUNT TOPICALL Y ONCE DAILY APPLY TO CALLOUSE D SKIN TOPICA L 05/15/2025 [id number] 4 MONIQUE PARIS 2023 60 [facility] Immunizations Combined list of available immunizations from the Department of Defense and Veterans Affairs facilities. 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 Status Comments Source INFLUENZA, SPLIT VIRUS, TRIVALENT, PF 2023 PARVEEN RICHARDSON LEFT DELTO ID [id number] 140 complet ed ADMINISTE [facility], [facility] ZOSTER RECOMBINANT 2022 GEMMA ZIEGLER I LEFT DELTO ID [id number] 187 complet ed Completed Series, ADMINISTE [facility] [place], [facility] INFLUENZA, INJECTABLE, QUADRIVALENT, PRESERVATIVE FREE 2021 150 complet ed [facility] ZOSTER RECOMBINANT 1 2021 187 complet ed [facility] COVID-19 (MODERNA), MRNA, LNP-S, PF, 100 MCG/0.5 ML DOSE 2 2020 207 complet ed MOD; [id number]; 1 [facility] COVID-19 (MODERNA), MRNA, LNP-S, PF, 100 MCG/0.5 ML DOSE 1 2020 207 complet ed MOD; [id number]; 1 [facility] INFLUENZA, INJECTABLE, QUADRIVALENT, PRESERVATIVE FREE 2019 150 complet ed [facility] DTAP, UNSPECIFIED FORMULATION 2015 107 complet ed [facility] PNEUMOCOCCAL POLYSACCHARID E PPV23 2015 33 complet ed [facility] TD(ADULT) UNSPECIFIED FORMULATION 2010 139 complet ed [facility] Results Combined list of recent chemistry, hematology and other laboratory results from Department of Defense and Veterans Affairs, ranging from 15 months to all on record, depending upon the facility. Order Name Results Value Reference Range Date Interpretation Specimen Comments Source ALPHA-FE TOPROTEI N ALPHA-1-FE TOPROTEIN [MASS/VOLU ME] IN SERUM OR PLASMA 7.79 ng/mL 0 - 10 06/24 Specimen Type: SERUM Comment: Specimen Icteric Ordering Provider: GABRIELA SUBRAMANIAN Report Released Date/Time: Jun 24, 2025 09:00 AM Reporting Lab: [facility] [address] [address] Performing Lab: [facility] [facility] [address] [facility] [address] [facility] MARCELO SCREEN/T ITER NUCLEAR AB [PRESENCE] IN SERUM NEG NEG <1:40 - 140 06/24 Specimen Type: SERUM No comment entered. Ordering Provider: GABRIELA SUBRAMANIAN Report Released Date/Time: Jun 24, 2025 09:00 AM Reporting Lab: [facility] [place] [facility] [address] [facility] [address] Performing Lab: [facility] [place] [facility] [address] [facility] [address] [facility] CERULOPL ASMIN CERULOPLAS MIN [MASS/VOLU ME] IN SERUM OR PLASMA 29 mg/dL 20 - 60 06/24 Specimen Type: SERUM Comment: Specimen Icteric Ordering Provider: GABRIELA SUBRAMANIAN Report Released Date/Time: Jun 24, 2025 09:00 AM Reporting Lab: [facility] [place] [facility] [address] [facility] [address] Performing Lab: [facility] [place] [facility] [address] [facility] [address] [facility] FERRITIN FERRITIN [MASS/VOLU ME] IN SERUM OR PLASMA BY IMMUNOASSA Y 1213.8 ng/mL 21.8 - 274.7 06/24 H Specimen Type: SERUM No comment entered. Ordering Provider: GABRIELA SUBRAMANIAN Report Released Date/Time: Jun 24, 2025 09:00 AM Reporting Lab: [facility] [place] [facility] [address] [facility] [address] Performing Lab: [facility] [place] [facility] [address] [facility] [address] [facility] [place] [facility] HEPATITI S B CORE (Total) Ab HEPATITIS B VIRUS CORE AB [PRESENCE] IN SERUM OR PLASMA BY IMMUNOASSA Y Non Reactive 06/24 Specimen Type: SERUM Comment: Hep B Core, Total: This test detects both IgG and IgM antibodies. A nonreactive final interpretat ion indicates that anti-HBc antibodies were not detected in the sample. Hep B Surf Ag: Negative for HBsAg. Other markers of Hepatitis B virus are needed to ascertain Hepatitis B infection status. Ordering Provider: GABRIELA SUBRAMANIAN Report Released Date/Time: Jun 24, 2025 09:00 AM Reporting Lab: [address] [address] Performing Lab: [facility] [address] [facility] HEPATITI S B SURFACE ANTIBODY (HBsAb)- WH HEPATITIS B VIRUS SURFACE AB [PRESENCE] IN SERUM BY IMMUNOASSA Y GRAYZONE 06/24 Specimen Type: SERUM Comment: Hep B Core, Total: This test detects both IgG and IgM antibodies. A nonreactive final interpretat ion indicates that anti-HBc antibodies were not detected in the sample. Hep B Surf Ag: Negative for HBsAg. Other markers of Hepatitis B virus are needed to ascertain Hepatitis B infection status. Hep B Surface Ab: The immune status of the individual should be further assessed by considering other factors, such as clinical status, follow-up testing, associated risk factors and use of additional diagnostic information . Ordering Provider: GABRIELA SUBRAMANIAN Report Released Date/Time: Jun 24, 2025 09:00 AM Reporting Lab: [address] [address] Performing Lab: [address] [address] [facility] HEPATITI S B SURFACE ANTIGEN (HBsAg)- WH HEPATITIS B VIRUS SURFACE AG [PRESENCE] IN SERUM OR PLASMA BY IMMUNOASSA Y Non Reactive 06/24 Specimen Type: SERUM Comment: Specimen Icteric Ordering Provider: GABRIELA SUBRAMANIAN Report Released Date/Time: Jun 24, 2025 09:00 AM Reporting Lab: [address] [address] Performing Lab: [address] [place] [address] [facility] IGG IGG [MASS/VOLU ME] IN SERUM OR PLASMA 3210 mg/dL 700 - 1600 06/24 H Specimen Type: SERUM Comment: Specimen Icteric Ordering Provider: GABRIELA SUBRAMANIAN Report Released Date/Time: Jun 24, 2025 09:00 AM Reporting Lab: [facility] [place] [facility] [address] [facility] [address] Performing Lab: [facility] [place] [facility] [address] [facility] [address] [facility] IRON & TIBC PANEL IRON BINDING CAPACITY [MASS/VOLU ME] IN SERUM OR PLASMA 182 ug/dL 204 - 475 06/24 L Specimen Type: SERUM No comment entered. Ordering Provider: GABRIELA SUBRAMANIAN Report Released Date/Time: Jun 24, 2025 09:00 AM Reporting Lab: [facility] [address] [facility] [address] Performing Lab: [facility] [place] [facility] [address] [facility] [address] [facility] IRON & TIBC PANEL IRON [MASS/VOLU ME] IN SERUM OR PLASMA 91 ug/dL 65 - 175 06/24 Specimen Type: SERUM No comment entered. Ordering Provider: GABRIELA SUBRAMAINAN Report Released Date/Time: Jun 24, 2025 09:00 AM Reporting Lab: [facility] [place] [facility] [address] [facility] [address] Performing Lab: [facility] [place] [facility] [address] [facility] [address] [facility] IRON & TIBC PANEL IRON/IRON BINDING CAPACITY.T OTAL [MASS RATIO] IN SERUM OR PLASMA 50.0 15 - 45 06/24 H Specimen Type: SERUM No comment entered. Ordering Provider: GABRIELA SUBRAMANIAN Report Released Date/Time: Jun 24, 2025 09:00 AM Reporting Lab: [facility] [place] [facility] [address] [facility] [address] Performing Lab: [facility] [place] [facility] [address] [facility] [address] [facility] IRON & TIBC PANEL TRANSFERRI N [MASS/VOLU ME] IN SERUM OR PLASMA 138 mg/dL 174 - 364 06/24 L Specimen Type: SERUM No comment entered. Ordering Provider: GABRIELA SUBRAMANIAN Report Released Date/Time: Jun 24, 2025 09:00 AM Reporting Lab: [facility] [place] [facility] [address] [facility] [address] Performing Lab: [facility] [place] [facility] [address] [facility] [address] [facility] [facility] PT & INR (PROTIME ) INR IN PLATELET POOR PLASMA BY COAGULATIO N ASSAY 1.9 06/24 Specimen Type: PLASMA No comment entered. Ordering Provider: GABRIELA SUBRAMANIAN Report Released Date/Time: Jun 24, 2025 09:00 AM Reporting Lab: [facility] [place] [facility] [address] [facility] [address] Performing Lab: [facility] [place] [facility] [address] [facility] [address] [facility] [place] [facility] PT & INR (PROTIME ) PROTHROMBI N TIME (PT) 20.9 s 10.0 - 13.1 06/24 H Specimen Type: PLASMA No comment entered. Ordering Provider: GABRIELA SUBRAMANIAN Report Released Date/Time: Jun 24, 2025 09:00 AM Reporting Lab: [facility] [place] [facility] [address] [facility] [address] Performing Lab: [facility] [place] [address] [address] [facility] [place] [facility] Vital Signs Combined list of inpatient and outpatient Vital Signs from Department of Defense and Veterans Affairs, ranging from 12 months to all on record, depending upon the facility. Vital Sign Value Date Comments Source SYSTOLIC BLOOD PRESSURE 101 08/28/20 25 08:37:36 [facility] DIASTOLIC BLOOD PRESSURE 64 025 08:37:36 [facility] PULSE OXIMETRY 94 % 06/24/2025 08:37:36 [facility] PULSE 98 06/24/2025 08:37:36 [facility] RESPIRATION 20 06/24/2025 08:37:36 [facility] SYSTOLIC BLOOD PRESSURE 122 05/19/20 15:34:23 [facility] DIASTOLIC BLOOD PRESSURE 76 025 15:34:23 [facility] PULSE OXIMETRY 93 % 05/19/2025 15:34:23 [facility] WEIGHT 249 05/19/2025 15:34:23 [facility] BMI 31 kg/m2 05/19/2025 15:34:23 [facility] TEMPERATURE 98.3 05/19/2025 15:34:23 [facility] PULSE 96 05/19/2025 15:34:23 [facility] RESPIRATION 20 05/19/2025 15:34:23 [facility] SYSTOLIC BLOOD PRESSURE 158 11/11/19 25 13:37:03 [facility] DIASTOLIC BLOOD PRESSURE 104 025 13:37:03 [facility] PULSE OXIMETRY 96 11/11/2024 13:37:03 [facility] WEIGHT 235 11/11/2024 13:37:03 [facility] BMI 29 kg/m2 11/11/2024 13:37:03 [facility] PULSE 82 11/11/2024 13:37:03 [facility] RESPIRATION 18 11/11/2024 13:37:03 [facility] SYSTOLIC BLOOD PRESSURE 160 07/16/20 24 10:43:45 [facility] DIASTOLIC BLOOD PRESSURE 98 024 10:43:45 [facility] PULSE OXIMETRY 97 07/16/2024 10:43:45 [facility] PULSE 90 07/16/2024 10:43:45 [facility] RESPIRATION 19 07/16/2024 10:43:45 [facility] Encounters Combined list of: 1) Encounters from Department of Veterans Affairs facilities going backup to the last 18 months, not all VA inpatient encounters are included; 2) Encounters from the [facility] facilities going backup to 280 months. Location Location Details Encounter Type Encounter Number Reason For Visit Attending Provider ADM Date DC Date Status Disposition Source [facility] Outpatient Encounter [id number] 01/10 [facility]counter [id number] 01/12 [facility]counter [id number] 02/07 [facility]counter [id number] 02/09 [facility] Out[facility]counter [id number] 03/09 [facility]counter [id number] 03/10 [facility]counter [id number] 04/05 [facility] [id number] 04/06 [facility]counter [id number] 04/08 [facility] OFFICE O/P EST MOD 30 MIN [id number] Diagnos is: ICD-10- CM R52 Pain, unspeci fied DGABRIELA BARAJAS 04/09 [facility] [id number] 05/04 [facility]patient Encounter [id number] 05/05 [facility] OFFICE O/P EST LOW 20 MIN [id number] Diagnos is: ICD-10- CM L84 Corns and callosi ties MONA PARIS 05/14 [facility] Outpatient Encounter [id number] 06/02 [facility] Outpatient Encounter [id number] 06/02 [facility] Out[facility] Encounter [id number] 06/29 [facility] Out[facility] Encounter [id number] 06/30 [facility] OFF/OP EST MAY X REQ PHY/QHP [id number] Diagnos is: ICD-10- CM R03.0 Elevate d blood-p ressure reading , w/o diagnos is of htn [facility]ARRY H 07/16 [facility] Out[facility] Encounter [id number] [facility] ELECTROCAR DIOGRAM REPORT [id number] Diagnos is: ICD-10- CM Z13.6 Encount er for screeni ng for cardiov ascular disorde rs ANTONIA LOAIZA 07/16 [facility] ELECTROCAR DIOGRAM TRACING [id number] [facility] Out[facility] Encounter [id number] 07/24 [facility] Out[facility] Encounter [id number] 07/27 [facility] Out[facility] Encounter [id number] 08/24 [facility] Out[facility] Encounter [id number] [facility] OFF/OP EST MAY X REQ PHY/QHP [id number] Diagnos is: ICD-10- CM Z23 Encount er for immuniz atBARRY Santana 08/28 [facility] Out[facility] Encounter [id number] 1.09/16 [facility] Out[facility] Encounter [id number] 1.09/17 [facility] Out[facility] Encounter [id number] [facility] Out[facility] Encounter [id number] [facility] OFFICE O/P EST MOD 30 MIN [id number] Diagnos is: ICD-10- CM S93.692 A Other sprain of left foot, initial encount er MONA PARIS 11/10 [facility] OFFICE O/P EST MOD 30 MIN [id number] Diagnos is: ICD-10- CM M25.579 Pain in unspeci fied ankle and joints of unspeci fied foot DGABRIELA BARAJAS 11/11 [facility] Out[facility] Encounter [id number] 11/26 [facility] PH1 ASSMT&MGMT NQHP - [id number] Diagnos is: ICD-10- CM F41.9 Anxiety disorde r, unspeci fied DOMITILA MORENO RI MAITE 12/03 [facility] Out[facility] Encounter [id number] 12/03 [facility] PH1 ASSMT&MGMT NQHP 5-10 [id number] Diagnos is: ICD-10- CM F41.9 Anxiety disorde r, unspeci fied DOMITILA MORENO RI MAITE 12/07 [facility] Out[facility] Encounter [id number] 12/10 [facility] Out[facility] Encounter [id number] 12/10 [facility] Out[facility] Encounter [id number] 12/15 [facility] Out[facility] Encounter [id number] 12/28 [facility] Out[facility] Encounter [id number] 01/06 [facility] Out[facility]counter [id number] 01/06 [facility] PH1 ASSMT&MGMT NQHP 5-10 [id number] Diagnos is: ICD-10- CM F41.9 Anxiety disorde r, unspeci fied DOMITILA MORENO RI MAITE 01/12 [facility] Out[facility] Encounter [id number] [facility] Out[facility] Encounter [id number] 02/04 [facility] Out[facility] Encounter [id number] [facility] Out[facility] Encounter [id number] 02/26 [facility] Out[facility] Encounter [id number] [facility] Out[facility] Encounter [id number] 03/03 [facility] Out[facility] Encounter [id number] 03/31 [facility] Out[facility] Encounter [id number] 04/01 [facility] NQHP OL DIG ASSMT&MGMT 5-10 [id number] Diagnos is: ICD-10- CM R52 Pain, unspeci fied BECKY MOSQUERA 04/01 [facility] Out[facility] Encounter [id number] 04/05 [facility] Outpatient [facility]counter [id number] 04/22 [facility] Outpatient Encounter [id number] [facility] Out[facility] Encounter [id number] [facility] Out[facility] Encounter [id number] 04/28 [facility] Out[facility] Encounter [id number] 04/28 [facility] PH1 ASSMT&MGMT NQHP 5-10 [id number] Diagnos is: ICD-10- CM 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, 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 BARRY Prabhakar 04/28 [facility] OFF/OP EST FEBRUARY X REQ PHY/QHP [id number] Diagnos is: ICD-10- CM Z71.89 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 Leyla Ronquillo 05/03 [facility] COMPRE OPH EXAM NEW PT 1/> [id number] Diagnos is: ICD-10- CM H25.13 Age-rel ated nuclear catarac t, bilkeely al JESUS BARKLEY 05/12 [facility] Outpatient Encounter [id number] 05/17 [facility] OFFICE O/P EST MOD 30 MIN [id number] Diagnos is: ICD-10- CM K70.9 Alcohol ic liver disease , unspeci GABRIELA Vargas 05/19 [facility] Outpatient Encounter [id number] GABRIELA WILSON 06/08 [facility] Outpatient Encounter [id number] 06/21 [facility] OFFICE O/P EST MOD 30 MIN [id number] Diagnos is: ICD-10- CM K70.9 Alcohol ic liver disease , unspeci GABRIELA Vargas 06/24 [facility] Outpatient Encounter [id number] GABRIELA WILSON 06/27 [facility] Social History Combined list of available smoking, tobacco, and other social history from Department of Defense and Veterans Affairs facilities. 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/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 [facility] History of tobacco use CURRENT SMOKER 05/15/2018 [facility] cigarettes [facility] of tobacco use CURRENT SMOKER 11/22/2016 [facility] History of tobacco use CURRENT SMOKER 11/15/2016 8 TO 10 CIGARETTES PER DAY [facility] History of tobacco use CURRENT SMOKER 11/08/2016 Smokes 1/2 pack of cigarettes per day [facility] History of tobacco use TOBACCO INPATIENT DECLINES MEDS 10/31/2016 [facility] History of tobacco use CURRENT SMOKER 10/31/2016 [facility] History of tobacco use V1-PT NOT INTERESTED IN QUIT TOBACCO USE 03/07/2016 [facility] History of tobacco use CURRENT SMOKER 06/11/2015 6-8 cigs per day [facility] History of tobacco use CURRENT SMOKER 01/21/2014 4-6 cigarettes per day [facility] Plan of Care List of future care activities from Department of Veterans Affairs facilities. Additional future care activities may be listed in the Assessment and Plan section. Date/Time Care Activity Care Activity Detail Facili ty 07/01/2025 AMBULATORY - MEDICINE AMBULATORY - MEDICI [facility]
--- NOTE | 2025-06-29 08:45 | MHC.PC.OV ---
Vital Signs 06/29/25 09:16 Height 6 ft 3 in Weight 206 lb BMI 25.7 BP 116/70 Blood Pressure Location Lt brachial Position Sitting Pulse 95 Pulse Source Pulse Oximeter Temp 97.1 F Temp Source Temporal Artery Scan Pulse Oximetry (%) 96 Oxygen Delivery Method Room Air Intake Visit Reasons: ED follow up Factory Hand Required: No Accompanied by: Self / Same As Patient Allergies No Known Allergies Allergy (Verified 06/29/25 08:46) Tobacco use date assessed: 06/29/25 Dental Screening Dental Screen Date: 06/29/25 Did you have a dental visit in the last 12 months?: Yes Did you have a dental problem in the last 6 months where you did not have access to dental care?: No HPI HPI Comments History of Present Illness Details 54 year old male with HTN, alcoholic cirrhosis with ascites, Liver lesions, chronic low back pain here for IP follow up and to establish care. Patient was IP 05/21 through 06/05. He was admitted for alcoholic cirrhosis with ascities. He states he has not had alcohol since his was IP. [facility] He states he has a follow up with them in 3 weeks. He states he has not been able to sleep due to pain. He also has no appetite. He was advised to follow up with GI for his liver cirrhosis. He also had a CT that showed possible lesions on his liver. He was advised to see Oncology. He states the [facility] has arranged this for him. He was discharged on Furosemide, Spironolactone, Folic Acid, Lactulose, Oxycodone, Prazosin, Thiamine and Lisinopril. [facility] Medical History (Updated 07/04/25 @ 22:45 by STEVE Contreras) Alcohol use disorder Anemia of chronic disease Ankle pain, right Anxiety Back pain Cirrhosis of transplanted liver Hypertension Insomnia Surgical History H/O colonoscopy (~09/06/22) H/O inguinal hernia repair History of ankle surgery History of excision of pilonidal cyst History of lumbar laminectomy Hx of tympanostomy tubes Family History (Updated 06/29/25 @ 09:23 by Tonia Coleman MA) Mother No problems noted. Father No problems noted. Social History Household Members: None Housing: Apartment Do you presently have visiting nurse or other home services: No Alcohol intake: current Alcohol intake frequency: 3 or more drinks per day Alcohol type: beer and other Patient Tobacco Use Status: Current everyday Tobacco user Tobacco use type: Cigarette Cigarette Packs Per Day: 0.25 Years Smoked: 25 e-Cigarette/Vaping Use: Currently Using (sometimes) Second Hand Smoke Exposure: No service: Yes Current occupational status: retired Cognitive needs: No Hearing needs: No Vision needs: No Questionnaire PHQ-9 Over the last 2 weeks, how often have you been bothered by any of the following problems? 1. Little interest or pleasure in doing things: not at all 2. Feeling down, depressed, or hopeless: nearly every day 3. Trouble falling or staying asleep, or sleeping too much: nearly every day (every night ) 4. Feeling tired or having little energy: nearly every day 5. Poor appetite or overeating: nearly every day 6. Feeling bad about yourself - or that you are a failure or have let yourself or your family down: not at all 7. Trouble concentrating on things, such as reading the newspaper or watching television: not at all 8. Moving or speaking so slowly that other people could have noticed. Or the opposite - being so fidgety or restless that you have been moving around a lot more than usual: not at all 9. Thoughts that you would be better off or of hurting yourself in some way: not at all Total score: 12 Source: Developed by Drs. Josue Hernandez, Soraya Mullen, Tong Diallo and colleagues, with an educational roger from [employer]. Thrive Questionnaire Date Thrive assessed: 06/29/25 I am a: Patient Within the past 12 months, did the food you bought not last and you didn't have the money to get more?: Never true Within the past 12 months, did you worry whether your food would run out before you got money to buy more?: Never true Do you have trouble paying for medicines?: No Do you have trouble getting transportation to medical appointments?: No Do you have trouble paying your heating and electricity bill?: No Do you have trouble taking care of your child, family member or friend?: No Do you have trouble with day-to-day activities such as bathing, preparing meals, shopping, managing finances, etc.?: No Are you currently unemployed and looking for a job?: No Are you interested in more education?: No THRIVE Score: 0 AUDIT C Alcohol Use Questionnaire (AUDIT-C) 1. How often do you have a drink containing alcohol?: Never 3. How often do you have six or more drinks on one occasion?: Never Total Score: 0 LUCHO-7 AMB Questionnaire LUCHO-7 Date LUCHO - 7 assessed: 06/29/25 Feeling nervous, anxious, or on edge: 3 = Nearly every day Not being able to stop or control worryin = Not at all Worrying too much about different things: 0 = Not at all Trouble relaxin = Not at all Being so restless that it is hard to sit still: 0 = Not at all Becoming easily annoyed or irritable: 0 = Not at all Feeling afraid as if something awful might happen: 0 = Not at all Total LUCHO-7 score (0-4 normal; 5-9 mild; 10-14 moderate; 15-21 severe): 3 Source: Developed by Drs. Josue Hernandez, Soraya Mullen, Tong Diallo and colleagues, with an educational roger from [employer]. Review of Systems Const Details: CONSTITUTIONAL Negative HEAD/NECK Negative EAR/NOSE/MOUTH/THROAT Negative RESPIRATORY Negative CARDIOVASCULAR Negative GASTROINTESTINAL RUQ pain Poor appetite MUSCULOSKELETAL Low back pain NEUROLOGICAL Negative PSYCHIATRIC Insomnia Physical exam (Primary Care) Vital Signs: Last Vital Signs Temp 97.1 F 06/29/25 09:16 Pulse 95 06/29/25 09:16 BP 116/70 06/29/25 09:16 Pulse Ox 96 06/29/25 09:16 Oxygen Delivery Method Room Air 06/29/25 09:16 BMI result Body Mass Index 25.7 Tobacco/Smoking Status: Tobacco use Status Tobacco use date assessed 06/29/25 06/29/25 08:48 Patient Tobacco Use Status Current everyday Tobacco 06/29/25 09:25 Tobacco use type Cigarette 06/29/25 08:48 e-Cigarette/Vaping Use Currently Using (sometimes) 06/29/25 09:25 GENERAL Well developed, Well nourishe, in no apparent distress HEENT Head-Normocephalic Eyes- PERRLA, EOMI, Jaundiced, lids WNL Ears- Canals clear, TMs WNL Mouth/Throat-No lesions, no erythema, no exudate Neck- Supple, No lymphadenopathy, thyroid WNL RESPIRATORY Normal I:E, Clear to auscultation CARDIOVASCULAR Regular, rate and rhythm, No murmurs or rubs GASTROINTESTINAL Soft, tender in RUQ, normal bowel sounds, Hepatomegaly NEUROLOGICAL Gait normal PSYCHIATRIC Oriented to person, place and time Mood and affect WNL Appearance WNL Speech WNL Thought processes WNL PHQ-9: PHQ-9 Score PHQ-9: Total score 12 06/29/25 15:32 Thrive Assessment: Date of Thrive Assessment Date Thrive assessed 06/29/25 06/29/25 08:53 Results Reviewed Results Reviewed: CLINICAL HISTORY: Abdominal distention portal htn CT abdomen and pelvis with contrast Comparison: None provided Findings: Small pleural effusions are present with dependent subsegmental atelectasis or infiltrate, [id number]. Liver is heterogeneous with multiple hypodense masslike regions and lobulated liver contour. Radiodense stones or sludge layer dependently in the fundus of the gallbladder. Pancreas and spleen are within normal limits. Adrenal glands are unremarkable. Kidneys enhance symmetrically and are non hydronephrotic. No bowel obstruction, pneumoperitoneum, or pneumatosis. Sigmoid diverticula are present without definite evidence of diverticulitis. Visualized appendix is normal. Moderate intra-abdominal free fluid or ascites is present. Urinary bladder and pelvic structures are grossly within normal limits. The bones are intact. IMPRESSION: 1. Lobulated liver with large hypodense ill-defined hypodensities or masses concerning for possible hepatic metastatic disease. 2. Moderate ascites. 3. Small pleural effusions with basilar subsegmental atelectasis or infiltrates. Coding Level of Care Code New Pt New Pt Level 4 (25538) Patient Type New Diagnoses Alcoholic cirrhosis of liver with ascites K70.31 Liver lesion K76.9 Chronic bilateral low back pain with bilateral sciatica M54.42; M54.41; G89.29 Back pain laterality: bilateral Sciatica presence: with sciatica Sciatica laterality: bilateral sciatica Hypertension I10 Insomnia G47.00 Time Spent (min) 35 Comment Time spent on chart review, H&P, placing orders and follow up Assessment & Plan Assessment & Plan (1) Alcoholic cirrhosis of liver with ascites: Code(s): K70.31 - Alcoholic cirrhosis of liver with ascites Category: Medical Plan: Patient advised to continue current medications. Referral placed to Gastroenterology. (2) Liver lesion: Code(s): K76.9 - Liver disease, unspecified Category: Medical Plan: [facility] Patient to follow up in 2 months or sooner if symptoms persist or worsen. (3) Chronic low back pain: Code(s): M54.50 - Low back pain, unspecified; G89.29 - Other chronic pain Category: Medical Qualifiers: Back pain laterality: bilateral Sciatica presence: with sciatica Sciatica laterality: bilateral sciatica Qualified Code(s): M54.42 - Lumbago with sciatica, left side; M54.41 - Lumbago with sciatica, right side; G89.29 - Other chronic pain Plan: Will give Oxycodone 5mg to take at bedtime to help with sleep until next [facility] with [facility]. (4) Hypertension: Comment: BP today was 116/70 Code(s): I10 - Essential (primary) hypertension Category: Medical Plan: Controlled. Patient to follow up in 2 months or sooner if symptoms persist or worsen. (5) Insomnia: Code(s): G47.00 - Insomnia, unspecified Category: Medical Plan: Will try increasing Prazosin to 2mg at bedtime. Patient to follow up in 2 months or sooner if symptoms persist or worsen. Orders: Referrals Gastroenterology Referral K70.31 - Alcoholic cirrhosis of liver with ascites Gastroenterology Referral K70.31 - Alcoholic cirrhosis of liver with ascites Gastroenterology Referral K70.31 - Alcoholic cirrhosis of liver with ascites Medications: New prazosin 2 mg PO BEDTIME 90 caps 0RF oxycodone Partial Fill upon patient request. 5 mg PO BEDTIME PRN 20 tabs 0RF pain
[2025-06-29 09:16] VITALS: BP 116/70; PULSE 95; TEMP 36.2; O2SAT 96; BMI 25.7
--- OUTSIDE RECORDS SUMMARY | 2025-06-29 10:01 | XMS_ITS | Patient Health Record ---
Author Organization [facility] Address [address] [place] [address] Care Team Providers Care Malt House Supervisor Name Role Phone Isabel Singleton M.D. Primary Care Provider Josue Rizzo Unavailable [phone] Allergies No Known Allergies Results Component Value Reference Range Notes Prothrombin Time INR Reviewed date:05/26/2025 10:54:26 AM Interpretation: Performing Lab:[facility], [address] [place] [phone] Notes/Report: Reason for Daily Order Other Prothrombin Time 30.2 10.9-12.4 SEC INTERNATIONAL NORM RATIO 2.6 0.9-1.1 INTERNATIONAL NORMALIZED RATIO (INR) REFERENCE RANGES Reference Range For patients not on anticoagulant therapy: 0.9 - 1.1 INR ranges for oral anticoagulant therapy: For prevention and treatment of venous thrombosis and pulmonary embolism: 2.0 - 3.0 For acute myocardial infarction with aspirin therapy: 2.0 - 3.0 For acute myocardial infarction without aspirin therapy: 3.0 - 4.0 For patients with mechanical prosthetic heart valves: 2.5 - 3.5 MR abdomen wo/w con Reviewed date:05/27/2025 07:51:03 AM Interpretation: Performing Lab: Notes/Report: [address] [address] Magnetic Resonance Report Signed Patient: Yash Moscoso MR#: [id number] : 1970 Acct:[id number] Age/Sex: 54 / M ADM Date: 05/21/25 Loc: HO.S3 384-[address]: Len Parnell MD Ordering Physician: Adalberto Fofana MD Date of Service: 05/26/25 Procedure(s): MR abdomen wo/w con Accession Number(s): [id number] cc: Adalberto Fofana MD; Isabel Singleton MD CLINICAL HISTORY: abnormal ct, and us. Dynamic study. See US report MR ABDOMEN WITH AND WITHOUT GADOLINIUM Comparison: CT/SR - CT ABDOMEN PELVIS W IV CON - 05/20/25 22:51 EDT Findings: Motion artifact limits evaluation. Surface nodularity in the liver suggests cirrhotic morphology. There is diffusely heterogeneous signal alteration in the liver. No evidence for arterial lesion. No enhancing lesion on venous phase imaging. A 9 mm T2 hyperintense nonenhancing lesion in the right hepatic lobe suggests a cyst or hemangioma. The spleen is enlarged measuring 13.9 cm. Amorphous signal in the gallbladder lumen with no discrete filling defect. Pancreas, adrenal glands and kidneys are unremarkable. No AAA. Large volume ascites particularly in the right side of the abdomen. Probable intraosseous hemangioma in T8. IMPRESSION: 1. Image degradation secondary to significant motion artifact. 2. Diffusely heterogeneous signal in the liver with no arterial or venous phase lesion identified. An infiltrative process is not excluded. 3. Cirrhotic liver morphology, splenomegaly and large volume abdominal ascites. 4. Probable gallbladder sludge. This document has been electronically signed by: Jessika Gore DO on 05/26/2025 18:27:13 Dictated By: Jessika Gore MD Signed By: <Electronically signed by Jessika Gore MD in OV> 05/26/251827 DD/ 26 TD/TT: 05/26/251826 Punch Machine Operator: Prothrombin Time INR Reviewed date:05/27/2025 07:38:16 AM Interpretation: Performing Lab:[facility], [address] [place] [phone] Notes/Report: Reason for Daily Order Other Prothrombin Time 30.8 10.9-12.4 SEC INTERNATIONAL NORM RATIO 2.7 0.9-1.1 INTERNATIONAL NORMALIZED RATIO (INR) REFERENCE RANGES Reference Range For patients not on anticoagulant therapy: 0.9 - 1.1 INR ranges for oral anticoagulant therapy: For prevention and treatment of venous thrombosis and pulmonary embolism: 2.0 - 3.0 For acute myocardial infarction with aspirin therapy: 2.0 - 3.0 For acute myocardial infarction without aspirin therapy: 3.0 - 4.0 For patients with mechanical prosthetic heart valves: 2.5 - 3.5 Liver Panel Reviewed date:06/07/2025 04:27:06 PM Interpretation: Performing Lab:[facility], [address] [place] [phone] Notes/Report: Bilirubin Total 12.6 0.0-1.0 mg/dL Moderate Ic terus. Bilirubin Direct 6.9 0.0-0.5 mg/dL Moderate I cterus. Aspartate Amino Transferase 67 5-37 U/L Alanine Aminotransferase 22 0-40 U/L Total Protein 6.6 6.5-8.0 g/dL Albumin Level 2.0 3.5-5.0 g/dL Alkaline Phosphatase 82 39-117 U/L Basic Metabolic Panel Reviewed date:05/27/2025 10:44:48 PM Interpretation: Performing Lab:[address] [address] Notes/Report: Sodium 135 135-145 mmol/L Potassium 3.8 3.3-5.1 mmol/L Chloride 97 96-108 mmol/L Carbon Dioxide 31 22-29 mmol/L Anion Gap 11 12-20 Blood Urea Nitrogen 10 9-16 mg/dL Creatinine 0.62 0.5-1.4 mg/dL Moderate Icter us. Interpret result with caution. Creatinine Clr Calc Pharmacy 189.7 eGFR (calculated from the MDRD study equation) and eCrCl (calculated from the Cockcroft-Gault equation) are based on different parameters and may not yield comparable results. If eCrCl result is absurd, please check patient's height/weight. Estimated Glomerular Filt Rate > 60 Chronic Kidney Disease: Estimated GFR < 60 mL/min/1.73m2 Severe Kidney Disease: Estimated GFR < 15 mL/min/1.73m2 Glucose Random 90 60-115 mg/dL Calcium 7.8 8.4-10.2 mg/dL Carcinoembryonic Antigen Reviewed date:06/07/2025 04:21:44 PM Interpretation: Performing Lab:[facility], [address] [place] [phone] Notes/Report: Carcinoembryonic Antigen 18.80 CEA Reference Range: 93.4% Non-Smokers = 0.0-3.0 ng/mL 95.6% Smokers = 0.0-5.0 ng/mL CEA Methodology: Ferraro Alinity i Chemiluminescent Microparticle Immunoassay (CMIA) CEA testing can have significant value in monitoring of patients with diagnosed malignancies in whom changing concentrations of CEA are observed. Values obtained with different assay methods cannot be used interchangeably. Prothrombin Time INR Reviewed date:05/28/2025 03:28:09 PM Interpretation: Performing Lab:[facility], [address] [place] [phone] Notes/Report: Reason for Daily Order Other Prothrombin Time 28.8 10.9-12.4 SEC INTERNATIONAL NORM RATIO 2.5 0.9-1.1 INTERNATIONAL NORMALIZED RATIO (INR) REFERENCE RANGES Reference Range For patients not on anticoagulant therapy: 0.9 - 1.1 INR ranges for oral anticoagulant therapy: For prevention and treatment of venous thrombosis and pulmonary embolism: 2.0 - 3.0 For acute myocardial infarction with aspirin therapy: 2.0 - 3.0 For acute myocardial infarction without aspirin therapy: 3.0 - 4.0 For patients with mechanical prosthetic heart valves: 2.5 - 3.5 Reason For Referral No Information Medications Medication SIG (Take, Route, Frequency, Duration) Notes Start Date End Date Status LORazepam 1 MG 1 tablet at bedtime as needed Orally Once a day Active Hydrocodone Bitartrate 10 MG as directed Orally as needed Active Lisinopril 10 MG 1 tablet Orally Once a day for 30 day(s) Active Immunizations Vaccine Route Administration Date Status Comme nts Influenza Unknown 09/19/2021 Administered Social History Tobacco Use: Social History Observation Description Date Details (start date - stop date) Current Smoker NA - NA Tobacco Use/Smoking Question Answer Notes Patient is a current smoker Alcohol Screen Question Answer Notes Did you have a drink contain ing alcohol in the past year? Yes How often did you have a dri nk containing alcohol in the past year? Monthly or less (1 point) How many drinks did you have on a typical day when you were drinking in the past year? 1 or 2 drinks (0 point) How often did you have 6 or more drinks on one occasion in the past year? Never (0 point) Points 1 Interpretation Negative Section Notes: Smokes 4-5 cigs QD, occ. alc ohol Problems Problem Type SNOMED Code ICD Code Onset Dates Problem Status W/U Status Risk Notes Problem Colon cancer screening (858422100) Colon cancer screening (Z12.11) Active confirmed Problem Alcoholic cirrhosis (505392443) 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) Active confirmed Problem Preprocedural examination (865925329826824) Preprocedural examination (Z01.818) Active confirmed Problem Cirrhotic (226907196) Cirrhosis (K74.60) Active confirmed Plan Of Treatment Pending Test Test Name Order Date Pathology 09/05/2022 Future Test Test Name Order Date COLONOSCOPY 07/18/2022 Insurance Providers Payer Name Payer Address Payer Phone Subscriber Number Group Number Insured Name Patient Relationship to Insured Coverage Start Date Coverage End Date [facility] [address] [place] [phone] [id number] YASH MOSCOSO Self - patient is the insured Medical (General) History Medical History History ICD Code HTN Denies UT,DM,CVA,Lung disease,renal dise ase Back pain and right ankle pain Surgical History Surgery Date(Month/Year) Back surgery 2009 Pilonidal cysts x 2 Right ankle surgery
--- OUTSIDE RECORDS SUMMARY | 2025-06-29 10:01 | XMS_ITS | Encounter Summary ---
Author Name [facility] Organization [facility] [place] Address [address] [place] [address] Care Team Providers Care Cotton Gin Yard Supervisor Name Role Phone GABRIELA SHANKAR Primary Care [...] [facility] Apr 27, 2023 [id number] YENY MOSCOSO PATIENT [facility] ([id number]) [facility] February 25, 2023 [id number] YENY MOSCOSO PATIENT [facility] Apr 27, 2023 [id number] YENY MOSCOSO PATIENT [facility] February 25, 2023 [id number] YENY MOSCOSO PATIENT [facility] February 25, 2023 [id number] YENY MOSCOSO PATIENT Selected Encounter This section includes the information [facility] at [facility] for the Encounter. Date/Time Encounter Type Encounter Description Reason Pro vider Source IHE Encounter Template Text not used by [facility]
--- OUTSIDE RECORDS SUMMARY | 2025-06-29 10:02 | XMS_ITS | Clinical Summary ---
Author Organization [facility] Address [address] [place] [address] Care Team Providers Care Radiation Therapist Name Role Phone Unavailable Primary Care Provider Unavailabl e Social History Tobacco Use Types Packs/Day Years Used Date Smoking Tobacco: Never Assessed Sex and Gender Information Value Date Recorded Sex Assigned at Not on file Legal Sex Male 8:30 PM EST Gender Identity Not on file Sexual Orientation Not on file Plan of Treatment Health Maintenance Due Date Last Done Comments DTaP,Tdap,and Td Vaccines (1 - Tdap) 1989 Hepatitis B Vaccines (1 of 3 - 19+ 3-dose series) 1989 Pneumococcal Vaccine: 50+ Ye ars (1 of 1 - PCV) 2020 Zoster Vaccines (1 of 2) 2020 Cholesterol Screening (Lipid Panel) 11/22/2023 Colorectal Cancer Screening: Colonoscopy 11/22/2023 HIV Screening 11/22/2023 Hepatitis C Screening 11/22/2023 Social Influencers of Health Screening 11/22/2023 Depression Screening 10/28/2024 COVID-19 Vaccine ( - 2023-2 5 season) 2025 Influenza Vaccine (#1) 2025 HIB Vaccines Aged Out No longer eligi ble based on patient's age to complete this topic HPV Vaccines Aged Out No longer eligi ble based on patient's age to complete this topic Hepatitis A Vaccines Aged Out No long er eligible based on patient's age to complete this topic IPV Vaccines Aged Out No longer eligi ble based on patient's age to complete this topic MMR Vaccines Aged Out No longer eligi ble based on patient's age to complete this topic Meningococcal ACWY Vaccine Aged Out N o longer eligible based on patient's age to complete this topic Meningococcal B Vaccine Aged Out No l onger eligible based on patient's age to complete this topic RSV Immunization Patients Un vane 20 months Aged Out No longer eligible b ased on patient's age to complete this topic Varicella Vaccines Aged Out No longer eligible based on patient's age to complete this topic
--- OUTSIDE RECORDS SUMMARY | 2025-06-29 10:02 | XMS_ITS | Encounter Summary ---
Author Name [facility] [place] [facility] [place] Address [address] [place] [address] Care Team Providers Care Assistant Nurse Manager Name Role Phone GABRIELA SHANKAR Primary Care [...] Relationship to Policy Proctor [facility] Apr 27, 2023 [id number] YENY MOSCOSO PATIENT [facility] ([id number]) [facility] February 25, 2023 [id number] YENY MOSCOSO PATIENT [facility] Apr 27, 2023 [id number] YENY MOSCOSO PATIENT [facility] February 25, 2023 [id number] YENY MOSCOSO PATIENT [facility] February 25, 2023 [id number] YENY MOSCOSO PATIENT Selected Encounter This section includes the information [facility] record at [facility] for the Encounter. Date/Time Encounter Type Encounter Description Reason Pro vider Source IHE Encounter Template Text not used by [facility]
== END 2025-06-29 09:47 | disposition home or self-care (01) ==
LOC: HO.HMCHD 09:09
PROVIDERS: PCP Internal Medicine; Visit Provider Physician Assistant Medical
DX: K70.31 Alcoholic cirrhosis of liver with ascites (principal); K76.9 Liver disease, unspecified; M54.42 Lumbago with sciatica, left side; M54.41 Lumbago with sciatica, right side; G89.29 Other chronic pain; I10 Essential (primary) hypertension; G47.00 Insomnia, unspecified

== ENCOUNTER 2025-07-14 11:23 | Emergency (ER) | payer OTHER, SELFPAY ==
[2025-07-14 12:18] VITALS: BP 110/58; PULSE 82; RESP 18; TEMP 36.4; O2SAT 96; BMI 24.4
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
[2025-07-14 13:05] LABS: MANUAL DIFF FLAG NO
[2025-07-14 13:09] LABS: Hematocrit 36.8 % (42.0-52.0); Hemoglobin 12.4 g/dl (14.0-18.0); Imm Gran Abs Auto 0.04 X10*3/uL (0.00-0.03); Imm Gran Pct Auto 0.5 % (0.0-0.4); Lymphocytes Absolute Auto 1.4 X10*3/uL (1.2-4.9); Mean Corpuscular HGB Conc 33.7 g/dl (31.0-36.0); Mean Corpuscular Hemoglobin 31.7 pg (27.0-33.0); Mean Corpuscular Volume 94.1 fL (80.0-98.0); NRBC Abs Auto 0.000 X10*3/uL (0.0-0.012); NRBC Pct Auto 0.0 /100WBC (0.0-0.2); Platelet Count 130 X10*3/uL (160-400); Red Blood Count 3.91 X10*6/uL (4.60-5.80); White Blood Count 8.2 X10*3/uL (4.8-10.8)
[2025-07-14 13:15] LABS: INTERNATIONAL NORM RATIO 2.0 (0.9-1.1); Prothrombin Time 22.8 SEC (10.9-12.4)
[2025-07-14 13:18] LABS: Partial Thromboplastin Time 40.1 SEC (26.7-34.1)
[2025-07-14 13:26] LABS: Alanine Aminotransferase 32 U/L (0-40); Albumin Level 2.9 g/dL (3.5-5.0); Alkaline Phosphatase 85 U/L (39-117); Anion Gap 11 (12-20); Aspartate Amino Transferase 74 U/L (5-37); Blood Urea Nitrogen 7 mg/dL (9-16); Calcium 8.7 mg/dL (8.4-10.2); Carbon Dioxide 24 mmol/L (22-29); Chloride 103 mmol/L (96-108); Creatinine Clr Calc Pharmacy 126.6; Estimated Glomerular Filt Rate > 60; Lipase 50 U/L (8-78); Potassium 4.1 mmol/L (3.3-5.1); Sodium 134 mmol/L (135-145); Total Protein 8.4 g/dL (6.5-8.0)
[2025-07-14 13:50] VITALS: BP 126/75; PULSE 75; RESP 18; TEMP 36.6; O2SAT 97
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
[2025-07-14] MEDS: oxyCODONE HCl Immed Release 5 MG TABLET 10 MG PO (15:03)
[2025-07-14 15:05] VITALS: BP 126/75; PULSE 75; RESP 18; TEMP 36.6; O2SAT 97
--- OUTSIDE RECORDS SUMMARY | 2025-07-14 17:47 | XMS_ITS | Patient Health Record ---
Author Organization [facility] Address [address] [place] [address] Care Team Providers Care Ecotherapist Name Role Phone Yash Tyson MD Primary Care Provider Un available Josue Phan Unavailable [phone] Allergies No Known Allergies Results Component Value Reference Range Notes Prothrombin Time INR Reviewed date:05/26/2025 10:54:26 AM Interpretation: Performing Lab:[facility], [address] [place] [phone] Notes/Report: Reason for Daily Order Other Prothrombin [...] date:05/27/2025 07:51:03 AM Interpretation: Performing Lab: Notes/Report: [address] [address] Magnetic Resonance Report Signed Patient: Yash Moscoso MR#: [id number] : 1970 Acct:[id number] Age/Sex: 54 / M ADM Date: 05/21/25 Loc: HO.S3 384-[address]: Len Parnell MD Ordering Physician: Adalberto Fofana MD Date of Service: 05/26/25 Procedure(s): MR abdomen wo/w con Accession Number(s): [id number] cc: Adalberto Fofana MD; Isabel Singleton MD [...] in OV> 05/26/251827 DD/ 26 TD/TT: 05/26/251826 Slab Lifting Supervisor: Prothrombin Time INR Reviewed date:05/27/2025 07:38:16 AM Interpretation: Performing Lab:[facility], [address] [place] [phone] Notes/Report: Reason for Daily Order Other Prothrombin [...] Panel Reviewed date:06/07/2025 04:27:06 PM Interpretation: Performing Lab:[facility], [address] [place] [phone] Notes/Report: Bilirubin Total 12.6 0.0-1.0 mg/dL Moderate Ic terus. Bilirubin Direct 6.9 0.0-0.5 mg/dL Moderate I cterus. Aspartate Amino Transferase 67 5-37 U/L Alanine Aminotransferase 22 0-40 U/L Total Protein 6.6 6.5-8.0 g/dL Albumin Level 2.0 3.5-5.0 g/dL Alkaline Phosphatase 82 39-117 U/L Basic Metabolic Panel Reviewed date:05/27/2025 10:44:48 PM Interpretation: Performing Lab:[facility], [address] [place] [phone] Notes/Report: Sodium 135 135-145 mmol/L Potassium 3.8 [...] Antigen Reviewed date:06/07/2025 04:21:44 PM Interpretation: Performing Lab:[facility], [address] [place] [phone] Notes/Report: Carcinoembryonic Antigen 18.80 CEA Reference Range: [...] INR Reviewed date:05/28/2025 03:28:09 PM Interpretation: Performing Lab:[facility], [address] [place] [phone] Notes/Report: Reason for Daily Order Other Prothrombin [...] Status Risk Notes Problem Colon cancer screening (720180317) Colon cancer screening (Z12.11) Active confirmed Problem Alcoholic cirrhosis (859322163) 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) Active confirmed Problem Preprocedural examination (915964053938637) Preprocedural examination (Z01.818) Active confirmed Problem Cirrhotic (610287738) Cirrhosis (K74.60) Active confirmed Plan Of Treatment Pending Test Test Name Order Date Pathology 09/05/2022 Future Test Test Name Order Date COLONOSCOPY 07/18/2022 Next Appt Details Provider Name:Josue Phan , 11/09/2025 01:00:00 PM, [address] [place] [address], [address], [place], [address], Insurance Providers Payer Name Payer Address Payer Phone Subscriber Number Group Number Insured Name Patient Relationship to Insured Coverage Start Date Coverage End Date [facility] [employer] [address] [place] [address] [id number] YASH MOSCOSO Self - patient is the insured Medical (General) History Medical History History ICD Code HTN Denies [place],DM,CVA,Lung disease,renal dise ase Back pain and right ankle pain Surgical History Surgery Date(Month/Year) Back surgery 2009 Pilonidal cysts x 2 Right ankle surgery
== END 2025-07-14 15:06 | disposition home or self-care (01) ==
PROVIDERS: Physician Assistant; Emergency Provider Emergency Medicine; PCP Physician Assistant Medical
DX: S30.1XXA Contusion of abdominal wall, initial encounter (principal); R10.2 Pelvic and perineal pain; X58.XXXA Exposure to other specified factors, initial encounter; Y93.89 Activity, other specified; Y92.9 Unspecified place or not applicable; Y99.8 Other external cause status
CPT/HCPCS: 36415; 80053; 83690; 85025; 85610; 85730; 99283; 99284

== ENCOUNTER 2025-08-11 13:11 | Outpatient (AMB) | payer OTHER, SELFPAY ==
--- NOTE | 2025-08-11 10:46 | A.OFFPC_ITS ---
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 2 tabs per day oxycodone 5 mg PO DAILY PRN 5 days oxycodone 5 mg PO BEDTIME PRN prazosin 2 mg PO BEDTIME spironolactone 50 mg See Protocol PO DAILY thiamine HCl (vitamin B1) 100 mg PO DAILY 30 days Tobacco use date assessed: 08/11/25 Dental Screening Dental Screen Date: 08/11/25 Did you have a dental visit in the last 12 months?: No Did you have a dental problem in the last 6 months where you did not have access to dental care?: No HPI HPI Comments History of Present Illness Details 54 year old male with HTN, alcoholic cir rhosis with ascites, Liver lesions, chronic low back pain presenting with follow-up on liver lesion evaluation and management of chronic back pain. The liver lesion was previously identified, and the [facility] The patient's bilirubin levels have decreased significantly from 6 to under 1, and he has abstained from alcohol consumption. The patient was hospitalized in May and June, and he has been advised to continue lactulose until an endoscopy is performed. The patient reports chronic back pain, which has been persistent and is something he has lived with. He has requested a referral for physical therapy to improve his balance and overall condition. The patient has a sebaceous cyst on his leg, which has been present for about a week and is sore. The cyst appears to be draining, and there is redness around it, indicating inflammation. The patient has been prescribed doxycycline to address the infection and inflammation. Medical History: - History of liver lesion - History of elevated bilirubin levels - Chronic back pain Surgical History: - Removal of pilonidal cyst Patient was informed and verbally consented to the use of an ambient scribe for clinic note documentation during this visit. [facility] Medical History (Updated 09/06/25 @ 17:34 by STEVE Contreras) Alcohol use disorder Anemia of chronic disease Ankle pain, right Anxiety Back pain Balance problem Cirrhosis of transplanted liver Hypertension Insomnia Sebaceous cyst Surgical History H/O colonoscopy (~09/06/22) H/O inguinal hernia repair History of ankle surgery History of excision of pilonidal cyst History of lumbar laminectomy Hx of tympanostomy tubes Family History (Updated 08/11/25 @ 13:40 by Tonia Coleman MA) Mother No problems noted. Father No problems noted. Social History Household Members: None Housing: Apartment Do you presently have visiting nurse or other home services: No Alcohol intake: current Alcohol intake frequency: 3 or more drinks per day Alcohol type: beer and other Patient Tobacco Use Status: Current everyday Tobacco user Tobacco use type: Cigarette Cigarette Packs Per Day: 0.25 Years Smoked: 25 e-Cigarette/Vaping Use: Currently Using (sometimes) Second Hand Smoke Exposure: No service: Yes Current occupational status: retired Cognitive needs: No Hearing needs: No Vision needs: No Questionnaire PHQ-9 Over the last 2 weeks, how often have you been bothered by any of the following problems? 1. Little interest or pleasure in doing things: not at all 2. Feeling down, depressed, or hopeless: nearly every day 3. Trouble falling or staying asleep, or sleeping too much: nearly every day (trouble staying asleep due some rx he's taking right now) 4. Feeling tired or having little energy: not at all 5. Poor appetite or overeating: not at all 6. Feeling bad about yourself - or that you are a failure or have let yourself or your family down: not at all 7. Trouble concentrating on things, such as reading the newspaper or watching television: not at all 8. Moving or speaking so slowly that other people could have noticed. Or the opposite - being so fidgety or restless that you have been moving around a lot more than usual: not at all 9. Thoughts that you would be better off or of hurting yourself in some way: not at all Total score: 6 Depression Screening Interpretation: Positive Depression Screening Follow-up: Follow-up Visit Requested Depression Screening Done: Yes Source: Developed by Drs. Josue Hernandez, Soraya Mullen, Tong Diallo and colleagues, with an educational roger from [employer]. Thrive Questionnaire Date Thrive assessed: 08/11/25 I am a: Patient Within the past 12 months, did the food you bought not last and you didn't have the money to get more?: Never true Within the past 12 months, did you worry whether your food would run out before you got money to buy more?: Never true Do you have trouble paying for medicines?: No Do you have trouble getting transportation to medical appointments?: No Do you have trouble paying your heating and electricity bill?: No Do you have trouble taking care of your child, family member or friend?: No Do you have trouble with day-to-day activities such as bathing, preparing meals, shopping, managing finances, etc.?: No Are you currently unemployed and looking for a job?: No Are you interested in more education?: No THRIVE Score: 0 AUDIT C Alcohol Use Questionnaire (AUDIT-C) 1. How often do you have a drink containing alcohol?: Never 3. How often do you have six or more drinks on one occasion?: Never Total Score: 0 LUCHO-7 AMB Questionnaire LUCHO-7 Date LUCHO - 7 assessed: 08/11/25 Feeling nervous, anxious, or on edge: 0 = Not at all Not being able to stop or control worryin = Not at all Worrying too much about different things: 0 = Not at all Trouble relaxin = Not at all Being so restless that it is hard to sit still: 0 = Not at all Becoming easily annoyed or irritable: 0 = Not at all Feeling afraid as if something awful might happen: 0 = Not at all Total LUCHO-7 score (0-4 normal; 5-9 mild; 10-14 moderate; 15-21 severe): 0 Source: Developed by Drs. Josue Hernandez, Soraya Mullen, Tong Diallo and colleagues, with an educational roger from [employer]. Review of Systems Const Details: - Gastrointestinal: Reports liver lesion, denies alcohol consumption - Musculoskeletal: Reports chronic back pain - Integumentary: Reports sebaceous cyst on leg Physical exam (Primary Care) Vital Signs: Last Vital Signs Temp 98.7 F 08/11/25 10:47 Pulse 77 08/11/25 10:47 BP 120/70 08/11/25 10:47 Pulse Ox 99 08/11/25 10:47 Oxygen Delivery Method Room Air 08/11/25 10:47 BMI result Body Mass Index 28.0 GENERAL Well developed, Well nourished, in no apparent distress HEENT Head-Normocephalic Eyes- PERRLA, EOMI, Jaundiced, lids WNL Ears- Canals clear, TMs WNL Mouth/Throat-No lesions, no erythema, no exudate Neck- Supple, No lymphadenopathy, thyroid WNL RESPIRATORY Normal I:E, Clear to auscultation CARDIOVASCULAR Regular, rate and rhythm, No murmurs or rubs GASTROINTESTINAL Soft, tender in RUQ, normal bowel sounds, Hepatomegaly SKIN Redness around sebaceous cyst on leg, indicating inflammation NEUROLOGICAL Gait normal PSYCHIATRIC Oriented to person, place and time Mood and affect WNL Appearance WNL Speech WNL Thought processes WNL Tobacco/Smoking Status: Tobacco use Status Tobacco use date assessed 08/11/25 08/11/25 10:48 Patient Tobacco Use Status Current everyday Tobacco 08/11/25 10:48 Tobacco use type Cigarette 08/11/25 10:48 e-Cigarette/Vaping Use Currently Using 08/11/25 10:48 PHQ-9: PHQ-9 Score PHQ-9: Total score 6 08/11/25 13:56 Depression Screening Interpretation: Positive Depression Screening Follow-up: Follow-up Visit Requested Thrive Assessment: Date of Thrive Assessment Date Thrive assessed 08/11/25 08/11/25 10:48 Results Reviewed Results Reviewed: - Labs: Bilirubin levels decreased from 6 to under 1 Coding Level of Care Code Established Pt Tele Est Pt Level 4 (12754) Patient Type Established Diagnoses Liver lesion K76.9 Chronic bilateral low back pain with bilateral sciatica M54.42; M54.41; G89.29 Back pain laterality: bilateral Sciatica presence: with sciatica Sciatica laterality: bilateral sciatica Sebaceous cyst L72.3 Time Spent (min) 30 Comment Time spent on lab review, H&P, patient education, orders and follow up. Assessment & Plan Assessment & Plan (1) Liver lesion: Code(s): K76.9 - Liver disease, unspecified Category: Medical Plan: The patient is advised to continue abstaining from alcohol and to maintain current medication regimen, including lactulose, until the scheduled endoscopy can provide further insights into the liver lesion. Follow-up with gastroenterology is recommended to assess the lesion and adjust treatment as necessary. Patient to follow up in 3 months or sooner if symptoms persist or worsen. (2) Chronic low back pain: Code(s): M54.50 - Low back pain, unspecified; G89.29 - Other chronic pain Category: Medical Qualifiers: Back pain laterality: bilateral Sciatica presence: with sciatica Sciatica laterality: bilateral sciatica Qualified Code(s): M54.42 - Lumbago with sciatica, left side; M54.41 - Lumbago with sciatica, right side; G89.29 - Other chronic pain Plan: A referral for physical therapy is provided to address chronic back pain and improve the patient's balance and functional status. (3) Sebaceous cyst: Code(s): L72.3 - Sebaceous cyst Category: Medical Plan: The patient is prescribed doxycycline to manage the infection and inflammation associated with the sebaceous cyst. Application of heat is recommended to aid in the resolution of the cyst. Patient to follow up as needed if symptoms persist or worsen. Plan I discussed with the patient the importance of continuing abstinence from alcohol to aid liver recovery and the role of lactulose in managing ammonia levels until further evaluation through endoscopy. We also talked about the backlog in gastroenterology procedures and the potential for earlier appointments through cancellations. For the sebaceous cyst, I explained the dual role of doxycycline in treating infection and inflammation and advised on the application of heat to facilitate healing. A referral for physical therapy was agreed upon to address chronic back pain and improve balance. Orders: Orders PT Evaluation and Treatment 08/11/25 M54.42 - Lumbago with sciatica, left side, M54.41 - Lumbago with sciatica, right side, G89.29 - Other chronic pain, R26.89 - Other abnormalities of gait and mobility Medications: New doxycycline monohydrate 100 mg PO BID 14 caps 0RF for cyst Patient Instructions: - Continue abstaining from alcohol to support liver health. - Take prescribed doxycycline as directed for the sebaceous cyst. - Apply heat to the sebaceous cyst to aid in healing. - Follow up with gastroenterology for endoscopy and check for cancellations to potentially expedite the appointment. - Attend physical therapy sessions to improve back pain and balance.
[2025-08-11 10:47] VITALS: BP 120/70; PULSE 77; TEMP 37.1; O2SAT 99; BMI 28.0
--- OUTSIDE RECORDS SUMMARY | 2025-08-11 16:52 | XMS_ITS | Patient Health Record ---
Author Organization [facility] Address [address] [place] [address] Care Team Providers Care Television News Photographer Name Role Phone Yash Tyson MD Primary Care Provider Un available Josue Phan Unavailable [phone] Allergies No Known Allergies Results Component Value Reference Range Notes Prothrombin Time INR Reviewed date:05/26/2025 10:54:26 AM Interpretation: Performing Lab:[facility], [address] [place] [phone] Notes/Report: Reason for Daily Order Other Prothrombin [...] date:05/27/2025 07:51:03 AM Interpretation: Performing Lab: Notes/Report: [address] [address] Magnetic Resonance Report Signed Patient: Yash Moscoso MR#: [id number] : 1970 Acct:[id number] Age/Sex: 54 / M ADM Date: 05/21/25 Loc: HO.S3 384-[address]: Len Parnell MD Ordering Physician: Adalberto Fofana MD Date of Service: 05/26/25 Procedure(s): MR abdomen wo/w con Accession Number(s): [id number] cc: Adalberto Fofana MD; Isabel Singleton MD [...] in OV> 05/26/251827 DD/ 26 TD/TT: 05/26/251826 Detention Deputy: Prothrombin Time INR Reviewed date:05/27/2025 07:38:16 AM Interpretation: Performing Lab:[facility], [address] [place] [phone] Notes/Report: Reason for Daily Order Other Prothrombin [...] Panel Reviewed date:06/07/2025 04:27:06 PM Interpretation: Performing Lab:[facility], [address] [place] [phone] Notes/Report: Bilirubin Total 12.6 0.0-1.0 mg/dL Moderate Ic terus. Bilirubin Direct 6.9 0.0-0.5 mg/dL Moderate I cterus. Aspartate Amino Transferase 67 5-37 U/L Alanine Aminotransferase 22 0-40 U/L Total Protein 6.6 6.5-8.0 g/dL Albumin Level 2.0 3.5-5.0 g/dL Alkaline Phosphatase 82 39-117 U/L Basic Metabolic Panel Reviewed date:05/27/2025 10:44:48 PM Interpretation: Performing Lab:[facility], [address] [place] [phone] Notes/Report: Sodium 135 135-145 mmol/L Potassium 3.8 [...] Antigen Reviewed date:06/07/2025 04:21:44 PM Interpretation: Performing Lab:[facility], [address] [place] [phone] Notes/Report: Carcinoembryonic Antigen 18.80 CEA Reference Range: [...] INR Reviewed date:05/28/2025 03:28:09 PM Interpretation: Performing Lab:[facility], [address] [place] [phone] Notes/Report: Reason for Daily Order Other Prothrombin [...] valves: 2.5 - 3.5 Reason For Referral Referring Provider First Name Yash Referring Provider Last Name Marbella Referring Provider Speciality Internal M edicine Referred Organization [facility] Referred Provider Josue Phan Referred Address [address] [place] [id number], Referred Provider Specialty Gastroentero logy Referral Priority Routine Medications Medication SIG (Take, Route, Frequency, Duration) Notes Start Date End Date Status LORazepam 1 MG 1 tablet at bedtime as needed Orally Once a day Active Hydrocodone Bitartrate 10 MG as directed Orally as needed Active Lisinopril 10 MG 1 tablet Orally Once a day; Duration: 30 day(s) Active Immunizations Vaccine Route Administration [...] Status Risk Notes Problem Colon cancer screening (766819294) Colon cancer screening (Z12.11) Active confirmed Problem Alcoholic cirrhosis (931468672) 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) Active confirmed Problem Preprocedural examination (173157914363824) Preprocedural examination (Z01.818) Active confirmed Problem Cirrhotic (059073336) Cirrhosis (K74.60) Active confirmed Plan Of Treatment Pending Test Test Name Order Date Pathology 09/05/2022 Future Test Test Name Order Date COLONOSCOPY 07/18/2022 Next Appt Details Provider Name:Josue Phan , 11/09/2025 01:00:00 PM, [address] [place] [address], [address], [place], [address], Insurance Providers Payer Name Payer Address Payer Phone Subscriber Number Group Number Insured Name Patient Relationship to Insured Coverage Start Date Coverage End Date [facility] [employer] [address] [place] [address] [id number] YASH MOSCOSO Self - patient is the insured Medical (General) History Medical History History ICD Code HTN Denies [place],DM,CVA,Lung disease,renal dise ase Back pain and right ankle pain Surgical History Surgery Date(Month/Year) Back surgery 2009 Pilonidal cysts x 2 Right ankle surgery
--- OUTSIDE RECORDS SUMMARY | 2025-08-11 16:52 | XMS_ITS | Clinical Summary ---
Author Organization [facility] it Address [address] [place] [address] Care Team Providers Care Finance Executive Name Role Phone Unavailable Primary Care Provider Unavailabl e Social History Tobacco Use Types Packs/Day Years Used Date Smoking Tobacco: Never Assessed Sex and Gender Information Value Date Recorded Sex Assigned at Not on file Legal Sex Male 8:30 PM EST Gender Identity Not on file Sexual Orientation Not on file Plan of Treatment Health Maintenance Due Date Last Done Comments Colorectal Cancer Screening: Colonoscopy 1970 DTaP,Tdap,and Td Vaccines (1 - Tdap) 1989 Hepatitis B Vaccines (1 of 3 - 19+ 3-dose series) 1989 Pneumococcal Vaccine: 50+ Ye ars (1 of 1 - PCV) 2020 Zoster Vaccines (1 of 2) 2020 Cholesterol Screening (Lipid Panel) 11/22/2023 HIV Screening 11/22/2023 Hepatitis C Screening 11/22/2023 Social Influencers of Health Screening 11/22/2023 Depression Screening 10/28/2024 COVID-19 Vaccine ( - 2023-2 5 season) 2025 Influenza Vaccine (#1) 2025 RSV Immunization Adult Patie nts (1 - 1-dose 75+ series) 2045 HIB Vaccines Aged Out No longer eligi [...]
== END 2025-08-11 14:12 | disposition home or self-care (01) ==
LOC: HO.HMCHD 13:11
PROVIDERS: PCP Physician Assistant Medical; Visit Provider Physician Assistant Medical
DX: K76.9 Liver disease, unspecified (principal); M54.42 Lumbago with sciatica, left side; M54.41 Lumbago with sciatica, right side; G89.29 Other chronic pain; L72.3 Sebaceous cyst